=== PATIENT | male | born 1955 | race Caucasian/White ===

== ENCOUNTER 2017-10-14 11:32 | Outpatient (CLI) | payer OTHER | END 2017-10-14 11:33 | disposition home or self-care (01) | LOC: BICRAD 11:32 | PROVIDERS: ATTEND Family Medicine | DX: M25.512 Pain in left shoulder (principal); M21.922 Unspecified acquired deformity of left upper arm; S22.42XA Multiple fractures of ribs, left side, initial encounter for closed fracture; Z87.81 Personal history of (healed) traumatic fracture ==

== ENCOUNTER 2018-09-02 09:14 | Outpatient (CLI) | payer OTHER ==
--- NOTE | 2018-09-02 11:21 | ULT ---
ABDOMINAL AORTIC ULTRASOUND: HISTORY: Screening for abdominal aortic aneurysm. FINDINGS: No evidence for abdominal aortic aneurysm. The bifurcation region is unremarkable. The right and le ft iliac arteries show no evidence of an aneurysm. There are some atherosclerotic changes of the aor ta. IMPRESSION: Atherosclerotic changes of the aorta. No evidence for focal aneurysm. POS: [facility]
== END 2018-09-02 09:15 | disposition home or self-care (01) ==
LOC: ULT 09:14
PROVIDERS: ATTEND Family Medicine
DX: Z13.6 Encounter for screening for cardiovascular disorders (principal); I70.0 Atherosclerosis of aorta
CPT/HCPCS: 76706

== ENCOUNTER 2020-02-11 12:14 | Inpatient (IN) | payer OTHER ==
[2020-02-11] MEDS ORDERED: EPINEPHrine 1 MG/10 ML Abboject SYRINGE ONE (12:29)
[2020-02-11] MEDS ORDERED: Norepinephrine 8 MG/0.9% NS 250 ML ONE (12:32)
[2020-02-11 12:59] LABS: INR-International Normal Ratio 1.3; Prothrombin Time 16.2 sec (12.0-14.7)
[2020-02-11 13:00] LABS: PTT 32.7 sec (22.9-36.1)
[2020-02-11 13:14] LABS: ALT (SGPT) 17 U/L (8-55); AST (SGOT) 32 U/L (5-34); Albumin 2.6 g/dL (3.4-4.8); Alkaline Phosphatase 107 U/L (40-110); Anion Gap 23 mmol/L (10-20); BUN (Urea Nitrogen) 55 mg/dL (8.4-25.7); Bilirubin, Total 0.8 mg/dL (0.2-1.2); Calc. Creatinine Clearance 0 mL/min (70-130); Calcium 7.2 mg/dL (7.8-10.44); Carbon Dioxide 12 mmol/L (23-31); Chloride 96 mmol/L (98-107); Estimated GFR-MDRD 11; Globulin 2.8 g/dL (2.4-3.5); Glucose 104 mg/dL (80-115); Potassium 3.4 mmol/L (3.5-5.1); Protein, Total 5.4 g/dL (5.8-8.1); Sodium 128 mmol/L (136-145)
[2020-02-11 13:16] LABS: Band 50 % (5-11); Hemoglobin 12.7 g/dL (14.0-18.0); Large Platelets MODERATE; Lymphocytes 6 % (21-51); MDiff Complete? YES; Mean Corpuscular HGB CONC 35.6 g/dL (32.0-36.0); Mean Corpuscular Hemoglobin 31.9 pg (27.0-31.0); Mean Corpuscular Volume 89.6 fL (78.0-98.0); Mean Platelet Volume 12.6 fL (7.4-10.4); Monocytes 4 % (0-10); Neutrophil 39 % (42-75); Platelet Count 95 thou/uL (130-400); Platelet Morphology Comment Appears Decreased; Reactive Lymphocytes 1 % (0-10); Red Blood Cell (RBC) Count 3.97 mill/uL (4.70-6.10); Reflex for Review?? YES; White Blood Cell (WBC) Count 9.3 thou/uL (4.8-10.8)
[2020-02-11 13:39] LABS: CKMB 7.5 ng/mL (0-6.6)
[2020-02-11] MEDS ORDERED: Cefepime 2 GM VIAL ONE (13:44)
--- NOTE | 2020-02-11 14:02 | CT ---
CTA AORTOGRAM AND CT ANGIOGRAM OF CHEST, ABDOMEN AND PELVIS AND LOWER EXTREMITIES FOLLOWING CTA RUNOF F: 05/13/19 INDICATIONS: Chest pain. Lower extremity pain. Thoracic aorta shows atherosclerotic change. No evidence of dissection. No evidence of aneurysm in th e thoracic aorta. The abdominal aorta shows atherosclerotic change. No evidence of aneurysm or dissec tion. No significant stenosis at the origin of the celiac artery or superior mesenteric artery. No ev idence of significant right renal artery stenosis. There is atherosclerotic change at the origin of t he left renal artery and I cannot exclude significant stenosis at the origin of the left renal artery . Exam is overall limited due to poor contrast opacification of the aorta and peripheral arteries. Dens e calcification at the aortic bifurcation extending into both iliac arteries. There is occlusion of the right common iliac at the bifurcation. The left common iliac appears patent with evidence of significant stenosis. RIGHT LOWER EXTREMITY: There is occlusion of the right internal and external iliacs. There is a bifem graft in place with re constitution of the right femoral artery via this patent bifem graft. The right superficial femoral artery is patent with diffuse atherosclerotic change. There is signific ant stenosis in the distal thigh Ze's canal. The popliteal appears patent. Popliteal trifurcates below the knee. Diffuse calcifications seen in all three arteries below the kne e and lumen cannot be adequately assessed on these small arteries due to the dense calcification. The catheter angiogram will be necessary to assess the lumen in these peripheral arteries. LEFT LOWER EXTREMITY: Diffuse atherosclerotic change in the left internal and external iliacs. There is significant stenosi s at the left common femoral. There is occlusion of the left superficial femoral artery at its origin. Profunda appears patent with dense atherosclerotic calcification. The left popliteal reconstitutes at the joint space. Diffuse atherosclerotic calcification produces s ignificant stenosis in the left popliteal at the joint space. Popliteal trifurcates below the knee. Atherosclerotic calcification in all three vessels below the kn ee inhibit adequate assessment of luminal stenosis in these vessels. SOFT TISSUES: The lungs show no evidence of infiltrate or effusion. There are multiple rib deformities on the left with some old trauma. Liver, spleen and pancreas unremarkable. At least one calcified gallstone is identified. Kidneys unremarkable. Bowel loops unremarkable. Osseous structures show numerous compression deformit ies involving thoracic and lumbar vertebrae. Degenerative disc changes at multiple levels of the thor acic and lumbar spine with vacuum phenomenon at multiple levels. Bridging osteophytes at multiple lev els. IMPRESSION: 1. Atherosclerotic changes involving the thoracic and abdominal aorta as described above. 2. Evidence of significant stenosis at the origin of the left renal artery. 3. Occlusion of the right common iliac at the bifurcation with occlusion of the right common yury ac, internal iliac and external iliac. 4. Significant stenosis in the left common iliac artery. 5. Reconstitution of the right common femoral and superficial femoral via patent fem-fem graft. 6. Significant stenosis in the distal right superficial femoral artery and popliteal artery. Sig nificant stenosis in the distal right superficial femoral artery and popliteal artery. Lumen of vesse ls below the knee cannot be adequately assessed due to diffuse calcified plaque. 7. Occlusion of the left superficial femoral artery at its origin. 8. Reconstitution of left popliteal with significant stenosis at the joint space. Diffuse calcif ication in the vessels below the knee inhibit adequate luminal assessment. 9. Cholelithiasis incidentally noted. 10. Recommend cardiovascular consultation and consider catheter angiogram to more accurately ass ess luminal stenosis. POS: [facility]
--- NOTE | 2020-02-11 14:17 | RAD ---
EXAM: CHEST ONE VIEW HISTORY: Right leg pain. History of DVT. Weakness. Decreased blood pressure. COMPARISON: 02/02/2013 FINDINGS: A right internal jugular vein central venous catheter is noted in place with the tip overlying the ex pected location of the SVC. Cardiac silhouette is magnified by projection. The lungs are clear. Again noted are multiple left-sided rib deformities with what appear to be posttraumatic changes left proximal humerus and humeral head with left glenohumeral osteoarthropathy. These findings were seen on prior study in 2012. No other interval change. IMPRESSION: 1. No acute cardiopulmonary process. 2. Right-sided vascular catheter in place without pneumothorax or pleural effusion. Tip of the cathet er overlies expected location of the most proximal SVC. 3. Stable post traumatic changes left chest wall and left proximal humerus.
[2020-02-11 14:42] LABS: Bacteria/HPF 2+ HPF (None Seen); Bilirubin Negative (Negative); Blood, Urine 2+ (Negative); Clarity Extra Turbid (Clear); Glucose, Urine (Dipstick) 50 mg/dL (Negative); Ketone, Urine Negative (Negative); Leukocyte 25 Leu/uL (Negative); Nitrite Negative (Negative); Protein, Urine (Dipstick) 100 mg/dL (Neg-Trace); RBC/HPF 0-3 HPF (0-3); Squamous Epithelial 0-3 HPF (0-3); Transitional Epithelial 0-3 HPF (None Seen); Urobilinogen Normal mg/dL (Less than 2); WBC/HPF 21-50 HPF (0-3); pH, Urine 5.5 (5.0-9.0)
[2020-02-11] MEDS ORDERED: Vancomycin 1.5 GRAM/300 ML BAG 1.5 GM in Premix Bag 1 BAG IVPB SCH (15:00)
[2020-02-11] MEDS ORDERED: Iopamidol 370 76% 100 ML VIAL ONE (15:06)
[2020-02-11] MEDS ORDERED: Sodium Chloride 0.9% 500 ML IV SCH ×2 (15:15→21:15)
[2020-02-11] MEDS ORDERED: Potassium Chloride 20 MEQ in Premix Bag 1 BAG IVPB SCH (15:15)
[2020-02-11] MEDS ORDERED: Sodium Bicarbonate 150 MEQ in Dextrose 5% in Water 1,000 ML IV SCH (15:15)
[2020-02-11] MEDS ORDERED: Zolpidem Tartrate 5 MG TAB PO PRN (15:59)
[2020-02-11] MEDS ORDERED: Senokot S 8.6-50 MG TAB PO PRN (15:59)
[2020-02-11] MEDS ORDERED: Cepastat Lozenges 1 LOZ PO PRN (15:59)
[2020-02-11] MEDS ORDERED: Loperamide HCl 2 MG CAP PO PRN (15:59)
[2020-02-11] MEDS ORDERED: Acetaminophen 325 MG TAB PO PRN (15:59)
[2020-02-11] MEDS ORDERED: Bisacodyl 10 MG SUPP PR PRN (15:59)
[2020-02-11] MEDS ORDERED: Calcium Carbonate 500 MG ChewTAB PO PRN (15:59)
[2020-02-11] MEDS ORDERED: Ondansetron ODT 4 MG TAB PO PRN (15:59)
[2020-02-11] MEDS ORDERED: Loratadine 10 MG TAB PO PRN (15:59)
[2020-02-11] MEDS ORDERED: Sodium Chloride 0.65% Nasal 44 ML BOT EA NARE PRN (15:59)
[2020-02-11] MEDS ORDERED: Ondansetron PF 4 MG/2 ML Vial IVP PRN (15:59)
--- NOTE | 2020-02-11 16:41 | ULT ---
Venous duplex sonogram right lower extremity HISTORY: Right leg pain and edema. FINDINGS: The right common femoral vein and greater saphenous junction were evaluated along with the femoral, deep femoral, popliteal, and posterior tibial veins. There is good color and spectral Doppler flow, compression, and augmentation. IMPRESSION : Normal exam
--- NOTE | 2020-02-11 17:07 | HP ---
PRIMARY CARE PHYSICIAN: [facility]. REASON FOR ADMISSION: Acute kidney failure. HISTORY OF PRESENT ILLNESS: A 64-year-old male who has a history of atherosclerosis as well as peripheral vascular disease, hypertension, seizure disorder, history of prostate cancer, who came to emergency room with complaint of right lower extremity pain and weakness. At this point, the patient is uncomfortable from his right lower extremity leg pain. He is not able to provide focused history. The patient was brought to ER by paramedics. The patient's blood pressure was 72/46. The patient was given 2 L IV fluid and after that, the blood pressure improved to 110 range. The patient also had central line placed. The patient was also having difficulty urination and he was not able to void and he was complaining of groin pain. His urine was dark brown and turbid. In the emergency room, the patient had Castaneda catheter done, which drained cloudy urine. His urinalysis consistent with turbid urine with 2+ blood and rbc's only 0 to 3 with bacteria 2+. The patient already had blood culture and urine culture done and the patient received empiric antibiotic therapy. The patient was experiencing weakness in his right lower extremity for last few days and he was also having pain in his lower extremity. He does not have any loss of consciousness or chest pain. He does not have any cough or any other respiratory symptoms. In the emergency room, routine laboratory parameters showed thrombocytopenia and bandemia. Biochemistry showed hyponatremia, hypokalemia, metabolic acidosis, acute kidney failure, and lactic acidosis. Initially emergency room dissection was suspected and that is why aorta CT angiography was done, which showed atherosclerosis of the thoracic and abdominal aorta and significant stenosis of the left renal artery and occlusion of the right common iliac at the bifurcation with occlusion of right common iliac, internal iliac, and external iliac. Notably, this patient has previous history of right common femoral and superficial femoral femoral graft. The patient also has a history of left carotid endarterectomy. The patient also has stenosis of the superficial femoral artery and popliteal artery. In the emergency room on examination, dorsalis pedis pulse was not palpable and there was also occlusion of left superficial femoral artery at its origin. PAST MEDICAL HISTORY: Seizure disorder, hypertension, prostate cancer treated with surgery and radiation, history of alcoholism, history of tobacco abuse, peripheral vascular disease, carotid stenosis, and carotid endarterectomy. PAST SURGICAL HISTORY: Radical prostatectomy, lymph node dissection, incisional hernia repair with mesh, ORIF for left hip fracture, bilateral femoral endarterectomy with right femoral profundoplasty, bilateral vein angioplasty, femoral-femoral bypass with extensive debridement of necrotic wound in his right leg. PAST PSYCHIATRIC HISTORY: Reviewed and negative. MEDICATIONS: The patient did not bring any medication with him at this point, so unable to review his home medications. ALLERGIES: NO KNOWN DRUG ALLERGIES. FAMILY HISTORY: Nothing significant. REVIEW OF SYSTEMS: All review of systems reviewed with him and negative except as mentioned in HPI. EMERGENCY ROOM COURSE: The patient has received 2 L of IV fluid. A central line placed. The patient was given epinephrinex 3, cefepime 2 g, and vancomycin 1.5 g. PHYSICAL EXAMINATION: VITAL SIGNS: Blood pressure lowest 63/33, improved to 110/73; pulse 85; respiratory rate 23; saturation 99% on room air. Weight 90.2 kg. GENERAL: The patient is currently alert, awake, sick. No obvious acute distress. HEENT: Head; normocephalic, atraumatic. NECK: Supple. No JVD. No meningeal signs of irritation. LUNGS: Grossly clear to auscultation without any rhonchi or rales. CARDIAC: S1 and S2. Regular. No murmur. No gallop. No rub. ABDOMEN: Soft, bowel sounds present, nontender, nondistended. No organomegaly. No mass. SKIN: The patient has maculopapular rash on his right lower extremity. HEMATOLOGICAL SYSTEM: No lymphadenopathy. NEUROLOGIC: The patient is alert and awake. Cranial nerve intact. Motor, the patient does have weakness on right lower extremity, left lower extremity within normal limit. Both upper extremity within normal limits. Sensation normal. PSYCHIATRIC: Normal affect. MUSCULOSKELETAL: The patient has right lower extremity pain and weakness. Pulse sensation feeble and absent on the right side. SIGNIFICANT LABORATORY DATA: CT angiography showing atherosclerosis of thoracic and abdominal aorta. Significant stenosis of left renal artery. Occlusion of right common iliac artery at the bifurcation with occlusion of right common iliac, internal iliac and external iliac. Stenosis in left common iliac artery. Patent femoral-femoral graft. Stenosis in distal right superficial femoral artery and popliteal artery. Occlusion of left superficial femoral artery, cholelithiasis. Chest x-ray showing no acute cardiopulmonary process. No pneumothorax. LABORATORY STUDIES: CBC: WBC 9.3, hemoglobin 12.7, platelet 95, bandemia 50%. INR 1.3. BMP: Sodium 128, potassium 3.4, chloride 96, carbon dioxide 12, BUN 55, creatinine 5.19, glucose 104, calcium 7.2. Lactic acid 2.3. LFT: AST 32, ALT is 17, alkaline phosphatase 107, albumin 2.6. CK-MB 7.5, troponin 0.044. Urinalysis turbid; blood 2+, rbc's 0 to 3. EKG consistent with sinus tachycardia. ASSESSMENT AND PLAN: 1. Acute hypotension, suspecting from sepsis, recovered after IV fluids. The patient has bandemia and thrombocytopenia and this could be a part of sepsis. He has lactic acidosis and associated acute kidney failure. I am not certain whether this could be related with spinal shock from poor circulation on the spinal cord, but less likely. At this point, the patient blood pressure improved and he does not need any vasopressors, so we will admit him in IMCU and closely monitor his hemodynamics. The patient will continue to get IV fluid. 2. Sepsis with acute organ dysfunction, suspecting sepsis from UTI, the patient has bacteria in his urine. His chest x-ray is normal. He has bandemia and lactic acidosis and thrombocytopenia and hypotension, all can explain sepsis with acute organ dysfunction. It can be considered just septic shock but recovered with IV fluids. We will closely monitor in IMCU. The patient has been started on a broad-spectrum antibiotic coverage with cefepime and vancomycin. Pharmacy adjusted dose and renally adjusted dose. We will follow up on culture results. We will repeat labs tomorrow and close monitoring. If blood pressure drops, then we will consider vasopressor support and we will upgrade to ICU. 3. Acute kidney failure, most likely prerenal and sepsis related, hypotension-induced acute kidney failure is also possible. The patient also has vascular stenosis on the left side that may explain kidney failure but vascular etiology less likely contributing to this acute kidney failure. Nephrology has been consulted. I spoke with them. We will check urinalysis, urine sodium, urine creatinine, urine protein, and total CK to rule out rhabdomyolysis. The patient has associated abnormal electrolytes and metabolic acidosis that will be addressed with IV fluid. We will replace potassium and start bicarbonate drip. We will monitor renal function. We are expecting his renal function may get worse because of contrast given with CT angiography. We will closely monitor renal function. 4. Abnormal electrolytes, hyponatremia, hypokalemia, and hypochloremia, probably related with prerenal etiology. The patient has received 2 L of IV fluid and I will give him another 500 mL bolus and will start potassium supplementation. We will repeat labs. 5. Metabolic acidosis. The patient has lactic acidosis. Metabolic acidosis most likely from renal failure. Bicarbonate drip has been started. 6. Elevated troponin. We will check total CK to rule out rhabdomyolysis, but this could be from demand ischemia but rhabdomyolysis is also possible. We will do serial cardiac enzymes x3. 7. Hypoalbuminemia, likely related with acute illness. We will repeat CMP tomorrow. 8. Urinary tract infection. The patient's urinalysis may be supportive of rhabdomyolysis given blood 2+, rbc's only 0 to 3, the patient also has elevated WBC count and bacteria 2+. We will send urine culture and continue with empiric antibiotic therapy. 9. Thrombocytopenia. This is likely related with sepsis versus acute process. It could be related with his previous alcoholism, but this can be monitored and we will avoid heparin products for now. 10. Peripheral vascular disease. The patient has required carotid endarterectomy and femoral bypass grafting, which appears to be patent. We will consult Vascular Surgery for evaluation. We will continue the aspirin 81 mg p.o. daily. 11. Seizure disorder. We will continue Dilantin. 12. History of deep venous thrombosis on the lower extremity. We will also obtain ultrasound of right lower extremity to rule out deep venous thrombosis. 13. Deep venous thrombosis prophylaxis with SCD. 14. Gastrointestinal prophylaxis with Protonix 40 mg IV daily. 15. Code status: The patient is full code. DISPOSITION PLAN: Based on clinical course. PROGNOSIS: Guarded. Job ID: [id number] [facility]
[2020-02-11 17:35] LABS: Lactic Acid 2.8 mmol/L (0.5-2.2)
[2020-02-11] MEDS ORDERED: Norepinephrine 8 MG/0.9% NS 250 ML IVPB SCH (19:00)
--- NOTE | 2020-02-11 21:06 | PDOC.EVN ---
Event Note - Event Note Event Note: Nurse called, BP 60s/40s, stable HR, RR, sp02. No hx CHF. Will give 500ml bolus, check response to IVF. Will start levophed if patient unresponsive to IVfs. Discussed with Dr. Eli Aviles.
[2020-02-11] MEDS ORDERED: Sodium Chloride 0.9% 500 ML IV PRN (21:45)
[2020-02-11 23:06] VITALS: BMI 29.2
--- NOTE | 2020-02-11 23:43 | CON ---
DATE OF CONSULTATION: HISTORY OF PRESENT ILLNESS: This is a 64-year-old gentleman who presented to the emergency room. It is not clear to me why he actually came in except that his family thought he was progressing in the wrong direction and unable to get up and move around. The patient states about 2 days ago, he began having some discomfort in his left groin and suprapubic area, but once again, nothing very specific. When asked how long his right leg had been weak, he was unsure. He presented to the emergency room, was hypotensive with a white count of 9300, which in and of itself is not that impressive, although his normal white count is closer to 4000 to 5000. He also had 50 bands. His creatinine, which had previously been normal, was 5 and that was prior to obtaining a CT angiogram. PAST MEDICAL HISTORY: Significant that in the past he was an alcoholic and in 2012, when drunk, fell and broke his right hip. He underwent hip surgery and subsequent to that developed rather significant sores on his thigh and lower extremity. At that time, he was noted to have a right common iliac artery stenosis. Due to his poor condition at that time, it was not felt that an aortobifemoral was appropriate, although would have been a best option given better circumstances. He underwent a femoral-femoral bypass at that time with bilateral femoral endarterectomies. His wounds surprisingly healed up, he stopped drinking and smoking and did well for several years. In 2014, he underwent a left carotid endarterectomy for critical carotid disease. He has been followed since that time, although has not been seen in about 2 years, having not shown up for his previous appointment 1 year ago. He has known peripheral vascular disease subsequently with no palpable pulses in his feet, although he did have Doppler signals in his peroneal arteries. He had superficial femoral artery and tibial disease bilaterally and this was known. PAST MEDICAL HISTORY: Includes hypertension, recurrent hyponatremia, and ventricular ectopy, followed by Dr. Pena intermittently. PAST SURGICAL HISTORY: Includes radical prostatectomy with bilateral pelvic lymph node dissections and then subsequent incisional hernia repair with mesh. He had the hip fracture, bilateral femoral endarterectomy, and fem-fem bypass in 2013 and left CEA in 2014. SOCIAL HISTORY: He continues to vape at this time. MEDICATIONS: When last seen included; 1. Lisinopril. 2. Metoprolol. 3. VESIcare. 4. Simvastatin. 5. Aspirin. I am uncertain as to his medications at this time. PHYSICAL EXAMINATION: GENERAL: On examination, he is alert, cooperative gentleman, overweight, no distress and can answer questions appropriately, although he is uncertain as to his home medications. NECK EXAMINATION: Healed scar and no carotid bruits. CARDIAC: Regular rate and rhythm with no murmurs. LUNGS: Clear to auscultation. ABDOMEN: Obese, nontender. EXTREMITIES: He has palpable femoral pulses bilaterally with a left bruit. He has a reasonably good Doppler signal in his right peroneal artery and is monophasic at best in his left peroneal with no DP or PT signals. His right foot is warmer than his left and his left foot is paler as well. He is unable to lift his right leg up off the bed, but is able to lift his left leg without difficulty. Additional past medical history of seizure disorder since childhood and neuropathy in his feet, for which he has been on Lyrica in the past. ASSESSMENT AND PLAN: At this time, the patient obviously appears to have had an episode of sepsis with acute renal failure. He does have baseline peripheral vascular disease, but I do not think it has progressed significantly and seems to be worse on the left leg than the right leg. Depending on his recovery process, he probably will need some sort of intervention and possibly a profunda endarterectomy on the left and possibly stenting of his left iliac intraoperatively, but these are issues that would be addressed later. Based on his CT scan, I do not think his femoral-femoral graft is infected and certainly would be unusual to develop sepsis at this stage and more likely an infection of his fem-fem graft at this late stage would be a more indolent process. We will follow along with you. Job ID: [id number]
[2020-02-12 01:43] LABS: Bacteria/HPF None Seen HPF (None Seen); Bilirubin Negative (Negative); Blood, Urine 3+ (Negative); Clarity Clear (Clear); Glucose, Urine (Dipstick) Normal (Negative); Ketone, Urine Negative (Negative); Leukocyte Negative Leu/uL (Negative); Nitrite Negative (Negative); Protein, Urine (Dipstick) 50 mg/dL (Neg-Trace); Specific Gravity, Urine 1.022 (1.002-1.036); Squamous Epithelial 0-3 HPF (0-3); Urobilinogen Normal mg/dL (Less than 2); WBC/HPF 21-50 HPF (0-3); pH, Urine 5.5 (5.0-9.0)
[2020-02-12 01:57] LABS: Creatinine, Urine 66.59 mg/dL (63-166)
[2020-02-12] MEDS ORDERED: Norepinephrine 8 MG/0.9% NS 250 ML ONE (01:57)
[2020-02-12] MEDS ORDERED: Norepinephrine 8 MG/0.9% NS 250 ML IVPB SCH (03:15)
[2020-02-12 04:51] LABS: Albumin 2.3 g/dL (3.4-4.8); Anion Gap 20 mmol/L (10-20); BUN (Urea Nitrogen) 56 mg/dL (8.4-25.7); BUN/Creatinine Ratio 13.05; Calc. Creatinine Clearance 22 mL/min (70-130); Calcium 6.3 mg/dL (7.8-10.44); Carbon Dioxide 12 mmol/L (23-31); Chloride 102 mmol/L (98-107); Cholesterol 86 mg/dl (< 200 Desired); Estimated GFR-MDRD 14; Glucose 89 mg/dL (80-115); HDL Cholesterol Less than 8 mg/dL (>60 Neg Risk); Phosphorus 3.3 mg/dL (2.3-4.7); Sodium 131 mmol/L (136-145); Triglycerides 212 mg/dL (Less than 150)
[2020-02-12 05:14] LABS: Band 35 % (5-11); Hemoglobin 11.5 g/dL (14.0-18.0); Lymphocytes 11 % (21-51); MDiff Complete? YES; Mean Corpuscular HGB CONC 34.3 g/dL (32.0-36.0); Mean Corpuscular Hemoglobin 31.2 pg (27.0-31.0); Mean Platelet Volume 11.4 fL (7.4-10.4); Metamyelocyte 3 % (0-0); Monocytes 10 % (0-10); Myelocyte 2 % (0-0); Neutrophil 39 % (42-75); Platelet Count 110 thou/uL (130-400); Platelet Morphology Comment Appears Decreased; RBC Distribution Width 13.4 % (11.5-14.5); Red Blood Cell (RBC) Count 3.69 mill/uL (4.70-6.10); White Blood Cell (WBC) Count 7.3 thou/uL (4.8-10.8)
--- NOTE | 2020-02-12 08:15 | ULT ---
CLINICAL HISTORY: Acute kidney injury and left renal artery stenosis. STUDY: Renal ultrasound and renal artery ultrasound COMPARISON: CTA abdomen 02/11/2020 TECHNIQUE: Multiplanar grayscale and color Doppler images were obtained in a renal ultrasound. Spectr al analysis of the Doppler waveforms of the aorta and renal arteries were performed. FINDINGS: Right kidney: Echogenicity: Normal. Masses/cysts: None. Hydronephrosis: None. Calcifications: None. Length: 9.7 cm Left kidney: Echogenicity: Normal. Masses/cysts: None. Hydronephrosis: None. Calcifications: None. Length: 11.1 cm Limited visualization of the urinary bladder is unremarkable. Peak systolic velocity in the aorta: 113 cm/s Peak systolic velocity in the right renal artery: 95 cm/s. Right renal artery to aortic ratio: 0.9 Peak systolic velocity in the left renal artery: 140 cm/s. Left renal artery to aortic ratio: 1.2 IMPRESSION: 1. Unremarkable renal ultrasound 2. No evidence of clinically significant renal artery stenosis
--- NOTE | 2020-02-12 08:30 | CON ---
DATE OF CONSULTATION: CONSULTING PHYSICIAN: Aydee Bob MD REQUESTING PHYSICIAN: Dr. Leo. REASON FOR CONSULTATION: Acute on chronic kidney disease. IMPRESSION: 1. Acute on chronic kidney disease. This is likely hemodynamically mediated in the context of hypotension as well as cytokine mediated in the context of infection. 2. Metabolic acidosis. 3. Hypokalemia with hyponatremia. PLAN: 1. We will start this patient on bicarb based infusion. However, we will replete the potassium, as correction of the metabolic acidosis of this patient will exacerbate the hypokalemic state of this patient due to cellular shift of potassium. 2. We will evaluate the hyponatremia to rule out potential SIADH. 3. Renally dose all medications. 4. Check the other electrolytes including the phosphorus with renal function panel. 5. Parathyroid hormone evaluation. 6. If no significant improvement in the renal function, we will secure renal ultrasound to look at echogenicity and general condition of the kidney. 7. Further management to be dependent on the clinical course. At this point, no emergent indication for renal replacement therapy. HISTORY OF PRESENT ILLNESS: History is that of 64-year-old gentleman with significant peripheral vascular disease, seizure disorder, was brought into the hospital hypotensive with systolic blood pressure in the 70s, responded well to IV fluid bolus. The patient at this time of dictation has a systolic blood pressure in the 80s. The patient claimed not to be making much of any urine and catheterization revealed a turbid urine with evidence of bacterial load and white blood cells. The patient on clinical evaluation was noted with a creatinine above 5, metabolically acidotic with a bicarb of 12. As a result of these findings, decision has been taken to involve Renal in the management of this case. The patient denies any new medications. PAST MEDICAL HISTORY: Significant for seizure disorder, hypertension, prostate cancer, status post surgery and radiation, alcoholism, tobacco abuse in the past, peripheral vascular disease, aortic stenosis, and status post carotid endarterectomy. MEDICATIONS: Reviewed as documented on [employer]. ALLERGIES: NO KNOWN DRUG ALLERGIES. FAMILY HISTORY: No family history of kidney disease. SOCIAL HISTORY: Significant for patient using vapor at this point. REVIEW OF SYSTEMS: As documented in the body of the history. All other systems were reviewed and found not to be significantly related to the present illness. PHYSICAL EXAMINATION: On examination, the patient noted to be ill-looking with systolic blood pressure in the 80s. HEENT EXAMINATION: Unremarkable. CARDIOVASCULAR SYSTEM: First and second heart sounds were heard. RESPIRATORY SYSTEM: Clear to auscultation. DIGESTIVE SYSTEM: Revealed a benign abdomen with positive bowel sounds. EXTREMITIES: Showed a suspicious area in the right lower extremity of cellulitis. LYMPHATICS: No peripheral lymphadenopathy. LABORATORY INVESTIGATION: Showed a sodium of 128, potassium 3.8, bicarb of 12, creatinine 5.19, anion gap of 23, BUN of 55. CBC is pretty much unremarkable. Urine significant for 2+ bacteria, presence of blood, protein. In summary, a 64-year-old gentleman who presented here hypotensive, somewhat septic with elevated creatinine above 5, as well as severely metabolically acidotic. Thank you for this consultation. We will follow with you. Job ID: [id number]
[2020-02-12] MEDS ORDERED: Potassium Chloride 40 MEQ in Premix Bag 1 BAG IVPB SCH (08:45)
[2020-02-12] MEDS: Famotidine 20 MG TAB PO SCH (08:53)
[2020-02-12] MEDS: Heparin 5,000 UNITS/ML VIAL SC SCH ×2 (08:53→20:11)
[2020-02-12] MEDS ORDERED: FLU VACC QS2020-21(6MOS UP)/PF 60 MCG/0.5 ML SYRINGE IM ONE (09:00)
[2020-02-12] MEDS ORDERED: Cefepime 1 GM in Sodium Chloride 0.9% 100 ML IVPB SCH (09:00)
--- NOTE | 2020-02-12 09:39 | PRG ---
DATE OF SERVICE: 02/12/2020 The patient has remained afebrile. He is still requiring pressor support in the form of norepinephrine, although it has decreased to about 5 mcg compared to higher doses in the emergency room yesterday. Urine output has improved significantly from yesterday and his creatinine has trended in the right direction down to 4.29. His only complaint is a dry mouth today. On examination of his legs, he continues to have femoral pulses bilaterally and both feet have good capillary refill. Initial microbiology report is negative at 24 hours; however, his urinalysis was abnormal on admission and he appears to have a picture of sepsis with no other obvious source at this time. In regard to his vascular status, he probably does need surgical intervention at some point in the future to ensure maintenance of blood flow down his left common iliac artery and probably needs left profunda endarterectomies at least to complement his previous common femoral endarterectomy to maintain perfusion to the left leg, which appears to have decreased perfusion compared to when examined 2 years ago. Job ID: [id number]
[2020-02-12 11:01] LABS: SARS-CoV-2 MS2 Positive; SARS-CoV-2 N Gene Negative; SARS-CoV-2 S Gene Negative; SARS-CoV-2 by NAA Not Detected (NotDetected); SARS-CoV-2 orf1ab Negative
[2020-02-12] MEDS ORDERED: VANCOMYCIN IVPB PRN (11:11)
[2020-02-12] MEDS: HYDROcodone/Acetaminophen 5/325 mg Tablet PO PRN (11:40)
[2020-02-12] MEDS ORDERED: Albumin 25% 25 GM/100 ML BOT IVPB SCH (12:12)
[2020-02-12] MEDS ORDERED: Lactated Ringer's 1,000 ML IV SCH (12:15)
--- NOTE | 2020-02-12 12:15 | PDOC.NEPPN ---
- Subjective Encounter Date: 02/12/20 Encounter Time: 12:13 Subjective: seen in follow up for ARSALAN associated with acidosis in the context of bladder outlet obstruction, UTI and sepstic shock. Still having right leg pain. No nausea or vomiting. making great urine. - Objective Vital Signs & Weight: Vital Signs (12 hours) Temp Pulse Ox 02/12/20 11:00 98.7 F 02/12/20 07:25 98 02/12/20 07:00 98.8 F 02/12/20 04:00 98.9 F 02/12/20 02:00 98 Weight Weight 198 lb 4.8 oz Most Recent Monitor Data Heart Rate from ECG 98 NIBP 88/57 NIBP BP-Mean 67 Respiration from ECG 21 SpO2 99 I&O: 02/11/20 02/12/20 02/13/20 06:59 06:59 06:59 Intake Total 2392.4 650 Output Total 965 785 Balance 1427.4 -135 Result Diagrams: 02/12/20 03:41 02/12/20 03:41 Nephrology ROS - Medication Medications: Active Medications Generic Name Dose Route Start Last Admin Trade Name Freq PRN Reason Stop Dose Admin Hydrocodone Bitart/Acetaminophen 1 tab 02/11/20 15:59 02/12/20 11:40 Hydrocodone/Acetaminophen 5/325 Mg Tablet PO 1 tab Q4H PRN Administration Moderate Pain (4-6) Famotidine 20 mg 02/12/20 09:00 02/12/20 08:53 Famotidine 20 Mg Tab PO 20 mg DAILY NANCY Administration Heparin Sodium (Porcine) 5,000 units 02/12/20 09:00 02/12/20 08:53 Heparin 5,000 Units/Ml Vial SC 5,000 units BID NANCY Administration Cefepime HCl 1 gm/ Sodium 100 mls @ 200 mls/hr 02/12/20 09:00 02/12/20 08:53 Chloride IVPB 100 mls DAILY NANCY Administration Potassium Chloride 40 meq/ 1,170 mls @ 125 mls/hr 02/11/20 21:45 02/12/20 08:01 Sodium Bicarbonate 150 meq/ IV 1,170 mls Dextrose/Water .Q9H22M NANCY Administration Sodium Chloride 500 mls @ 999 mls/hr 02/11/20 21:45 02/11/20 22:36 Normal Saline 0.9% IV 500 mls .Q31M PRN Administration DIRECTED Potassium Chloride 40 meq/ 100 mls @ 25 mls/hr 02/12/20 08:45 02/12/20 08:54 Device IVPB 02/12/20 14:00 100 mls NOW NANCY Administration Sodium Chloride 10 ml 02/12/20 09:00 02/12/20 09:20 Flush - Normal Saline 10 Ml Syringe IVF 10 ml Q12HR NANCY Administration - Exam General Appearance: awake alert Eye: anicteric sclera ENT: normocephalic atraumatic, moist mucosa Neck: supple, symmetric, no JVD Respiratory: no wheezes, no rales, no ronchi Respiratory - other findings: fair air entry bilaterally with no distress. Cardiovascular: RRR Gastrointestinal: soft, non-tender, non-distended, normal bowel sounds Gastrointestinal - other findings: Castaneda catheter in place and draining urine Extremities - other findings: fullness of right leg noted Neurological: CN's grossly intact Nephrology Results - Labs Result Diagrams: 02/12/20 03:41 02/12/20 03:41 Lab results: WBC 7.3 thou/uL (4.8-10.8) 02/12/20 03:41 Hgb 11.5 g/dL (14.0-18.0) L 02/12/20 03:41 Hct 33.6 % (42.0-52.0) L 02/12/20 03:41 MCV 91.0 fL (78.0-98.0) 02/12/20 03:41 Plt Count 110 thou/uL (130-400) L 02/12/20 03:41 Band Neuts % (Manual) 35 % (5-11) H 02/12/20 03:41 Sodium 131 mmol/L (136-145) L 02/12/20 03:41 Potassium 3.0 mmol/L (3.5-5.1) L 02/12/20 03:41 Chloride 102 mmol/L (98-107) 02/12/20 03:41 Carbon Dioxide 12 mmol/L (23-31) L 02/12/20 03:41 BUN 56 mg/dL (8.4-25.7) H 02/12/20 03:41 Creatinine 4.29 mg/dL (0.7-1.3) H 02/12/20 03:41 Glucose 89 mg/dL (80-115) 02/12/20 03:41 Lactic Acid 2.8 mmol/L (0.5-2.2) H 02/11/20 16:57 Calcium 6.3 mg/dL (7.8-10.44) L 02/12/20 03:41 Total Bilirubin 0.8 mg/dL (0.2-1.2) 02/11/20 12:40 AST 32 U/L (5-34) 02/11/20 12:40 ALT 17 U/L (8-55) 02/11/20 12:40 Alkaline Phosphatase 107 U/L (40-110) 02/11/20 12:40 Creatine Kinase 320 U/L (30-200) H 02/11/20 12:40 CK-MB (CK-2) 7.5 ng/mL (0-6.6) H* 02/11/20 12:40 Troponin I 0.044 ng/mL (< 0.028) H 02/11/20 12:40 Serum Total Protein 5.4 g/dL (5.8-8.1) L 02/11/20 12:40 Albumin 2.3 g/dL (3.4-4.8) L 02/12/20 03:41 Urine Ketones Negative mg/dL (Negative) 02/12/20 01:14 Urine Blood 3+ (Negative) A 02/12/20 01:14 Urine Nitrite Negative (Negative) 02/12/20 01:14 Ur Leukocyte Esterase Negative Ubaldo/uL (Negative) 02/12/20 01:14 Urine RBC 4-6 HPF (0-3) A 02/12/20 01:14 Urine WBC 21-50 HPF (0-3) A 02/12/20 01:14 Ur Squamous Epith Cells 0-3 HPF (0-3) 02/12/20 01:14 Urine Bacteria None Seen HPF (None Seen) 02/12/20 01:14 Sodium 131 mmol/L (136-145) L 02/12/20 03:41 Potassium 3.0 mmol/L (3.5-5.1) L 02/12/20 03:41 Chloride 102 mmol/L (98-107) 02/12/20 03:41 Carbon Dioxide 12 mmol/L (23-31) L 02/12/20 03:41 Anion Gap 20 mmol/L (10-20) 02/12/20 03:41 BUN 56 mg/dL (8.4-25.7) H 02/12/20 03:41 Creatinine 4.29 mg/dL (0.7-1.3) H 02/12/20 03:41 Glucose 89 mg/dL (80-115) 02/12/20 03:41 Calcium 6.3 mg/dL (7.8-10.44) L 02/12/20 03:41 Phosphorus 3.3 mg/dL (2.3-4.7) 02/12/20 03:41 Albumin 2.3 g/dL (3.4-4.8) L 02/12/20 03:41 Nephrology AP PN - Plan ARSALAN: Due hemodynamic factors related septic shock/voume depletion with possible contribution from obstructive uropathy. Metabolic acidosis: persistent Hypokalemia Obstructive uropathy with possible post obstructive diuresis Sespstic shock. BP still low despite Pressors. Complicated UTI on treatment Plan Give LR bolus 1 liter as well 50 grams of albumin Continue sodium bicarbonate infusion. Replete serum potassium Get magnesium level with repeat BMP. Continue other treatments. Monitor I/O
--- NOTE | 2020-02-12 13:31 | PDOC.HOSPP ---
- Subjective Encounter Date: 02/12/20 Encounter Time: 09:45 Subjective: Patient seen and examined. No new complaints. No overnight events - Objective Vital Signs & Weight: Vital Signs (12 hours) Temp Pulse Ox 02/12/20 11:00 98.7 F 02/12/20 07:25 98 02/12/20 07:00 98.8 F 02/12/20 04:00 98.9 F 02/12/20 02:00 98 Weight Weight 198 lb 4.8 oz Most Recent Monitor Data Heart Rate from ECG 103 NIBP 90/55 NIBP BP-Mean 66 Respiration from ECG 16 SpO2 99 I&O: 02/11/20 02/12/20 02/13/20 06:59 06:59 06:59 Intake Total 2392.4 1950 Output Total 965 1015 Balance 1427.4 935 Result Diagrams: 02/12/20 03:41 02/12/20 03:41 Hospitalist ROS - Review of Systems Constitutional: reports: weakness, malaise. denies: fever, chills, sweats, other Respiratory: denies: cough, dry, shortness of breath, hemoptysis, SOB with excertion, pleuritic pain, sputum, wheezing, other Cardiovascular: denies: chest pain, palpitations, orthopnea, paroxysmal noc. dyspnea, edema, light headedness, other Gastrointestinal: denies: nausea, vomiting, abdominal pain, diarrhea, constipation, melena, hematochezia, other Genitourinary: denies: dysuria, frequency, incontinence, hematuria, retention, other Musculoskeletal: denies: neck pain, shoulder pain, arm pain, back pain, hand pain, leg pain, foot pain, other Neurological: reports: weakness - Medication Medications: Active Medications Generic Name Dose Route Start Last Admin Trade Name Freq PRN Reason Stop Dose Admin Hydrocodone Bitart/Acetaminophen 1 tab 02/11/20 15:59 02/12/20 11:40 Hydrocodone/Acetaminophen 5/325 Mg Tablet PO 1 tab Q4H PRN Administration Moderate Pain (4-6) Albumin Human 50 gm 02/12/20 12:12 02/12/20 12:53 Albumin 25% 25 Gm/100 Ml Bot IVPB 02/12/20 14:15 50 gm NOW NANCY Administration Famotidine 20 mg 02/12/20 09:00 02/12/20 08:53 Famotidine 20 Mg Tab PO 20 mg DAILY NANCY Administration Heparin Sodium (Porcine) 5,000 units 02/12/20 09:00 02/12/20 08:53 Heparin 5,000 Units/Ml Vial SC 5,000 units BID NANCY Administration Cefepime HCl 1 gm/ Sodium 100 mls @ 200 mls/hr 02/12/20 09:00 02/12/20 08:53 Chloride IVPB 100 mls DAILY NANCY Administration Potassium Chloride 40 meq/ 1,170 mls @ 125 mls/hr 02/11/20 21:45 02/12/20 08:01 Sodium Bicarbonate 150 meq/ IV 1,170 mls Dextrose/Water .Q9H22M NANCY Administration Sodium Chloride 500 mls @ 999 mls/hr 02/11/20 21:45 02/11/20 22:36 Normal Saline 0.9% IV 500 mls .Q31M PRN Administration DIRECTED Potassium Chloride 40 meq/ 100 mls @ 25 mls/hr 02/12/20 08:45 02/12/20 08:54 Device IVPB 02/12/20 14:00 100 mls NOW NANCY Administration Sodium Chloride 10 ml 02/12/20 09:00 02/12/20 09:20 Flush - Normal Saline 10 Ml Syringe IVF 10 ml Q12HR NANCY Administration - Exam General Appearance: NAD, awake alert Eye: PERRL, anicteric sclera ENT: normocephalic atraumatic, no oropharyngeal lesions Neck: supple, symmetric, no JVD Heart: RRR, no murmur, no gallops, no rubs Respiratory: no wheezes, no rales, no ronchi Gastrointestinal: soft, non-tender, non-distended, normal bowel sounds Extremities: no cyanosis, no clubbing Skin: normal turgor, no lesions Musculoskeletal: normal tone, normal strength Psychiatric: normal affect, normal behavior Hosp A/P (1) Septic shock due to Staphylococcus aureus Code(s): A41.01 - SEPSIS DUE TO METHICILLIN SUSCEPTIBLE STAPHYLOCOCCUS AUREUS; R65.21 - SEVERE SEPSIS WITH SEPTIC SHOCK Status: Acute (2) Acute kidney failure Status: Acute (3) Metabolic acidosis Code(s): E87.2 - ACIDOSIS Status: Acute (4) Abnormal blood electrolyte level Code(s): E87.8 - OTH DISORDERS OF ELECTROLYTE AND FLUID BALANCE, NEC Status: Acute (5) Thrombocytopenia Code(s): D69.6 - THROMBOCYTOPENIA, UNSPECIFIED Status: Acute (6) Type 2 myocardial infarction Code(s): I21.A1 - MYOCARDIAL INFARCTION TYPE 2 Status: Acute (7) Weakness of right lower extremity Code(s): R29.898 - [facility] SYMPTOMS AND SIGNS INVOLVING THE MUSCULOSKELETAL SYSTEM Status: Acute (8) PVD (peripheral vascular disease) Code(s): I73.9 - PERIPHERAL VASCULAR DISEASE, UNSPECIFIED Status: Chronic - Plan old records reviewed/req, gastelum catheter, continue antibiotics continue levophed continue iv cefepime and vanco consult ID weakness in his right leg still not explained?? will get MRI lumbar spine when hemodynamically stable
[2020-02-12 16:30] LABS: Anion Gap 17 mmol/L (10-20); BUN (Urea Nitrogen) 48 mg/dL (8.4-25.7); Calc. Creatinine Clearance 32 mL/min (70-130); Calcium 6.2 mg/dL (7.8-10.44); Carbon Dioxide 19 mmol/L (23-31); Chloride 102 mmol/L (98-107); Estimated GFR-MDRD 21; Glucose 104 mg/dL (80-115); Magnesium 1.3 mg/dL (1.6-2.6); Potassium 3.5 mmol/L (3.5-5.1); Sodium 134 mmol/L (136-145)
[2020-02-12] MEDS: Oxacillin 2 GM in Sodium Chloride 0.9% 50 ML IVPB SCH ×2 (16:40→22:32)
--- NOTE | 2020-02-12 21:59 | CON ---
DATE OF CONSULTATION: 02/12/2020 REASON FOR CONSULTATION: Bacteremia. HISTORY OF PRESENT ILLNESS: A 64-year-old who has a history of seizure disorder; prostate cancer, in remission after prostatectomy; peripheral vascular disease with prior fem-fem bypass by Dr. Hardy with a Cocolalla-Kvng graft, who developed progressively worsening pain, initially describes in the suprapubic area, right and left side and then it migrated to the right leg, also somewhat in the left side, but mostly in the right leg. He has a hard time in specifying the right leg site with the most pain. In the physical exam, it appears that the right knee seems to be the epicenter of the symptom. Eventually, it became so intense and he has felt so poorly that he decided to come to the hospital through the emergency room. On arrival, his pulse was 93 and blood pressure 89/51, O2 saturations were 94% on room air and temperature 98.4. Exam showed no evidence of pulses in the right lower extremity and faint pulses on the left side. Initial findings included white cell count 9.3, hemoglobin 12.7 with 50% bands, and INR 1.3. Sodium 128, creatinine 5.19, which is markedly higher than his baseline of 1.07. His liver profile was normal, albumin 2.6 and lactic acid was 2.3. Urinalysis had 21 to 50 wbc's. SARS-CoV PCR was not detected. The patient had an aorta with runoff CTA and it showed stenosis at the origin of the left renal artery with occlusion of the right common iliac, internal and external iliac, and stenosis of the left common iliac as well. There was evidence of reconstitution of the right common femoral via patent fem-fem graft. There was a significant stenosis of the distal SFA and popliteal artery. On the left side, there was occlusion of the left SFA. Profunda appeared patent. There was reconstitution at the left popliteal. There is not adequate assessment below the trifurcation on the left side. A chest x-ray on admission showed no infiltrates. There is a right-sided central line and the patient had a duplex ultrasound which did not demonstrate any evidence of DVT. Currently, Mr. Humphrey is in the unit receiving norepinephrine infusion to keep his blood pressure. He is awake, does not appear in distress. His is in the room with him. No headaches. No visual symptoms, sore throat, odynophagia, dysphagia. Dry oral cavity. No dyspnea or chest pain. No cough. He has quite intense low back pain which seems to be getting worse lately. No abdominal pain. The pain in the suprapubic area has resolved. He has marked tenderness and limitation with range of motion of the right lower extremity, which appears to be due to an inflammatory process centered around the right knee area. He is able to lift the left lower extremity with ease without any issues, but the right side has severe functional mobility impairment with marked tenderness on range of motion of the right knee. The right ankle seems to be okay. PAST MEDICAL HISTORY: Includes peripheral vascular disease with interventions noted above; prostate cancer, in remission after prostatectomy; seizure activity; has a history of a fall with chest tube placement in the past; hypertension. PAST SURGICAL HISTORY: Includes left hip ORIF after fracture, prostatectomy, and fem-fem bypass with a Cocolalla-Kvng graft by Dr. Hardy. SOCIAL HISTORY: Former smoker, although he states here that he is still smoking, so it is not clear. I think he has quit before he admitted this time. He used to drink, but quit as well. ALLERGIES: NEGATIVE. FAMILY HISTORY: Coronary artery disease, hypertension. CURRENT MEDICATIONS: He had been on; 1. Cefepime. 2. Vancomycin. 3. Norepinephrine. 4. Pain medication. 5. Electrolyte solution. PHYSICAL EXAMINATION: VITAL SIGNS: T-max 98.9, blood pressure 108/72, heart rate 104, respiratory rate 19, O2 saturation 100%. SKIN: Shows the right-sided neck central line. He has a Castaneda catheter in place. His output is at 1200. HEENT: Ocular movements conjugate. Constricted pupils. Oral cavity dry. Numerous teeth in place with marked decay and gum disease. NECK: There is no lymphadenopathy noted. Neck is supple. No jugular vein distention. LUNGS: Symmetric, clear breath sounds. HEART: S1 and S2. Regular rate. No S3 or S4. ABDOMEN: Soft, moderately distended, question of ascites. No bladder distention. No organomegaly. EXTREMITIES: He has marked limitation with range of motion of the right knee. There is possible right knee effusion. There is some tenderness on palpation of the thigh and calf muscles, but not much. The incision for the fem-fem bypass is not inflamed. His pulses are faintly palpable in dorsalis pedis, both sides. Cap refill is somewhat delayed. He is able to wiggle his toes and he moves his upper extremity without limitation. PSYCHIATRIC: He is awake, alert, and oriented. Speech appears to be normal. LABORATORY DATA: White cell count now is 7.3, hemoglobin 11.5, platelets 110 with 35% bands. INR 1.3. Creatinine is 4.29. Calcium 6.3. CK is 320, albumin 2.3. SARS-CoV PCR negative. Blood culture 2/2 with methicillin-sensitive Staph aureus. ASSESSMENT: Seizure activity history, chronic low back pain with worsening in the past few weeks, severe pain in the right knee, Staphylococcus aureus bacteremia with sepsis and septic shock requiring norepinephrine, acute renal failure associated with sepsis. DISCUSSION: Differential diagnosis includes lumbosacral spine infection, right knee septic arthritis, quite likely, endocarditis is not ruled out. Other sites of involvement are not apparent at this time. It is less likely that the urinary tract is the primary culprit here. He needs an echocardiogram, may need a [place] down the road and eventually will need an imaging study of the lumbosacral spine, preferably an MRI. In the right knee, he will need arthrocentesis. We will switch him to oxacillin with limitation of the infusion volume by pharmacy. Discontinue remainder antimicrobials and will need a protracted treatment. May need a washout of the right knee and consultation with Orthopedic Surgery. It less likely that the graft is infected, but not completely ruled out. Job ID: [id number]
[2020-02-12] MEDS ORDERED: Magnesium Sulfate 4 GM in Sodium Chloride 0.9% 250 ML 250 ML IVPB SCH (22:00)
[2020-02-13] MEDS: Oxacillin 2 GM in Sodium Chloride 0.9% 50 ML IVPB SCH ×6 (01:01→19:55)
[2020-02-13 03:46] LABS: Band 23 % (5-11); Dohle Bodies SLIGHT; Hemoglobin 10.7 g/dL (14.0-18.0); Lymphocytes 12 % (21-51); MDiff Complete? YES; Mean Corpuscular Hemoglobin 31.3 pg (27.0-31.0); Mean Corpuscular Volume 89.4 fL (78.0-98.0); Mean Platelet Volume 10.3 fL (7.4-10.4); Monocytes 6 % (0-10); Neutrophil 59 % (42-75); Platelet Count 111 thou/uL (130-400); Platelet Morphology Comment Appears Decreased; RBC Distribution Width 13.4 % (11.5-14.5); Red Blood Cell (RBC) Count 3.43 mill/uL (4.70-6.10); Toxic Granulation SLIGHT; White Blood Cell (WBC) Count 8.1 thou/uL (4.8-10.8)
[2020-02-13 03:58] LABS: Albumin 2.6 g/dL (3.4-4.8); Anion Gap 16 mmol/L (10-20); BUN (Urea Nitrogen) 43 mg/dL (8.4-25.7); BUN/Creatinine Ratio 19.63; Calc. Creatinine Clearance 43 mL/min (70-130); Calcium 6.5 mg/dL (7.8-10.44); Carbon Dioxide 20 mmol/L (23-31); Chloride 100 mmol/L (98-107); Estimated GFR-MDRD 30; Glucose 130 mg/dL (80-115); Phosphorus 1.8 mg/dL (2.3-4.7); Potassium 3.3 mmol/L (3.5-5.1); Sodium 133 mmol/L (136-145)
[2020-02-13] MEDS ORDERED: Potassium Phosphate 30 MMOL in Sodium Chloride 0.9% 500 ML IVPB SCH (08:00)
[2020-02-13] MEDS ORDERED: Lidocaine 1% (PF) 30 ML VIAL NERVE BLCK SCH (09:15)
[2020-02-13] MEDS: Calcium Carbonate 500 MG ChewTAB PO SCH ×2 (09:21→19:56)
[2020-02-13] MEDS: Heparin 5,000 UNITS/ML VIAL SC SCH ×2 (09:21→19:55)
[2020-02-13] MEDS: Famotidine 20 MG TAB PO SCH (09:25)
[2020-02-13] MEDS: HYDROcodone/Acetaminophen 5/325 mg Tablet PO PRN ×2 (10:54→17:00)
--- NOTE | 2020-02-13 11:00 | PDOC.HOSPP ---
- Subjective Encounter Date: 02/13/20 Encounter Time: 09:40 Subjective: Patient is alert awake, he is still requiring Levophed, his renal function is improving, - Objective Vital Signs & Weight: Vital Signs (12 hours) Pulse Ox 02/13/20 07:49 100 Weight Admit Weight 198 lb Weight 198 lb 4.8 oz Most Recent Monitor Data Heart Rate from ECG 96 NIBP 98/58 NIBP BP-Mean 71 Respiration from ECG 18 SpO2 91 I&O: 02/12/20 02/13/20 02/14/20 06:59 06:59 06:59 Intake Total 2392.4 5859 Output Total 965 2935 60 Balance 1427.4 2924 -60 Result Diagrams: 02/13/20 03:00 02/13/20 03:00 Radiology Reviewed by me: Yes (Echo showed normal EF) EKG Reviewed by me: Yes Hospitalist ROS - Review of Systems Constitutional: reports: weakness. denies: fever, chills, sweats, malaise, other Eyes: denies: pain, vision change, conjunctivae inflammation, eyelid inflammation, redness, other ENT: denies: ear pain, ear discharge, nose pain, nose discharge, nose congestion, mouth pain, mouth swelling, throat pain, throat swelling, other Respiratory: denies: cough, dry, shortness of breath, hemoptysis, SOB with excertion, pleuritic pain, sputum, wheezing, other Cardiovascular: denies: chest pain, palpitations, orthopnea, paroxysmal noc. dyspnea, edema, light headedness, other Gastrointestinal: denies: nausea, vomiting, abdominal pain, diarrhea, const ipation, melena, hematochezia, other Genitourinary: denies: dysuria, frequency, incontinence, hematuria, retention, other Musculoskeletal: denies: neck pain, shoulder pain, arm pain, back pain, hand pain, leg pain, foot pain, other Skin: denies: rash, lesions, brian, bruising, other Neurological: reports: weakness - Medication Medications: Active Medications Generic Name Dose Route Start Last Admin Trade Name Freq PRN Reason Stop Dose Admin Hydrocodone Bitart/Acetaminophen 1 tab 02/11/20 15:59 02/13/20 10:54 Hydrocodone/Acetaminophen 5/325 Mg Tablet PO 1 tab Q4H PRN Administration Moderate Pain (4-6) Calcium Carbonate 1,000 mg 10/24/20 09:00 02/13/20 09:21 Calcium Carbonate 500 Mg Chewtab PO 1,000 mg BID NANCY Administration Famotidine 20 mg 02/12/20 09:00 02/13/20 09:25 Famotidine 20 Mg Tab PO 20 mg DAILY NANCY Administration Heparin Sodium (Porcine) 5,000 units 02/12/20 09:00 02/13/20 09:21 Heparin 5,000 Units/Ml Vial SC 5,000 units BID NANCY Administration Potassium Chloride 40 meq/ 1,170 mls @ 125 mls/hr 02/11/20 21:45 02/13/20 02:07 Sodium Bicarbonate 150 meq/ IV 1,170 mls Dextrose/Water .Q9H22M NANCY Administration Sodium Chloride 500 mls @ 999 mls/hr 02/11/20 21:45 02/11/20 22:36 Normal Saline 0.9% IV 500 mls .Q31M PRN Administration DIRECTED Norepinephrine Bitartrate 250 mls @ 0 mls/hr 02/12/20 03:15 02/13/20 04:25 Levophed IVPB 250 mls INF NANCY Administration Protocol Titrate Oxacillin Sodium 2 gm/ Sodium 50 mls @ 100 mls/hr 02/12/20 17:00 02/13/20 09:29 Chloride IVPB 50 mls Q4HR NANCY Administration Potassium Phosphate 30 mmol/ 510 mls @ 83.3 mls/hr 02/13/20 08:00 02/13/20 09 :21 Sodium Chloride IVPB 02/13/20 15:00 510 mls NOW NANCY Administration Sodium Chloride 10 ml 02/12/20 09:00 02/13/20 09:24 Flush - Normal Saline 10 Ml Syringe IVF 10 ml Q12HR NANCY Administration - Exam General Appearance: NAD, awake alert Eye: PERRL, anicteric sclera ENT: normocephalic atraumatic, no oropharyngeal lesions Neck: symmetric, no JVD, no thyromegaly Heart: RRR, no murmur, no gallops, no rubs Respiratory: no wheezes, no rales, no ronchi Gastrointestinal: soft, non-tender, non-distended, normal bowel sounds Extremities: no cyanosis, no clubbing Skin: normal turgor, no lesions Neurological - other findings: Right lower extremity weakness noted Psychiatric: normal affect, normal behavior, A&O x 3 Hosp A/P (1) Septic shock due to Staphylococcus aureus Code(s): A41.01 - SEPSIS DUE TO METHICILLIN SUSCEPTIBLE STAPHYLOCOCCUS AUREUS; R65.21 - SEVERE SEPSIS WITH SEPTIC SHOCK Status: Acute (2) Acute kidney failure Status: Acute (3) Metabolic acidosis Code(s): E87.2 - ACIDOSIS Status: Acute (4) Abnormal blood electrolyte level Code(s): E87.8 - OTH DISORDERS OF ELECTROLYTE AND FLUID BALANCE, NEC Status: Acute (5) Thrombocytopenia Code(s): D69.6 - THROMBOCYTOPENIA, UNSPECIFIED Status: Acute (6) Type 2 myocardial infarction Code(s): I21.A1 - MYOCARDIAL INFARCTION TYPE 2 Status: Acute (7) Weakness of right lower extremity Code(s): R29.898 - OT SYMPTOMS AND SIGNS INVOLVING THE MUSCULOSKELETAL SYSTEM Status: Acute (8) PVD (peripheral vascular disease) Code(s): I73.9 - PERIPHERAL VASCULAR DISEASE, UNSPECIFIED Status: Chronic - Plan old records reviewed/req, gastelum catheter, continue antibiotics, DVT proph w/heparin Continue Levophed and wean off as tolerated Continue antibiotic as per ID recommendation Orthopedic will be consulted for suspected septic arthritis on right knee Once he is off Levophed then will consider doing MRI lumbar spine Patient has clinical improvement since he is admitted
--- NOTE | 2020-02-13 11:49 | PRG ---
DATE OF SERVICE: 02/13/2020 SUBJECTIVE: He feels a little better today. He had a right knee aspirate obtained today by Orthopedics. OBJECTIVE: VITAL SIGNS: His temperature is 99.0, pulse 96, blood pressure 98/58, and O2 saturation 91%. He is on Levophed at 3 mcg/minute. His total intake has been 5859 mL, output 2935. HEENT: Unremarkable. NECK: No adenopathy or JVD. CHEST: Clear anteriorly. CARDIAC: S1 and S2, regular. ABDOMEN: Soft. EXTREMITIES: He has right knee swelling. LABORATORY DATA: White blood cell count 8.1, hematocrit 30.7, and platelet count 111. Sodium 133, potassium 3.3, chloride 100, CO2 of 20, BUN 43, creatinine 2.1, and glucose 130. ASSESSMENT: 1. Methicillin-susceptible Staphylococcus aureus sepsis. 2. Metabolic acidosis. 3. Acute renal failure. 4. Peripheral vascular disease. PLAN: The patient will continue on oxacillin per Dr. Kramer. He will remain in the ICU until he is weaned off the Levophed drip. Appreciate the input of the multiple specialists involved in the case. Job ID: [id number]
--- NOTE | 2020-02-13 12:29 | OP ---
DATE OF PROCEDURE: 02/13/2020 TITLE OF PROCEDURE: Arthrocentesis, right knee. BRIEF DESCRIPTION: After obtained consent, the patient underwent chlorhexidine prep to the right knee. Local anesthesia was performed with 1% lidocaine in the amount of 10 mL to the right knee. Once anesthesia was achieved, an 18-gauge needle with a 60 mL syringe was used to withdraw joint aspirate fluid. This appeared cloudy in nature, amount of 45 cc. 4x4s and Morgan applied as a pressure dressing following the procedure. The patient tolerated the procedure well. No complications were incurred. Specimen has been sent for cell count, Gram stain, culture and crystal analysis. Job ID: [id number] MTDD
--- NOTE | 2020-02-13 12:44 | CON ---
DATE OF CONSULTATION: 02/13/2020 REQUESTING PHYSICIAN: Dr. Rick Kramer. CONSULTING PHYSICIAN: Dr. Ernesto Sanabria. REASON FOR CONSULTATION: Evaluate for right septic knee. HISTORY OF PRESENT ILLNESS: This is a 64-year-old male, who was seen this morning in morning rounds. We have been asked to see the patient for evaluation of right septic knee and arthrocentesis of the right knee. The patient has been admitted for MSSA bacteremia. He has past medical history significant for peripheral vascular disease, prostate cancer, and seizure disorder. Currently at bedside, the patient reports knee pain worsening over the last several days. He is currently being seen in the ICU. He reports knee pain is worse with any sort of movement. It is not completely relieved with rest. He denies any other extremity pain at this time. PAST MEDICAL HISTORY: Peripheral vascular disease, prostate cancer, seizure activity, and hypertension. PAST SURGICAL HISTORY: Left hip ORIF for fracture, prostatectomy, femoral-femoral bypass. SOCIAL HISTORY: Smoker, history unclear. Also some remote history of drinking. ALLERGIES: NO KNOWN DRUG ALLERGIES. PHYSICAL EXAMINATION: VITAL SIGNS: Current vital signs including blood pressure 98/58, pulse of 96, respiratory rate of 18, temperature 99.0. GENERAL: The patient is awake and alert. He is pleasant and cooperative with exam at this time. His mother is present in the exam room with him today. HEENT: Head is normocephalic and atraumatic. NECK: Supple. Trachea is midline. Breathing is nonlabored. EXTREMITIES: Evaluation of the right lower extremity shows swelling of the knee. There is swelling of the calf and ankle and foot as well. The patient is able to move his toes and his ankle. Movement of the knee causes extreme pain. He is unable to do this actively. Evaluation of the left lower extremity shows active range of motion in the knee, ankle, foot. LABORATORY DATA: Reviewed today, include a CBC, which shows a white blood cell count of 8.1, hemoglobin of 10.7, hematocrit 30.7, and platelet count of 111. He is COVID negative. ASSESSMENT: Concern for right knee septic arthritis in a patient with MSSA bacteremia. PLAN: At this time, we will go ahead and perform a bedside arthrocentesis. Risks, benefits, and alternatives discussed with the patient. He verbalized understanding and is amenable to this. We will get consent obtained and go forward with this procedure. Please see separate procedure note for arthrocentesis. Job ID: [id number]
--- NOTE | 2020-02-13 13:41 | CON ---
DATE OF CONSULTATION: 02/12/2020 REASON FOR CONSULTATION: Sepsis. HISTORY OF PRESENT ILLNESS: The patient is a 64-year-old who presented to the emergency room complaining of right leg pain and weakness. He tells me his right leg has been hurting for 10 years and the pain has been present for about that long. He was seen by Dr. Hardy and his leg was not felt to be a problem. The patient has a significantly dirty urinalysis. He had bandemia. He also had hypotension which necessitated starting Levophed. PAST MEDICAL HISTORY: 1. Seizure disorder. 2. Hypertension. 3. Prostate cancer. 4. Alcoholism. 5. Tobacco abuse. 6. Peripheral vascular disease. 7. Carotid artery stenosis. PAST SURGICAL HISTORY: 1. Carotid endarterectomy. 2. Right fem pop. 3. Radical prostatectomy. 4. Left node dissection. 5. ORIF, left hip. 6. Carotid endarterectomy. PAST PSYCHIATRIC HISTORY: Negative. ALLERGIES: NONE. FAMILY MEDICAL HISTORY: Unremarkable. REVIEW OF SYSTEMS: Twelve-point review of systems is otherwise negative. MEDICATIONS: Prior to admission; 1. Aspirin. 2. Tylenol No. 3. 3. VESIcare. 4. Zocor. 5. Lisinopril. 6. Metoprolol. 7. Meloxicam. 8. Pregabalin. 9. Amlodipine. 10. Phenytoin. 11. Gabapentin. PHYSICAL EXAMINATION: VITAL SIGNS: Temperature 98.8, pulse 97, blood pressure 94/64. He is currently on norepinephrine drip at 5 mcg/minute. GENERAL: He is awake, alert, in no profound distress. HEENT: Pupils reactive. Sclerae anicteric. Oropharynx, poor dentition. NECK: No adenopathy or JVD. LUNGS: Clear to auscultation without wheezing or rhonchi. CARDIOVASCULAR: S1 and S2, regular without audible murmur. ABDOMEN: Soft and nontender to palpation. EXTREMITIES: No clubbing or cyanosis. He has palpable peripheral pulses on both left and right leg. He has warm skin in both legs. He has contracture in the right popliteal area. IMAGING: His chest x-ray shows a right IJ central line. Otherwise, the x-ray is clear. LABORATORY DATA: White blood cell count 7.3, hematocrit 33.6, and platelet count 110. INR 1.3. Sodium 131, potassium 3, chloride 102, CO2 is 12, BUN 56, creatinine 4.5, glucose 89, PTH 381. In looking back at previous labs, it looks like his baseline creatinine is about 1.0. ASSESSMENT: 1. Urosepsis. 2. Acute renal failure - the patient is likely on the dry side. 3. Hypokalemia. PLAN: 1. Nephrology started him on a bicarbonate drip for his metabolic acidosis. 2. Continue cefepime. 3. Wean off Levophed as tolerated. 4. Replace potassium. Job ID: [id number]
[2020-02-13 14:06] LABS: Synovial Fluid, Glucose Less than 7 mg/dL (Not Available); Synovial Fluid, Protein 1.9 g/dL (Not Available); Synovial Fluid, Uric Acid 5.3 mg/dL (Not Available)
[2020-02-13 14:30] LABS: RBC Count-Automated (BF) 35366 /cu.mm
[2020-02-13 14:38] LABS: BF Color Pink; Body Fluid Source Synovial Fluid; Clarity Cloudy/Turbid (Clear); Tube # EDTA; WBC/Nucleated-Auto (BF) Greater than 51000 uL
[2020-02-13 14:40] LABS: BF Segmented Neutrophils 71 %; Cell Count Non Hematic 24 %; Lymphocytes 5 %
--- NOTE | 2020-02-13 19:40 | PRG ---
DATE OF SERVICE: 02/13/2020 SUBJECTIVE: The patient was seen and examined today, seems to be feeling much better today. Still with labile hemodynamics and dependant on pressors, noted with the following vital signs. OBJECTIVE: VITAL SIGNS: Blood pressure , heart rate of 101, respiratory rate of 21, and O2 sat 97% with a blood pressure of . HEENT: Unremarkable. CARDIOVASCULAR SYSTEM: First and second heard sounds were heard. RESPIRATORY SYSTEM: Clear to auscultation. DIGESTIVE SYSTEM: Revealed a benign abdomen. Positive bowel sounds. EXTREMITIES: No peripheral edema. SKIN: No new gross rash. LYMPHATICS: No peripheral lymphadenopathy. LABORATORY INVESTIGATION: Showed hemoglobin of 10.7. Chemistry showed a creatinine of 2.1, BUN of 43, potassium of 3.3 with a bicarb of 20. Sodium of 133, calcium of 6.5 and phosphorus of 1.8. IMPRESSION: 1. Acute on chronic kidney disease, which seems to be improving with creatinine down from 4.29 to 2.19. 2. Mild hypokalemia. 3. Mild metabolic acidosis. 4. Hypomagnesemia and hypophosphatemia. PLAN: 1. Continue renal supportive measures. 2. We will continue with IV fluid, bicarb base with potassium supplementation. 3. Replete magnesium and phosphorus. 4. Further management to be dependent on the clinical course. Job ID: [id number]
[2020-02-14] MEDS: Oxacillin 2 GM in Sodium Chloride 0.9% 50 ML IVPB SCH ×6 (01:33→21:33)
[2020-02-14 03:51] LABS: Albumin 2.2 g/dL (3.4-4.8); Anion Gap 13 mmol/L (10-20); BUN (Urea Nitrogen) 29 mg/dL (8.4-25.7); BUN/Creatinine Ratio 23.39; Calc. Creatinine Clearance 77 mL/min (70-130); Calcium 6.4 mg/dL (7.8-10.44); Carbon Dioxide 29 mmol/L (23-31); Chloride 97 mmol/L (98-107); Estimated GFR-MDRD 59; Glucose 125 mg/dL (80-115); Phosphorus 2.1 mg/dL (2.3-4.7); Potassium 3.3 mmol/L (3.5-5.1); Sodium 136 mmol/L (136-145)
[2020-02-14 05:05] LABS: Band 13 % (5-11); Crenated RBC SLIGHT = 1-5 cells (100X) (None Seen); Eosinophils 1 % (0-10); Hemoglobin 10.9 g/dL (14.0-18.0); Large Platelets SLIGHT; Lymphocytes 8 % (21-51); MDiff Complete? YES; Macrocytosis SLIGHT = 6-15 cells (100X) (0-5/hpf); Mean Corpuscular HGB CONC 34.6 g/dL (32.0-36.0); Mean Corpuscular Hemoglobin 31.3 pg (27.0-31.0); Mean Corpuscular Volume 90.3 fL (78.0-98.0); Mean Platelet Volume 10.7 fL (7.4-10.4); Monocytes 5 % (0-10); Neutrophil 71 % (42-75); Platelet Count 121 thou/uL (130-400); Platelet Morphology Comment Appears Decreased; RBC Distribution Width 13.5 % (11.5-14.5); Reactive Lymphocytes 2 % (0-10); Red Blood Cell (RBC) Count 3.48 mill/uL (4.70-6.10); Target Cells SLIGHT = 2-5 cells (100X) (0-1/hpf); White Blood Cell (WBC) Count 8.5 thou/uL (4.8-10.8)
[2020-02-14] MEDS ORDERED: Potassium Chloride 20 MEQ TAB PO SCH (06:30)
[2020-02-14] MEDS: Sodium Chloride 0.9% 1,000 ML IV SCH ×2 (06:41→21:31)
[2020-02-14] MEDS ORDERED: PROPOFOL 20 ML ONE (07:49)
[2020-02-14] MEDS ORDERED: Midazolam HCl 2 mg/2 ml Vial ONE (07:49)
[2020-02-14] MEDS ORDERED: Rocuronium Bromide 50 MG/5 ML VIAL ONE (07:50)
[2020-02-14] MEDS ORDERED: Potassium Phosphate 15 MMOL in Sodium Chloride 0.9% 250 ML 250 ML IVPB SCH (08:00)
[2020-02-14] MEDS ORDERED: Fentanyl 100 MCG/2 ML VIAL ONE ×2 (08:41→09:34)
[2020-02-14] MEDS ORDERED: Ondansetron HCl/PF 4 MG/2 ML Vial IVP PRN (09:02)
[2020-02-14] MEDS ORDERED: Promethazine HCl 25 MG/ML VIAL SLOW IVP PRN (09:02)
[2020-02-14] MEDS ORDERED: Promethazine HCl 25 MG/ML VIAL IM PRN (09:02)
[2020-02-14] MEDS ORDERED: HYDROmorphone 2 MG/ML VIAL SLOW IVP PRN (09:02)
[2020-02-14] MEDS ORDERED: Dexamethasone 20 MG/5 ML VIAL ONE (09:10)
[2020-02-14] MEDS ORDERED: PROPOFOL 200 MG/20 ML VIAL ONE (09:10)
[2020-02-14] MEDS ORDERED: PHENYLEPHRINE-NS 100 MCG/ML 10 ML SYRINGE ONE (09:10)
[2020-02-14] MEDS ORDERED: Ondansetron PF 4 MG/2 ML Vial ONE (09:10)
[2020-02-14] MEDS ORDERED: Succinylcholine Chloride 20 MG/ML 10 ml SYRINGE FS ONE (09:10)
[2020-02-14] MEDS ORDERED: Lidocaine 1% PF 5 ML VIAL ONE (09:10)
[2020-02-14] MEDS ORDERED: Glycopyrrolate 0.2 MG/ML 5 ML SYRINGE ONE (09:10)
--- NOTE | 2020-02-14 09:49 | OP ---
DATE OF PROCEDURE: 02/14/2020 OPERATION PERFORMED: Right knee open irrigation and debridement. PREOPERATIVE DIAGNOSIS: Right septic knee. POSTOPERATIVE DIAGNOSIS: Right septic knee. COMPLICATIONS: None. ESTIMATED BLOOD LOSS: Minimal. SALVAGE LABORER: None. IMPLANTS: None. INDICATIONS: Mr. Humphrey is a 64-year-old male who has an infected right knee. He has had Staph aureus growing on blood cultures and gram-positive cocci on his Gram stain. He has been indicated for irrigation and debridement of the knee to eradicate infection and improve his condition. Risks have been reviewed. DESCRIPTION OF PROCEDURE: Mr. Humphrey was identified in the preoperative holding area. His correct extremity was marked. He was carried to the operating room. He was positioned supine. General anesthesia was induced. A multidisciplinary time-out was performed. The right lower extremity was prepped and draped in sterile fashion. We began the procedure with an anteromedial incision over the knee. We dissected down through the subcutaneous tissues to the parapatellar tissues. We performed an arthrotomy sharply. We entered the knee joint. We encountered purulent material. This was cultured. We then proceeded to thoroughly irrigate the knee with 5 L of lavage. We used a pulse lavage. We used a rongeur and curette as well. We took care to protect the cartilage. At this point, we placed a deep Hemovac drain. We then closed with a #1 Vicryl suture followed by 2-0 Vicryl suture and nylon for the skin. A sterile dressing was applied. The patient was taken to the recovery room in good condition. Job ID: [id number]
--- NOTE | 2020-02-14 10:30 | PDOC.HOSPP ---
- Subjective Encounter Date: 02/14/20 Encounter Time: 09:45 Subjective: Patient seen and examined bedside today, patient is plan for surgical intervention on his right knee - Objective Vital Signs & Weight: Vital Signs (12 hours) Temp 02/14/20 04:00 98.6 F Weight Admit Weight 198 lb Weight 198 lb 4.8 oz Most Recent Monitor Data Heart Rate from ECG 96 NIBP 98/50 NIBP BP-Mean 66 Respiration from ECG 15 SpO2 96 I&O: 02/13/20 02/14/20 02/15/20 06:59 06:59 06:59 Intake Total 5859 4511.5 109 Output Total 2935 2615 200 Balance 2924 1896.5 -91 Result Diagrams: 02/14/20 03:15 02/14/20 03:15 Hospitalist ROS - Review of Systems ENT: denies: ear pain, ear discharge, nose pain, nose discharge, nose congestion, mouth pain, mouth swelling, throat pain, throat swelling, other Respiratory: denies: cough, dry, shortness of breath, hemoptysis, SOB with excertion, pleuritic pain, sputum, wheezing, other Cardiovascular: denies: chest pain, palpitations, orthopnea, paroxysmal noc. dyspnea, edema, light headedness, other Gastrointestinal: denies: nausea, vomiting, abdominal pain, diarrhea, constipation, melena, hematochezia, other Genitourinary: denies: dysuria, frequency, incontinence, hematuria, retention, o ther Musculoskeletal: reports: leg pain. denies: neck pain, shoulder pain, arm pain, back pain, hand pain, foot pain, other Neurological: reports: weakness. denies: numbness, incoordination, change in speech, confusion, seizures, other - Medication Medications: Active Medications Generic Name Dose Route Start Last Admin Trade Name Freq PRN Reason Stop Dose Admin Hydrocodone Bitart/Acetaminophen 1 tab 02/11/20 15:59 02/13/20 17:00 Hydrocodone/Acetaminophen 5/325 Mg Tablet PO 1 tab Q4H PRN Administration Moderate Pain (4-6) Calcium Carbonate 1,000 mg 02/13/20 09:00 02/13/20 19:56 Calcium Carbonate 500 Mg Chewtab PO 1,000 mg BID NANCY Administration Famotidine 20 mg 02/12/20 09:00 02/13/20 09:25 Famotidine 20 Mg Tab PO 20 mg DAILY NANCY Administration Heparin Sodium (Porcine) 5,000 units 02/12/20 09:00 02/13/20 19:55 Heparin 5,000 Units/Ml Vial SC 5,000 units BID NANCY Administration Sodium Chloride 500 mls @ 999 mls/hr 02/11/20 21:45 02/11/20 22:36 Normal Saline 0.9% IV 500 mls .Q31M PRN Administration DIRECTED Oxacillin Sodium 2 gm/ Sodium 50 mls @ 100 mls/hr 02/12/20 17:00 02/14/20 06:38 Chloride IVPB 50 mls Q4HR NANCY Administration Sodium Chloride 1,000 mls @ 75 mls/hr 02/14/20 06:30 02/14/20 06:41 Normal Saline 0.9% IV 1,000 mls .[id number] NANCY Administration Sodium Chloride 10 ml 02/12/20 09:00 02/13/20 20:05 Flush - Normal Saline 10 Ml Syringe IVF 10 ml Q12HR NANCY Administration - Exam General Appearance: NAD, awake alert Eye: PERRL, anicteric sclera ENT: normocephalic atraumatic, no oropharyngeal lesions Neck: supple, symmetric, no JVD Heart: RRR, no murmur, no gallops, no rubs Respiratory: no wheezes, no rales, no ronchi Gastrointestinal: soft, non-tender, non-distended, normal bowel sounds Extremities: no cyanosis, no clubbing Extremities - other findings: Right knee swelling noted Neurological - other findings: Weakness of the right lower extremity Musculoskeletal: normal tone, normal strength Psychiatric: normal affect, normal behavior Hosp A/P (1) Septic shock due to Staphylococcus aureus Code(s): A41.01 - SEPSIS DUE TO METHICILLIN SUSCEPTIBLE STAPHYLOCOCCUS AUREUS; R65.21 - SEVERE SEPSIS WITH SEPTIC SHOCK Status: Acute (2) Septic arthritis of knee, right Code(s): M00.9 - PYOGENIC ARTHRITIS, UNSPECIFIED Status: Acute Qualifiers: Septic arthritis organism: staphylococcal Qualified Code(s): M00.061 - Staphylococcal arthritis, right knee (3) Acute kidney failure Status: Resolved (4) Metabolic acidosis Code(s): E87.2 - ACIDOSIS Status: Resolved (5) Abnormal blood electrolyte level Code(s): E87.8 - OTH DISORDERS OF ELECTROLYTE AND FLUID BALANCE, NEC Status: Resolved (6) Thrombocytopenia Code(s): D69.6 - THROMBOCYTOPENIA, UNSPECIFIED Status: Acute (7) Type 2 myocardial infarction Code(s): I21.A1 - MYOCARDIAL INFARCTION TYPE 2 Status: Acute (8) Weakness of right lower extremity Code(s): R29.898 - OTH SYMPTOMS AND SIGNS INVOLVING THE MUSCULOSKELETAL SYSTEM Status: Acute (9) PVD (peripheral vascular disease) Code(s): I73.9 - PERIPHERAL VASCULAR DISEASE, UNSPECIFIED Status: Chronic (10) Hypokalemia Code(s): E87.6 - HYPOKALEMIA Status: Acute (11) Hypophosphatemia Code(s): E83.39 - OTHER DISORDERS OF PHOSPHORUS METABOLISM Status: Acute (12) Hypocalcemia Code(s): E83.51 - HYPOCALCEMIA Status: Acute - Plan old records reviewed/req, continue antibiotics, PT/OT, DVT proph w/heparin Transfer to surgical floor Continue IV antibiotic therapy as per Dr. Kramer, currently on oxacillin Replace potassium phosphate and potassium chloride We will repeat labs tomorrow We will obtain MRI lumbar spine
[2020-02-14] MEDS ORDERED: Diabetic Tussin 200 MG/10 ML UDCUP PO PRN (10:31)
[2020-02-14] MEDS: Calcium Carbonate 500 MG ChewTAB PO SCH ×2 (12:18→21:32)
[2020-02-14] MEDS: Heparin 5,000 UNITS/ML VIAL SC SCH ×2 (12:40→21:34)
[2020-02-14] MEDS: Famotidine 20 MG TAB PO SCH (12:44)
[2020-02-14] MEDS: HYDROcodone/Acetaminophen 5/325 mg Tablet PO PRN ×2 (12:44→21:32)
--- NOTE | 2020-02-14 15:45 | PRG ---
DATE OF SERVICE: 02/14/2020 SUBJECTIVE: Better, transferred from the ICU. He had a washout of his right knee and septic arthritis identified. He is breathing well. Castaneda catheter is in place. Central line is in the same place as before. OBJECTIVE: LUNGS: With faint basilar crackles. HEART: S1 and S2, regular rate. ABDOMEN: Moderately distended, but no ascites. EXTREMITIES: Right knee dressed. Right upper extremity is edematous. VITAL SIGNS: Afebrile, BP 98/50, O2 saturation 98% on room air. LABORATORY DATA: White cell count 8.5, hemoglobin 10.9, platelets 121, and 13% bands, which is a marked reduction. Creatinine is markedly improved to 1.24. Staphylococcus aureus methicillin-sensitive identified. There is bacteria growing from the synovial fluid. ASSESSMENT AND DISCUSSION: Seizure activity history, chronic low back pain with worsening pain in right knee, Staphylococcus aureus bacteremia, sepsis, septic arthritis of right knee. Endocarditis is less likely, but not ruled out. Lumbar spine infection needs to be evaluated with MRI. Continue oxacillin. Will need long-term treatment, probably 6 weeks, mostly with IV cefazolin or Rocephin depending on disposition. Job ID: [id number]
--- NOTE | 2020-02-14 20:16 | PRG ---
DATE OF SERVICE: 02/14/2020 SUBJECTIVE: The patient is seen and examined, feeling better, noted with the following vital signs. OBJECTIVE: VITAL SIGNS: Blood pressure 98/50, pulse of 66, respiratory rate of 15, O2 saturations are 96%. HEENT: Unremarkable. CARDIOVASCULAR SYSTEM: First and second heart sounds were heard. RESPIRATORY SYSTEM: Clear to auscultation. DIGESTIVE SYSTEM: Revealed a benign abdomen with positive bowel sounds. IMPRESSION: 1. [id number] kidney disease. 2. Metabolic acidosis, which has resolved. PLAN: 1. We will continue current renal supportive measures. 2. We will use normal saline as opposed to bicarb. Job ID: [id number]
[2020-02-15] MEDS: HYDROcodone/Acetaminophen 5/325 mg Tablet PO PRN ×2 (00:38→22:04)
[2020-02-15] MEDS: Zolpidem Tartrate 5 MG TAB PO PRN (00:40)
[2020-02-15] MEDS: Oxacillin 2 GM in Sodium Chloride 0.9% 50 ML IVPB SCH ×5 (00:41→17:54)
[2020-02-15] MEDS: Sodium Chloride 0.9% 1,000 ML IV SCH (00:41)
[2020-02-15] MEDS ORDERED: Lorazepam 2 MG/ML VIAL SLOW IVP SCH (03:30)
[2020-02-15 05:00] LABS: #Basophils 0.1 thou/uL (0.0-0.2); #Lymphocytes 0.5 thou/uL (1.20-3.40); #Monocytes 0.4 thou/uL (0.11-0.59); #Neutrophils 7.9 thou/uL (1.40-6.50); %Basophils 0.9 % (0.0-1.0); %Eosinophils 0.1 % (0.0-10.0); %Lymphocytes 5.3 % (21.0-51.0); %Monocytes 4.8 % (0.0-10.0); %Neutrophils 88.9 % (42.0-75.0); Mean Corpuscular HGB CONC 34.5 g/dL (32.0-36.0); Mean Corpuscular Hemoglobin 31.5 pg (27.0-31.0); Mean Corpuscular Volume 91.4 fL (78.0-98.0); Mean Platelet Volume 10.8 fL (7.4-10.4); Platelet Count 106 thou/uL (130-400); RBC Distribution Width 13.5 % (11.5-14.5); Red Blood Cell (RBC) Count 3.16 mill/uL (4.70-6.10); White Blood Cell (WBC) Count 8.9 thou/uL (4.8-10.8)
[2020-02-15 06:38] LABS: Anion Gap 12 mmol/L (10-20); BUN (Urea Nitrogen) 27 mg/dL (8.4-25.7); CRP (Inflammatory) 24.21 mg/dL (= or < 0.5); Calc. Creatinine Clearance 90 mL/min (70-130); Carbon Dioxide 27 mmol/L (23-31); Chloride 97 mmol/L (98-107); Phosphorus 3.6 mg/dL (2.3-4.7); Potassium 3.7 mmol/L (3.5-5.1); Sodium 132 mmol/L (136-145)
[2020-02-15 06:39] LABS: ALT (SGPT) 19 U/L (8-55); AST (SGOT) 51 U/L (5-34); Albumin 2.1 g/dL (3.4-4.8); Alkaline Phosphatase 82 U/L (40-110); BUN/Creatinine Ratio 25.47; Bilirubin, Total 1.3 mg/dL (0.2-1.2); Calcium 6.7 mg/dL (7.8-10.44); Estimated GFR-MDRD 70; Globulin 2.4 g/dL (2.4-3.5); Glucose 111 mg/dL (80-115); Magnesium 1.8 mg/dL (1.6-2.6); Phosphorus 3.7 mg/dL (2.3-4.7); Protein, Total 4.5 g/dL (5.8-8.1)
[2020-02-15] MEDS ORDERED: hydrALAZINE 20 MG/ML VIAL SLOW IVP PRN (07:36)
[2020-02-15] MEDS: Aspirin 81 mg Enteric Coated Tablet PO SCH (08:44)
[2020-02-15] MEDS: Metoprolol Tartrate 25 MG TAB PO SCH ×2 (08:44→21:03)
[2020-02-15] MEDS: Famotidine 20 MG TAB PO SCH (08:45)
[2020-02-15] MEDS: Saccharomyces boulardii 250 MG CAP PO SCH (08:45)
[2020-02-15] MEDS: Amlodipine 5 MG TAB PO SCH (08:45)
[2020-02-15] MEDS: Polyethylene Glycol 3350 17 GM Packet PO SCH (08:45)
[2020-02-15] MEDS: Heparin 5,000 UNITS/ML VIAL SC SCH ×2 (08:45→21:03)
[2020-02-15] MEDS: Calcium Carbonate 500 MG ChewTAB PO SCH ×2 (08:45→21:02)
[2020-02-15] MEDS ORDERED: Magnevist 469MG/ML 20 ML VIAL ONE (09:57)
--- NOTE | 2020-02-15 11:24 | PDOC.HOSPP ---
- Subjective Encounter Date: 02/15/20 Encounter Time: 07:10 Subjective: Patient seen and examined. No new complaints. No overnight events - Objective Vital Signs & Weight: Vital Signs (12 hours) Temp Pulse Resp BP Pulse Ox 02/15/20 10:40 95 02/15/20 08:45 98 02/15/20 07:55 97.9 F 109 H 18 148/77 H 91 L 02/15/20 00:45 131/65 02/14/20 23:56 98 F 98 14 168/78 H 96 Weight Admit Weight 198 lb Weight 198 lb 4.8 oz Most Recent Monitor Data Heart Rate from ECG 96 NIBP 98/50 NIBP BP-Mean 66 Respiration from ECG 15 SpO2 96 I&O: 02/14/20 02/15/20 02/16/20 06:59 06:59 06:59 Intake Total 4511.5 1918.5 Output Total 2615 1380 Balance 1896.5 538.5 Result Diagrams: 02/15/20 04:35 02/15/20 04:35 Hospitalist ROS - Review of Systems Constitutional: reports: weakness, malaise. denies: fever, chills, sweats, other Respiratory: denies: cough, dry, shortness of breath, hemoptysis, SOB with excertion, pleuritic pain, sputum, wheezing, other Cardiovascular: denies: chest pain, palpitations, orthopnea, paroxysmal noc. dyspnea, edema, light headedness, other Gastrointestinal: denies: nausea, vomiting, abdominal pain, diarrhea, constipation, melena, hematochezia, other Genitourinary: denies: dysuria, frequency, incontinence, hematuria, retention, other Musculoskeletal: denies: neck pain, shoulder pain, arm pain, back pain, hand pain, leg pain, foot pain, other - Medication Medications: Active Medications Generic Name Dose Route Start Last Admin Trade Name Freq PRN Reason Stop Dose Admin Hydrocodone Bitart/Acetaminophen 1 tab 02/11/20 15:59 02/15/20 00:38 Hydrocodone/Acetaminophen 5/325 Mg Tablet PO 1 tab Q4H PRN Administration Moderate Pain (4-6) Amlodipine Besylate 5 mg 02/15/20 09:00 02/15/20 08:45 Amlodipine 5 Mg Tab PO 5 mg DAILY NANCY Administration Aspirin 81 mg 02/15/20 09:00 02/15/20 08:44 Aspirin 81 Mg Enteric Coated Tablet PO 81 mg DAILY NANCY Administration Calcium Carbonate 1,000 mg 02/13/20 09:00 02/15/20 08:45 Calcium Carbonate 500 Mg Chewtab PO 1,000 mg BID NANCY Administration Famotidine 20 mg 02/12/20 09:00 02/15/20 08:45 Famotidine 20 Mg Tab PO 20 mg DAILY NANCY Administration Heparin Sodium (Porcine) 5,000 units 02/12/20 09:00 02/15/20 08:45 Heparin 5,000 Units/Ml Vial SC 5,000 units BID NANCY Administration Oxacillin Sodium 2 gm/ Sodium 50 mls @ 100 mls/hr 02/12/20 17:00 02/15/20 08:45 Chloride IVPB 50 mls Q4HR NANCY Administration Metoprolol Tartrate 25 mg 02/15/20 09:00 02/15/20 08:44 Metoprolol Tartrate 25 Mg Tab PO 25 mg Q12HR NANCY Administration Polyethylene Glycol 17 gm 02/15/20 09:00 02/15/20 08:45 Polyethylene Glycol 3350 17 Gm Packet PO 17 gm DAILY NANCY Administration Saccharomyces Boulardii 250 mg 02/15/20 09:00 02/15/20 08:45 Saccharomyces Boulardii 250 Mg Cap PO 250 mg DAILY NANCY Administration Sodium Chloride 10 ml 02/12/20 09:00 02/15/20 08:45 Flush - Normal Saline 10 Ml Syringe IVF 10 ml Q12HR NANCY Administration Zolpidem Tartrate 5 mg 02/14/20 10:31 02/15/20 00:40 Zolpidem Tartrate 5 Mg Tab PO 5 mg HSPRN PRN Administration Insomnia - Exam General Appearance: NAD, awake alert Eye: PERRL, anicteric sclera ENT: normocephalic atraumatic, no oropharyngeal lesions Neck: supple, symmetric, no JVD, no thyromegaly Heart: RRR, no murmur, no gallops, no rubs Respiratory: no wheezes, no rales, no ronchi Gastrointestinal: soft, non-tender, non-distended, normal bowel sounds Extremities: no clubbing, no edema Skin: normal turgor, no lesions Neurological - other findings: Weakness of the right leg, drain in place in knee Musculoskeletal: normal tone, normal strength Psychiatric: normal affect, normal behavior Hosp A/P (1) Septic shock due to Staphylococcus aureus Code(s): A41.01 - SEPSIS DUE TO METHICILLIN SUSCEPTIBLE STAPHYLOCOCCUS AUREUS; R65.21 - SEVERE SEPSIS WITH SEPTIC SHOCK Status: Acute (2) Septic arthritis of knee, right Code(s): M00.9 - PYOGENIC ARTHRITIS, UNSPECIFIED Status: Acute Qualifiers: Septic arthritis organism: staphylococcal Qualified Code(s): M00.061 - Staphylococcal arthritis, right knee (3) Acute kidney failure Status: Resolved (4) Metabolic acidosis Code(s): E87.2 - ACIDOSIS Status: Resolved (5) Abnormal blood electrolyte level Code(s): E87.8 - OTH DISORDERS OF ELECTROLYTE AND FLUID BALANCE, NEC Status: Resolved (6) Thrombocytopenia Code(s): D69.6 - THROMBOCYTOPENIA, UNSPECIFIED Status: Acute (7) Type 2 myocardial infarction Code(s): I21.A1 - MYOCARDIAL INFARCTION TYPE 2 Status: Acute (8) Weakness of right lower extremity Code(s): R29.898 - OT SYMPTOMS AND SIGNS INVOLVING THE MUSCULOSKELETAL SYSTEM Status: Acute (9) PVD (peripheral vascular disease) Code(s): I73.9 - PERIPHERAL VASCULAR DISEASE, UNSPECIFIED Status: Chronic (10) Hypokalemia Code(s): E87.6 - HYPOKALEMIA Status: Resolved (11) Hypophosphatemia Code(s): E83.39 - OTHER DISORDERS OF PHOSPHORUS METABOLISM Status: Resolved (12) Hypocalcemia Code(s): E83.51 - HYPOCALCEMIA Status: Acute - Plan old records reviewed/req, continue antibiotics, PT/OT, 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
--- NOTE | 2020-02-15 11:26 | MRI ---
Exam: Lumbar spine MRI with and without contrast HISTORY: Back pain. Septic arthritis. COMPARISON: 02/16/2016. TECHNIQUE: Lumbar spine MRI is performed with and without intravenous gadolinium administration. Mult isequential, multiplanar imaging is performed. FINDINGS: There is heterogeneous T1 marrow signal intensity throughout the distal thoracic spine, lumbar spine and sacrum. STIR sequence does not demonstrate any significant edema. Postcontrast images do not demonstrate any abnormal enhancement with regards to the vertebral bodies. There is appropriate signal intensity of the visualized paraspinal muscles and solid organs. Conus medullaris terminates at the inferior aspect of T12. There is stable moderate to severe loss of vertebral body height at T12. There is stable severe loss of vertebral body height at L1 and L3. Stable moderate loss of vertebral body height at L4. Vertebral body height at L2 and L5 are maintained. There is significant retropulsion at L3. Postcontrast images are suboptimal due to motion degradation. Grossly no pathologic enhancement of th e vertebral bodies or within the central spinal canal, as per the sagittal postcontrast images. Axial postcontrast images are markedly degraded due to motion. T11-T12 and T12-L1: Adequate disc hydration. No significant central canal stenosis. Moderate bilatera l neural foraminal narrowing. L1-L2: Adequate disc hydration. Broad-based disc bulge abuts the thecal sac. There is mild ligamentum flavum thickening and mild to moderate facet hypertrophy. No significant central canal stenosis. Mild bilateral neural foraminal narrowing. L2-L3: Adequate disc hydration. Broad-based disc bulge, ligamentum flavum thickening and facet hypert rophy result in moderate central canal stenosis. Moderate right and mild left neural foraminal narrowing. L3 vertebral body: Moderate to severe central canal stenosis secondary to retropulsion. L3-L4: Adequate disc hydration. No significant posterior disc abnormality. No significant central can al stenosis. Moderate to severe bilateral neural foraminal narrowing. L4-L5: Adequate disc hydration. No significant loss of disc space height. Broad-based disc bulge and epidural lipomatosis results in moderate to severe central canal stenosis. There is bilateral ligamentum flavum thickening and facet hypertrophy. Moderate to severe bilateral neural foraminal carson rowing. L5-S1: Broad-based disc bulge abuts the thecal sac. There is ligamentum flavum thickening and facet h ypertrophy. There is severe central canal stenosis due to epidural lipomatosis. Degree of stenosis is similar to the previous examination. IMPRESSION: 1. Limited evaluation of the postcontrast images due to motion degradation. 2. Redemonstration of multifocal compression fractures. There is retropulsion at L3 with associated s ignificant central canal stenosis as described above. 3. Multilevel central canal stenosis and neural foraminal narrowing as detailed above. Transcribed Date/Time: 02/15/2020 11:49 AM
--- NOTE | 2020-02-15 18:56 | PRG ---
DATE OF SERVICE: 02/15/2020 OBJECTIVE: VITAL SIGNS: The patient is noted with the following vital signs; afebrile, temperature 98.3, pulse 93, respiratory rate of 20, O2 saturations of 99%, blood pressure 142/76 to 180/97. HEENT: Unremarkable. CARDIOVASCULAR SYSTEM: First and second heart sounds were heard. RESPIRATORY SYSTEM: Clear to auscultation. DIGESTIVE SYSTEM: Revealed a benign abdomen. EXTREMITIES: No peripheral edema. SKIN: No new gross rash. LYMPHATICS: No peripheral lymphadenopathy. LABORATORY INVESTIGATION: Significant for creatinine of 1.06, BUN of 27. IMPRESSION: 1. Acute kidney injury, seems to have grossly recovered. 2. Mild hyponatremia. PLAN: Continue current renal supportive measures. Job ID: [id number]
[2020-02-15] MEDS: Atorvastatin Calcium 10 MG TAB PO SCH (21:02)
[2020-02-15] MEDS: CEFAZOLIN 2 GM in Premix Bag 1 BAG IVPB SCH (21:07)
[2020-02-16] MEDS: CEFAZOLIN 2 GM in Premix Bag 1 BAG IVPB SCH ×3 (05:06→21:01)
[2020-02-16 05:21] LABS: #Lymphocytes 0.7 thou/uL (1.20-3.40); #Monocytes 0.5 thou/uL (0.11-0.59); #Neutrophils 9.6 thou/uL (1.40-6.50); %Basophils 0.1 % (0.0-1.0); %Eosinophils 0.3 % (0.0-10.0); %Lymphocytes 6.1 % (21.0-51.0); %Monocytes 4.8 % (0.0-10.0); %Neutrophils 88.6 % (42.0-75.0); Hemoglobin 11.3 g/dL (14.0-18.0); Mean Corpuscular HGB CONC 32.9 g/dL (32.0-36.0); Mean Corpuscular Hemoglobin 30.1 pg (27.0-31.0); Mean Corpuscular Volume 91.5 fL (78.0-98.0); Mean Platelet Volume 10.3 fL (7.4-10.4); Platelet Count 145 thou/uL (130-400); RBC Distribution Width 13.6 % (11.5-14.5); Red Blood Cell (RBC) Count 3.76 mill/uL (4.70-6.10); White Blood Cell (WBC) Count 10.8 thou/uL (4.8-10.8)
[2020-02-16 05:51] LABS: Anion Gap 16 mmol/L (10-20); BUN (Urea Nitrogen) 25 mg/dL (8.4-25.7); Calc. Creatinine Clearance 91 mL/min (70-130); Calcium 7.3 mg/dL (7.8-10.44); Carbon Dioxide 23 mmol/L (23-31); Chloride 97 mmol/L (98-107); Estimated GFR-MDRD 72; Glucose 72 mg/dL (80-115); Potassium 4.3 mmol/L (3.5-5.1); Sodium 132 mmol/L (136-145)
[2020-02-16] MEDS: Calcium Carbonate 500 MG ChewTAB PO SCH ×2 (09:37→20:47)
[2020-02-16] MEDS: Saccharomyces boulardii 250 MG CAP PO SCH (09:38)
[2020-02-16] MEDS: Polyethylene Glycol 3350 17 GM Packet PO SCH (09:38)
[2020-02-16] MEDS: Aspirin 81 mg Enteric Coated Tablet PO SCH (09:38)
[2020-02-16] MEDS: Famotidine 20 MG TAB PO SCH (09:38)
[2020-02-16] MEDS: Metoprolol Tartrate 25 MG TAB PO SCH ×2 (09:38→20:47)
[2020-02-16] MEDS: Amlodipine 5 MG TAB PO SCH (09:38)
[2020-02-16] MEDS: Heparin 5,000 UNITS/ML VIAL SC SCH ×2 (09:38→20:47)
--- NOTE | 2020-02-16 10:24 | PDOC.HOSPP ---
- Subjective Encounter Date: 02/16/20 Encounter Time: 07:30 Subjective: Patient has swelling over both upper extremity, he is physically weak, no fever, renal function has been improved - Objective Vital Signs & Weight: Vital Signs (12 hours) Temp Pulse Resp BP Pulse Ox 02/16/20 09:38 99 02/16/20 04:11 98.3 F 99 18 156/80 H 95 02/15/20 23:38 98.2 F 78 18 152/73 H 94 L Weight Admit Weight 198 lb Weight 198 lb 4.8 oz Most Recent Monitor Data Heart Rate from ECG 96 NIBP 98/50 NIBP BP-Mean 66 Respiration from ECG 15 SpO2 96 I&O: 02/15/20 02/16/20 02/17/20 06:59 06:59 06:59 Intake Total 1918.5 2771 Output Total 1380 1950 Balance 538.5 821 Result Diagrams: 02/16/20 05:07 02/16/20 05:07 Radiology Reviewed by me: Yes (MRI lumbar spine reviewed) Hospitalist ROS - Review of Systems Constitutional: reports: weakness, malaise. denies: fever, chills, sweats, other ENT: denies: ear pain, ear discharge, nose pain, nose discharge, nose congestion, mouth pain, mouth swelling, throat pain, throat swelling, other Respiratory: denies: cough, dry, shortness of breath, hemoptysis, SOB with excertion, pleuritic pain, sputum, wheezing, other Cardiovascular: reports: edema. denies: chest pain, palpitations, orthopnea, paroxysmal noc. dyspnea, light headedness, other Gastrointestinal: denies: nausea, vomiting, abdominal pain, diarrhea, constipation, melena, hematochezia, other Genitourinary: denies: dysuria, frequency, incontinence, hematuria, retention, other Musculoskeletal: denies: neck pain, shoulder pain, arm pain, back pain, hand pain, leg pain, foot pain, other - Medication Medications: Active Medications Generic Name Dose Route Start Last Admin Trade Name Freq PRN Reason Stop Dose Admin Hydrocodone Bitart/Acetaminophen 1 tab 02/11/20 15:59 02/15/20 22:04 Hydrocodone/Acetaminophen 5/325 Mg Tablet PO 1 tab Q4H PRN Administration Moderate Pain (4-6) Amlodipine Besylate 5 mg 02/15/20 09:00 02/16/20 09:38 Amlodipine 5 Mg Tab PO 5 mg DAILY NANCY Administration Aspirin 81 mg 02/15/20 09:00 02/16/20 09:38 Aspirin 81 Mg Enteric Coated Tablet PO 81 mg DAILY NANCY Administration Atorvastatin Calcium 10 mg 02/15/20 21:00 02/15/20 21:02 Atorvastatin Calcium 10 Mg Tab PO 10 mg HS NANCY Administration Calcium Carbonate 1,000 mg 02/13/20 09:00 02/16/20 09:37 Calcium Carbonate 500 Mg Chewtab PO 1,000 mg BID NANCY Administration Famotidine 20 mg 02/12/20 09:00 02/16/20 09:38 Famotidine 20 Mg Tab PO 20 mg DAILY NANCY Administration Heparin Sodium (Porcine) 5,000 units 02/12/20 09:00 02/16/20 09:38 Heparin 5,000 Units/Ml Vial SC 5,000 units BID NANCY Administration Cefazolin Sodium/Dextrose 2 gm 50 mls @ 100 mls/hr 02/15/20 22:00 02/16/20 05:06 / Device IVPB 50 mls Q8HR NANCY Administration Metoprolol Tartrate 25 mg 02/15/20 09:00 02/16/20 09:38 Metoprolol Tartrate 25 Mg Tab PO 25 mg Q12HR NANCY Administration Polyethylene Glycol 17 gm 02/15/20 09:00 02/16/20 09:38 Polyethylene Glycol 3350 17 Gm Packet PO 17 gm DAILY NANCY Administration Saccharomyces Boulardii 250 mg 02/15/20 09:00 02/16/20 09:38 Saccharomyces Boulardii 250 Mg Cap PO 250 mg DAILY NANCY Administration Sodium Chloride 10 ml 02/12/20 09:00 02/16/20 09:39 Flush - Normal Saline 10 Ml Syringe IVF 10 ml Q12HR NANCY Administration Zolpidem Tartrate 5 mg 02/14/20 10:31 02/15/20 00:40 Zolpidem Tartrate 5 Mg Tab PO 5 mg HSPRN PRN Administration Insomnia - Exam General Appearance: NAD, ill appearing Eye: PERRL, anicteric sclera ENT: normocephalic atraumatic, no oropharyngeal lesions Neck: supple, symmetric, no JVD, no thyromegaly Heart: RRR, no murmur, no gallops, no rubs Respiratory: no wheezes, no rales, no ronchi Gastrointestinal: soft, non-tender, non-distended, normal bowel sounds Extremities - other findings: Bilateral upper extremity edema noted, or ex tremity edema +1 Skin: normal turgor, no lesions Neurological - other findings: weakness on the right lower extremity Musculoskeletal: normal tone, normal strength Psychiatric: normal affect, normal behavior Hosp A/P (1) Septic shock due to Staphylococcus aureus Code(s): A41.01 - SEPSIS DUE TO METHICILLIN SUSCEPTIBLE STAPHYLOCOCCUS AUREUS; R65.21 - SEVERE SEPSIS WITH SEPTIC SHOCK Status: Acute (2) Septic arthritis of knee, right Code(s): M00.9 - PYOGENIC ARTHRITIS, UNSPECIFIED Status: Acute Qualifiers: Septic arthritis organism: staphylococcal Qualified Code(s): M00.061 - Staphylococcal arthritis, right knee (3) Acute kidney failure Status: Resolved (4) Metabolic acidosis Code(s): E87.2 - ACIDOSIS Status: Resolved (5) Abnormal blood electrolyte level Code(s): E87.8 - OTH DISORDERS OF ELECTROLYTE AND FLUID BALANCE, NEC Status: Resolved (6) Thrombocytopenia Code(s): D69.6 - THROMBOCYTOPENIA, UNSPECIFIED Status: Acute (7) Type 2 myocardial infarction Code(s): I21.A1 - MYOCARDIAL INFARCTION TYPE 2 Status: Acute (8) Weakness of right lower extremity Code(s): R29.898 - OT SYMPTOMS AND SIGNS INVOLVING THE MUSCULOSKELETAL SYSTEM Status: Acute (9) PVD (peripheral vascular disease) Code(s): I73.9 - PERIPHERAL VASCULAR DISEASE, UNSPECIFIED Status: Chronic (10) Hypokalemia Code(s): E87.6 - HYPOKALEMIA Status: Resolved (11) Hypophosphatemia Code(s): E83.39 - OTHER DISORDERS OF PHOSPHORUS METABOLISM Status: Resolved (12) Hypocalcemia Code(s): E83.51 - HYPOCALCEMIA Status: Acute (13) Lumbar stenosis Code(s): M48.061 - SPINAL STENOSIS, LUMBAR REGION WITHOUT NEUROGENIC OMID Status: Chronic - Plan old records reviewed/req, continue antibiotics, PT/OT, 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
--- NOTE | 2020-02-16 16:08 | PRG ---
DATE OF SERVICE: 02/16/2020 SUBJECTIVE: The patient has pain in the right knee, moderate pain in the lower back. No dyspnea. No abdominal pain. He has an indwelling Castaneda catheter. His balance has been positive for the past many days, that probably explains all the edema. OBJECTIVE: VITAL SIGNS: Temperature has been normal throughout, blood pressure 160/94, heart rate 108, respirations 18, and O2 saturation GENERAL: Does not appear in distress. LUNGS: Symmetric air entry. HEART: S1 and S2, regular rate. ABDOMEN: Soft, not distended. EXTREMITIES: Edema in upper and lower extremities. LABORATORY DATA: White cell count is at 10.8; hemoglobin 11; platelets 145, which is an improvement. Creatinine 1.04, which is a marked improvement. The cultures from the knee with Staphylococcus aureus. The patient is currently on cefazolin q.8. ASSESSMENT AND DISCUSSION: History of seizure activity, chronic low back pain, right knee septic arthritis due to Staphylococcus aureus bacteremia. Endocarditis is not ruled out. Lumbar spine infection is not present. Continue cefazolin. The total duration of therapy will be 6 weeks. The disposition probably will require transfer to rehab or skilled unit for the first few days and then home. Job ID: [id number] [facility]
--- NOTE | 2020-02-16 16:17 | SPC ---
Right upper extremity PICC sonographic guided HISTORY: Osteomyelitis. FINDINGS: After explaining the procedure and answering all questions, the right upper extremity was p repped and draped in usual sterile fashion. Sterile technique, buffered local anesthesia, sonographic guidance, and a 22-gauge needle were used t o carefully access the right basilic vein. Standard technique was used to place the tip of a 5 Pashto dual lumen PICC so that its tip lies at th e level of the superior vena cava. Catheter was flushed and secured externally. Patient tolerated the procedure well and was returned in unchanged condition. Fluoroscopy time 0.1 minute. IMPRESSION : Right upper extremity PICC is ready for use.
[2020-02-16] MEDS: HYDROcodone/Acetaminophen 5/325 mg Tablet PO PRN ×2 (17:30→21:01)
[2020-02-16] MEDS: Atorvastatin Calcium 10 MG TAB PO SCH (20:47)
[2020-02-17] MEDS: HYDROcodone/Acetaminophen 5/325 mg Tablet PO PRN ×2 (05:07→15:27)
[2020-02-17] MEDS: CEFAZOLIN 2 GM in Premix Bag 1 BAG IVPB SCH ×3 (05:07→20:53)
[2020-02-17 05:52] LABS: ALT (SGPT) 13 U/L (8-55); AST (SGOT) 48 U/L (5-34); Albumin 2.1 g/dL (3.4-4.8); Alkaline Phosphatase 99 U/L (40-110); Anion Gap 14 mmol/L (10-20); BUN (Urea Nitrogen) 20 mg/dL (8.4-25.7); Bilirubin, Total 1.2 mg/dL (0.2-1.2); Calc. Creatinine Clearance 122 mL/min (70-130); Calcium 7.2 mg/dL (7.8-10.44); Carbon Dioxide 23 mmol/L (23-31); Chloride 97 mmol/L (98-107); Estimated GFR-MDRD Greater than 90; Globulin 2.4 g/dL (2.4-3.5); Glucose 75 mg/dL (80-115); Potassium 3.4 mmol/L (3.5-5.1); Protein, Total 4.5 g/dL (5.8-8.1); Sodium 131 mmol/L (136-145)
[2020-02-17 05:57] LABS: Hemoglobin 10.2 g/dL (14.0-18.0); Mean Corpuscular HGB CONC 34.2 g/dL (32.0-36.0); Mean Corpuscular Hemoglobin 31.4 pg (27.0-31.0); Mean Corpuscular Volume 91.8 fL (78.0-98.0); RBC Distribution Width 13.4 % (11.5-14.5); Red Blood Cell (RBC) Count 3.25 mill/uL (4.70-6.10); White Blood Cell (WBC) Count 11.4 thou/uL (4.8-10.8)
[2020-02-17 06:23] LABS: #Basophils 0.3 thou/uL (0.0-0.2); #Lymphocytes 0.6 thou/uL (1.20-3.40); #Monocytes 0.4 thou/uL (0.11-0.59); #Neutrophils 10.1 thou/uL (1.40-6.50); %Basophils 2.4 % (0.0-1.0); %Eosinophils 0.4 % (0.0-10.0); %Lymphocytes 5.3 % (21.0-51.0); %Monocytes 3.3 % (0.0-10.0); %Neutrophils 88.6 % (42.0-75.0); Mean Platelet Volume 10.9 fL (7.4-10.4); Platelet Count 113 thou/uL (130-400); Platelet Morphology Comment Appears Decreased
[2020-02-17] MEDS: Heparin 5,000 UNITS/ML VIAL SC SCH ×2 (09:21→20:51)
[2020-02-17] MEDS: Aspirin 81 mg Enteric Coated Tablet PO SCH (09:21)
[2020-02-17] MEDS: Amlodipine 5 MG TAB PO SCH (09:22)
[2020-02-17] MEDS: Calcium Carbonate 500 MG ChewTAB PO SCH ×2 (09:22→20:51)
[2020-02-17] MEDS: Polyethylene Glycol 3350 17 GM Packet PO SCH (09:22)
[2020-02-17] MEDS: Metoprolol Tartrate 25 MG TAB PO SCH ×2 (09:22→20:52)
[2020-02-17] MEDS: Famotidine 20 MG TAB PO SCH (09:22)
[2020-02-17] MEDS: Saccharomyces boulardii 250 MG CAP PO SCH (09:23)
--- NOTE | 2020-02-17 09:30 | ULT ---
EXAM: Bilateral lower extremity venous ultrasound HISTORY: Worsening lower extremity swelling. COMPARISON: None TECHNIQUE: Multiplanar grayscale and color Doppler images were obtained in a bilateral lower extremit y venous ultrasound. Spectral analysis of the Doppler waveforms were performed. FINDINGS: Limited evaluation due to patient's inability to cooperate. There are bilateral prominent inguinal ly mph nodes. Augmentation cannot be performed due to limited evaluation of the vessels as well as soft tissue saul a. Ill-defined, complex fluid collection left groin measures 2.8 x 2.3 x 1.7 cm. There is flow in the right greater saphenous vein, common femoral vein, profunda femoral vein, visual ized femoral vein, popliteal vein and posterior tibial vein. There is flow in the left greater saphenous vein, common femoral vein, profunda femoral vein, visuali zed femoral vein, popliteal vein and posterior tibial vein. IMPRESSION: 1. Limited evaluation due to patient's inability to cooperate. No definite deep vein thrombus. 2. Complex irregular fluid collection in the left groin is noted. Transcribed Date/Time: 02/17/2020 9:49 AM
[2020-02-17 10:15] LABS: Fungus Stain Final report (.)
--- NOTE | 2020-02-17 13:39 | PRG ---
DATE OF SERVICE: 02/16/2020 SUBJECTIVE: The patient is noted with the following vital signs. OBJECTIVE: VITAL SIGNS: Afebrile with temperature 98.1, pulse 99 to 108, blood pressure HEENT: Unremarkable. CARDIOVASCULAR: First and second heart sounds were heard. RESPIRATORY: Clear to auscultation. DIGESTIVE: Benign abdomen. EXTREMITIES: No peripheral edema. SKIN: No new gross rash. LYMPHATICS: No peripheral lymphadenopathy. IMPRESSION: 1. . 2. , suboptimally controlled. PLAN: 1. Adjust antihypertensive to optimize the hemodynamics of this patient. 2. Renal supportive measures. 3. Further management to be dependent on the clinical course. Job ID: [id number]
--- NOTE | 2020-02-17 14:23 | PDOC.HOSPP ---
- Subjective Encounter Date: 02/17/20 Subjective: Feels better. He is tolerating his diet. - Objective Vital Signs & Weight: Vital Signs (12 hours) Temp Pulse Resp BP Pulse Ox 02/17/20 11:20 98.5 F 94 18 163/84 H 96 02/17/20 09:22 96 02/17/20 07:39 97.9 F 96 18 139/79 94 L 02/17/20 04:42 98.3 F 95 16 158/77 H 93 L Weight Admit Weight 198 lb Weight 198 lb 4.8 oz Most Recent Monitor Data Heart Rate from ECG 96 NIBP 98/50 NIBP BP-Mean 66 Respiration from ECG 15 SpO2 96 I&O: 02/16/20 02/17/20 02/18/20 06:59 06:59 06:59 Intake Total 2771 2140 Output Total 1950 1950 Balance 821 190 Result Diagrams: 02/17/20 05:15 02/17/20 05:15 Hospitalist ROS - Medication Medications: Active Medications Generic Name Dose Route Start Last Admin Trade Name Freq PRN Reason Stop Dose Admin Hydrocodone Bitart/Acetaminophen 1 tab 02/11/20 15:59 02/17/20 05:07 Hydrocodone/Acetaminophen 5/325 Mg Tablet PO 1 tab Q4H PRN Administration Moderate Pain (4-6) Amlodipine Besylate 5 mg 02/15/20 09:00 02/17/20 09:22 Amlodipine 5 Mg Tab PO 5 mg DAILY NANCY Administration Aspirin 81 mg 02/15/20 09:00 02/17/20 09:21 Aspirin 81 Mg Enteric Coated Tablet PO 81 mg DAILY NANCY Administration Atorvastatin Calcium 10 mg 02/15/20 21:00 02/16/20 20:47 Atorvastatin Calcium 10 Mg Tab PO 10 mg HS NANCY Administration Calcium Carbonate 1,000 mg 02/13/20 09:00 02/17/20 09:22 Calcium Carbonate 500 Mg Chewtab PO 1,000 mg BID NANCY Administration Famotidine 20 mg 02/12/20 09:00 02/17/20 09:22 Famotidine 20 Mg Tab PO 20 mg DAILY NANCY Administration Heparin Sodium (Porcine) 5,000 units 02/12/20 09:00 02/17/20 09:21 Heparin 5,000 Units/Ml Vial SC 5,000 units BID NANCY Administration Cefazolin Sodium/Dextrose 2 gm 50 mls @ 100 mls/hr 02/15/20 22:00 02/17/20 05:07 / Device IVPB 50 mls Q8HR NANCY Administration Metoprolol Tartrate 25 mg 02/15/20 09:00 02/17/20 09:22 Metoprolol Tartrate 25 Mg Tab PO 25 mg Q12HR NANCY Administration Polyethylene Glycol 17 gm 02/15/20 09:00 02/17/20 09:22 Polyethylene Glycol 3350 17 Gm Packet PO 17 gm DAILY NANCY Administration Saccharomyces Boulardii 250 mg 02/15/20 09:00 02/17/20 09:23 Saccharomyces Boulardii 250 Mg Cap PO 250 mg DAILY NANCY Administration Sodium Chloride 10 ml 02/12/20 09:00 02/17/20 09:25 Flush - Normal Saline 10 Ml Syringe IVF 10 ml Q12HR NANCY Administration Zolpidem Tartrate 5 mg 02/14/20 10:31 02/15/20 00:40 Zolpidem Tartrate 5 Mg Tab PO 5 mg HSPRN PRN Administration Insomnia - Exam General Appearance: awake alert ENT: normocephalic atraumatic Neck: supple, no JVD Heart: RRR Respiratory: normal chest expansion, no tachypnea Neurological: cranial nerve grossly intact, no weakness Hosp A/P - Plan Hosp A/P (1) Septic shock due to Staphylococcus aureus Code(s): A41.01 - SEPSIS DUE TO METHICILLIN SUSCEPTIBLE STAPHYLOCOCCUS AUREUS; R65.21 - SEVERE SEPSIS WITH SEPTIC SHOCK Status: Acute (2) Septic arthritis of knee, right Code(s): M00.9 - PYOGENIC ARTHRITIS, UNSPECIFIED Status: Acute Qualifiers: Septic arthritis organism: staphylococcal Qualified Code(s): M00.061 - Staphylococcal arthritis, right knee (3) Acute kidney failure Status: Resolved (4) Metabolic acidosis Code(s): E87.2 - ACIDOSIS Status: Resolved (5) Abnormal blood electrolyte level Code(s): E87.8 - OTH DISORDERS OF ELECTROLYTE AND FLUID BALANCE, NEC Status: Resolved (6) Thrombocytopenia Code(s): D69.6 - THROMBOCYTOPENIA, UNSPECIFIED Status: Acute (7) Type 2 myocardial infarction Code(s): I21.A1 - MYOCARDIAL INFARCTION TYPE 2 Status: Acute (8) Weakness of right lower extremity Code(s): R29.898 - OTH SYMPTOMS AND SIGNS INVOLVING THE MUSCULOSKELETAL SYSTEM Status: Acute (9) PVD (peripheral vascular disease) Code(s): I73.9 - PERIPHERAL VASCULAR DISEASE, UNSPECIFIED Status: Chronic (10) Hypokalemia Code(s): E87.6 - HYPOKALEMIA Status: Resolved (11) Hypophosphatemia Code(s): E83.39 - OTHER DISORDERS OF PHOSPHORUS METABOLISM Status: Resolved (12) Hypocalcemia Code(s): E83.51 - HYPOCALCEMIA Status: Acute (13) Lumbar stenosis Code(s): M48.061 - SPINAL STENOSIS, LUMBAR REGION WITHOUT NEUROGENIC OMID Status: Chronic - Plan PICC line has been placed. Continue oxacillin per ID Renal failure resolved. Vital signs stable. Pending placement. Continue PT and OT.
--- NOTE | 2020-02-17 15:49 | PRG ---
DATE OF SERVICE: 02/17/2020 SUBJECTIVE: No headaches. No abdominal pain. No respiratory symptoms. OBJECTIVE: VITAL SIGNS: Temperature has been normal, O2 saturation 93% to 96% on room air. GENERAL: Awake, alert, oriented. LUNGS: Symmetric air entry. HEART: S1 and S2, regular rate. ABDOMEN: Soft, not distended. Indwelling Castaneda catheter. LABORATORY DATA: White cell count 11.4, hemoglobin 10.2, platelets 113. Creatinine 0.78, albumin 2.1. He needs a repeat blood cultures to verify resolution of bacteremia. ASSESSMENT AND DISCUSSION: Seizure activity, history of chronic low back pain, right knee septic arthritis with bacteremia. Endocarditis is not ruled out. Lumbar spine infection ruled out. Cefazolin for a total of 6 weeks and date of therapy will be March 26, 2020. He will need weekly labs. Job ID: [id number]
--- NOTE | 2020-02-17 19:07 | PRG ---
DATE OF SERVICE: 02/17/2020 SUBJECTIVE: The patient is noted with the following vital signs. OBJECTIVE: VITAL SIGNS: Afebrile, temperature 98.6, pulse 88, respiratory rate of 18, O2 saturation of 93% with blood pressure HEENT: Unremarkable. CARDIOVASCULAR: Positive heart sounds were heard. RESPIRATORY: Clear to auscultation. DIGESTIVE: Benign abdomen. EXTREMITIES: No peripheral edema. SKIN: LYMPHATICS: No peripheral lymphadenopathy. IMPRESSION: Acute kidney injury, which has since resolved. PLAN: 1. Renal supportive measures. 2. Discontinue Castaneda catheter. 3. Dispo planning per the primary team. Job ID: [id number]
[2020-02-17] MEDS: Atorvastatin Calcium 10 MG TAB PO SCH (20:52)
[2020-02-17] MEDS: Zolpidem Tartrate 5 MG TAB PO PRN (20:52)
[2020-02-18] MEDS: CEFAZOLIN 2 GM in Premix Bag 1 BAG IVPB SCH ×3 (05:59→21:10)
[2020-02-18] MEDS: Polyethylene Glycol 3350 17 GM Packet PO SCH (08:54)
[2020-02-18] MEDS: Calcium Carbonate 500 MG ChewTAB PO SCH ×2 (08:54→21:08)
[2020-02-18] MEDS: Heparin 5,000 UNITS/ML VIAL SC SCH ×2 (08:54→21:06)
[2020-02-18] MEDS: Famotidine 20 MG TAB PO SCH (08:54)
[2020-02-18] MEDS: Saccharomyces boulardii 250 MG CAP PO SCH (08:54)
[2020-02-18] MEDS: Metoprolol Tartrate 25 MG TAB PO SCH ×2 (08:54→21:08)
[2020-02-18] MEDS: Amlodipine 5 MG TAB PO SCH (08:54)
[2020-02-18] MEDS: Aspirin 81 mg Enteric Coated Tablet PO SCH (08:54)
[2020-02-18] MEDS ORDERED: Hydrocortisone 1% Cream 30 GM TUBE TOP PRN (09:59)
--- NOTE | 2020-02-18 12:06 | PDOC.HOSPP ---
- Subjective Encounter Date: 02/18/20 Subjective: No new events overnight. - Objective Vital Signs & Weight: Vital Signs (12 hours) Temp Pulse Resp BP BP Pulse Ox 02/18/20 08:55 94 L 02/18/20 08:54 102 H 152/76 H 02/18/20 07:47 98.5 F 102 H 16 152/76 H 94 L 02/18/20 04:38 98.8 F 99 16 133/78 92 L 02/18/20 00:09 98.3 F 91 16 123/69 96 Weight Admit Weight 198 lb Weight 198 lb 4.8 oz Most Recent Monitor Data Heart Rate from ECG 96 NIBP 98/50 NIBP BP-Mean 66 Respiration from ECG 15 SpO2 96 I&O: 02/17/20 02/18/20 02/19/20 06:59 06:59 06:59 Intake Total 2140 1800 Output Total 1950 1000 Balance 190 800 Result Diagrams: 02/17/20 05:15 02/17/20 05:15 Hospitalist ROS - Medication Medications: Active Medications Generic Name Dose Route Start Last Admin Trade Name Freq PRN Reason Stop Dose Admin Hydrocodone Bitart/Acetaminophen 1 tab 02/11/20 15:59 02/17/20 15:27 Hydrocodone/Acetaminophen 5/325 Mg Tablet PO 1 tab Q4H PRN Administration Moderate Pain (4-6) Amlodipine Besylate 5 mg 02/15/20 09:00 02/18/20 08:54 Amlodipine 5 Mg Tab PO 5 mg DAILY NANCY Administration Aspirin 81 mg 02/15/20 09:00 02/18/20 08:54 Aspirin 81 Mg Enteric Coated Tablet PO 81 mg DAILY NANCY Administration Atorvastatin Calcium 10 mg 02/15/20 21:00 02/17/20 20:52 Atorvastatin Calcium 10 Mg Tab PO 10 mg HS NANCY Administration Calcium Carbonate 1,000 mg 02/13/20 09:00 02/18/20 08:54 Calcium Carbonate 500 Mg Chewtab PO 1,000 mg BID NANCY Administration Famotidine 20 mg 02/12/20 09:00 02/18/20 08:54 Famotidine 20 Mg Tab PO 20 mg DAILY NANCY Administration Heparin Sodium (Porcine) 5,000 units 02/12/20 09:00 02/18/20 08:54 Heparin 5,000 Units/Ml Vial SC 5,000 units BID NANCY Administration Cefazolin Sodium/Dextrose 2 gm 50 mls @ 100 mls/hr 02/15/20 22:00 02/18/20 05:59 / Device IVPB 50 mls Q8HR NANCY Administration Metoprolol Tartrate 25 mg 02/15/20 09:00 02/18/20 08:54 Metoprolol Tartrate 25 Mg Tab PO 25 mg Q12HR NANCY Administration Polyethylene Glycol 17 gm 02/15/20 09:00 02/18/20 08:54 Polyethylene Glycol 3350 17 Gm Packet PO 17 gm DAILY NANCY Administration Saccharomyces Boulardii 250 mg 02/15/20 09:00 02/18/20 08:54 Saccharomyces Boulardii 250 Mg Cap PO 250 mg DAILY NANCY Administration Senna/Docusate Sodium 2 tab 02/11/20 15:59 02/18/20 08:54 Senokot S 8.6-50 Mg Tab PO 2 tab BID PRN Administration Constipation Sodium Chloride 10 ml 02/12/20 09:00 02/18/20 08:55 Flush - Normal Saline 10 Ml Syringe IVF 10 ml Q12HR NANCY Administration Zolpidem Tartrate 5 mg 02/14/20 10:31 02/17/20 20:52 Zolpidem Tartrate 5 Mg Tab PO 5 mg HSPRN PRN Administration Insomnia - Exam General Appearance: awake alert ENT: normocephalic atraumatic Neck: supple, no JVD Respiratory: normal chest expansion, no tachypnea Gastrointestinal: soft Neurological: cranial nerve grossly intact, no focal deficits Hosp A/P - Plan Hosp A/P (1) Septic shock due to Staphylococcus aureus Code(s): A41.01 - SEPSIS DUE TO METHICILLIN SUSCEPTIBLE STAPHYLOCOCCUS AUREUS; R65.21 - SEVERE SEPSIS WITH SEPTIC SHOCK Status: Acute (2) Septic arthritis of knee, right Code(s): M00.9 - PYOGENIC ARTHRITIS, UNSPECIFIED Status: Acute Qualifiers: Septic arthritis organism: staphylococcal Qualified Code(s): M00.061 - Staphylococcal arthritis, right knee (3) Acute kidney failure Status: Resolved (4) Metabolic acidosis Code(s): E87.2 - ACIDOSIS Status: Resolved (5) Abnormal blood electrolyte level Code(s): E87.8 - OTH DISORDERS OF ELECTROLYTE AND FLUID BALANCE, NEC Status: Resolved (6) Thrombocytopenia Code(s): D69.6 - THROMBOCYTOPENIA, UNSPECIFIED Status: Acute (7) Type 2 myocardial infarction Code(s): I21.A1 - MYOCARDIAL INFARCTION TYPE 2 Status: Acute (8) Weakness of right lower extremity Code(s): R29.898 - OT SYMPTOMS AND SIGNS INVOLVING THE MUSCULOSKELETAL SYSTEM Status: Acute (9) PVD (peripheral vascular disease) Code(s): I73.9 - PERIPHERAL VASCULAR DISEASE, UNSPECIFIED Status: Chronic (10) Hypokalemia Code(s): E87.6 - HYPOKALEMIA Status: Resolved (11) Hypophosphatemia Code(s): E83.39 - OTHER DISORDERS OF PHOSPHORUS METABOLISM Status: Resolved (12) Hypocalcemia Code(s): E83.51 - HYPOCALCEMIA Status: Acute (13) Lumbar stenosis Code(s): M48.061 - SPINAL STENOSIS, LUMBAR REGION WITHOUT NEUROGENIC OMID Status: Chronic - Plan PICC line has been placed. ID recommended treatment with IV cefazolin until March 26. Renal failure resolved. Vital signs stable. Pending placement. Continue PT and OT.
[2020-02-18] MEDS: HYDROcodone/Acetaminophen 5/325 mg Tablet PO PRN ×2 (13:27→21:08)
--- NOTE | 2020-02-18 19:26 | PRG ---
DATE OF SERVICE: 02/18/2020 OBJECTIVE: VITAL SIGNS: The patient noted with the following vital signs; afebrile, temperature 98.3, pulse 92, respiratory rate of 18, O2 saturation of 93%, blood pressure of 114/70. HEENT: Unremarkable. CARDIOVASCULAR SYSTEM: First and second heart sounds were heard. RESPIRATORY: Clear to auscultation. DIGESTIVE SYSTEM: Revealed a benign abdomen. EXTREMITIES: No peripheral edema. SKIN: No new gross rash. LYMPHATICS: No peripheral lymphadenopathy. IMPRESSION: Acute kidney injury, seems to have greatly resolved. PLAN: Continue current renal supportive measures. Job ID: [id number]
[2020-02-18] MEDS: Atorvastatin Calcium 10 MG TAB PO SCH (21:07)
[2020-02-19] MEDS: HYDROcodone/Acetaminophen 5/325 mg Tablet PO PRN ×2 (05:32→20:16)
[2020-02-19] MEDS: CEFAZOLIN 2 GM in Premix Bag 1 BAG IVPB SCH ×2 (05:33→16:13)
[2020-02-19] MEDS: Heparin 5,000 UNITS/ML VIAL SC SCH ×2 (09:27→20:17)
[2020-02-19] MEDS: Metoprolol Tartrate 25 MG TAB PO SCH ×2 (09:28→20:16)
[2020-02-19] MEDS: Saccharomyces boulardii 250 MG CAP PO SCH (09:28)
[2020-02-19] MEDS: Calcium Carbonate 500 MG ChewTAB PO SCH ×2 (09:29→20:17)
[2020-02-19] MEDS: Famotidine 20 MG TAB PO SCH (09:29)
[2020-02-19] MEDS: Aspirin 81 mg Enteric Coated Tablet PO SCH (09:29)
[2020-02-19] MEDS: Polyethylene Glycol 3350 17 GM Packet PO SCH (09:29)
[2020-02-19] MEDS: Amlodipine 5 MG TAB PO SCH (09:29)
--- NOTE | 2020-02-19 12:59 | PDOC.HOSPP ---
- Subjective Encounter Date: 02/19/20 Encounter Time: 09:30 Subjective: Patient is doing well he has no new complaints. He is sats are little down and the room air around 92%. His white count is slightly elevated. But he is afebrile. Odium still remains the same around 131. - Objective Vital Signs & Weight: Vital Signs (12 hours) Temp Pulse Resp BP BP Pulse Ox 02/19/20 09:29 96 123/72 02/19/20 08:03 98.5 F 96 16 123/72 92 L 02/19/20 03:17 98.1 F 97 18 144/71 H 93 L Weight Admit Weight 198 lb Weight 198 lb 4.8 oz Most Recent Monitor Data Heart Rate from ECG 96 NIBP 98/50 NIBP BP-Mean 66 Respiration from ECG 15 SpO2 96 I&O: 02/18/20 02/19/20 02/20/20 06:59 06:59 06:59 Intake Total 1800 1350 Output Total 1000 1500 Balance 800 -150 Result Diagrams: 02/17/20 05:15 02/17/20 05:15 Hospitalist ROS - Medication Medications: Active Medications Generic Name Dose Route Start Last Admin Trade Name Freq PRN Reason Stop Dose Admin Hydrocodone Bitart/Acetaminophen 1 tab 02/11/20 15:59 02/19/20 05:32 Hydrocodone/Acetaminophen 5/325 Mg Tablet PO 1 tab Q4H PRN Administration Moderate Pain (4-6) Amlodipine Besylate 5 mg 02/15/20 09:00 02/19/20 09:29 Amlodipine 5 Mg Tab PO 5 mg DAILY NANCY Administration Aspirin 81 mg 02/15/20 09:00 02/19/20 09:29 Aspirin 81 Mg Enteric Coated Tablet PO 81 mg DAILY NANCY Administration Atorvastatin Calcium 10 mg 02/15/20 21:00 02/18/20 21:07 Atorvastatin Calcium 10 Mg Tab PO 10 mg HS NANCY Administration Calcium Carbonate 1,000 mg 02/13/20 09:00 02/19/20 09:29 Calcium Carbonate 500 Mg Chewtab PO Not Given BID NANCY Famotidine 20 mg 02/12/20 09:00 02/19/20 09:29 Famotidine 20 Mg Tab PO 20 mg DAILY NANCY Administration Heparin Sodium (Porcine) 5,000 units 02/12/20 09:00 02/19/20 09:27 Heparin 5,000 Units/Ml Vial SC 5,000 units BID NANCY Administration Cefazolin Sodium/Dextrose 2 gm 50 mls @ 100 mls/hr 02/15/20 22:00 02/19/20 05:33 / Device IVPB 50 mls Q8HR NANCY Administration Metoprolol Tartrate 25 mg 02/15/20 09:00 02/19/20 09:28 Metoprolol Tartrate 25 Mg Tab PO 25 mg Q12HR NANCY Administration Polyethylene Glycol 17 gm 02/15/20 09:00 02/19/20 09:29 Polyethylene Glycol 3350 17 Gm Packet PO Not Given DAILY NANCY Saccharomyces Boulardii 250 mg 02/15/20 09:00 02/19/20 09:28 Saccharomyces Boulardii 250 Mg Cap PO 250 mg DAILY NANCY Administration Senna/Docusate Sodium 2 tab 02/11/20 15:59 02/18/20 08:54 Senokot S 8.6-50 Mg Tab PO 2 tab BID PRN Administration Constipation Sodium Chloride 10 ml 02/12/20 09:00 02/18/20 21:10 Flush - Normal Saline 10 Ml Syringe IVF 10 ml Q12HR NANCY Administration Zolpidem Tartrate 5 mg 02/14/20 10:31 02/17/20 20:52 Zolpidem Tartrate 5 Mg Tab PO 5 mg HSPRN PRN Administration Insomnia - Exam General Appearance: awake alert Eye: PERRL ENT: normocephalic atraumatic Neck: supple Heart: RRR Respiratory: CTAB, normal chest expansion Gastrointestinal: soft, normal bowel sounds Hosp A/P - Plan (1) Septic shock due to Staphylococcus aureus Code(s): A41.01 - SEPSIS DUE TO METHICILLIN SUSCEPTIBLE STAPHYLOCOCCUS AUREUS; R65.21 - SEVERE SEPSIS WITH SEPTIC SHOCK Status: Acute (2) Septic arthritis of knee, right Code(s): M00.9 - PYOGENIC ARTHRITIS, UNSPECIFIED Status: Acute Qualifiers: Septic arthritis organism: staphylococcal Qualified Code(s): M00.061 - Staphylococcal arthritis, right knee (3) Acute kidney failure Status: Resolved (4) Metabolic acidosis Code(s): E87.2 - ACIDOSIS Status: Resolved (5) Abnormal blood electrolyte level Code(s): E87.8 - OTH DISORDERS OF ELECTROLYTE AND FLUID BALANCE, NEC Status: Resolved (6) Thrombocytopenia Code(s): D69.6 - THROMBOCYTOPENIA, UNSPECIFIED Status: Acute (7) Type 2 myocardial infarction Code(s): I21.A1 - MYOCARDIAL INFARCTION TYPE 2 Status: Acute (8) Weakness of right lower extremity Code(s): R29.898 - OTH SYMPTOMS AND SIGNS INVOLVING THE MUSCULOSKELETAL SYSTEM Status: Acute (9) PVD (peripheral vascular disease) Code(s): I73.9 - PERIPHERAL VASCULAR DISEASE, UNSPECIFIED Status: Chronic (10) Hypokalemia Code(s): E87.6 - HYPOKALEMIA Status: Resolved (11) Hypophosphatemia Code(s): E83.39 - OTHER DISORDERS OF PHOSPHORUS METABOLISM Status: Resolved (12) Hypocalcemia Code(s): E83.51 - HYPOCALCEMIA Status: Acute (13) Lumbar stenosis Code(s): M48.061 - SPINAL STENOSIS, LUMBAR REGION WITHOUT NEUROGENIC OMID Status: Chronic - Plan PICC line has been placed. Acute kidney injury seems to be improved but still sodium remains around 131. Not on any diuretics. He is not on any IV fluid currently. We will follow closely. He is on cefazolin 2 g every 8 hours need to continue until March 26. Pending rehab placement.
--- NOTE | 2020-02-19 17:54 | PRG ---
DATE OF SERVICE: 02/19/2020 SUBJECTIVE: The patient was noted with the following vital signs with no new complaint. OBJECTIVE: VITAL SIGNS: Temperature 98.1, pulse 97, respiratory rate of 16, O2 saturation of 93%, blood pressure 159/81. HEENT: Unremarkable. CARDIOVASCULAR SYSTEM: First and second heart sounds were heard. RESPIRATORY SYSTEM: Clear to auscultation. DIGESTIVE SYSTEM: Revealed a benign abdomen. EXTREMITIES: No peripheral edema. SKIN: No new gross rash. LYMPHATICS: No peripheral lymphadenopathy. IMPRESSION: Acute kidney injury, which has resolved. PLAN: Continue current renal supportive measures. Job ID: [id number]
[2020-02-19] MEDS: Atorvastatin Calcium 10 MG TAB PO SCH (20:16)
[2020-02-19 20:35] VITALS: BP 167/76; TEMP 98.7
--- NOTE | 2020-02-20 10:51 | PDOC.DS.DS ---
Provider - Provider Date of Admission: 02/11/20 14:55 Admitting Provider: Osei Leo MD Consultations: Infectious Disease Primary Care Physician: Selam Ballard Course - Hospital Course Hospital Course: 64-year-old male with multiple medical problems presented with a septic shock due to septic arthritis on the right knee. He also had acute kidney failure that resolved with supportive measures. He had thrombocytopenia. And his platelet counts remained stable at 113,000. His blood cultures grew staph already is on drop February 10. Repeat blood cultures negative for 48 hours on . He had a staph already is in his bacterial culture with the knee synovial fluid aspiration. He will be completing his cefazolin antibiotic course on March 26. He is discharged to the rehab. Resuscitation Status: 02/11/20 15:08 Resuscitation Status Routine Resuscitation Status: FULL: Full Resuscitation - Labs Lab Results: 02/17/20 05:15 02/17/20 05:15 Abnormal Lab Results - Last 48 hrs 02/12/20 03:41: 25-OH Vitamin D Total 13 L Microbiology - Entire Visit 02/17/20 09:42 Central Line - Right Brachiocephalic vein Blood Culture - Preliminary NO GROWTH AT 48 HOURS 02/17/20 08:37 Central Line - Right Brachiocephalic vein Blood Culture - Pr eliminary NO GROWTH AT 48 HOURS 02/13/20 10:41 Synovial fluid Body Fluid Culture - Final Staphylococcus aureus 02/14/20 09:00 Knee - Swab Bacterial Culture - Final Staphylococcus aureus 02/14/20 09:00 Knee - Swab Anaerobic Culture - Final 02/11/20 13:59 Central Line - Right external jugular vein Blood Culture - Final Staphylococcus aureus 02/11/20 13:59 Central Line - Right external jugular vein Blood Culture - Final Staphylococcus aureus 02/11/20 14:13 Urine gastelum catheter Urine Culture - Final NO GROWTH AT 48 HOURS - Physical Exam Vitals: Weight Admit Weight 198 lb Weight 198 lb 4.8 oz Most Recent Monitor Data Heart Rate from ECG 96 NIBP 98/50 NIBP BP-Mean 66 Respiration from ECG 15 SpO2 96 Physical Exam: The patient was seen and examined on the day of discharge. Plan - Discharge Medications Home Medications: Medication Instructions Recorded Confirmed Type Solifenacin Succinate [VESIcare] 5 mg PO DAILY 02/02/13 02/12/20 History Simvastatin [Zocor] 20 mg PO HS #0 tab 06/22/13 02/12/20 Rx Aspirin [Aspirin EC] 81 mg PO DAILY 11/02/14 02/12/20 History Lisinopril 30 mg PO DAILY 11/02/14 02/12/20 History Metoprolol Tartrate 25 mg PO DAILY 11/02/14 02/12/20 History Acetaminophen With Codeine 1 tablet PO Q4HR PRN #0 tablet 11/05/14 02/12/20 Rx [Tylenol with Codeine #3] Amlodipine [Norvasc] 5 mg PO DAILY 02/12/20 02/12/20 History Meloxicam 15 mg PO DAILY 02/12/20 02/12/20 History Pregabalin 150 mg PO BID 02/12/20 02/12/20 History Heparin 5,000 units SC BID 10 Days vial 02/19/20 Rx Allergies: No Known Drug Allergies Allergy (Verified 02/15/20 06:30) ALLERGY PER HIPFXPREOP ORDER ambien Adverse Reaction (Intermediate, Uncoded 02/15/20 06:30) confusion agitated, confused, restless - Discharge Instructions Discharge Instructions:: Ancef for 6 weeks. End date March 26, 2020. Activity:: Activity as Tolerated Nourishment:: No Restrictions Therapies:: Occupational Therapy, Physical Therapy Equipment/Supplies:: Walker - Follow up Plan Referrals: Aydee Bob MD [Active] - (Contact office to schedule follow up appointment.) Ortiz Sanabria MD [Active] - 14 Days (call for appt for suture removal and wound check) Clifford Ballard-Caprice Sherman MD [Primary Care Provider] - Rick Kramer MD [Active] - Disposition: REHAB FACILITY Quality - Care Measures CORE MEASURES:: N/A
== END 2020-02-19 20:15 | DRG 853 ==
LOC: ERS 12:14 → ERHOLD 14:55 → IMCU/EMU 19:21 → CCU 02-12 02:20 → SURG B 02-14 08:23 → SURG A 02-14 10:13
PROVIDERS: ADMIT Internal Medicine; ATTEND Internal Medicine
PROC: 3E033XZ Introduction of Vasopressor into Peripheral Vein, Percutaneous Approach (ICD-10-PCS; 2020-02-11)
PROC: 0S9C3ZZ Drainage of Right Knee Joint, Percutaneous Approach (ICD-10-PCS; 2020-02-13)
PROC: 0SBC0ZZ Excision of Right Knee Joint, Open Approach (ICD-10-PCS; principal; 2020-02-14)
PROC: 02HV33Z Insertion of Infusion Device into Superior Vena Cava, Percutaneous Approach (ICD-10-PCS; 2020-02-16)
PROC: B518YZA Fluoroscopy of Superior Vena Cava using Other Contrast, Guidance (ICD-10-PCS; 2020-02-16)
PROC: B548ZZA Ultrasonography of Superior Vena Cava, Guidance (ICD-10-PCS; 2020-02-16)
DX: A41.01 Sepsis due to Methicillin susceptible Staphylococcus aureus (principal); R65.21 Severe sepsis with septic shock; I21.A1 Myocardial infarction type 2; N39.0 Urinary tract infection, site not specified; E87.1 Hypo-osmolality and hyponatremia; E87.2 Acidosis; M00.061 Staphylococcal arthritis, right knee; Z20.828 Contact with and (suspected) exposure to other viral communicable diseases; E87.6 Hypokalemia; E88.09 Other disorders of plasma-protein metabolism, not elsewhere classified; N13.9 Obstructive and reflux uropathy, unspecified; I73.9 Peripheral vascular disease, unspecified; D69.59 Other secondary thrombocytopenia; G89.29 Other chronic pain; M54.5 Low back pain; E87.8 Other disorders of electrolyte and fluid balance, not elsewhere classified; I10 Essential (primary) hypertension; M48.061 Spinal stenosis, lumbar region without neurogenic claudication; G40.909 Epilepsy, unspecified, not intractable, without status epilepticus; E83.51 Hypocalcemia; R29.898 Other symptoms and signs involving the musculoskeletal system; E83.42 Hypomagnesemia; E83.39 Other disorders of phosphorus metabolism; Z85.46 Personal history of malignant neoplasm of prostate; Z92.3 Personal history of irradiation
CPT/HCPCS: 36415; 36556; 36569; 51702; 71045; 72158; 75635; 76770; 80048; 80053; 80061; 80069; 81003; 81015; 82306; 82550; 82553; 82570; 82945; 83605; 83735; 83970; 84100; 84156; 84157; 84300; 84484; 84560; 85025; 85060; 85610; 85730; 86140; 86850; 86900; 86901; 87040; 87070; 87077; 87086; 87102; 87149; 87186; 87205; 87206; 87635; 89051; 89060; 93005; 93306; 93970; 93976; 96365; 96366; 96367; 96375; 96376; A9579; C1751; J0171; J0690; J0692; J1100; J1644; J2060; J2250; J2405; J2700; J2704; J3010; J3370; J3475; J3480; J3490; J7030; J7050; J7070; P9047; Q9967; U0003

== ENCOUNTER 2020-02-29 11:55 | Inpatient (IN) | payer OTHER ==
[~2020-02-29 11:55] MED LIST: Calcium Chloride 1 GM/10 ML Abboject SYRINGE ONE; EPHEDRINE 25 MG/5 ML SYRINGE ONE; Iopamidol-370 76% 500 ML 1 ML ONE; Lidocaine 1% PF 5 ML VIAL ONE; Ondansetron PF 4 MG/2 ML Vial ONE; PHENYLEPHRINE-NS 100 MCG/ML 10 ML SYRINGE ONE; PROPOFOL 200 MG/20 ML VIAL ONE; Rocuronium Bromide 10 MG/ML (10ML VIAL) ONE; diphenhydrAMINE 50 MG/ML VIAL ONE
[2020-02-29 12:44] LABS: #Eosinphils 0.2 thou/uL (0.0-0.7); #Lymphocytes 1.6 thou/uL (1.20-3.40); #Monocytes 0.8 thou/uL (0.11-0.59); #Neutrophils 9.7 thou/uL (1.40-6.50); %Basophils 0.1 % (0.0-1.0); %Eosinophils 1.5 % (0.0-10.0); %Lymphocytes 13.4 % (21.0-51.0); %Monocytes 6.6 % (0.0-10.0); %Neutrophils 78.4 % (42.0-75.0); Hemoglobin 8.1 g/dL (14.0-18.0); Mean Corpuscular HGB CONC 33.1 g/dL (32.0-36.0); Mean Corpuscular Hemoglobin 30.9 pg (27.0-31.0); Mean Corpuscular Volume 93.4 fL (78.0-98.0); Mean Platelet Volume 8.7 fL (7.4-10.4); Platelet Count 389 thou/uL (130-400); RBC Distribution Width 13.2 % (11.5-14.5); Red Blood Cell (RBC) Count 2.61 mill/uL (4.70-6.10); White Blood Cell (WBC) Count 12.3 thou/uL (4.8-10.8)
[2020-02-29 13:06] LABS: ALT (SGPT) Less than 7 U/L (8-55); AST (SGOT) 30 U/L (5-34); Albumin 1.9 g/dL (3.4-4.8); Alkaline Phosphatase 123 U/L (40-110); Anion Gap 13 mmol/L (10-20); BUN (Urea Nitrogen) 13 mg/dL (8.4-25.7); Bilirubin, Total 0.5 mg/dL (0.2-1.2); CK (CPK) 40 U/L (30-200); Calc. Creatinine Clearance 0 mL/min (70-130); Calcium 7.3 mg/dL (7.8-10.44); Carbon Dioxide 27 mmol/L (23-31); Chloride 98 mmol/L (98-107); Glucose 106 mg/dL (80-115); Lipase 52 U/L (8-78); Potassium 3.9 mmol/L (3.5-5.1); Protein, Total 4.9 g/dL (5.8-8.1); Sodium 134 mmol/L (136-145)
--- NOTE | 2020-02-29 13:32 | CT ---
CT PULMONARY ANGIOGRAM WITH IV CONTRAST AND 3-D POSTPROCESSING: HISTORY:Hypoxia FINDINGS: There is good contrast opacification of the pulmonary arterial vasculature without filling defects to suggest pulmonary embolism. No aneurysmal dilatation of the thoracic aorta is noted.. Vascular calcifications including those of coronary arteries are seen. No pericardial effusion is seen. Tiny bilateral pleural effusions are present, left larger than right. Chronic parenchymal changes are present. No pneumothoraces, focal areas of consolidation or lung nodules are noted. There are degenerative changes in the spine.There are old left-sided rib fractures. There are multipl e compressed vertebral bodies in the thoracic spine. Upper abdominal tomograms demonstrate cirrhosis of the liver and cholelithiasis.. IMPRESSION: No CT evidence of pulmonary embolism.
[2020-02-29] MEDS ORDERED: Cefepime 2 GM VIAL ONE (14:39)
[2020-02-29] MEDS ORDERED: Sodium Chloride 0.9% 100 ML ONE (14:39)
[2020-02-29] MEDS ORDERED: Vancomycin 1 GM/200 ML BAG ONE (15:27)
[2020-02-29] MEDS ORDERED: Guaifenesin DM 100-10/5 ML UDCUP PO PRN (15:30)
[2020-02-29 15:57] LABS: Bilirubin Negative (Negative); Blood, Urine 1+ (Negative); Clarity Clear (Clear); Glucose, Urine (Dipstick) Normal (Negative); Ketone, Urine Negative (Negative); Leukocyte 250 Leu/uL (Negative); Nitrite Negative (Negative); Protein, Urine (Dipstick) 10 mg/dL (Neg-Trace); RBC/HPF 0-3 HPF (0-3); Specific Gravity, Urine 1.014 (1.002-1.036); Squamous Epithelial None Seen HPF (0-3); Urobilinogen Normal mg/dL (Less than 2); pH, Urine 6.5 (5.0-9.0)
[2020-02-29 15:58] LABS: Bacteria/HPF Rare-Few HPF (None Seen)
--- NOTE | 2020-02-29 17:09 | CON ---
DATE OF CONSULTATION: This is Armando Verde PA-C dictating a report for Derek Orozco MD. HISTORY OF PRESENT ILLNESS: We were asked by ER to see the patient. The patient went to rehab on the of this month. He initially came in on the with multiple health issues for orthopedics perspective. He had a septic knee that was drained on 02/14/[address] Sanabria and we followed him through his hospital stay as did Dr. Kramer, [facility]. The patient presents back today with a complaint of bilateral forearm swelling and redness. His white blood cell count is at 12.3. He just does not feel well. His significant other is at the bedside. He also has some deformity in the right lower extremity with some redness to the calf that appears to be nontender, has no drainage, but he does have significant pitting edema to both lower extremities. As for the upper extremities, he can move both hands fairly well. The areas of redness to the aspect of bilateral forearms, they are definitely fluctuant with palpation and little bit tender. His left hand, he has problems moving his third digit and extending it out, but his pin pusher strengths are equal. I asked the patient if you remember getting IVs in those areas and he does not know. He did not eat anything since yesterday. PAST MEDICAL HISTORY: Seizures, hypertension, prostate CA, alcoholism, tobacco, peripheral vascular disease, carotid artery stenosis. SURGERIES: Endarterectomy of carotid, right femoral-popliteal, radical prostatectomy, left node dissection, ORIF left hip. PSYCHIATRIC HISTORY: Negative. ALLERGIES: NONE. HOME MEDICATIONS: 1. Aspirin. 2. Tylenol No. 3. 3. VESIcare. 4. Zocor. 5. Lisinopril. 6. Metoprolol. 7. Meloxicam. 8. Lyrica. 9. Amlodipine. 10. Phenytoin. 11. Gabapentin. He has a PICC line in and Dr. Kramer had him on cefazolin. REVIEW OF SYSTEMS: Bilateral forearm edema, swelling, redness, unable to extend his left 3rd digit. Otherwise, denies any chest pain, shortness of breath. PHYSICAL EXAMINATION: GENERAL: Well-nourished, well-developed male, alert, resting on a gurney in room 1 in the ER, in no acute distress. Family is at bedside. HEENT: Scalp, atraumatic. Face symmetric. NECK: Supple. EXTREMITIES: Upper extremities, equal size, shape, symmetry. Normal bulk and tone with exception to the bilateral forearms. In the volar aspect, there is a large reddened areas that have some fluctuance. As for patient services coordinator are equal, he cannot extend his left third digit fully, but if I bend this out, it causes him no pain. Sensations are good. Respirations 16. Lower extremities, obvious gross pitting edema to both lower extremities. He has some increased redness to the right calf, but I could not appreciate any fluctuance with palpation. No drainage. The patient really did not complain of any pain with his activity. He has a lot of scarring on that right lower extremity from vascular surgeries. He can move both lower extremities flexion and extension of the foot. Unable to appreciate DP and PT pulses due to the swelling. LABORATORY DATA: White blood cell count is 12.3, hemoglobin 8.1, hematocrit 24.4, platelets 389. The patient did receive an ultrasound of bilateral upper extremities. Per report, it is read as seroma versus abscesses. ASSESSMENT: Bilateral upper extremity volar aspect of the forearm, reddened, edematous area that are mildly tender to palpation and positive for palpation to fluctuance. PLAN: I spoke with Dr. Orozco and he would like him added onto the surgical schedule. We will get that going. I spoke with the patient and significant other at the bedside about the I and D, washout of both forearms, I let Dr. Orozco know he has a PICC line. We have gone over the risks and benefits of surgery, their concerns and questions have been addressed and they are amenable to go forth with surgery. The patient will be admitted by Medicine to manage their medical issues. Dr. Orozco will take care of the forearms. Job ID: [id number]
--- NOTE | 2020-02-29 17:15 | PDOC.HHP ---
Hospitalist HPI - History of Present Illness Bilateral arm swelling History of Present Illness: This is a 64-year-old male patient with a history of Atherosclerosis, peripheral vascular disease, hypertension, seizure disorder, prostate cancer, who presents today sent here from [facility] on account of bilateral arm swelling. Of note he was discharged 9 days ago after he was managed for septic shock secondary to septic arthritis of his right knee and acute kidney failure. He had right knee open irrigation and debridement on 02/14/2020 and he was discharged to [facility] where he had continued antibiotic treatmentcefazolin for MSSA. During his time at rehab it was noted that he developed bilateral arm swellings of unclear etiology. He was sent here today for further evaluation. The swellings were generally nontender and not ulcerated. He also denied any itching. He however had some intermittent nonproductive cough which appears to be getting worse. He denies any fever, night sweats weight loss shortness of breath. His lower extremities have been grossly edematous with no significant worsening since discharge. At presentation he was afebrile, vitals within normal limits. His labs showed Leukocytosis of 12.3, anemia of 8.1, mild hyponatremia of 134, urine leukocytes to 57-10 WBCs. Lactic acidosis 1.6, troponin 0 0.02, BNP 211.5. He had a CT scan which revealed no pulmonary embolism. Bilateral ultrasound of his upper limbs a day ago on the forearms showed large abscesses or hematomas transitioning into seromatous, likely abscess. He was started on vancomycin and cefepime received 500 mils normal saline. Orthopedic surgery was consulted Hospitalist team consulted for admission. Hospitalist ROS - Review of Systems Constitutional: denies: fever, chills, sweats Respiratory: reports: cough. denies: shortness of breath, hemoptysis Cardiovascular: denies: chest pain, palpitations, orthopnea, paroxysmal noc. dyspnea Gastrointestinal: denies: nausea, vomiting, abdominal pain Genitourinary: denies: dysuria, frequency, incontinence Musculoskeletal: reports: leg pain Neurological: denies: weakness, numbness Hospitalist History - Past Medical History Other Medical History: Seizure disorder, hypertension, prostate cancer, tobacco abuse, carotid stenosis - Past Surgical History Other Surgical History: Carotid endarterectomy, knee irrigation, radical prostatectomy, Hernia repair, open reduction and internal fixation of right hip. - Family History Family History: reports: no pertinent history - Social History Smoking Status: Former smoker (Currently vapes) Alcohol: reports: Occassional Drugs: reports: none Living Situation: With Family - Exam General Appearance: awake alert Eye: PERRL, anicteric sclera Heart: RRR, no murmur, no gallops, no rubs Respiratory: no wheezes, no rales, no ronchi, no tachypnea Gastrointestinal: soft, non-tender, non-distended, normal bowel sounds Extremities - other findings: Grossly edematous tender bilaterally. Right knee dressed Musculoskeletal - other findings: Bilateral gross forearm swellings Psychiatric: normal affect, normal behavior, A&O x 3 Hospitalist Results - Labs Result Diagrams: 02/29/20 12:27 02/29/20 12:27 Lab results: WBC 12.3 thou/uL (4.8-10.8) H 02/29/20 12:27 Hgb 8.1 g/dL (14.0-18.0) L 02/29/20 12:27 Hct 24.4 % (42.0-52.0) L 02/29/20 12:27 MCV 93.4 fL (78.0-98.0) 02/29/20 12:27 Plt Count 389 thou/uL (130-400) 02/29/20 12:27 Neutrophils % 78.4 % (42.0-75.0) H 02/29/20 12:27 Sodium 134 mmol/L (136-145) L 02/29/20 12:27 Potassium 3.9 mmol/L (3.5-5.1) 02/29/20 12:27 Chloride 98 mmol/L (98-107) 02/29/20 12:27 Carbon Dioxide 27 mmol/L (23-31) 02/29/20 12:27 BUN 13 mg/dL (8.4-25.7) 02/29/20 12:27 Creatinine 0.78 mg/dL (0.7-1.3) 02/29/20 12:27 Glucose 106 mg/dL (80-115) 02/29/20 12:27 Lactic Acid 1.6 mmol/L (0.5-2.2) 02/29/20 14:36 Calcium 7.3 mg/dL (7.8-10.44) L 02/29/20 12:27 Total Bilirubin 0.5 mg/dL (0.2-1.2) 02/29/20 12: AST 30 U/L (5-34) 02/29/20 12:27 ALT Less than 7 U/L (8-55) L 02/29/20 12:27 Alkaline Phosphatase 123 U/L (40-110) H 02/29/20 12:27 Creatine Kinase 40 U/L (30-200) 02/29/20 12:27 Troponin I 0.020 ng/mL (< 0.028) 02/29/20 12: B-Natriuretic Peptide 211.5 pg/mL (0-100) H 02/29/20 12:27 Serum Total Protein 4.9 g/dL (5.8-8.1) L 02/29/20 12: Albumin 1.9 g/dL (3.4-4.8) L 02/29/20 12: Lipase 52 U/L (8-78) 02/29/20 12: Urine Ketones Negative mg/dL (Negative) 02/29/20 15:35 Urine Blood 1+ (Negative) A 02/29/20 15:35 Urine Nitrite Negative (Negative) 02/29/20 15:35 Ur Leukocyte Esterase 250 Ubaldo/uL (Negative) A 02/29/20 15:35 Urine RBC 0-3 HPF (0-3) 02/29/20 15:35 Urine WBC 7-10 HPF (0-3) A 02/29/20 15:35 Ur Squamous Epith Cells None Seen HPF (0-3) 02/29/20 15:35 Urine Bacteria Rare-Few HPF (None Seen) 02/29/20 15:35 Hospitalist H&P A/P - Plan Plan: This is a 64-year-old male patient with a complicated past medical history recently discharged with I&D of his right knee for septic arthritis sepsis and ARSALAN. He was in [facility] and was noted to have bilateral swellings of his forearm concerning for abscess. He was brought in back this morning for evaluation Bilateral upper limb abscesses Etiology unclear Started on Vanco and cefepime We will continue Vanco and Zosyn for now Hand surgery will take him for I&D Follow-up on blood and wound cultures. Recent right knee abscess status post irrigation. Orthopedics consulted will follow Wound dressed currently looks clean. Lower limb cellulitis Right lower limb swelling and edematous We will continue antibiotics Hypertension Start blood pressure medications once verified. Next DVT prophylaxisLovenox CODE STATUSpartial code
[2020-02-29] MEDS ORDERED: Bupivacaine PF 0.5% 30 ML VIAL ONE (17:38)
[2020-02-29] MEDS ORDERED: Thrombin 5000 UNITS/5 ML VIAL ONE ×3 (17:39→18:48)
[2020-02-29] MEDS ORDERED: Bacitracin Zinc Ointment 30 gm TUBE ONE (17:39)
[2020-02-29] MEDS ORDERED: Neomycin-Polymyxin 1 ML AMP ONE (17:39)
[2020-02-29] MEDS ORDERED: Fentanyl 100 MCG/2 ML VIAL ONE ×3 (17:47→22:09)
[2020-02-29] MEDS ORDERED: PHENYLEPHRINE-NS 100 MCG/ML 10 ML SYRINGE ONE ×4 (19:44→21:26)
[2020-02-29] MEDS ORDERED: Propofol 1,000 MG/100 ML VIAL IV ONE (20:36)
[2020-02-29] MEDS ORDERED: Vancomycin 1 GM in Premix Bag 1 BAG IVPB SCH (21:00)
[2020-02-29] MEDS ORDERED: Phenylephrine 10 MG/ML VIAL ONE ×3 (21:26→22:04)
[2020-02-29] MEDS ORDERED: ePHEDrine 50 MG/ML VIAL ONE (21:26)
[2020-02-29] MEDS ORDERED: DISCONTINUE PREVIOUS NARCOTIC PAIN MEDICATIONS AND BENZODIAZEPINES FS SCH (23:00)
[2020-02-29] MEDS ORDERED: Fentanyl BOLUS 250 ML IVPB PRN (23:00)
[2020-02-29] MEDS ORDERED: Propofol BOLUS 1,000 MG/100 ML VIAL IV PRN (23:00)
[2020-02-29 23:03] LABS: Actual Bicarbonate (HCO3a) 22.8 mEq/L (22-28); Base Excess (BEa) 0.1 mEq/L (-2.0 to +3.0); Carboxyhemoglobin (COHb) 0.3 gm% (0.0-3.0); Hemoglobin (Hb) 8.7 g/dL (14.0-18.0); O2 Tension (PaO2), arterial 91.9 mmHg (> 80.0)
[2020-02-29 23:04] LABS: Calcium, Ionized (arterial) 1.14 mmol/L (1.12-1.30); Puncture Site LFA
[2020-02-29] MEDS: fentaNYL Citrate/PF 2,000 MCG in Sodium Chloride 0.9% 60 ML IV SCH (23:11)
[2020-02-29] MEDS ORDERED: Norepinephrine 8 MG/0.9% NS 250 ML ONE (23:32)
[2020-02-29] MEDS: Piperacillin/Tazobactam 4.5 GM in Sodium Chloride 0.9% 100 ML IVPB SCH (23:38)
[2020-02-29] MEDS ORDERED: Vancomycin HCl 1.75 GM in Sodium Chloride 0.9% 500 ML IVPB SCH (23:45)
[2020-03-01] MEDS: Sodium Chloride 0.9% 1,000 ML IV SCH ×3 (00:19→11:54)
[2020-03-01] MEDS: Gentamicin Sulfate 80 MG in Premix Bag 1 BAG IVPB SCH ×4 (00:21→23:42)
[2020-03-01] MEDS: Pen G 2.5 MILL.UNITS/50 ML BAG IVPB SCH ×6 (00:21→20:05)
[2020-03-01] MEDS: Propofol 1,000 MG/100 ML VIAL IV PRN ×5 (01:18→20:11)
[2020-03-01 04:03] LABS: #Eosinphils 0.2 thou/uL (0.0-0.7); #Monocytes 0.8 thou/uL (0.11-0.59); #Neutrophils 11.9 thou/uL (1.40-6.50); %Eosinophils 1.5 % (0.0-10.0); %Lymphocytes 13.3 % (21.0-51.0); %Monocytes 5.6 % (0.0-10.0); %Neutrophils 79.6 % (42.0-75.0); Hemoglobin 8.6 g/dL (14.0-18.0); Mean Corpuscular HGB CONC 34.5 g/dL (32.0-36.0); Mean Corpuscular Hemoglobin 31.9 pg (27.0-31.0); Mean Corpuscular Volume 92.5 fL (78.0-98.0); Mean Platelet Volume 8.5 fL (7.4-10.4); Platelet Count 350 thou/uL (130-400); Red Blood Cell (RBC) Count 2.69 mill/uL (4.70-6.10)
[2020-03-01 04:21] LABS: Anion Gap 13 mmol/L (10-20); BUN (Urea Nitrogen) 13 mg/dL (8.4-25.7); Calc. Creatinine Clearance 148 mL/min (70-130); Calcium 7.4 mg/dL (7.8-10.44); Carbon Dioxide 25 mmol/L (23-31); Chloride 102 mmol/L (98-107); Glucose 113 mg/dL (80-115); Potassium 3.8 mmol/L (3.5-5.1); Sodium 136 mmol/L (136-145)
[2020-03-01] MEDS: Piperacillin/Tazobactam 4.5 GM in Sodium Chloride 0.9% 100 ML IVPB SCH ×3 (05:18→22:05)
[2020-03-01] MEDS ORDERED: Gentamicin 80 MG/2 ML VIAL IM SCH (06:00)
[2020-03-01 07:22] LABS: Base Excess (BEa) -1.1 mEq/L (-2.0 to +3.0); CO2 Tension 30.7 mmHg (35.0-45.0); Calcium, Ionized (arterial) 1.07 mmol/L (1.12-1.30); Carboxyhemoglobin (COHb) 0.7 gm% (0.0-3.0); Potassium - ABG Lab 3.86 mmol/L (3.70-5.30); pH, Arterial 7.47 (7.35-7.45)
[2020-03-01 07:23] LABS: Puncture Site LFA
[2020-03-01 07:24] LABS: ALV-art Gradient 137.825 mmHg (0-20)
[2020-03-01] MEDS ORDERED: Senokot S 8.6-50 MG TAB PO PRN (07:54)
[2020-03-01] MEDS ORDERED: Loratadine 10 MG TAB PO PRN (07:54)
[2020-03-01] MEDS ORDERED: Calcium Carbonate 500 MG ChewTAB PO PRN (07:54)
[2020-03-01] MEDS ORDERED: Sodium Chloride 0.65% Nasal 44 ML BOT EA NARE PRN (07:54)
[2020-03-01] MEDS ORDERED: Bisacodyl 5 MG TAB PO PRN (07:54)
[2020-03-01] MEDS ORDERED: Diabetic Tussin 200 MG/10 ML UDCUP PO PRN (07:54)
[2020-03-01] MEDS ORDERED: Ondansetron ODT 4 MG TAB SL PRN (07:54)
[2020-03-01] MEDS ORDERED: Ondansetron PF 4 MG/2 ML Vial IVP PRN (07:54)
[2020-03-01] MEDS ORDERED: Vancomycin 1 GM in Premix Bag 1 BAG IVPB SCH (09:00)
[2020-03-01] MEDS: Enoxaparin Sodium 40 MG/0.4 ML SYRINGE SC SCH (09:49)
--- NOTE | 2020-03-01 10:18 | PDOC.HOSPP ---
- Subjective Encounter Date: 03/01/20 Encounter Time: 07:40 Subjective: Patient seen and examined bedside today, patient is intubated, on ventilator - Objective Vital Signs & Weight: Vital Signs (12 hours) Temp Pulse Resp BP Pulse Ox 03/01/20 08:00 17 100 03/01/20 07:11 67 03/01/20 07:00 97.6 F 03/01/20 05:57 12 03/01/20 04:00 12 03/01/20 03:04 71 91/55 L 03/01/20 03:00 97.4 F L 03/01/20 02:00 12 02/29/20 23:00 97.3 F L 02/29/20 22:39 99 153/81 H Weight Weight 222 lb 10.67 oz Most Recent Monitor Data Heart Rate from ECG 66 NIBP 101/53 NIBP BP-Mean 69 Respiration from ECG 12 SpO2 100 I&O: 02/29/20 03/01/20 03/02/20 06:59 06:59 06:59 Intake Total 1788 150 Output Total 400 265 Balance 1388 -115 Result Diagrams: 03/01/20 03:30 03/01/20 03:30 Radiology Reviewed by me: Yes EKG Reviewed by me: Yes Hospitalist ROS - Review of Systems ROS unobtainable: due to endotracheal tube - Medication Medications: Active Medications Generic Name Dose Route Start Last Admin Trade Name Freq PRN Reason Stop Dose Admin Enoxaparin Sodium 40 mg 03/01/20 09:00 03/01/20 09:49 Enoxaparin Sodium 40 Mg/0.4 Ml Syringe SC 40 mg 0900 NANCY Administration Piperacillin Sod/Tazobactam 100 mls @ 200 mls/hr 02/29/20 22:00 03/01/20 05:18 Sod 4.5 gm/ Sodium Chloride IVPB 100 mls Q8HR NANCY Administration Sodium Chloride 1,000 mls @ 100 mls/hr 02/29/20 15:45 03/01/20 01:24 Normal Saline 0.9% IV Not Given .Q10H NANCY Gentamicin Sulfate 80 mg/ 100 mls @ 200 mls/hr 02/29/20 23:59 03/01/20 09:13 Device IVPB 03/03/20 23:59 100 mls 0800,1600,2359 NANCY Administration Fentanyl Citrate 2,000 mcg/ 100 mls @ 0 mls/hr 02/29/20 23:00 02/29/20 23:11 Sodium Chloride IV 03/30/20 23:00 100 mls INF NANCY Administration Protocol Per Protocol Penicillin G Potassium 2.5 mill.units 03/01/20 01:00 03/01/20 09:14 Pen G 2.5 Mill.Units/50 Ml Bag IVPB 03/04/20 23:59 2.5 mill.units Q4HR NANCY Administration Propofol 1,000 mg 02/29/20 23:00 03/01/20 04:54 Propofol 1,000 Mg/100 Ml Vial IV 03/30/20 23:00 1,000 mg INF PRN Administration TO ACHIEVE GOAL RASS Protocol - Exam General Appearance: NAD, ill appearing Eye: PERRL, anicteric sclera ENT: normocephalic atraumatic Neck: supple, symmetric, no JVD Heart: RRR, no murmur, no gallops, no rubs Respiratory: no wheezes, no rales, no ronchi Gastrointestinal: soft, non-distended, normal bowel sounds Extremities: 2+ LE edema Extremities - other findings: Bilateral upper extremity with a dressing, right knee dressing Hosp A/P (1) Sepsis with acute organ dysfunction Code(s): A41.9 - SEPSIS, UNSPECIFIED ORGANISM; R65.20 - SEVERE SEPSIS WITHOUT SEPTIC SHOCK Status: Acute Qualifiers: Sepsis type: methicillin resistant Staphylococcus aureus Severe sepsis acute organ dysfunction type: acute respiratory failure Acute respiratory failure type: with hypoxia Severe sepsis shock status: with septic shock Qualified Code(s): A41.02 - Sepsis due to Methicillin resistant Staphylococcus aureus; R65.21 - Severe sepsis with septic shock; J96.01 - Acute respiratory failure with hypoxia (2) Cellulitis of upper extremity Code(s): L03.119 - CELLULITIS OF UNSPECIFIED PART OF LIMB Status: Acute Qualifiers: Laterality: unspecified laterality Qualified Code(s): L03.119 - Cellulitis of unspecified part of limb (3) Acute respiratory failure with hypoxia Code(s): J96.01 - ACUTE RESPIRATORY FAILURE WITH HYPOXIA Status: Acute (4) Septic arthritis of knee, right Code(s): M00.9 - PYOGENIC ARTHRITIS, UNSPECIFIED Status: Acute Qualifiers: Septic arthritis organism: staphylococcal Qualified Code(s): M00.061 - Staphylococcal arthritis, right knee (5) Lumbar stenosis Code(s): M48.061 - SPINAL STENOSIS, LUMBAR REGION WITHOUT NEUROGENIC OMID Status: Chronic Qualifiers: Neurogenic claudication status: unspecified Qualified Code(s): M48.061 - Spinal stenosis, lumbar region without neurogenic claudication (6) PVD (peripheral vascular disease) Code(s): I73.9 - PERIPHERAL VASCULAR DISEASE, UNSPECIFIED Status: Chronic (7) Hypertension Code(s): I10 - ESSENTIAL (PRIMARY) HYPERTENSION Status: Acute Qualifiers: Hypertension type: essential hypertension Qualified Code(s): I10 - Essential (primary) hypertension (8) Dyslipidemia Code(s): E78.5 - HYPERLIPIDEMIA, UNSPECIFIED Status: Acute (9) Obesity (BMI 30-39.9) Code(s): E66.9 - OBESITY, UNSPECIFIED Status: Chronic - Plan old records reviewed/req, continue antibiotics Plan Continue postoperative wound care as per orthopedic recommendation Continue ventilatory management as per pulmonology We will consult infectious disease for evaluation Continue vancomycin and Zosyn Follow-up on culture result Vasopressor as needed Medication reviewed and continue provide symptomatic and supportive care Monitor labs Prognosis guarded
[2020-03-01] MEDS: Vancomycin 1.5 GRAM/300 ML BAG 1.5 GM in Premix Bag 1 BAG IVPB SCH ×2 (11:55→23:43)
[2020-03-01] MEDS ORDERED: Vancomycin HCl 1.5 GM in Sodium Chloride 0.9% 250 ML 300 ML IVPB SCH (12:00)
[2020-03-01] MEDS: fentaNYL Citrate/PF 2,000 MCG in Sodium Chloride 0.9% 60 ML IV SCH (12:32)
[2020-03-01 15:40] LABS: SARS-CoV-2 MS2 Positive; SARS-CoV-2 N Gene Negative; SARS-CoV-2 S Gene Negative; SARS-CoV-2 by NAA Not Detected (NotDetected); SARS-CoV-2 orf1ab Negative
[2020-03-01] MEDS: Norepinephrine 8 MG/0.9% NS 250 ML IVPB SCH (16:18)
[2020-03-01] MEDS: Famotidine/PF 20 mg/2ml Vial SLOW IVP SCH (20:05)
--- NOTE | 2020-03-01 20:16 | CON ---
DATE OF CONSULTATION: 03/01/2020 HISTORY OF PRESENT ILLNESS: Mr. Humphrey is a 64-year-old male. He underwent debridement of both forearms last night for what I am told was necrotizing fasciitis. Apparently, the patient presented around lunchtime yesterday to the emergency department. He has a history of orthopedic issues. In January, he had a septic knee. He presented this admission with forearm swelling and redness. Apparently, his arms were fluctuant according to the PA admitting him. PAST MEDICAL HISTORY: Remarkable for; 1. Seizures. 2. History of hypertension. 3. History of prostate cancer. 4. History of heavy alcohol use. 5. History of tobacco use. 6. Peripheral vascular disease. 7. History of carotid disease. 8. History of carotid endarterectomy. 9. History of femoral-popliteal bypass. 10. History of prostatectomy. 11. History of lymph node dissection. 12. History of surgical repair of a hip fracture. FAMILY HISTORY: According to old notes, negative for lung disease in early age. MEDICATIONS: Have been reviewed. PHYSICAL EXAMINATION: GENERAL: He is intubated, sedated from mechanical ventilation. VITAL SIGNS: He is afebrile. Heart rate is 86, respiratory rates in the teens. He is on pressors. HEENT: Pupils are reactive. Sclerae are anicteric. LUNGS: Clear. HEART: Regular rhythm. ABDOMEN: Soft. EXTREMITIES: His forearms are bandaged bilaterally. LABORATORY DATA: White count 15, hemoglobin 8.6, platelets 350. Electrolytes are unremarkable. Surprisingly pH today 7.47, CO2 of 30, PO2 of 109. Blood cultures are negative so far. He had the multiple operating room cultures that are pending. He is on vancomycin, Zosyn, and gentamicin. I suggested meropenem last night when I was contacted by the nurse coke loader. Looking back through the medication administration record, he is on cefepime. We will refer to Infectious Disease for antimicrobial therapy. He will be reassessed in the morning. He is at high risk for developing ARDS. If his radiograph and gas exchange are adequate in the morning, we will consider a spontaneous breathing trial. Critical care time, 30 minutes. Job ID: [id number] [facility]
[2020-03-02] MEDS: Pen G 2.5 MILL.UNITS/50 ML BAG IVPB SCH ×7 (01:12→20:53)
[2020-03-02] MEDS: Propofol 1,000 MG/100 ML VIAL IV PRN ×4 (01:47→12:55)
[2020-03-02] MEDS: fentaNYL Citrate/PF 2,000 MCG in Sodium Chloride 0.9% 60 ML IV SCH ×2 (01:59→17:36)
[2020-03-02 04:53] LABS: ALT (SGPT) Less than 7 U/L (8-55); AST (SGOT) 27 U/L (5-34); Albumin 1.7 g/dL (3.4-4.8); Alkaline Phosphatase 98 U/L (40-110); Anion Gap 13 mmol/L (10-20); BUN (Urea Nitrogen) 9 mg/dL (8.4-25.7); Bilirubin, Total 0.7 mg/dL (0.2-1.2); Calc. Creatinine Clearance 140 mL/min (70-130); Calcium 7.1 mg/dL (7.8-10.44); Carbon Dioxide 23 mmol/L (23-31); Chloride 105 mmol/L (98-107); Globulin 2.7 g/dL (2.4-3.5); Glucose 101 mg/dL (80-115); Potassium 4.2 mmol/L (3.5-5.1); Protein, Total 4.4 g/dL (5.8-8.1); Sodium 137 mmol/L (136-145)
[2020-03-02] MEDS: Norepinephrine 8 MG/0.9% NS 250 ML IVPB SCH (05:02)
[2020-03-02 05:19] LABS: Band 21 % (5-11); Eosinophils 4 % (0-10); Hemoglobin 8.2 g/dL (14.0-18.0); Lymphocytes 9 % (21-51); MDiff Complete? YES; Mean Corpuscular HGB CONC 33.6 g/dL (32.0-36.0); Mean Corpuscular Hemoglobin 31.7 pg (27.0-31.0); Mean Corpuscular Volume 94.4 fL (78.0-98.0); Mean Platelet Volume 8.8 fL (7.4-10.4); Monocytes 12 % (0-10); Myelocyte 1 % (0-0); Neutrophil 53 % (42-75); Platelet Count 359 thou/uL (130-400); RBC Distribution Width 14.2 % (11.5-14.5); Red Blood Cell (RBC) Count 2.57 mill/uL (4.70-6.10); White Blood Cell (WBC) Count 13.4 thou/uL (4.8-10.8)
[2020-03-02] MEDS: Piperacillin/Tazobactam 4.5 GM in Sodium Chloride 0.9% 100 ML IVPB SCH ×3 (05:43→22:58)
--- NOTE | 2020-03-02 08:12 | RAD ---
EXAM: CHEST ONE VIEW HISTORY: On ventilator. Follow-up evaluation. COMPARISON: 02/25/2020 FINDINGS: Endotracheal tube is now noted in place with the tip overlying the T4 level and above the level of th e [place]. Nasogastric tube is noted in place which courses into the upper abdomen, the tip is not imaged. Right-sided PICC line is noted in place with the tip overlying the region of the right subcla vian vessels. Cardiac silhouette and bronchovascular markings are accentuated by shallow depth inspiration portable technique. There is increased density seen at the left lung base which could be related to small left pleural effusion and atelectasis. Superimposed pneumonitis left lung base cannot be excluded. Minimal patchy density is seen at the medial right lung base which could be relat ed to shallow depth inspiration. Right hemidiaphragm is mildly elevated Multiple remote left-sided rib fractures and deformities are again seen with prominent left glenohumeral osteoarthropathy and de formity of the left humeral head. No other interval change. IMPRESSION: 1. Pleural and parenchymal changes left lung base which could be related to small left pleural effusi on and atelectasis. Developing pneumonitis left lung base cannot be entirely excluded. 2. Minimal patchy density medial right lung base. This could be secondary to shallow depth inspiratio n as there is elevation the right hemidiaphragm. However, developing pneumonitis cannot be entirely excluded. Follow-up chest x-ray suggested. 3. Lines and tubes in place as described above.
[2020-03-02] MEDS: Sodium Chloride 0.9% 1,000 ML IV SCH ×3 (08:26→23:02)
[2020-03-02] MEDS: Albumin 25% 25 GM/100 ML BOT IVPB SCH ×3 (08:28→20:26)
[2020-03-02] MEDS: Gentamicin Sulfate 80 MG in Premix Bag 1 BAG IVPB SCH ×4 (08:29→23:44)
[2020-03-02] MEDS: Famotidine/PF 20 mg/2ml Vial SLOW IVP SCH ×2 (08:29→20:30)
[2020-03-02] MEDS: Enoxaparin Sodium 40 MG/0.4 ML SYRINGE SC SCH ×2 (08:29→08:32)
[2020-03-02] MEDS: Lorazepam 2 MG/ML VIAL SLOW IVP PRN ×3 (09:29→14:02)
[2020-03-02] MEDS: Vancomycin 1.5 GRAM/300 ML BAG 1.5 GM in Premix Bag 1 BAG IVPB SCH (10:46)
[2020-03-02 12:14] LABS: Vancomycin, Trough 24.8 ug/mL
[2020-03-02] MEDS ORDERED: Neomycin-Polymyxin 1 ML AMP ONE (14:31)
[2020-03-02] MEDS ORDERED: Thrombin 5000 UNITS/5 ML VIAL ONE ×2 (14:41→16:01)
[2020-03-02] MEDS ORDERED: Rocuronium Bromide 50 MG/5 ML VIAL ONE (14:50)
[2020-03-02] MEDS ORDERED: Midazolam HCl 5 mg/5 ml Vial ONE (14:50)
--- NOTE | 2020-03-02 15:24 | OP ---
DATE OF PROCEDURE: 02/29/2020 PREOPERATIVE DIAGNOSIS: Right and left forearm abscesses. POSTOPERATIVE DIAGNOSES: 1. Abscess, forearm, bilateral. 2. Abscess, wrist, bilateral. 3. Necrotizing fasciitis, bilateral. 4. Extensor tenosynovitis, bilateral. PROCEDURES PERFORMED: At the right upper extremity: 1. Drainage of deep abscess. 2. Debridement of necrotizing fasciitis with fasciectomy, extensor compartment. 3. Application of VAC dressing 100 sq cm. 4. Extensor tendon tenosynovectomy of 1st, 2nd, 3rd, and 4th dorsal compartments. Specimen sent bilaterally, 1. Abscess fluid. 2. Abscess tissue. 3. Necrotizing fascia. 4. At the left side only, tenosynovium. TOURNIQUET TIME: Right, zero; left, 34 minutes. BLOOD LOSS: On the right, 350 cc. On the left, 150 cc. INDICATION: The patient came with his and they both report approximately 10 days of swelling in both forearms with increased pain and then, one day ago, he noticed that he could not extend his middle finger and then brought into the hospital. Operation undertaken because on exam, he had fluctuance, erythema, absent right middle finger extension at the MP joint and there was clinical evidence of abscess plus amount of hematoma. For this reason, we did not delay intervention any further and proceeded with urgent surgery on the same date of presentation. DESCRIPTION OF PROCEDURE: The patient had successful general endotracheal anesthesia. Initially, I had to prep and drape and there was no tourniquet, but we did use a tourniquet on the patient's left side. We approached the right side first, where his abscess was longer, but not quite as wide and there was fluctuance from the Saturnino tubercle to the level of the mobile wad. We carried the incision through skin and subcutaneous tissue. Immediately, brown hdez mucopurulent material escaped and there was evacuation of the underlying deep abscess via drainage and debridement. Debridement techniques utilized [place] blade, 11 blade knife, tenotomy scissors, Adson's, curette, and Pulsavac with a total of approximately 9 L used between the 2 incisions. Once we had done a complete debridement, it was clear that he has some necrotizing fascia, so it was removed using the same techniques. This was done over an extensive period of time and distance. Once we had performed this on the right side, we then extended the wound, tried to obtain hemostasis using combination of [place], Bovie, clip appliers, and compression. We then were able to finish the debridement where we saw marked fascia in the center portion of the abscess cavity, already necrotic and degraded and not maintaining any profile in possible blood supply. The patient then had the remnants of the right side where the necrotizing fascia went back to just proximal to the mobile wad and we finished debridement using techniques listed above, which were excisional, and then the patient had the right side completely done. On visualizing the right side, we also noticed that the patient had extensive 1st, 2nd, 3rd, and 4th dorsal compartment extensor tendon tenosynovitis or tenosynovectomy performed formally. With this complete, the patient had a 5 L normal saline irrigation. Wound was dressed and covered with sterile normal saline and attention was turned to the patient's left side. Here, mirror image incisions were made and we drained abscess, debridement of necrotic fascia, application of VAC less than or equal to 100 sq cm. We also had to perform a radical extensor tenosynovectomy of the 1st, 2nd, 3rd, and 4th dorsal compartments to ensure there was no abnormality. We then placed slightly less than 100 sq cm of VAC plus white sponge in the wound and visualized the experience. The patient had the VAC under excellent suction, attached into the cast with excellent suction, and the patient then had a 4 x 4 placed over any potential high points, Kerlix with a web space weave, and there was no evidence of abnormality other than described above and corrected with this procedure. Job ID: [id number]
--- NOTE | 2020-03-02 18:03 | PRG ---
DATE OF SERVICE: 03/02/2020 SUBJECTIVE: Mr. Humphrey was tentatively scheduled to go back to to have his arms evaluated and debrided more if needed. OBJECTIVE: VITAL SIGNS: Blood pressure is 110/57, heart rate is in 80s, respiratory rate is in the teens, oximetry is 100%. LUNGS: Clear. HEART: Regular rhythm. ABDOMEN: Soft. EXTREMITIES: Without asymmetry. Edema involving his lower extremities. Upper extremities are wrapped. LABORATORY DATA: White count 13.4, hemoglobin 8.2, platelets 359. He has 21% bands on his peripheral smear. Electrolytes are unremarkable. IMPRESSION: ? necrotizing fasciitis of both arms. He remains critically ill. I suspect he has atelectasis of his left lung base on his radiograph. I doubt this is pneumonia. We will continue with mechanical ventilation for now until we are sure that his arms are stable. Critical care time 30 min. Job ID: [id number] [facility]
--- NOTE | 2020-03-02 18:31 | PDOC.HOSPP ---
- Subjective Encounter Date: 03/02/20 Encounter Time: 14:00 Subjective: pt intubated going to surgery - Objective Vital Signs & Weight: Vital Signs (12 hours) Temp Pulse Resp BP Pulse Ox 03/02/20 17:30 97.8 F 03/02/20 17:00 118 H 91/49 L 03/02/20 14:31 83 03/02/20 10:42 72 03/02/20 07:48 18 100 03/02/20 07:00 99 F 03/02/20 06:57 79 Weight Admit Weight 222 lb Weight 222 lb 10.67 oz Most Recent Monitor Data Heart Rate from ECG 103 NIBP 122/66 NIBP BP-Mean 84 Respiration from ECG 0 SpO2 99 I&O: 03/01/20 03/02/20 03/03/20 06:59 06:59 06:59 Intake Total 1788 2466 1740 Output Total 400 1590 1140 Balance 1388 876 600 Result Diagrams: 03/03/20 08:11 03/03/20 08:11 Hospitalist ROS - Review of Systems Cardiovascular: denies: chest pain, palpitations, orthopnea, paroxysmal noc. dyspnea, edema, light headedness, other Gastrointestinal: denies: nausea, vomiting, abdominal pain, diarrhea, constipation, melena, hematochezia, other Genitourinary: denies: dysuria, frequency, incontinence, hematuria, retention, other - Medication Medications: Active Medications Generic Name Dose Route Start Last Admin Trade Name Freq PRN Reason Stop Dose Admin Albumin Human 25 gm 03/02/20 08:00 03/02/20 13:17 Albumin 25% 25 Gm/100 Ml Bot IVPB 03/03/20 08:01 25 gm Q6H NANCY Administration Enoxaparin Sodium 40 mg 03/01/20 09:00 03/02/20 08:32 Enoxaparin Sodium 40 Mg/0.4 Ml Syringe SC Not Given 0900 NANCY Famotidine 20 mg 03/01/20 21:00 03/02/20 08:29 Famotidine/Pf 20 Mg/2ml Vial SLOW IVP 20 mg BID NANCY Administration Piperacillin Sod/Tazobactam 100 mls @ 200 mls/hr 02/29/20 22:00 03/02/20 13:17 Sod 4.5 gm/ Sodium Chloride IVPB 100 mls Q8HR NANCY Administration Sodium Chloride 1,000 mls @ 100 mls/hr 02/29/20 15:45 03/02/20 15:45 Normal Saline 0.9% IV 1,000 mls .Q10H NANCY Administration Gentamicin Sulfate 80 mg/ 100 mls @ 200 mls/hr 02/29/20 23:59 03/02/20 17:35 Device IVPB 03/03/20 23:59 100 mls 0800,1600,2359 NANCY Administration Fentanyl Citrate 2,000 mcg/ 100 mls @ 0 mls/hr 02/29/20 23:00 03/02/20 17:36 Sodium Chloride IV 03/30/20 23:00 100 mls INF NANCY Administration Protocol Per Protocol Norepinephrine Bitartrate 250 mls @ 0 mls/hr 02/29/20 23:45 03/02/20 05:02 Levophed IVPB 250 mls INF NANCY Administration Protocol Titrate Vancomycin HCl 1.5 gm/ Device 300 mls @ 200 mls/hr 03/01/20 12:00 03/02/20 10:46 IVPB 300 mls 1200,2359 NANCY Administration Lorazepam 2 mg 02/29/20 23:00 03/02/20 14:02 Lorazepam 2 Mg/Ml Vial SLOW IVP 03/30/20 23:00 2 mg Q1H PRN Administration Breakthrough agitation Penicillin G Potassium 2.5 mill.units 03/01/20 01:00 03/02/20 17:35 Pen G 2.5 Mill.Units/50 Ml Bag IVPB 03/04/20 23:59 2.5 mill.units Q4HR NANCY Administration Propofol 1,000 mg 02/29/20 23:00 03/02/20 12:55 Propofol 1,000 Mg/100 Ml Vial IV 03/30/20 23:00 1,000 mg INF PRN Administration TO ACHIEVE GOAL RASS Protocol - Exam Heart: negative: RRR, no murmur, no gallops, no rubs, normal peripheral pulses, irregular, diminshed peripheral pulses, murmur present, II/IV, III/IV Respiratory: negative: CTAB, no wheezes, no rales, no ronchi, normal chest expansion, no tachypnea, normal percussion, rales, rhonchi, tachypneic, wheezes Gastrointestinal: negative: soft, non-tender, non-distended, normal bowel sounds, no palpable masses, no hepatomegaly, no splenomegaly, no bruit, no guarding, no rigidity, tender to palpation, distended, diminished bowl sounds, voluntary guarding Extremities: 1+ LE edema Extremities - other findings: right leg swelling >left Hosp A/P (1) Acute respiratory failure with hypoxia Code(s): J96.01 - ACUTE RESPIRATORY FAILURE WITH HYPOXIA Status: Acute (2) Cellulitis of upper extremity Code(s): L03.119 - CELLULITIS OF UNSPECIFIED PART OF LIMB Status: Acute Qualifiers: Laterality: unspecified laterality Qualified Code(s): L03.119 - Cellulitis of unspecified part of limb (3) Hypertension Code(s): I10 - ESSENTIAL (PRIMARY) HYPERTENSION Status: Acute Qualifiers: Hypertension type: essential hypertension Qualified Code(s): I10 - Essential (primary) hypertension (4) Sepsis with acute organ dysfunction Code(s): A41.9 - SEPSIS, UNSPECIFIED ORGANISM; R65.20 - SEVERE SEPSIS WITHOUT SEPTIC SHOCK Status: Acute Qualifiers: Sepsis type: methicillin resistant Staphylococcus aureus Severe sepsis acute organ dysfunction type: acute respiratory failure Acute respiratory failure type: with hypoxia Severe sepsis shock status: with septic shock Qualified Code(s): A41.02 - Sepsis due to Methicillin resistant Staphylococcus aureus; R65.21 - Severe sepsis with septic shock; J96.01 - Acute respiratory failure with hypoxia (5) Obesity (BMI 30-39.9) Code(s): E66.9 - OBESITY, UNSPECIFIED Status: Chronic (6) PVD (peripheral vascular disease) Code(s): I73.9 - PERIPHERAL VASCULAR DISEASE, UNSPECIFIED Status: Chronic (7) Dyslipidemia Code(s): E78.5 - HYPERLIPIDEMIA, UNSPECIFIED Status: Acute - Plan pt going for surgery today. will continue abx for now. pt's right lower leg has significant swelling.
--- NOTE | 2020-03-02 18:31 | CON ---
DATE OF CONSULTATION: 03/02/2020 HISTORY OF PRESENT ILLNESS: Mr. Humphrey, I last saw him recently when he was admitted with a history of seizure disorder, prostate cancer in remission, PVD with fem-fem bypass by Dr. Hardy with a [place]-Kvng graft, with a progressively worsening pain in the suprapubic area, right and left side, then migrated to the right leg and he had positive MSSA bacteremia or methicillin-susceptible Staph aureus bacteremia with sepsis and septic shock requiring norepinephrine and acute renal failure secondary to sepsis. The previous echocardiogram showed EF 60% to 65% with mild mitral regurgitation, mild tricuspid regurgitation. He did have a BOZENA at that time, though the right knee was infected with Staphylococcus aureus. The same organism from the blood cultures as expected. The patient had a washout by Dr. Sanabria and the plan was to discharge him on IV cefazolin and discharge occurred on February 19 and he had repeat negative blood cultures and the plan was to continue cefazolin until March 26. The patient presents back in the hospital on February 28 and this is nine days after discharge. He was brought from rehab with bilateral arm swellings of unclear etiology. They are felt to be nontender, not ulcerated. He had some coughing spells. On arrival, he was afebrile. He has a little bit of elevation in white cell count and initial evaluation with pulse 75, respirations 22, and O2 saturation 100. Labs with a white cell count 12.3, hemoglobin 8.1, and platelets 389 with 78% neutrophils. A pH of 7.5, pCO2 of 29, and pO2 of 91. Sodium 134, creatinine 0.78, ALT less than 7, AST 30, CK 40 with albumin 1.9, and globulin 3.0. SARS-CoV-2 was not detected. So, the patient underwent debridement by Dr. Derek Orozco, on March 02. Operative note reviewed and first the right side of was approached. There was an abscess with fluctuance, brown hdez mucopurulent material escaped and was evacuation of the underlying deep abscess. So, there was evidence of some necrotizing fascias, which was removed using the same techniques. Although on the right side, there was evidence of extensive tenosynovitis, tenosynovectomy was performed. The patient had also the left side done, but the report is not ready yet. The patient is intubated on ventilator. PAST MEDICAL HISTORY: Seizure disorder, prostate cancer, peripheral vascular disease, fall, chest tube placement, hypertension, and recently identified med methicillin sensitive Staph aureus bacteremia with septic arthritis right knee, possible endocarditis. PAST SURGICAL HISTORY: Includes hip ORIF, prostatectomy, and fem-fem bypass. SOCIAL HISTORY: Former smoker, although he stated to me that he was still smoking the last time around. ALLERGIES: NONE. FAMILY HISTORY: Coronary artery disease and hypertension. CURRENT MEDICATIONS: 1. Dulcolax. 2. Tums. 3. Lovenox. 4. Pepcid. 5. Fentanyl. 6. Gentamicin. 7. Zosyn. 8. Vancomycin. PHYSICAL EXAMINATION: VITAL SIGNS: Temperature has been normal, blood pressure 110/57, heart rate 83, respiratory rate 17, and O2 saturation 100 on FiO2 of 40. SKIN: Both upper and lower extremities are dressed. PICC line in place. HEENT: Could not test ocular movements, constrictive pupils. LUNGS: Symmetric air entry. HEART: S1 and S2. Regular rate. ABDOMEN: Soft, not distended or tender. No ascites. No bladder distention. Indwelling Castaneda catheter. EXTREMITIES: Right knee without inflammatory changes. Could not test motion. LABORATORY DATA: Latest white cell count 13.4, hemoglobin 8.2, platelets 359, and 21% bands. Creatinine 0.76, alkaline phosphatase 123, and albumin 1.9 and 1.7. Urinalysis with 7 to 10 wbc's. We have Enterococcus species from one of the arm samples from February 27. This looks like it was ordered by Dr. Skelton at the rehab. All the other samples are still pending. Gram stain did not show any organisms. Two sets of blood culture, no growth 48 hours. Chest x-ray with pleural parenchymal changes, left lung base. Minimal patchy density in medial right lung base. ASSESSMENT: 1. Seizure history, chronic low back pain with recent worsening septic arthritis right knee secondary to Staphylococcus aureus methicillin-susceptible with bacteremia recently discharged on oral IV cefazolin. 2. Recrudescence of inflammatory process. At this time, in the upper extremities in the forearm, right and left side with evidence of necrotizing fasciitis and tenosynovitis. DISCUSSION: Quite unusual case in view of the different nature of the organisms retrieved from this current inflammatory process in the upper extremities. The sample obtained at rehab yielded E. faecalis and it is not clear what kind of sample it was, so it is conceivable that could represent contamination of the sample rather than the true pathogen. A more cogent hypothesis would be that the patient has just the aftermath of the same Staphylococcal infection that he was treated for during the admission and this is just the inflammatory process and necrotizing features associated with the Staphylococcal infection. This would be the more simple explanation for the development. A second primary infection certainly is not impossible, but a much less likely event, particularly occurring in both upper extremities. So, we have to continue monitoring the cultures and see if the original Staphylococcus aureus pops up in any of them. He had already received a quite extensive course of antimicrobials and I am afraid that the cultures will remain negative. Cefazolin is not effective against Enterococcus faecalis, so the absence of growth in the surgical specimens would be a stronge argument against Enterococcus faecalis being the culprit here. I still believe that the methicillin-sensitive Staphylococcus aureus is the primary cause of the inflammatory process leading to necrotizing fasciitis. Job ID: [id number] [email or web address]
[2020-03-02 23:58] LABS: Vancomycin, Trough 22.4 ug/mL
[2020-03-03] MEDS: Vancomycin HCl 1.25 GM in Sodium Chloride 0.9% 250 ML 250 ML IVPB SCH ×2 (00:50→11:20)
[2020-03-03] MEDS: Propofol 1,000 MG/100 ML VIAL IV PRN ×2 (01:27→14:20)
[2020-03-03] MEDS: Pen G 2.5 MILL.UNITS/50 ML BAG IVPB SCH ×4 (01:47→13:34)
[2020-03-03] MEDS: Albumin 25% 25 GM/100 ML BOT IVPB SCH ×4 (02:55→20:14)
[2020-03-03] MEDS: Sodium Chloride 0.9% 1,000 ML IV SCH ×2 (04:42→20:00)
[2020-03-03] MEDS: Piperacillin/Tazobactam 4.5 GM in Sodium Chloride 0.9% 100 ML IVPB SCH ×3 (05:47→21:08)
--- NOTE | 2020-03-03 07:55 | RAD ---
Exam: Chest one view HISTORY:Respiratory distress. Ventilated patient. Comparison: 03/02/2020 FINDINGS: Lines and tubes: Stable endotracheal tube and nasogastric tube. Right-sided PICC line appears to term inate in the right base of brachiocephalic vein. Cardiac silhouette:Cardiomegaly Aorta: Unremarkable Pulmonary vessels: Normal Costophrenic angles: Clear LUNGS: Persistent diminished lung volumes with chronic lung parenchymal changes. The degree of opacif ication is stable. Pneumothorax: None Osseous abnormalities: Multiple old left rib fractures. IMPRESSION: No significant interval change
[2020-03-03] MEDS: Gentamicin Sulfate 80 MG in Premix Bag 1 BAG IVPB SCH (08:07)
[2020-03-03] MEDS: Famotidine/PF 20 mg/2ml Vial SLOW IVP SCH ×2 (08:08→20:15)
[2020-03-03] MEDS: Enoxaparin Sodium 40 MG/0.4 ML SYRINGE SC SCH (08:08)
[2020-03-03 08:34] LABS: Hemoglobin 6.3 g/dL (14.0-18.0); Mean Corpuscular HGB CONC 32.9 g/dL (32.0-36.0); Mean Corpuscular Hemoglobin 30.8 pg (27.0-31.0); Mean Corpuscular Volume 93.4 fL (78.0-98.0); Mean Platelet Volume 8.5 fL (7.4-10.4); Platelet Count 287 thou/uL (130-400); RBC Distribution Width 14.1 % (11.5-14.5); Red Blood Cell (RBC) Count 2.05 mill/uL (4.70-6.10); White Blood Cell (WBC) Count 13.8 thou/uL (4.8-10.8)
[2020-03-03 09:11] LABS: Anion Gap 16 mmol/L (10-20); BUN (Urea Nitrogen) 8 mg/dL (8.4-25.7); Calc. Creatinine Clearance 130 mL/min (70-130); Calcium 6.9 mg/dL (7.8-10.44); Carbon Dioxide 18 mmol/L (23-31); Chloride 111 mmol/L (98-107); Glucose 88 mg/dL (80-115); Potassium 5.5 mmol/L (3.5-5.1); Sodium 139 mmol/L (136-145)
[2020-03-03 09:13] LABS: Band 1 % (5-11); Eosinophils 1 % (0-10); Lymphocytes 14 % (21-51); MDiff Complete? YES; Monocytes 12 % (0-10); Neutrophil 72 % (42-75); Platelet Morphology Comment Appears Adequate; Polychromasia SLIGHT = 2-3 cells (100X) (0-2/hpf)
--- NOTE | 2020-03-03 15:25 | PDOC.HOSPP ---
- Subjective Encounter Date: 03/03/20 Encounter Time: 15:24 Subjective: pt intubated but opens his eyes on verbal command. - Objective Vital Signs & Weight: Vital Signs (12 hours) Temp Pulse Resp BP Pulse Ox 03/03/20 14:49 83 124/60 03/03/20 12:00 99.2 F 17 03/03/20 10:21 84 112/87 03/03/20 10:00 14 03/03/20 09:00 99.5 F 03/03/20 08:00 15 100 03/03/20 06:51 90 110/53 L 03/03/20 06:00 16 03/03/20 04:00 99.6 F 19 Weight Admit Weight 222 lb Weight 222 lb 10.67 oz Most Recent Monitor Data Heart Rate from ECG 79 NIBP 116/57 NIBP BP-Mean 76 Respiration from ECG 13 SpO2 100 I&O: 03/02/20 03/03/20 03/04/20 06:59 06:59 06:59 Intake Total 2466 3605 900 Output Total 1590 2165 570 Balance 876 1440 330 Result Diagrams: 03/03/20 08:11 03/03/20 08:11 Hospitalist ROS - Review of Systems Other: pt intubated - Medication Medications: Active Medications Generic Name Dose Route Start Last Admin Trade Name Laronq PRN Reason Stop Dose Admin Enoxaparin Sodium 40 mg 03/01/20 09:00 03/03/20 08:08 Enoxaparin Sodium 40 Mg/0.4 Ml Syringe SC 40 mg 0900 NANCY Administration Famotidine 20 mg 03/01/20 21:00 03/03/20 08:08 Famotidine/Pf 20 Mg/2ml Vial SLOW IVP 20 mg BID NANCY Administration Piperacillin Sod/Tazobactam 100 mls @ 200 mls/hr 02/29/20 22:00 03/03/20 14:20 Sod 4.5 gm/ Sodium Chloride IVPB 100 mls Q8HR NANCY Administration Sodium Chloride 1,000 mls @ 100 mls/hr 02/29/20 15:45 03/03/20 04:42 Normal Saline 0.9% IV 1,000 mls .Q10H NANCY Administration Fentanyl Citrate 2,000 mcg/ 100 mls @ 0 mls/hr 02/29/20 23:00 03/02/20 17:36 Sodium Chloride IV 03/30/20 23:00 100 mls INF NANCY Administration Protocol Per Protocol Norepinephrine Bitartrate 250 mls @ 0 mls/hr 02/29/20 23:45 03/02/20 05:02 Levophed IVPB 250 mls INF NANCY Administration Protocol Titrate Vancomycin HCl 1.25 gm/ Sodium 250 mls @ 166.667 mls/hr 03/02/20 23:59 03/03/20 11:20 Chloride IVPB 250 mls 1200,2359 NANCY Administration Lorazepam 2 mg 02/29/20 23:00 03/02/20 14:02 Lorazepam 2 Mg/Ml Vial SLOW IVP 03/30/20 23:00 2 mg Q1H PRN Administration Breakthrough agitation Propofol 1,000 mg 02/29/20 23:00 03/03/20 14:20 Propofol 1,000 Mg/100 Ml Vial IV 03/30/20 23:00 1,000 mg INF PRN Administration TO ACHIEVE GOAL RASS Protocol - Exam Heart: negative: RRR, no murmur, no gallops, no rubs, normal peripheral pulses, irregular, diminshed peripheral pulses, murmur present, II/IV, III/IV Respiratory: negative: CTAB, no wheezes, no rales, no ronchi, normal chest expansion, no tachypnea, normal percussion, rales, rhonchi, tachypneic, wheezes Gastrointestinal: negative: soft, non-tender, non-distended, normal bowel sounds, no palpable masses, no hepatomegaly, no splenomegaly, no bruit, no guarding, no rigidity, tender to palpation, distended, diminished bowl sounds, voluntary guarding Extremities: 2+ LE edema Extremities - other findings: right leg> L, bilateral upper ext wrapped Hosp A/P (1) Acute respiratory failure with hypoxia Code(s): J96.01 - ACUTE RESPIRATORY FAILURE WITH HYPOXIA Status: Acute (2) Cellulitis of upper extremity Code(s): L03.119 - CELLULITIS OF UNSPECIFIED PART OF LIMB Status: Acute Qualifiers: Laterality: unspecified laterality Qualified Code(s): L03.119 - Cellulitis of unspecified part of limb (3) Dyslipidemia Code(s): E78.5 - HYPERLIPIDEMIA, UNSPECIFIED Status: Acute (4) Hypertension Code(s): I10 - ESSENTIAL (PRIMARY) HYPERTENSION Status: Acute Qualifiers: Hypertension type: essential hypertension Qualified Code(s): I10 - Essential (primary) hypertension (5) Sepsis with acute organ dysfunction Code(s): A41.9 - SEPSIS, UNSPECIFIED ORGANISM; R65.20 - SEVERE SEPSIS WITHOUT SEPTIC SHOCK Status: Acute Qualifiers: Sepsis type: methicillin resistant Staphylococcus aureus Severe sepsis acute organ dysfunction type: acute respiratory failure Acute respiratory failure type: with hypoxia Severe sepsis shock status: with septic shock Qualified Code(s): A41.02 - Sepsis due to Methicillin resistant Staphylococcus aureus; R65.21 - Severe sepsis with septic shock; J96.01 - Acute respiratory failure with hypoxia (6) Obesity (BMI 30-39.9) Code(s): E66.9 - OBESITY, UNSPECIFIED Status: Chronic - Plan pt going for surgery today. will continue abx for now. pt's right lower leg has significant swelling. 03/03 will transfuse 2units of blood. ID consulted. Abx per ID and surgery. unable to do dvt ppx since pt's hh is low if improves will put him on heparin. Also has significant swelling to right leg.
[2020-03-03] MEDS: fentaNYL Citrate/PF 2,000 MCG in Sodium Chloride 0.9% 60 ML IV SCH (16:50)
[2020-03-03] MEDS: Vancomycin 1.5 GRAM/300 ML BAG 1.5 GM in Premix Bag 1 BAG IVPB SCH (19:22)
--- NOTE | 2020-03-03 20:02 | PRG ---
DATE OF SERVICE: 03/03/2020 SUBJECTIVE: Mr. Humphrey remains mechanically ventilated, sedated for ventilation. OBJECTIVE: Respiratory rate is 18, FiO2 is 40%, blood pressure 99/51, heart rates in the 60s to 80s. He is in sinus rhythm. LUNGS: Clear. HEART: Regular rhythm. ABDOMEN: Soft and without guarding. EXTREMITIES: Without any change. His arms are bandaged. Apparently, he is going back to the OR again tomorrow. LABORATORY DATA: White count 13.8, hemoglobin 6.3. He was transfused today. Sodium 139, potassium 5.5, chloride 111, bicarb 18, BUN 8, and creatinine 0.82. IMPRESSION: 1. Status post debridement of both arms, down to the bone in his left arm. 2. Polymicrobial infection, most likely in both arms. Antibiotics were adjusted by Dr. Kramer. His input is appreciated. 3. Hyperchloremic acidosis. 4. His IV fluids need to be switched to half-normal saline. We will check a blood gas in the morning since he is going back to the OR. There is a lot of soft tissue exposed in both arms, so his fluid requirements may be greater than typical patient just in the supine position on a ventilator. This may explain his lowish blood pressure in addition to the sepsis. By lab work, he is not prerenal, but I would suspect that we are still a little behind on fluids. Today, he was positive 1440. I bumped up his fluids a little bit. We will have a blood gas done in the morning with chest x-ray done in the morning. He is at high risk for developing ARDS with his multiple trips to the OR, low oncotic pressure and critical illness. We will continue to follow. Critical care time [address] Kramer assistance with antibiotics is appreciated. Critical care time 30 min. Job ID: [id number] [facility]
[2020-03-03] MEDS: Sodium Chloride 0.45% 1,000 ML IV SCH (20:12)
[2020-03-03] MEDS: Pregabalin 75 MG CAP PO SCH (20:15)
[2020-03-03] MEDS: Atorvastatin Calcium 10 MG TAB PO SCH (20:15)
[2020-03-04] MEDS: Vancomycin HCl 1.25 GM in Sodium Chloride 0.9% 250 ML 250 ML IVPB SCH ×2 (01:29→12:15)
[2020-03-04] MEDS: Albumin 25% 25 GM/100 ML BOT IVPB SCH (01:33)
[2020-03-04] MEDS: Propofol 1,000 MG/100 ML VIAL IV PRN ×3 (02:03→19:15)
[2020-03-04] MEDS: Sodium Chloride 0.45% 1,000 ML IV SCH ×3 (03:45→17:44)
[2020-03-04 05:03] LABS: Anion Gap 15 mmol/L (10-20); BUN (Urea Nitrogen) 6 mg/dL (8.4-25.7); Calc. Creatinine Clearance 137 mL/min (70-130); Calcium 7.1 mg/dL (7.8-10.44); Carbon Dioxide 20 mmol/L (23-31); Chloride 111 mmol/L (98-107); Glucose 70 mg/dL (80-115); Potassium 4.1 mmol/L (3.5-5.1); Sodium 142 mmol/L (136-145)
[2020-03-04 05:08] LABS: Band 4 % (5-11); Eosinophils 2 % (0-10); Hemoglobin 6.8 g/dL (14.0-18.0); Lymphocytes 12 % (21-51); MDiff Complete? YES; Mean Corpuscular HGB CONC 33.1 g/dL (32.0-36.0); Mean Corpuscular Hemoglobin 30.9 pg (27.0-31.0); Mean Corpuscular Volume 93.3 fL (78.0-98.0); Mean Platelet Volume 8.7 fL (7.4-10.4); Monocytes 8 % (0-10); Neutrophil 74 % (42-75); Platelet Count 257 thou/uL (130-400); Platelet Morphology Comment Appears Adequate; RBC Distribution Width 14.3 % (11.5-14.5); Red Blood Cell (RBC) Count 2.19 mill/uL (4.70-6.10); White Blood Cell (WBC) Count 9.1 thou/uL (4.8-10.8)
[2020-03-04] MEDS: Piperacillin/Tazobactam 4.5 GM in Sodium Chloride 0.9% 100 ML IVPB SCH ×2 (05:41→14:12)
[2020-03-04 08:12] LABS: Actual Bicarbonate (HCO3a) 18.3 mEq/L (22-28); Base Excess (BEa) -6.3 mEq/L (-2.0 to +3.0); CO2 Tension 32.2 mmHg (35.0-45.0); O2 Tension (PaO2), arterial 129.5 mmHg (> 80.0); pH, Arterial 7.37 (7.35-7.45)
[2020-03-04 08:13] LABS: Calcium, Ionized (arterial) 0.99 mmol/L (1.12-1.30); Carboxyhemoglobin (COHb) 1.5 gm% (0.0-3.0); Potassium - ABG Lab 3.99 mmol/L (3.70-5.30)
[2020-03-04 08:14] LABS: Analyzer IN Cardio OR; Puncture Site LRA
--- NOTE | 2020-03-04 08:18 | RAD ---
XR Chest 1 View Portable History: Ventilated patient Comparison: Radiograph prior day Findings: Endotracheal tube tip at the clavicular level. Enteric tube tip below diaphragm although ou t of field of view. Heart size is enlarged. Small effusions. Atelectasis scattered throughout the lungs. No pneumothorax. Old left-sided rib fractures. Impression: No significant interval change.
[2020-03-04] MEDS: Famotidine/PF 20 mg/2ml Vial SLOW IVP SCH ×2 (08:36→20:01)
[2020-03-04] MEDS ORDERED: VANCOMYCIN IVPB PRN (08:40)
--- NOTE | 2020-03-04 10:32 | OP ---
DATE OF PROCEDURE: 02/29/2020 PREOPERATIVE DIAGNOSIS: Right 20 x 8 cm and left 24 x 8 cm open wound with VAC dressing applied. FINDINGS: No gross infection, some necrotic skin over area about 3 cm long and 2 cm wide at the distal third of forearm dorsally to the left side and small areas of muscle necrosis, hematoma submuscular with only minimal evidence of fascial decay in the central distal dorsal 3rd of the left side wound. PROCEDURES PERFORMED: 1. On the left side;. a. Forearm wound debridement, intermediate depth, [id number]. b. Application of VAC dressing, 24 x 8 cm. 2. Right forearm wound debridement, intermediate depth, [id number]. a. VAC dressing change. COMPLICATIONS: None. ESTIMATED BLOOD LOSS: Totals at 100 mL on both sides. TOURNIQUET TIME: 0. DESCRIPTION OF PROCEDURE: After successful general endotracheal anesthesia, both limbs were prepped simultaneously and draped. Time-out was done appropriately and then we began with the right side wound. Here, we lifted up all the edges, found a small amount of fascial necrosis and tenosynovial necrosis in the distal 1/3 of the wound along with the extensor tendon remnant. Also on the right side, there was continuous spontaneous rupture of the small and ring finger extensor digitorum communis. Debridement was accomplished using a combination of [place] blade, tenotomy scissors, Adson's and rongeurs. This includes some fascia though not grossly necrotic, appeared to be nonviable. We then irrigated this area with 2.5 L of normal saline and Pulsavac pressure with antibiotics inside. We placed thrombin-soaked Gelfoam in areas where we could not obtain hemostasis readily with Bovie, placed a moist lap sponge, and then turned our attention to the contralateral left wound. On the left side, which was 24 x 8 cm, we saw area of necrotic skin as well, which was approximately 3 cm long x 1.5 cm wide and it was excised using a combination of . The right side then underwent after this debridement, the same technique as in the contralateral left side including deep, some fascia and early flexor tendon synovium were excised and we irrigated with 2.5 L of normal saline and Pulsavac pressure. The VAC dressing team/Wound Care came to the room, placed appropriate white sponge over the tendons that still might be reattached as well as appropriate care. Job ID: [id number]
[2020-03-04] MEDS ORDERED: ePHEDrine 50 MG/ML VIAL ONE (10:47)
[2020-03-04] MEDS ORDERED: Rocuronium Bromide 10 MG/ML (10ML VIAL) ONE (10:47)
[2020-03-04] MEDS: Pregabalin 75 MG CAP PO SCH ×2 (11:14→20:00)
[2020-03-04] MEDS: Enoxaparin Sodium 40 MG/0.4 ML SYRINGE SC SCH (11:14)
[2020-03-04] MEDS: Aspirin 81 mg Enteric Coated Tablet PO SCH (11:14)
[2020-03-04 12:41] LABS: Vancomycin, Trough 24.3 ug/mL
[2020-03-04] MEDS: Morphine 2 MG/ML VIAL SLOW IVP PRN ×2 (12:49→15:07)
[2020-03-04] MEDS ORDERED: Fentanyl 100 MCG/2 ML VIAL ONE ×2 (13:29→20:46)
[2020-03-04] MEDS ORDERED: Famotidine/PF 20 mg/2ml Vial ONE (13:29)
[2020-03-04] MEDS ORDERED: Midazolam HCl 2 mg/2 ml Vial ONE (13:29)
[2020-03-04] MEDS: Trospium 20 MG TAB PO SCH (14:01)
--- NOTE | 2020-03-04 14:23 | PRG ---
DATE OF SERVICE: 03/04/2020 SUBJECTIVE: Mr. Humphrey remains mechanically ventilated. He is tentatively going to the OR for trial of closure. OBJECTIVE: VITAL SIGNS: Heart rates in the 70s, blood pressure 120/64, respiratory rates in the teens, oximetry is 100%. LUNGS: Clear. HEART: Regular rhythm. ABDOMEN: Soft. LABORATORY DATA: White count 9.1, hemoglobin 6.8. He was receiving 2 units of packed cells this morning for going to the OR. Sodium 142, potassium 4.1, chloride 111, bicarb 20, BUN 6, creatinine 0.78. PH 7.37, CO2 of 32, and pO2 of 129. IMPRESSION: Necrotizing fasciitis of both upper extremities, going back to the OR today. We will continue mechanical ventilation support, antimicrobial care. CRITICAL CARE TIME: 30 minutes. Job ID: [id number]
--- NOTE | 2020-03-04 15:24 | PDOC.HOSPP ---
- Subjective Encounter Date: 03/04/20 Encounter Time: 10:30 Subjective: pt intubated - Objective Vital Signs & Weight: Vital Signs (12 hours) Temp Pulse Resp BP Pulse Ox 03/04/20 14:17 102 H 122/67 03/04/20 12:00 98.6 F 19 03/04/20 10:54 80 108/60 03/04/20 10:00 13 03/04/20 08:00 98.7 F 14 100 03/04/20 06:40 87 103/56 L 03/04/20 06:00 14 03/04/20 04:00 99.3 F 13 Weight Admit Weight 222 lb Weight 222 lb 10.67 oz Most Recent Monitor Data Heart Rate from ECG 101 NIBP 136/77 NIBP BP-Mean 96 Respiration from ECG 34 SpO2 96 I&O: 03/03/20 03/04/20 03/05/20 06:59 06:59 06:59 Intake Total 3605 4201.4 940 Output Total 2165 2135 420 Balance 1440 2066.4 520 Result Diagrams: 03/04/20 04:10 03/04/20 04:10 Hospitalist ROS - Review of Systems Other: pt is intubated - Medication Medications: Active Medications Generic Name Dose Route Start Last Admin Trade Name Freq PRN Reason Stop Dose Admin Aspirin 81 mg 03/04/20 09:00 03/04/20 11:14 Aspirin 81 Mg Enteric Coated Tablet PO Not Given DAILY NANCY Atorvastatin Calcium 10 mg 03/03/20 21:00 03/03/20 20:15 Atorvastatin Calcium 10 Mg Tab PO 10 mg HS NANCY Administration Enoxaparin Sodium 40 mg 03/01/20 09:00 03/04/20 11:14 Enoxaparin Sodium 40 Mg/0.4 Ml Syringe SC Not Given 0900 NANCY Famotidine 20 mg 03/01/20 21:00 03/04/20 08:36 Famotidine/Pf 20 Mg/2ml Vial SLOW IVP 20 mg BID NANCY Administration Piperacillin Sod/Tazobactam 100 mls @ 200 mls/hr 02/29/20 22:00 03/04/20 14:12 Sod 4.5 gm/ Sodium Chloride IVPB 100 mls Q8HR NANCY Administration Fentanyl Citrate 2,000 mcg/ 100 mls @ 0 mls/hr 02/29/20 23:00 03/03/20 16:50 Sodium Chloride IV 03/30/20 23:00 100 mls INF NANCY Administration Protocol Per Protocol Norepinephrine Bitartrate 250 mls @ 0 mls/hr 02/29/20 23:45 03/02/20 05:02 Levophed IVPB 250 mls INF NANCY Administration Protocol Titrate Sodium Chloride 1,000 mls @ 150 mls/hr 03/03/20 19:30 03/04/20 13:19 1/2 Normal Saline IV Not Given .[id number] NANCY Lorazepam 2 mg 02/29/20 23:00 03/02/20 14:02 Lorazepam 2 Mg/Ml Vial SLOW IVP 03/30/20 23:00 2 mg Q1H PRN Administration Breakthrough agitation Morphine Sulfate 2 mg 02/29/20 23:00 03/04/20 15:07 Morphine 2 Mg/Ml Vial SLOW IVP 03/30/20 23:00 2 mg Q1H PRN Administration Breakthrough Pain/Agitation Pregabalin 150 mg 03/03/20 21:00 03/04/20 11:14 Pregabalin 75 Mg Cap PO Not Given BID NANCY Propofol 1,000 mg 02/29/20 23:00 03/04/20 12:49 Propofol 1,000 Mg/100 Ml Vial IV 03/30/20 23:00 1,000 mg INF PRN Administration TO ACHIEVE GOAL RASS Protocol Trospium 20 mg 03/04/20 09:00 03/04/20 14:01 Trospium 20 Mg Tab PO Not Given DAILY NANCY - Exam Heart: negative: RRR, no murmur, no gallops, no rubs, normal peripheral pulses, irregular, diminshed peripheral pulses, murmur present, II/IV, III/IV Respiratory: negative: CTAB, no wheezes, no rales, no ronchi, normal chest expansion, no tachypnea, normal percussion, rales, rhonchi, tachypneic, wheezes Gastrointestinal: negative: soft, non-tender, non-distended, normal bowel sounds, no palpable masses, no hepatomegaly, no splenomegaly, no bruit, no guarding, no rigidity, tender to palpation, distended, diminished bowl sounds, voluntary guarding Extremities: 2+ LE edema Extremities - other findings: right greater than left Hosp A/P (1) Acute respiratory failure with hypoxia Code(s): J96.01 - ACUTE RESPIRATORY FAILURE WITH HYPOXIA Status: Acute (2) Cellulitis of upper extremity Code(s): L03.119 - CELLULITIS OF UNSPECIFIED PART OF LIMB Status: Acute Qualifiers: Laterality: unspecified laterality Qualified Code(s): L03.119 - Cellulitis of unspecified part of limb (3) Dyslipidemia Code(s): E78.5 - HYPERLIPIDEMIA, UNSPECIFIED Status: Acute (4) Hypertension Code(s): I10 - ESSENTIAL (PRIMARY) HYPERTENSION Status: Acute Qualifiers: Hypertension type: essential hypertension Qualified Code(s): I10 - Essential (primary) hypertension (5) Sepsis with acute organ dysfunction Code(s): A41.9 - SEPSIS, UNSPECIFIED ORGANISM; R65.20 - SEVERE SEPSIS WITHOUT SEPTIC SHOCK Status: Acute Qualifiers: Sepsis type: methicillin resistant Staphylococcus aureus Severe sepsis acute organ dysfunction type: acute respiratory failure Acute respiratory failure type: with hypoxia Severe sepsis shock status: with septic shock Qualified Code(s): A41.02 - Sepsis due to Methicillin resistant Staphylococcus aureus; R65.21 - Severe sepsis with septic shock; J96.01 - Acute respiratory failure with hypoxia (6) Obesity (BMI 30-39.9) Code(s): E66.9 - OBESITY, UNSPECIFIED Status: Chronic (7) Necrotizing fasciitis Code(s): M72.6 - NECROTIZING FASCIITIS Status: Acute - Plan pt going for surgery today. will continue abx for now. pt's right lower leg has significant swelling. 03/03 will transfuse 2units of blood. ID consulted. Abx per ID and surgery. unable to do dvt ppx since pt's hh is low if improves will put him on heparin. Also has significant swelling to right leg. 03/04 pt getting blood today. pt is going to be taken back to OR. will continue abx. pt unable to be on dvt ppx due to his low hh. His lower ext especially the right is more swollen then left.
[2020-03-04] MEDS: Atorvastatin Calcium 10 MG TAB PO SCH (20:01)
[2020-03-04] MEDS ORDERED: Mineral Oil Sterile 10ML 10 ML UDCUP ONE (20:52)
[2020-03-04] MEDS ORDERED: Sodium Chloride 0.9% 50 ML ONE (20:56)
[2020-03-04] MEDS ORDERED: Bacitracin Zinc Ointment 30 gm TUBE ONE ×2 (20:56→22:27)
[2020-03-04] MEDS ORDERED: Thrombin 5000 UNITS/5 ML VIAL ONE (20:56)
[2020-03-05] MEDS: Piperacillin/Tazobactam 4.5 GM in Sodium Chloride 0.9% 100 ML IVPB SCH ×4 (00:38→20:52)
[2020-03-05] MEDS: fentaNYL Citrate/PF 2,000 MCG in Sodium Chloride 0.9% 60 ML IV SCH ×2 (01:21→20:45)
--- NOTE | 2020-03-05 02:02 | OP ---
DATE OF PROCEDURE: 03/04/2020 PREOPERATIVE DIAGNOSES: 1. Right forearm, 20 cm x 3 cm wound. 2. Left forearm, 25 cm x 3.5 cm wound. POSTOPERATIVE DIAGNOSIS: Size of the wound length was on the right, 25 cm and the left, 30 cm. No gross infection. No necrotizing fasciitis seen. ESTIMATED BLOOD LOSS: 100 mL. PROCEDURES PERFORMED: 1. On the right;. a. Wound debridement. b. Approximately 20 cm wound closure with 2 x 2 inches Integra graft applied to area of exposed tendon and muscle. 2. On the left side;. a. Wound debridement. b. 25 cm wound closure. c. 2 x 2 inch Integra graft mid third junction wound; extensor digitorum ring finger [id number] to small finger EDC repair; and extensor digitorum comatose middle finger [id number] index finger EDC repair. d. Application of short-arm splint. INDICATIONS FOR PROCEDURE: Patient returns for staged wound management with a history of clinical deep abscess and feared to have necrotizing fasciitis, which required previous 2 debridements in 4 days. He is now post-presentation day #4 and returned for staged wound management. His white blood cell count has gone from a high of 15,000 to 9,000 a day. He remained somewhat anemic, but received a transfusion. He had no fevers. Thus, the wound was clean, felt that closure to the best of available skin could be accomplished. We already debrided enough skin that we knew. We would not be able to completely close without grafting of some type. DESCRIPTION OF PROCEDURE: Patient had both limbs prepped and draped simultaneously. We approached the right side, which was a short of the 2 wounds first. We elevated all the wound edges, look for bleeding, did not find. There was no hematoma seen. There was small amount of residual thrombin with Gelfoam and this was removed. We debrided the wound using combination of curette, tenotomy scissors, [place] blade, Adson, and rongeur. 2.5 L of Pulsavac was then used, we had all bleeding surfaces. We then had maintained hemostasis. We closed the wound using a combination of 3-0 and 2-0 nylon in alternating interrupted simple and interrupted mattress pattern. Once this was done, there was a 2 inch x 1.5 inch area with some exposed tendon that we could not close and this was then covered with Integra graft, appropriate side down. This graft from the right side was then bolstered with bacitracin, Adaptic, ABD with mineral oil and joya and the graft was also stapled down. We then covered the rest of the wound with Adaptic, bacitracin, 4 x 4, Kerlix to include bulky hand dressing in the web spaces and then Morgan wrap. We covered this with a sterile plastic bag. We then turned attention to the left side. Here, the wound was longer, slightly wider, and had more exposed tendons. We had seen spontaneous tendon rupture because of the abscess and gross purulence of the middle finger EDC and the ring finger EDC tendon. After doing a formal debridement using the same techniques and instrumentations that used in the contralateral side, we then irrigated the same way. Before we could close the wound completely; however, we performed a [id number] tendon graft both the ring finger to the small finger EDC and the middle finger to the index finger EDC. This was done on appropriate hyperextension and had excellent tension afterwards. We then finished closing the wound as much as we could, but only 20 of the 25 cm could be closed, so the distal third junction where we had multiple tendons was covered with an Integra graft, also 2 inch x 2 inch. It was stapled to the skin, bolstered appropriately with bacitracin, Adaptic. Then, mineral oil soaked ABD that was also stapled. We placed him bulky dressing with web space bulky hand technique, placed a splint under the junction of the midportion of the middle phalanx of all the digits, all way to the proximal third forearm and then covered with loosely with Morgan wrap. He left the operating room with a pink digit on both sides; dry, clean wounds; and no evidence of anesthetic or operative complication. Job ID: [id number]
[2020-03-05] MEDS: Propofol 1,000 MG/100 ML VIAL IV PRN ×2 (03:05→14:51)
[2020-03-05] MEDS: Sodium Chloride 0.45% 1,000 ML IV SCH ×3 (03:21→15:21)
[2020-03-05 04:34] LABS: ALT (SGPT) Less than 7 U/L (8-55); AST (SGOT) 41 U/L (5-34); Albumin 2.6 g/dL (3.4-4.8); Alkaline Phosphatase 72 U/L (40-110); Anion Gap 18 mmol/L (10-20); BUN (Urea Nitrogen) 7 mg/dL (8.4-25.7); Bilirubin, Total 1.1 mg/dL (0.2-1.2); Calc. Creatinine Clearance 124 mL/min (70-130); Carbon Dioxide 16 mmol/L (23-31); Chloride 110 mmol/L (98-107); Globulin 2.2 g/dL (2.4-3.5); Glucose 76 mg/dL (80-115); Protein, Total 4.8 g/dL (5.8-8.1); Sodium 140 mmol/L (136-145)
[2020-03-05 07:11] LABS: Actual Bicarbonate (HCO3a) 14.4 mEq/L (22-28); CO2 Tension 31.6 mmHg (35.0-45.0); Calcium, Ionized (arterial) 1.06 mmol/L (1.12-1.30); O2 Tension (PaO2), arterial 99.1 mmHg (> 80.0); Potassium - ABG Lab 4.08 mmol/L (3.70-5.30); pH, Arterial 7.28 (7.35-7.45)
[2020-03-05 07:21] LABS: Puncture Site RFA
[2020-03-05 08:35] LABS: Hemoglobin 10.2 g/dL (14.0-18.0); Hypersemented Neutrophil SLIGHT; Lymphocytes 5 % (21-51); MDiff Complete? YES; Mean Corpuscular HGB CONC 32.7 g/dL (32.0-36.0); Mean Corpuscular Volume 94.6 fL (78.0-98.0); Mean Platelet Volume 9.3 fL (7.4-10.4); Monocytes 9 % (0-10); Neutrophil 86 % (42-75); Platelet Count 215 thou/uL (130-400); Platelet Morphology Comment Appears Adequate; RBC Distribution Width 14.5 % (11.5-14.5); White Blood Cell (WBC) Count 12.8 thou/uL (4.8-10.8)
--- NOTE | 2020-03-05 08:40 | RAD ---
CHEST 1 VIEW: Date: 03/05/2020 INDICATION: History of intubation. COMPARISON: Prior exam dated 03/04/2020. FINDINGS: The patient is intubated with gastric catheter placement. Mild cardiomegaly with pulmonary vascular c ongestion persists. Small bilateral pleural effusions are slightly more prominent. No pneumothorax is evident. Healed rib deformities of the left chest wall are stable. IMPRESSION: Worsening bilateral pleural effusions. Persistent cardiomegaly with pulmonary vascular congestion. POS: BH
[2020-03-05] MEDS: Aspirin 81 mg Enteric Coated Tablet PO SCH (11:12)
[2020-03-05] MEDS: Pregabalin 75 MG CAP PO SCH ×2 (11:12→20:51)
[2020-03-05] MEDS: Enoxaparin Sodium 40 MG/0.4 ML SYRINGE SC SCH (11:12)
[2020-03-05] MEDS: Vancomycin 1 GM in Premix Bag 1 BAG IVPB SCH (11:35)
[2020-03-05] MEDS: Trospium 20 MG TAB PO SCH (11:41)
[2020-03-05] MEDS: Famotidine/PF 20 mg/2ml Vial SLOW IVP SCH ×2 (11:41→20:52)
--- NOTE | 2020-03-05 14:26 | PRG ---
DATE OF SERVICE: 03/05/2020 SUBJECTIVE: There has been no dramatic change, although the patient was taken to the operating room last evening for debridement of the wounds and necrotizing fasciitis involving both the right and left upper extremities. These are bandaged. He is not requiring pressors, but does remain on ventilatory support with rate of 12, FiO2 of 40%, tidal volume 500, PEEP of 5. OBJECTIVE: GENERAL: He is intubated, sedated, appears much older than his stated age. He has bandages to both upper extremities. LUNGS: Show coarse rhonchi. HEART: Regular rate and rhythm. ABDOMEN: Obese. EXTREMITIES: He has previous surgery of the right lower leg. He has mild erythema, but no active cellulitis. He has significant fluid overload with anasarca again worse on the right than on the left. : He has significant scrotal edema. LABORATORY DATA: White count 12,800, hemoglobin is 10.2 with hematocrit of 31.2, platelet count 215,000. He has 85 neutrophils and no bands noted today, down from 21 on admission. Blood gas includes pH 7.28, pCO2 of 32, pO2 of 99, bicarbonate of 14. Chemistry panel includes sodium 140, potassium 4.0, chloride 110, CO2 of 16, BUN 7, and creatinine 0.86. IMPRESSION: 1. Recurrent septicemia with cellulitis and abscess requiring surgical debridement. Cultures on this admission are negative, although on prior admission were remarkable for Staphylococcus aureus from his knee and Enterococcus faecalis from his arm. 2. History of hypertension. 3. History of severe vascular disease including previous carotid endarterectomy, femoral-popliteal bypass, and hypertension. 4. History of alcohol abuse. PLAN: We will continue with current ventilator settings. At this time, we do not have much room to wean. I am concerned that he may well have endocarditis since this is second infection at remote site and consideration of transthoracic versus transesophageal echocardiogram is deferred. He is on broad-spectrum antibiotics at the direction of Infectious Disease. He has had some ectopy today and we will check a magnesium level. He has been transfused today and posttransfusion hemoglobin 10.2. Condition remains guarded at best. Critical care, 37 minutes. Job ID: [id number]
--- NOTE | 2020-03-05 14:36 | RAD ---
Exam:Left tibia fibula 2 views HISTORY: Soft tissue ulcer. COMPARISON: None FINDINGS: There is atherosclerosis. There is diffuse bone demineralization. No erosive or destructive changes in the osseous structures. No radiographic evidence of obvious subcutaneous emphysema or soft tissue ulceration. IMPRESSION: No radiographic evidence of osteomyelitis.
[2020-03-05] MEDS ORDERED: Norepinephrine 8 MG/0.9% NS 250 ML IVPB SCH (15:15)
--- NOTE | 2020-03-05 15:31 | PDOC.HOSPP ---
- Subjective Encounter Date: 03/05/20 Encounter Time: 11:15 Subjective: pt intubated - Objective Vital Signs & Weight: Vital Signs (12 hours) Temp Pulse Resp BP 03/05/20 15:26 87 03/05/20 13:17 89 97/54 L 03/05/20 12:00 15 03/05/20 10:36 109 H 03/05/20 08:00 13 03/05/20 07:38 99 03/05/20 07:00 97.7 F 03/05/20 06:00 15 03/05/20 04:00 97.6 F 15 Weight Admit Weight 222 lb Weight 222 lb 10.67 oz Most Recent Monitor Data Heart Rate from ECG 93 NIBP 82/51 NIBP BP-Mean 61 Respiration from ECG 14 SpO2 98 I&O: 03/04/20 03/05/20 03/06/20 06:59 06:59 06:59 Intake Total 4201.4 4905 1808 Output Total 2135 1365 365 Balance 2066.4 3540 1443 Result Diagrams: 03/05/20 06:54 03/05/20 03:30 Hospitalist ROS - Review of Systems Other: pt intubated - Medication Medications: Active Medications Generic Name Dose Route Start Last Admin Trade Name Freq PRN Reason Stop Dose Admin Aspirin 81 mg 03/04/20 09:00 03/05/20 11:12 Aspirin 81 Mg Enteric Coated Tablet PO 81 mg DAILY NANCY Administration Atorvastatin Calcium 10 mg 03/03/20 21:00 03/04/20 20:01 Atorvastatin Calcium 10 Mg Tab PO 10 mg HS NANCY Administration Enoxaparin Sodium 40 mg 03/01/20 09:00 03/05/20 11:12 Enoxaparin Sodium 40 Mg/0.4 Ml Syringe SC 40 mg 0900 NANCY Administration Famotidine 20 mg 03/01/20 21:00 03/05/20 11:41 Famotidine/Pf 20 Mg/2ml Vial SLOW IVP 20 mg BID NANCY Administration Piperacillin Sod/Tazobactam 100 mls @ 200 mls/hr 02/29/20 22:00 03/05/20 14:51 Sod 4.5 gm/ Sodium Chloride IVPB 100 mls Q8HR NANCY Administration Fentanyl Citrate 2,000 mcg/ 100 mls @ 0 mls/hr 02/29/20 23:00 03/05/20 01:21 Sodium Chloride IV 03/30/20 23:00 100 mls INF NANCY Administration Protocol Per Protocol Vancomycin HCl 1 gm/ Device 200 mls @ 200 mls/hr 03/05/20 12:00 03/05/20 11:35 IVPB 200 mls 1200,2359 NANCY Administration Sodium Chloride 1,000 mls @ 50 mls/hr 03/05/20 15:09 03/05/20 15:21 1/2 Normal Saline IV Not Given .Q20H NANCY Lorazepam 2 mg 02/29/20 23:00 03/02/20 14:02 Lorazepam 2 Mg/Ml Vial SLOW IVP 03/30/20 23:00 2 mg Q1H PRN Administration Breakthrough agitation Morphine Sulfate 2 mg 02/29/20 23:00 03/04/20 15:07 Morphine 2 Mg/Ml Vial SLOW IVP 03/30/20 23:00 2 mg Q1H PRN Administration Breakthrough Pain/Agitation Pregabalin 150 mg 03/03/20 21:00 03/05/20 11:12 Pregabalin 75 Mg Cap PO 150 mg BID NANCY Administration Propofol 1,000 mg 02/29/20 23:00 03/05/20 14:51 Propofol 1,000 Mg/100 Ml Vial IV 03/30/20 23:00 1,000 mg INF PRN Administration TO ACHIEVE GOAL RASS Protocol Trospium 20 mg 03/04/20 09:00 03/05/20 11:41 Trospium 20 Mg Tab PO 20 mg DAILY NANCY Administration - Exam Heart: negative: RRR, no murmur, no gallops, no rubs, normal peripheral pulses, irregular, diminshed peripheral pulses, murmur present, II/IV, III/IV Respiratory: negative: CTAB, no wheezes, no rales, no ronchi, normal chest expansion, no tachypnea, normal percussion, rales, rhonchi, tachypneic, wheezes Gastrointestinal: negative: soft, non-tender, non-distended, normal bowel sounds, no palpable masses, no hepatomegaly, no splenomegaly, no bruit, no guarding, no rigidity, tender to palpation, distended, diminished bowl sounds, voluntary guarding Extremities: 2+ LE edema Hosp A/P (1) Acute respiratory failure with hypoxia Code(s): J96.01 - ACUTE RESPIRATORY FAILURE WITH HYPOXIA Status: Acute (2) Cellulitis of upper extremity Code(s): L03.119 - CELLULITIS OF UNSPECIFIED PART OF LIMB Status: Acute Qualifiers: Laterality: unspecified laterality Qualified Code(s): L03.119 - Cellulitis of unspecified part of limb (3) Dyslipidemia Code(s): E78.5 - HYPERLIPIDEMIA, UNSPECIFIED Status: Acute (4) Hypertension Code(s): I10 - ESSENTIAL (PRIMARY) HYPERTENSION Status: Acute Qualifiers: Hypertension type: essential hypertension Qualified Code(s): I10 - Essential (primary) hypertension (5) Sepsis with acute organ dysfunction Code(s): A41.9 - SEPSIS, UNSPECIFIED ORGANISM; R65.20 - SEVERE SEPSIS WITHOUT SEPTIC SHOCK Status: Acute Qualifiers: Sepsis type: methicillin resistant Staphylococcus aureus Severe sepsis acute organ dysfunction type: acute respiratory failure Acute respiratory failure type: with hypoxia Severe sepsis shock status: with septic shock Qualified Code(s): A41.02 - Sepsis due to Methicillin resistant Staphylococcus aureus; R65.21 - Severe sepsis with septic shock; J96.01 - Acute respiratory failure with hypoxia (6) Obesity (BMI 30-39.9) Code(s): E66.9 - OBESITY, UNSPECIFIED Status: Chronic (7) Necrotizing fasciitis Code(s): M72.6 - NECROTIZING FASCIITIS Status: Acute - Plan pt going for surgery today. will continue abx for now. pt's right lower leg has significant swelling. 03/03 will transfuse 2units of blood. ID consulted. Abx per ID and surgery. unable to do dvt ppx since pt's hh is low if improves will put him on heparin. Also has significant swelling to right leg. 03/04 pt getting blood today. pt is going to be taken back to OR. will continue abx. pt unable to be on dvt ppx due to his low hh. His lower ext especially the right is more swollen then left. 03/05 will add albumin, his bp is still low. will continue abx for now. pt will be receiving one unit of blood. will decrease fluids to 50ml/hr. will check labs again. pt tolerating tube feeds.
[2020-03-05] MEDS: Albumin 25% 25 GM/100 ML BOT IVPB SCH ×2 (15:32→20:55)
[2020-03-05 17:24] LABS: Anion Gap 13 mmol/L (10-20); BUN (Urea Nitrogen) 7 mg/dL (8.4-25.7); Calc. Creatinine Clearance 120 mL/min (70-130); Calcium 6.9 mg/dL (7.8-10.44); Carbon Dioxide 19 mmol/L (23-31); Chloride 108 mmol/L (98-107); Glucose 106 mg/dL (80-115); Sodium 136 mmol/L (136-145)
[2020-03-05] MEDS: Atorvastatin Calcium 10 MG TAB PO SCH (20:51)
[2020-03-05] MEDS: Silver Sulfadiazine 50 GM JAR TP SCH (20:56)
[2020-03-06] MEDS: Vancomycin 1 GM in Premix Bag 1 BAG IVPB SCH ×2 (00:17→13:59)
[2020-03-06] MEDS: Propofol 1,000 MG/100 ML VIAL IV PRN ×3 (00:18→17:43)
[2020-03-06 04:00] LABS: Band 10 % (5-11); Eosinophils 4 % (0-10); Hemoglobin 9.7 g/dL (14.0-18.0); Lymphocytes 14 % (21-51); MDiff Complete? YES; Mean Corpuscular HGB CONC 32.8 g/dL (32.0-36.0); Mean Corpuscular Hemoglobin 29.6 pg (27.0-31.0); Mean Corpuscular Volume 90.1 fL (78.0-98.0); Mean Platelet Volume 9.2 fL (7.4-10.4); Metamyelocyte 1 % (0-0); Monocytes 11 % (0-10); Neutrophil 60 % (42-75); Platelet Count 215 thou/uL (130-400); Platelet Morphology Comment Appears Adequate; RBC Distribution Width 15.6 % (11.5-14.5); Red Blood Cell (RBC) Count 3.28 mill/uL (4.70-6.10); White Blood Cell (WBC) Count 9.5 thou/uL (4.8-10.8)
[2020-03-06 04:07] LABS: Anion Gap 14 mmol/L (10-20); BUN (Urea Nitrogen) 7 mg/dL (8.4-25.7); Calc. Creatinine Clearance 116 mL/min (70-130); Carbon Dioxide 18 mmol/L (23-31); Chloride 108 mmol/L (98-107); Glucose 103 mg/dL (80-115); Sodium 136 mmol/L (136-145)
[2020-03-06] MEDS: Piperacillin/Tazobactam 4.5 GM in Sodium Chloride 0.9% 100 ML IVPB SCH ×3 (05:50→20:41)
[2020-03-06 07:20] LABS: Actual Bicarbonate (HCO3a) 19.5 mEq/L (22-28); Base Excess (BEa) -6.5 mEq/L (-2.0 to +3.0); CO2 Tension 40.6 mmHg (35.0-45.0); Calcium, Ionized (arterial) 1.02 mmol/L (1.12-1.30); O2 Tension (PaO2), arterial 100.8 mmHg (> 80.0); Potassium - ABG Lab 3.81 mmol/L (3.70-5.30)
[2020-03-06 07:49] LABS: Puncture Site LBA
--- NOTE | 2020-03-06 09:18 | RAD ---
CHEST ONE VIEW: INDICATIONS: History of intubation. COMPARISON: 03/05/2020 FINDINGS: The patient has stable gastric catheter and ET tube placement. Mild cardiomegaly and pulmonary vascul ar congestion persist. Small bilateral pleural effusions appear slightly less prominent. No pneumotho rax is evident. Remote healed deformities involving the left chest wall are stable appearing. IMPRESSION: 1. Improving bilateral pleural effusions. 2. Persistent cardiomegaly and pulmonary vascular congestion. POS: BH
[2020-03-06] MEDS: Famotidine/PF 20 mg/2ml Vial SLOW IVP SCH ×2 (09:52→20:42)
[2020-03-06] MEDS: Pregabalin 75 MG CAP PO SCH ×2 (09:52→20:42)
[2020-03-06] MEDS: Aspirin 81 mg Enteric Coated Tablet PO SCH (09:52)
[2020-03-06] MEDS: Enoxaparin Sodium 40 MG/0.4 ML SYRINGE SC SCH (09:52)
[2020-03-06] MEDS: Albumin 25% 25 GM/100 ML BOT IVPB SCH ×3 (09:52→13:59)
[2020-03-06] MEDS: Trospium 20 MG TAB PO SCH (09:53)
[2020-03-06] MEDS: Silver Sulfadiazine 50 GM JAR TP SCH ×2 (09:57→20:44)
[2020-03-06] MEDS ORDERED: Furosemide 40 MG/4 ML VIAL ONE (11:18)
[2020-03-06] MEDS ORDERED: Furosemide 20 MG/2 ML VIAL SLOW IVP SCH (11:30)
[2020-03-06] MEDS: Sodium Chloride 0.45% 1,000 ML IV SCH (11:48)
[2020-03-06] MEDS ORDERED: Magnesium Sulfate 4 GM in Sodium Chloride 0.9% 250 ML 250 ML IVPB SCH (13:00)
[2020-03-06] MEDS ORDERED: Electrolyte Replacement Protocol FS PRN (13:00)
--- NOTE | 2020-03-06 14:32 | PRG ---
DATE OF SERVICE: 03/06/2020 SUBJECTIVE: There has not been any significant change control specialist the night. He remains on the ventilator with rate of 12, tidal volume 550, PEEP of 5, and FiO2 of 40%. PHYSICAL EXAMINATION: VITAL SIGNS: Blood pressure 118/58, heart rate is 91, saturation 98% on ventilator settings as above. GENERAL: He is intubated, not responding to verbal stimuli. HEENT: Shows no icterus. He has no JVD. LUNGS: Show bilateral rhonchi. HEART: Regular rate and rhythm. ABDOMEN: Distended. EXTREMITIES: He has bandaged upper extremities from incision and drainage/fasciotomies. His legs look a little bit better with less erythema on the right, although he still has significant 3+ anasarca. LABORATORY DATA: Chest x-ray today shows slight improvement in his effusions and parenchymal infiltrates. White count 9500, hemoglobin is 9.7 with hematocrit 29.5, and platelet count of 215,000. He has 60 segs and 10 bands. His blood gas includes pH 7.30, CO2 of 41, pO2 of 101, and bicarbonate of 19. This is improved from bicarbonate of 14 yesterday suggesting an improvement in his underlying metabolic acidosis. Electrolytes include sodium 136, potassium 4, chloride 108, CO2 of 18, BUN 7, and creatinine 0.9. IMPRESSION: 1. Bilateral arm abscesses and necrotizing fasciitis, status post debridement. All of his cultures here are negative, although cultures from his previous hospitalization earlier this month had grown enterococcus from his arm and staph from his knee. 2. Respiratory failure secondary to above. PLAN: We will continue ventilatory support and empiric antibiotic therapy. I have reduced his rate to 8, and we will continue trying to wean him. It does not appear as though he is going to need further surgical intervention in the short term. Critical care 30 minutes. Job ID: [id number]
--- NOTE | 2020-03-06 18:00 | PDOC.HOSPP ---
- Subjective Encounter Date: 03/06/20 Encounter Time: 11:45 Subjective: pt intubated - Objective Vital Signs & Weight: Vital Signs (12 hours) Temp Pulse Resp Pulse Ox 03/06/20 16:00 22 H 03/06/20 14:09 106 H 03/06/20 14:00 24 H 03/06/20 12:00 15 03/06/20 10:50 91 03/06/20 10:00 15 03/06/20 09:00 99.2 F 03/06/20 08:00 22 H 98 03/06/20 07:50 84 03/06/20 06:00 16 Weight Admit Weight 222 lb Weight 219 lb 12.814 oz Most Recent Monitor Data Heart Rate from ECG 91 NIBP 108/51 NIBP BP-Mean 70 Respiration from ECG 0 SpO2 99 I&O: 03/05/20 03/06/20 03/07/20 06:59 06:59 06:59 Intake Total 4905 5397 2489 Output Total 1365 1435 2325 Balance 3540 3944 164 Result Diagrams: 03/06/20 03:14 03/06/20 03:14 Hospitalist ROS - Review of Systems Other: pt intubated - Medication Medications: Active Medications Generic Name Dose Route Start Last Admin Trade Name Freq PRN Reason Stop Dose Admin Aspirin 81 mg 03/04/20 09:00 03/06/20 09:52 Aspirin 81 Mg Enteric Coated Tablet PO 81 mg DAILY NANCY Administration Atorvastatin Calcium 10 mg 03/03/20 21:00 03/05/20 20:51 Atorvastatin Calcium 10 Mg Tab PO 10 mg HS NANCY Administration Enoxaparin Sodium 40 mg 03/01/20 09:00 03/06/20 09:52 Enoxaparin Sodium 40 Mg/0.4 Ml Syringe SC 40 mg 0900 NANCY Administration Famotidine 20 mg 03/01/20 21:00 03/06/20 09:52 Famotidine/Pf 20 Mg/2ml Vial SLOW IVP 20 mg BID NANCY Administration Piperacillin Sod/Tazobactam 100 mls @ 200 mls/hr 02/29/20 22:00 03/06/20 13:59 Sod 4.5 gm/ Sodium Chloride IVPB 100 mls Q8HR NANCY Administration Fentanyl Citrate 2,000 mcg/ 100 mls @ 0 mls/hr 02/29/20 23:00 03/05/20 20:45 Sodium Chloride IV 03/30/20 23:00 100 mls INF NANCY Administration Protocol Per Protocol Vancomycin HCl 1 gm/ Device 200 mls @ 200 mls/hr 03/05/20 12:00 03/06/20 13:59 IVPB 200 mls 1200,2359 NANCY Administration Sodium Chloride 1,000 mls @ 50 mls/hr 03/05/20 15:09 03/06/20 11:48 1/2 Normal Saline IV Not Given .Q20H NANCY Lorazepam 2 mg 02/29/20 23:00 03/02/20 14:02 Lorazepam 2 Mg/Ml Vial SLOW IVP 03/30/20 23:00 2 mg Q1H PRN Administration Breakthrough agitation Morphine Sulfate 2 mg 02/29/20 23:00 03/04/20 15:07 Morphine 2 Mg/Ml Vial SLOW IVP 03/30/20 23:00 2 mg Q1H PRN Administration Breakthrough Pain/Agitation Pregabalin 150 mg 03/03/20 21:00 03/06/20 09:52 Pregabalin 75 Mg Cap PO 150 mg BID NANCY Administration Propofol 1,000 mg 02/29/20 23:00 03/06/20 17:43 Propofol 1,000 Mg/100 Ml Vial IV 03/30/20 23:00 1,000 mg INF PRN Administration TO ACHIEVE GOAL RASS Protocol Silver Sulfadiazine 0 gm 03/05/20 21:00 03/06/20 09:57 Silver Sulfadiazine 50 Gm Jar TP 1 applic BID NANCY Administration Trospium 20 mg 03/04/20 09:00 03/06/20 09:53 Trospium 20 Mg Tab PO 20 mg DAILY NANCY Administration - Exam Heart: negative: RRR, no murmur, no gallops, no rubs, normal peripheral pulses, irregular, diminshed peripheral pulses, murmur present, II/IV, III/IV Respiratory: negative: CTAB, no wheezes, no rales, no ronchi, normal chest expansion, no tachypnea, normal percussion, rales, rhonchi, tachypneic, wheezes Gastrointestinal: negative: soft, non-tender, non-distended, normal bowel sounds, no palpable masses, no hepatomegaly, no splenomegaly, no bruit, no guarding, no rigidity, tender to palpation, distended, diminished bowl sounds, voluntary guarding Extremities: 2+ LE edema Hosp A/P (1) Acute respiratory failure with hypoxia Code(s): J96.01 - ACUTE RESPIRATORY FAILURE WITH HYPOXIA Status: Acute (2) Cellulitis of upper extremity Code(s): L03.119 - CELLULITIS OF UNSPECIFIED PART OF LIMB Status: Acute Qualifiers: Laterality: unspecified laterality Qualified Code(s): L03.119 - Cellulitis of unspecified part of limb (3) Dyslipidemia Code(s): E78.5 - HYPERLIPIDEMIA, UNSPECIFIED Status: Acute (4) Hypertension Code(s): I10 - ESSENTIAL (PRIMARY) HYPERTENSION Status: Acute Qualifiers: Hypertension type: essential hypertension Qualified Code(s): I10 - Essential (primary) hypertension (5) Sepsis with acute organ dysfunction Code(s): A41.9 - SEPSIS, UNSPECIFIED ORGANISM; R65.20 - SEVERE SEPSIS WITHOUT SEPTIC SHOCK Status: Acute Qualifiers: Sepsis type: methicillin resistant Staphylococcus aureus Severe sepsis acute organ dysfunction type: acute respiratory failure Acute respiratory failure type: with hypoxia Severe sepsis shock status: with septic shock Qualified Code(s): A41.02 - Sepsis due to Methicillin resistant Staphylococcus aureus; R65.21 - Severe sepsis with septic shock; J96.01 - Acute respiratory failure with hypoxia (6) Obesity (BMI 30-39.9) Code(s): E66.9 - OBESITY, UNSPECIFIED Status: Chronic (7) Necrotizing fasciitis Code(s): M72.6 - NECROTIZING FASCIITIS Status: Acute - Plan pt going for surgery today. will continue abx for now. pt's right lower leg has significant swelling. 03/03 will transfuse 2units of blood. ID consulted. Abx per ID and surgery. unable to do dvt ppx since pt's hh is low if improves will put him on heparin. Also has significant swelling to right leg. 03/04 pt getting blood today. pt is going to be taken back to OR. will continue abx. pt unable to be on dvt ppx due to his low hh. His lower ext especially the right is more swollen then left. 03/05 will add albumin, his bp is still low. will continue abx for now. pt will be receiving one unit of blood. will decrease fluids to 50ml/hr. will check labs again. pt tolerating tube feeds. 03/06 pt given one dose of lasix with albumin. will continue abx. pt tolerating tube feeds.
[2020-03-06] MEDS: Atorvastatin Calcium 10 MG TAB PO SCH (20:44)
[2020-03-06 23:20] LABS: Vancomycin, Trough 30.5 ug/mL
[2020-03-07 04:18] LABS: Band 6 % (5-11); Eosinophils 1 % (0-10); Hemoglobin 9.4 g/dL (14.0-18.0); Hypochromia SLIGHT = 6-15 cells (100X) (0-5/hpf); Lymphocytes 11 % (21-51); MDiff Complete? YES; Mean Corpuscular HGB CONC 32.8 g/dL (32.0-36.0); Mean Corpuscular Hemoglobin 29.4 pg (27.0-31.0); Mean Corpuscular Volume 89.7 fL (78.0-98.0); Mean Platelet Volume 9.4 fL (7.4-10.4); Monocytes 10 % (0-10); Neutrophil 72 % (42-75); Platelet Count 176 thou/uL (130-400); Platelet Morphology Comment Appears Adequate; RBC Distribution Width 15.3 % (11.5-14.5); Red Blood Cell (RBC) Count 3.19 mill/uL (4.70-6.10); White Blood Cell (WBC) Count 9.4 thou/uL (4.8-10.8)
[2020-03-07 04:19] LABS: Anion Gap 11 mmol/L (10-20); BUN (Urea Nitrogen) 9 mg/dL (8.4-25.7); Calc. Creatinine Clearance 99 mL/min (70-130); Calcium 7.4 mg/dL (7.8-10.44); Carbon Dioxide 23 mmol/L (23-31); Chloride 107 mmol/L (98-107); Glucose 116 mg/dL (80-115); Potassium 3.4 mmol/L (3.5-5.1); Sodium 138 mmol/L (136-145)
[2020-03-07] MEDS: fentaNYL Citrate/PF 2,000 MCG in Sodium Chloride 0.9% 60 ML IV SCH (05:31)
[2020-03-07] MEDS: Piperacillin/Tazobactam 4.5 GM in Sodium Chloride 0.9% 100 ML IVPB SCH ×2 (05:37→14:48)
[2020-03-07] MEDS: Sodium Chloride 0.45% 1,000 ML IV SCH (05:44)
[2020-03-07] MEDS: Propofol 1,000 MG/100 ML VIAL IV PRN (05:44)
[2020-03-07] MEDS ORDERED: Potassium Chloride 20 MEQ TAB PO SCH (06:30)
[2020-03-07 07:19] LABS: Actual Bicarbonate (HCO3a) 21.7 mEq/L (22-28); Analyzer IN Cardio OR; Base Excess (BEa) -2.3 mEq/L (-2.0 to +3.0); CO2 Tension 33.8 mmHg (35.0-45.0); Calcium, Ionized (arterial) 1.07 mmol/L (1.12-1.30); Carboxyhemoglobin (COHb) 1.7 gm% (0.0-3.0); Hemoglobin (Hb) 8.7 g/dL (14.0-18.0); O2 Tension (PaO2), arterial 74.1 mmHg (> 80.0); pH, Arterial 7.43 (7.35-7.45)
[2020-03-07 07:28] LABS: Puncture Site LBA
--- NOTE | 2020-03-07 07:50 | RAD ---
Portable frontal chest radiograph: 03/07/2020 COMPARISON: 03/06/2020 HISTORY: Ventilated patient FINDINGS: Stable heart and mediastinal contours. Stable endotracheal tube and nasogastric tube. Nonsp ecific increased linear density in the perihilar regions and both lung bases medially, left greater than right. Stable left rib fractures. Pulmonary vascular congestion again noted. IMPRESSION: No significant interval change.
[2020-03-07] MEDS ORDERED: Potassium Chloride 40 MEQ in Premix Bag 1 BAG IVPB SCH (09:15)
--- NOTE | 2020-03-07 09:21 | PRG ---
DATE OF SERVICE: 03/07/2020 Thirty five minutes of critical care time. SUBJECTIVE: The patient remains intubated on mechanical ventilation. He seems to be doing well. He wakes up, follows commands. PHYSICAL EXAMINATION: VITAL SIGNS: His temperature is 99.0, pulse 86, blood pressure 127/61, and O2 saturation 100%. HEENT: Unremarkable. NECK: No JVD. LUNGS: Fairly clear anteriorly. CARDIAC: S1 and S2, regular. ABDOMEN: Soft. EXTREMITIES: He has occlusive dressings on both arms. LABORATORY DATA: White blood cell count 9.4, hematocrit 28.6, and platelet count 176. PH of 7.43, pCO2 of 33, pO2 of 74, on SIMV rate of 8, tidal volume 550, PEEP 5, pressure support 10, and FiO2 of 30%. Sodium 138, potassium 3.4, chloride 107, CO2 of 23, BUN 9, creatinine 1.1, glucose 116. His chest x-ray demonstrates an intubated patient without any acute infiltrates. ASSESSMENT: 1. Acute respiratory failure, requiring mechanical ventilation. 2. Bilateral arm abscess and necrotizing fasciitis, now status post debridement. PLAN: Work toward extubation today. It looks like he is tolerating spontaneous breathing trial well. Continue antibiotic therapy. Job ID: [id number]
[2020-03-07] MEDS: Pregabalin 75 MG CAP PO SCH ×2 (09:53→19:59)
[2020-03-07] MEDS: Aspirin 81 mg Enteric Coated Tablet PO SCH (09:53)
[2020-03-07] MEDS: Trospium 20 MG TAB PO SCH (09:54)
[2020-03-07] MEDS: Enoxaparin Sodium 40 MG/0.4 ML SYRINGE SC SCH (09:54)
[2020-03-07] MEDS: Famotidine/PF 20 mg/2ml Vial SLOW IVP SCH ×2 (09:54→20:01)
[2020-03-07 10:23] LABS: Magnesium 1.7 mg/dL (1.6-2.6); Phosphorus 2.6 mg/dL (2.3-4.7)
[2020-03-07] MEDS: Silver Sulfadiazine 50 GM JAR TP SCH ×2 (11:14→20:02)
[2020-03-07] MEDS ORDERED: Magnesium 2 GM/50 ML 2 GM in Premix Bag 1 BAG IVPB SCH (12:45)
--- NOTE | 2020-03-07 14:46 | PRG ---
DATE OF SERVICE: 03/07/2020 SUBJECTIVE: The patient has been extubated. OBJECTIVE: VITAL SIGNS: He is on nasal cannula O2 satting 99%, BP 150/82, heart rate 106. LUNGS: With symmetric air entry. No crackles or wheezing. HEART: S1, S2, regular rate. ABDOMEN: Soft, not distended. EXTREMITIES: The patient has a necrotic kind of purpuric lesion in the left calf area. His legs are swollen with edema. Dressings in the upper extremities. Negative pressure device. LABORATORY DATA: White cell count is 9.4, hemoglobin 9.4, platelets 176, normal differential. Creatinine 1.06. Microbiology: All the cultures are negative obtained during surgery. The patient had a chest x-ray this morning and it showed ET tube. This is before extubation. No infiltrates. ASSESSMENT AND DISCUSSION: Seizure history, chronic low back pain, septic arthritis, right knee secondary to methicillin-susceptible Staph aureus with bacteremia recently transferred to rehab on IV cefazolin. Recrudescence of inflammatory process in the upper extremities with evidence of necrotizing features, status post extensive debridement, so it looks like this was just the aftermath of the original infection and I believe the same organism that was associated with bacteremia and the right knee infection caused this upper extremity inflammatory process with necrotizing features, so the bottom line is he will need to continue on IV cefazolin for a protracted period of time. We will discontinue the current antimicrobials, just leave him on cefazolin. The original duration of therapy will be extended for another 2 weeks. Job ID: [id number]
[2020-03-07] MEDS: CEFAZOLIN 2 GM in Premix Bag 1 BAG IVPB SCH ×2 (14:50→22:35)
[2020-03-07] MEDS ORDERED: Fentanyl 100 MCG/2 ML VIAL SLOW IVP PRN (16:23)
[2020-03-07] MEDS ORDERED: Acetaminophen/Codeine 30-300mg Tablet PO PRN (16:24)
[2020-03-07 16:54] LABS: Potassium 3.5 mmol/L (3.5-5.1)
[2020-03-07] MEDS: Atorvastatin Calcium 10 MG TAB PO SCH (19:58)
[2020-03-07] MEDS ORDERED: Vancomycin 1.5 GRAM/300 ML BAG 1.5 GM in Premix Bag 1 BAG IVPB SCH (22:00)
[2020-03-07] MEDS ORDERED: Morphine 2 MG/ML VIAL SLOW IVP SCH (23:15)
[2020-03-08] MEDS ORDERED: Metoprolol Tartrate 5 MG/5 ML VIAL IVP SCH (01:45)
[2020-03-08 04:13] LABS: Actual Bicarbonate (HCO3a) 18.7 mEq/L (22-28); Base Excess (BEa) -3.9 mEq/L (-2.0 to +3.0); CO2 Tension 28.4 mmHg (35.0-45.0); Calcium, Ionized (arterial) 1.13 mmol/L (1.12-1.30); O2 Tension (PaO2), arterial 45.1 mmHg (> 80.0); Potassium - ABG Lab 3.16 mmol/L (3.70-5.30); pH, Arterial 7.44 (7.35-7.45)
[2020-03-08 04:25] LABS: Hemoglobin 10.2 g/dL (14.0-18.0); Mean Corpuscular HGB CONC 32.3 g/dL (32.0-36.0); Mean Corpuscular Hemoglobin 29.2 pg (27.0-31.0); Mean Corpuscular Volume 90.4 fL (78.0-98.0); Mean Platelet Volume 9.5 fL (7.4-10.4); Platelet Count 267 thou/uL (130-400); RBC Distribution Width 15.2 % (11.5-14.5); Red Blood Cell (RBC) Count 3.51 mill/uL (4.70-6.10); White Blood Cell (WBC) Count 17.1 thou/uL (4.8-10.8)
[2020-03-08 04:26] LABS: Band 8 % (5-11); Lymphocytes 4 % (21-51); MDiff Complete? YES; Monocytes 5 % (0-10); Neutrophil 83 % (42-75); Platelet Morphology Comment Appears Adequate
[2020-03-08] MEDS: Acetaminophen 650 MG Suppository PR PRN (04:34)
[2020-03-08 04:40] LABS: Anion Gap 17 mmol/L (10-20); BUN (Urea Nitrogen) 12 mg/dL (8.4-25.7); Calc. Creatinine Clearance 101 mL/min (70-130); Calcium 8.4 mg/dL (7.8-10.44); Carbon Dioxide 20 mmol/L (23-31); Chloride 107 mmol/L (98-107); Glucose 113 mg/dL (80-115); Potassium 3.1 mmol/L (3.5-5.1); Sodium 141 mmol/L (136-145)
[2020-03-08] MEDS ORDERED: Sterile Water 10 ML VIAL IVP SCH (05:15)
[2020-03-08] MEDS ORDERED: Activase 2 MG VIAL CATH SCH (05:15)
[2020-03-08 05:32] LABS: Actual Bicarbonate (HCO3a) 18.5 mEq/L (22-28); Analyzer IN Cardio OR; Base Excess (BEa) -6.3 mEq/L (-2.0 to +3.0); CO2 Tension 34.2 mmHg (35.0-45.0); Calcium, Ionized (arterial) 1.13 mmol/L (1.12-1.30); Carboxyhemoglobin (COHb) 0.6 gm% (0.0-3.0); O2 Tension (PaO2), arterial 110.2 mmHg (> 80.0); Potassium - ABG Lab 3.22 mmol/L (3.70-5.30); pH, Arterial 7.35 (7.35-7.45)
[2020-03-08] MEDS ORDERED: Morphine 4 MG/ML VIAL SLOW IVP SCH (06:00)
[2020-03-08] MEDS: CEFAZOLIN 2 GM in Premix Bag 1 BAG IVPB SCH ×3 (06:02→20:40)
[2020-03-08] MEDS ORDERED: Potassium Chloride 20 MEQ TAB PO SCH (06:30)
[2020-03-08] MEDS ORDERED: Potassium Chloride 40 MEQ in Premix Bag 1 BAG IVPB SCH ×2 (07:30→09:45)
[2020-03-08] MEDS ORDERED: Morphine 2 MG/ML VIAL SLOW IVP PRN (07:30)
[2020-03-08] MEDS ORDERED: Lorazepam 2 MG/ML VIAL SLOW IVP PRN (07:30)
[2020-03-08] MEDS ORDERED: Rocuronium Bromide 50 MG/5 ML VIAL IVP SCH (07:30)
[2020-03-08] MEDS ORDERED: Succinylcholine Chloride 200 MG/10 ML VIAL IV SCH (07:30)
[2020-03-08] MEDS ORDERED: Succinylcholine 200 MG/10 ml SYRINGE FS SCH (07:30)
[2020-03-08] MEDS ORDERED: DISCONTINUE PREVIOUS NARCOTIC PAIN MEDICATIONS AND BENZODIAZEPINES FS SCH (07:30)
[2020-03-08] MEDS ORDERED: Propofol BOLUS 1,000 MG/100 ML VIAL IV PRN (07:30)
[2020-03-08] MEDS ORDERED: Fentanyl BOLUS 250 ML IVPB PRN (07:30)
--- NOTE | 2020-03-08 07:42 | RAD ---
Chest one view HISTORY: Intubated. Respiratory failure. COMPARISON: 03/08/2020. Earlier exam on the same date. FINDINGS: Cardiac silhouette is magnified by projection. Pulmonary vasculature remains engorged. Tip of an endotracheal catheter projects over the thoracic inlet. Tip of a new right internal jugular central venous catheter overlies the superior vena cava. No evidence of pneumothorax. Widespread infiltrates and other findings are stable. IMPRESSION : Endotracheal catheter and right internal jugular central venous catheter are in good radiographic pos ition.
[2020-03-08] MEDS: Norepinephrine 8 MG in Dextrose 5% in Water 242 ML IVPB SCH ×2 (07:45→18:48)
--- NOTE | 2020-03-08 07:58 | RAD ---
XR Chest 1 View Portable History: Ventilated patient Comparison: Radiograph prior day Findings: Patient has been extubated. Enteric tube is been removed. The transverse aorta is tortuous. Multiple left rib fractures with increased extrapleural density. Impression: Interval extubation and removal of the enteric tube. High-grade pulmonary edema.
[2020-03-08] MEDS: Sodium Chloride 0.45% 1,000 ML IV SCH ×2 (08:05→22:27)
[2020-03-08] MEDS: fentaNYL Citrate/PF 2,000 MCG in Sodium Chloride 0.9% 60 ML IV SCH (08:18)
[2020-03-08 08:50] LABS: Vancomycin, Random 11.7 ug/mL (See Comment)
[2020-03-08 09:17] LABS: Actual Bicarbonate (HCO3a) 18.5 mEq/L (22-28); Analyzer IN Cardio ER; Base Excess (BEa) -7.3 mEq/L (-2.0 to +3.0); CO2 Tension 38.4 mmHg (35.0-45.0); Calcium, Ionized (arterial) 1.15 mmol/L (1.12-1.30); Carboxyhemoglobin (COHb) 0.3 gm% (0.0-3.0); Hemoglobin (Hb) 10.5 g/dL (14.0-18.0); O2 Tension (PaO2), arterial 68.5 mmHg (> 80.0); Potassium - ABG Lab 3.34 mmol/L (3.70-5.30)
[2020-03-08] MEDS: Famotidine/PF 20 mg/2ml Vial SLOW IVP SCH ×2 (09:19→20:01)
[2020-03-08] MEDS: Trospium 20 MG TAB PO SCH (09:19)
[2020-03-08] MEDS: Aspirin 81 mg Enteric Coated Tablet PO SCH (09:19)
[2020-03-08] MEDS: Enoxaparin Sodium 40 MG/0.4 ML SYRINGE SC SCH (09:19)
[2020-03-08] MEDS: Silver Sulfadiazine 50 GM JAR TP SCH ×2 (09:20→20:18)
[2020-03-08] MEDS: Pregabalin 75 MG CAP PO SCH ×2 (09:20→20:01)
[2020-03-08 09:24] LABS: Puncture Site LBA
[2020-03-08 09:25] LABS: Peep/CPAP 7.5 cmH2O
[2020-03-08] MEDS: methylPREDNISolone Sod Succ 40 MG VIAL IVP SCH ×2 (10:01→20:18)
[2020-03-08] MEDS: Albumin 25% 25 GM/100 ML BOT IVPB SCH ×2 (14:43→20:00)
[2020-03-08] MEDS ORDERED: Succinylcholine 200 MG/10 ml SYRINGE FS ONE (14:44)
[2020-03-08] MEDS ORDERED: Rocuronium Bromide 10 MG/ML (10ML VIAL) ONE (14:44)
[2020-03-08] MEDS: Clindamycin/D5W 600 MG in Premix Bag 1 BAG IVPB SCH ×2 (14:59→20:42)
--- NOTE | 2020-03-08 16:58 | PDOC.HOSPP ---
- Subjective Encounter Date: 03/07/20 Encounter Time: 11:45 Subjective: Patient extubated this morning. Doing well. - Objective Vital Signs & Weight: Vital Signs (12 hours) Temp Pulse Resp Pulse Ox 03/08/20 13:57 106 H 03/08/20 12:00 98.1 F 23 H 03/08/20 10:53 80 03/08/20 10:00 22 H 03/08/20 08:53 100 03/08/20 08:00 98.6 F 14 98 03/08/20 05:10 129 H 03/08/20 05:04 99.8 F H Weight Admit Weight 222 lb Weight 219 lb 12.814 oz Most Recent Monitor Data Heart Rate from ECG 92 NIBP 102/71 NIBP BP-Mean 81 Respiration from ECG 25 SpO2 99 I&O: 03/07/20 03/08/20 03/09/20 06:59 06:59 06:59 Intake Total 4292 1761.5 410 Output Total 4330 4295 225 Balance -38 -2533.5 185 Result Diagrams: 03/08/20 04:10 03/08/20 04:10 Hospitalist ROS - Review of Systems Other: Patient appears a little somnolent. - Medication Medications: Active Medications Generic Name Dose Route Start Last Admin Trade Name Freq PRN Reason Stop Dose Admin Acetaminophen 650 mg 03/08/20 04:17 03/08/20 04:34 Acetaminophen 650 Mg Suppository IA 650 mg Q4H PRN Administration Headache/Fever/MILD Pain 1-3 Albumin Human 25 gm 03/08/20 15:00 03/08/20 14:43 Albumin 25% 25 Gm/100 Ml Bot IVPB 03/09/20 15:01 25 gm TID NANCY Administration Albuterol/Ipratropium 3 ml 03/08/20 13:00 03/08/20 13:57 Ipratropium/Albuterol Sulfate 3 Ml Neb NEB 3 ml [id number] NANCY Administration Aspirin 81 mg 03/04/20 09:00 03/08/20 09:19 Aspirin 81 Mg Enteric Coated Tablet PO 81 mg DAILY NANCY Administration Atorvastatin Calcium 10 mg 03/03/20 21:00 03/07/20 19:58 Atorvastatin Calcium 10 Mg Tab PO Not Given HS NANCY Enoxaparin Sodium 40 mg 03/01/20 09:00 03/08/20 09:19 Enoxaparin Sodium 40 Mg/0.4 Ml Syringe SC 40 mg 0900 NANCY Administration Famotidine 20 mg 03/01/20 21:00 03/08/20 09:19 Famotidine/Pf 20 Mg/2ml Vial SLOW IVP 20 mg BID NANCY Administration Sodium Chloride 1,000 mls @ 50 mls/hr 03/05/20 15:09 03/08/20 08:05 1/2 Normal Saline IV 1,000 mls .Q20H NANCY Administration Norepinephrine Bitartrate 8 mg 250 mls @ 0 mls/hr 03/05/20 15:30 03/08/20 07:45 / Dextrose/Water IVPB 250 mls INF NANCY Administration Protocol As Directed Cefazolin Sodium/Dextrose 2 gm 50 mls @ 100 mls/hr 03/07/20 14:00 03/08/20 14:49 / Device IVPB 50 mls Q8HR NANCY Administration Fentanyl Citrate 2,000 mcg/ 100 mls @ 0 mls/hr 03/08/20 07:30 03/08/20 08:18 Sodium Chloride IV 04/07/20 07:30 100 mls INF NANCY Administration Protocol Per Protocol Clindamycin Phosphate/Dextrose 50 mls @ 100 mls/hr 03/08/20 14:00 03/08/20 14:59 600 mg/ Device IVPB 50 mls Q8HR NANCY Administration Methylprednisolone Sodium Succinate 40 mg 03/08/20 09:00 03/08/20 10:01 Methylprednisolone Sod Succ 40 Mg Vial IVP 40 mg BID NANCY Administration Pregabalin 150 mg 03/03/20 21:00 03/08/20 09:20 Pregabalin 75 Mg Cap PO Not Given BID NANCY Silver Sulfadiazine 0 gm 03/05/20 21:00 03/08/20 09:20 Silver Sulfadiazine 50 Gm Jar TP 1 applic BID NANCY Administration Sodium Chloride 10 ml 03/07/20 21:00 03/08/20 10:02 Flush - Normal Saline 10 Ml Syringe IVF 10 ml Q12HR NANCY Administration Trospium 20 mg 03/04/20 09:00 03/08/20 09:19 Trospium 20 Mg Tab PO 20 mg DAILY NANCY Administration - Exam Neck: negative: supple, symmetric, no JVD, no thyromegaly, no lymphadenopathy, no carotid bruit, JVD Heart: negative: RRR, no murmur, no gallops, no rubs, normal peripheral pulses, irregular, diminshed peripheral pulses, murmur present, II/IV, III/IV Respiratory: rhonchi Gastrointestinal: soft, normal bowel sounds Extremities: 2+ LE edema Extremities - other findings: Right lower extremity significant swelling, bilateral upper extremity edema Hosp A/P (1) Acute respiratory failure with hypoxia Code(s): J96.01 - ACUTE RESPIRATORY FAILURE WITH HYPOXIA Status: Acute (2) Cellulitis of upper extremity Code(s): L03.119 - CELLULITIS OF UNSPECIFIED PART OF LIMB Status: Acute Qualifiers: Laterality: unspecified laterality Qualified Code(s): L03.119 - Cellulitis of unspecified part of limb (3) Dyslipidemia Code(s): E78.5 - HYPERLIPIDEMIA, UNSPECIFIED Status: Acute (4) Hypertension Code(s): I10 - ESSENTIAL (PRIMARY) HYPERTENSION Status: Acute Qualifiers: Hypertension type: essential hypertension Qualified Code(s): I10 - Essential (primary) hypertension (5) Sepsis with acute organ dysfunction Code(s): A41.9 - SEPSIS, UNSPECIFIED ORGANISM; R65.20 - SEVERE SEPSIS WITHOUT SEPTIC SHOCK Status: Acute Qualifiers: Sepsis type: methicillin resistant Staphylococcus aureus Severe sepsis acute organ dysfunction type: acute respiratory failure Acute respiratory failure type: with hypoxia Severe sepsis shock status: with septic shock Qualified Code(s): A41.02 - Sepsis due to Methicillin resistant Staphylococcus aureus; R65.21 - Severe sepsis with septic shock; J96.01 - Acute respiratory failure with hypoxia (6) Obesity (BMI 30-39.9) Code(s): E66.9 - OBESITY, UNSPECIFIED Status: Chronic (7) Necrotizing fasciitis Code(s): M72.6 - NECROTIZING FASCIITIS Status: Acute - Plan pt going for surgery today. will continue abx for now. pt's right lower leg has significant swelling. 03/03 will transfuse 2units of blood. ID consulted. Abx per ID and surgery. unable to do dvt ppx since pt's hh is low if improves will put him on heparin. Also has significant swelling to right leg. 03/04 pt getting blood today. pt is going to be taken back to OR. will continue abx. pt unable to be on dvt ppx due to his low hh. His lower ext especially the right is more swollen then left. 03/05 will add albumin, his bp is still low. will continue abx for now. pt will be receiving one unit of blood. will decrease fluids to 50ml/hr. will check labs again. pt tolerating tube feeds. 03/06 pt given one dose of lasix with albumin. will continue abx. pt tolerating tube feeds. 03/07 we will continue antibiotics. Patient's output is good. He was extubated today. So far doing well. Will restart DVT prophylaxis.
--- NOTE | 2020-03-08 17:00 | PDOC.HOSPP ---
- Subjective Encounter Date: 03/08/20 Encounter Time: 11:30 Subjective: Patient was intubated this morning. - Objective Vital Signs & Weight: Vital Signs (12 hours) Temp Pulse Resp Pulse Ox 03/08/20 13:57 106 H 03/08/20 12:00 98.1 F 23 H 03/08/20 10:53 80 03/08/20 10:00 22 H 03/08/20 08:53 100 03/08/20 08:00 98.6 F 14 98 03/08/20 05:10 129 H 03/08/20 05:04 99.8 F H Weight Admit Weight 222 lb Weight 219 lb 12.814 oz Most Recent Monitor Data Heart Rate from ECG 92 NIBP 102/71 NIBP BP-Mean 81 Respiration from ECG 25 SpO2 99 I&O: 03/07/20 03/08/20 03/09/20 06:59 06:59 06:59 Intake Total 4292 1761.5 410 Output Total 4330 4295 225 Balance -38 -2533.5 185 Result Diagrams: 03/08/20 04:10 03/08/20 04:10 Hospitalist ROS - Review of Systems Other: Patient intubated - Medication Medications: Active Medications Generic Name Dose Route Start Last Admin Trade Name Freq PRN Reason Stop Dose Admin Acetaminophen 650 mg 03/08/20 04:17 03/08/20 04:34 Acetaminophen 650 Mg Suppository [place] 650 mg Q4H PRN Administration Headache/Fever/MILD Pain 1-3 Albumin Human 25 gm 03/08/20 15:00 03/08/20 14:43 Albumin 25% 25 Gm/100 Ml Bot IVPB 03/09/20 15:01 25 gm TID NANCY Administration Albuterol/Ipratropium 3 ml 03/08/20 13:00 03/08/20 13:57 Ipratropium/Albuterol Sulfate 3 Ml Neb NEB 3 ml [id number] NANCY Administration Aspirin 81 mg 03/04/20 09:00 03/08/20 09:19 Aspirin 81 Mg Enteric Coated Tablet PO 81 mg DAILY NANCY Administration Atorvastatin Calcium 10 mg 03/03/20 21:00 03/07/20 19:58 Atorvastatin Calcium 10 Mg Tab PO Not Given HS NANCY Enoxaparin Sodium 40 mg 03/01/20 09:00 03/08/20 09:19 Enoxaparin Sodium 40 Mg/0.4 Ml Syringe SC 40 mg 0900 NANCY Administration Famotidine 20 mg 03/01/20 21:00 03/08/20 09:19 Famotidine/Pf 20 Mg/2ml Vial SLOW IVP 20 mg BID NANCY Administration Sodium Chloride 1,000 mls @ 50 mls/hr 03/05/20 15:09 03/08/20 08:05 1/2 Normal Saline IV 1,000 mls .Q20H NANCY Administration Norepinephrine Bitartrate 8 mg 250 mls @ 0 mls/hr 03/05/20 15:30 03/08/20 07:45 / Dextrose/Water IVPB 250 mls INF NANCY Administration Protocol As Directed Cefazolin Sodium/Dextrose 2 gm 50 mls @ 100 mls/hr 03/07/20 14:00 03/08/20 14:49 / Device IVPB 50 mls Q8HR NANCY Administration Fentanyl Citrate 2,000 mcg/ 100 mls @ 0 mls/hr 03/08/20 07:30 03/08/20 08:18 Sodium Chloride IV 04/07/20 07:30 100 mls INF NANCY Administration Protocol Per Protocol Clindamycin Phosphate/Dextrose 50 mls @ 100 mls/hr 03/08/20 14:00 03/08/20 14:59 600 mg/ Device IVPB 50 mls Q8HR NANCY Administration Methylprednisolone Sodium Succinate 40 mg 03/08/20 09:00 03/08/20 10:01 Methylprednisolone Sod Succ 40 Mg Vial IVP 40 mg BID NANCY Administration Pregabalin 150 mg 03/03/20 21:00 03/08/20 09:20 Pregabalin 75 Mg Cap PO Not Given BID NANCY Silver Sulfadiazine 0 gm 03/05/20 21:00 03/08/20 09:20 Silver Sulfadiazine 50 Gm Jar TP 1 applic BID NANCY Administration Sodium Chloride 10 ml 03/07/20 21:00 03/08/20 10:02 Flush - Normal Saline 10 Ml Syringe IVF 10 ml Q12HR NANCY Administration Trospium 20 mg 03/04/20 09:00 03/08/20 09:19 Trospium 20 Mg Tab PO 20 mg DAILY NANCY Administration - Exam Neck: negative: supple, symmetric, no JVD, no thyromegaly, no lymphadenopathy, no carotid bruit, JVD Heart: negative: RRR, no murmur, no gallops, no rubs, normal peripheral pulses, irregular, diminshed peripheral pulses, murmur present, II/IV, III/IV Respiratory: rhonchi Gastrointestinal: soft, normal bowel sounds Extremities: 2+ LE edema Extremities - other findings: Right lower extremity, bilateral upper extremity Hosp A/P (1) Acute respiratory failure with hypoxia Code(s): J96.01 - ACUTE RESPIRATORY FAILURE WITH HYPOXIA Status: Acute (2) Cellulitis of upper extremity Code(s): L03.119 - CELLULITIS OF UNSPECIFIED PART OF LIMB Status: Acute Qualifiers: Laterality: unspecified laterality Qualified Code(s): L03.119 - Cellulitis of unspecified part of limb (3) Dyslipidemia Code(s): E78.5 - HYPERLIPIDEMIA, UNSPECIFIED Status: Acute (4) Hypertension Code(s): I10 - ESSENTIAL (PRIMARY) HYPERTENSION Status: Acute Qualifiers: Hypertension type: essential hypertension Qualified Code(s): I10 - Essential (primary) hypertension (5) Sepsis with acute organ dysfunction Code(s): A41.9 - SEPSIS, UNSPECIFIED ORGANISM; R65.20 - SEVERE SEPSIS WITHOUT S EPTIC SHOCK Status: Acute Qualifiers: Sepsis type: methicillin resistant Staphylococcus aureus Severe sepsis acute organ dysfunction type: acute respiratory failure Acute respiratory failure type: with hypoxia Severe sepsis shock status: with septic shock Qualified Code(s): A41.02 - Sepsis due to Methicillin resistant Staphylococcus aureus; R65.21 - Severe sepsis with septic shock; J96.01 - Acute respiratory failure with hypoxia (6) Obesity (BMI 30-39.9) Code(s): E66.9 - OBESITY, UNSPECIFIED Status: Chronic (7) Necrotizing fasciitis Code(s): M72.6 - NECROTIZING FASCIITIS Status: Acute - Plan pt going for surgery today. will continue abx for now. pt's right lower leg has significant swelling. 03/03 will transfuse 2units of blood. ID consulted. Abx per ID and surgery. unable to do dvt ppx since pt's hh is low if improves will put him on heparin. Also has significant swelling to right leg. 03/04 pt getting blood today. pt is going to be taken back to OR. will continue abx. pt unable to be on dvt ppx due to his low hh. His lower ext especially the right is more swollen then left. 03/05 will add albumin, his bp is still low. will continue abx for now. pt will be receiving one unit of blood. will decrease fluids to 50ml/hr. will check labs again. pt tolerating tube feeds. 03/06 pt given one dose of lasix with albumin. will continue abx. pt tolerating tube feeds. 03/07 we will continue antibiotics. Patient's output is good. He was extubated today. So far doing well. Will restart DVT prophylaxis. 03/08 patient was reintubated this morning. I did speak with the patient's sister and discussed his medical prognosis. She is his POA. We will start patient on albumin. He is currently on a Levophed drip. Concerns for possible aspiration pneumonia. Patient is started on clindamycin by pulmonary. We will continue Lovenox for DVT prophylaxis. Will replace electrolytes.
[2020-03-08] MEDS ORDERED: Sodium Chloride 0.9% 500 ML IV SCH (17:15)
[2020-03-08] MEDS: Propofol 1,000 MG/100 ML VIAL IV PRN ×2 (17:49→20:40)
--- NOTE | 2020-03-08 18:31 | PRG ---
DATE OF SERVICE: 03/08/2020 SUBJECTIVE: Mr. Humphrey developed respiratory insufficiency, had to be reintubated today and he is in C3 now. OBJECTIVE: VITAL SIGNS: Temperature went up to 101.2, is now down to 98.1. BP 102/71, heart rate 92. His FiO2 of 50. LUNGS: With coarse breath sounds. HEART: S1 and S2, regular rate. ABDOMEN: Soft. EXTREMITIES: Upper extremities dressed. LABORATORY DATA: His white cell count is 9.4, went up to 17.1; hemoglobin 10.2; platelets 267. Creatinine 1.04. Chest x-ray with extubation he was reintubated. ASSESSMENT AND DISCUSSION: Seizure history, chronic low back pain, septic arthritis of right knee secondary to methicillin-susceptible Staphylococcus aureus with bacteremia, treated with IV cefazolin. Has recrudescence of inflammatory process of the upper extremity with necrotizing features, but negative cultures, probably aftermath of the MSSA infection which was overlooked in the first admission. Now, he has developed respiratory insufficiency and looks like he is reintubated now. As he was reintubated and looks like he may have developed acute respiratory distress syndrome, we will continue on IV cefazolin and supportive measures. Job ID: [id number] [facility]
[2020-03-08] MEDS: Atorvastatin Calcium 10 MG TAB PO SCH (20:02)
[2020-03-09 04:31] LABS: Band 1 % (5-11); Hypochromia SLIGHT = 6-15 cells (100X) (0-5/hpf); Lymphocytes 6 % (21-51); MDiff Complete? YES; Mean Corpuscular HGB CONC 32.6 g/dL (32.0-36.0); Mean Corpuscular Hemoglobin 29.4 pg (27.0-31.0); Mean Corpuscular Volume 90.2 fL (78.0-98.0); Mean Platelet Volume 10.3 fL (7.4-10.4); Monocytes 2 % (0-10); Neutrophil 91 % (42-75); Platelet Count 289 thou/uL (130-400); Platelet Morphology Comment Appears Adequate; RBC Distribution Width 15.2 % (11.5-14.5); Red Blood Cell (RBC) Count 3.39 mill/uL (4.70-6.10); White Blood Cell (WBC) Count 13.5 thou/uL (4.8-10.8)
[2020-03-09 04:46] LABS: Anion Gap 18 mmol/L (10-20); BUN (Urea Nitrogen) 22 mg/dL (8.4-25.7); Calc. Creatinine Clearance 87 mL/min (70-130); Carbon Dioxide 20 mmol/L (23-31); Chloride 106 mmol/L (98-107); Sodium 140 mmol/L (136-145)
[2020-03-09 04:47] LABS: Calcium 8.5 mg/dL (7.8-10.44); Glucose 157 mg/dL (80-115)
[2020-03-09] MEDS: Clindamycin/D5W 600 MG in Premix Bag 1 BAG IVPB SCH ×3 (05:09→21:00)
[2020-03-09] MEDS: CEFAZOLIN 2 GM in Premix Bag 1 BAG IVPB SCH ×3 (05:09→20:59)
[2020-03-09] MEDS: Propofol 1,000 MG/100 ML VIAL IV PRN ×4 (05:09→21:00)
--- NOTE | 2020-03-09 05:50 | PRG ---
DATE OF SERVICE: 03/08/2020 SUBJECTIVE: This morning, he is back on the vent because of progressive respiratory failure, metabolic encephalopathy. OBJECTIVE: VITAL SIGNS: Pulse 99, blood pressure 90/60, saturations 96% on present vent settings CHEST: Bilateral rhonchi, crackles. CARDIAC: Sinus tach. ABDOMEN: Soft. DIAGNOSTIC DATA: X-ray shows a new left-sided infiltrate. LABORATORY DATA: White count 17,000, H and H of 10 and 31, his platelet count is 267. PO2 is 110, pCO2 is 34, pH 7.35, that was ventilation before he was intubated. His lytes are normal. IMPRESSION AND PLAN: 1. Respiratory failure. 2. Pneumonia, aspiration. 3. Necrotizing fasciitis. 4. Thrombocytopenia. 5. Renal failure, resolved. He has been seen by Infectious Disease. Apparently, he is on Ancef. I am probably going to add empirically Zosyn to his present regime, steroids, neb treatment. We will follow. One-half hour of critical care time. Job ID: [id number]
--- NOTE | 2020-03-09 06:58 | EKG ---
Test Reason : Blood Pressure : / mmHG Vent. Rate : 093 BPM Atrial Rate : 093 BPM P-R Int : 164 ms QRS Dur : 084 ms QT Int : 378 ms P-R-T Axes : 022 005 -15 degrees QTc Int : 469 ms Sinus rhythm with Premature atrial complexes Low voltage QRS Nonspecific T wave abnormality Prolonged QT Abnormal ECG Confirmed by HELEN GAVIN MD ([id number]) on 03/09/2020 6:57:54 AM Referred By: AFFRAM Confirmed By:HELEN GAVIN MD
--- NOTE | 2020-03-09 07:53 | RAD ---
EXAM: Single view of the chest HISTORY: Respiratory failure status post intubation COMPARISON: 03/08/2020 FINDINGS: Single view of the chest shows an enlarged but stable cardiomediastinal silhouette. There is been interval placement of an NG tube which courses off the inferior aspect of the film. The endotracheal tube and central venous catheter are unchanged in position. There is diffuse multifocal infiltrates in the lungs, unchanged. There also appear to be bilateral pleural effusions. Multiple remote left rib fractures are seen. There is also abnormal appearance of the left proximal humerus wh ich may represent posttraumatic change. IMPRESSION: Stable multifocal infiltrates and bilateral pleural effusions
[2020-03-09] MEDS ORDERED: Furosemide 40 MG/4 ML VIAL SLOW IVP SCH (08:00)
--- NOTE | 2020-03-09 08:08 | PRG ---
DATE OF SERVICE: 03/09/2020 35 minutes of critical care time. SUBJECTIVE: This patient remains intubated on mechanical ventilation for respiratory failure related to failed extubation. He is sedated. He is also requiring Levophed. OBJECTIVE: VITAL SIGNS: His temperature is 98.3, pulse 80, blood pressure 110/76, O2 saturation 100%. 24-hour intake 3021, output 620. HEENT: Unremarkable. NECK: No adenopathy or JVD. LUNGS: With crackles bilaterally. CARDIAC: S1 and S2, regular. ABDOMEN: Soft. EXTREMITIES: He has occlusive dressings over both arms. LABORATORY DATA: ABG is pending. White blood cell count 13.5, hematocrit 38.6, and platelet count 289. Sodium 140, potassium 4.0, chloride 106, CO2 of 20, BUN 22, creatinine 1.2, and glucose 157. X-ray shows diffuse bilateral infiltrates. ASSESSMENT: 1. Acute respiratory failure, requiring mechanical ventilation. 2. Aspiration pneumonia. 3. Acute respiratory distress syndrome versus cardiogenic pulmonary edema. 4. Necrotizing fasciitis. 5. Thrombocytopenia. 6. Renal insufficiency. PLAN: 1. I am going to attempt to diurese the patient some as he was extremely fluid overloaded yesterday, and over the course of his hospitalization, has been extremely fluid overloaded, other than 03/08. 2. I have turned down his FiO2. 3. Await ABG result. 4. Continue antibiotics. Job ID: [id number]
[2020-03-09] MEDS: methylPREDNISolone Sod Succ 40 MG VIAL IVP SCH ×2 (08:12→21:00)
[2020-03-09] MEDS: Famotidine/PF 20 mg/2ml Vial SLOW IVP SCH ×2 (08:12→21:00)
[2020-03-09] MEDS: Enoxaparin Sodium 40 MG/0.4 ML SYRINGE SC SCH (08:12)
[2020-03-09] MEDS: Albumin 25% 25 GM/100 ML BOT IVPB SCH ×3 (08:12→21:16)
[2020-03-09] MEDS: Aspirin 81 mg Enteric Coated Tablet PO SCH (08:13)
[2020-03-09] MEDS: Trospium 20 MG TAB PO SCH (08:13)
[2020-03-09] MEDS: Pregabalin 75 MG CAP PO SCH ×2 (08:13→20:58)
[2020-03-09] MEDS: Silver Sulfadiazine 50 GM JAR TP SCH ×2 (08:14→20:59)
[2020-03-09 08:45] LABS: Actual Bicarbonate (HCO3a) 18.2 mEq/L (22-28); Base Excess (BEa) -4.6 mEq/L (-2.0 to +3.0); CO2 Tension 27.1 mmHg (35.0-45.0); Calcium, Ionized (arterial) 1.12 mmol/L (1.12-1.30); Carboxyhemoglobin (COHb) 0.3 gm% (0.0-3.0); Potassium - ABG Lab 3.82 mmol/L (3.70-5.30); pH, Arterial 7.45 (7.35-7.45)
[2020-03-09 08:46] LABS: O2 Tension (PaO2), arterial 50.6 mmHg (> 80.0); Puncture Site LRA
[2020-03-09 08:47] LABS: ALV-art Gradient 200.725 mmHg (0-20)
[2020-03-09] MEDS: Norepinephrine 8 MG in Dextrose 5% in Water 242 ML IVPB SCH (10:14)
[2020-03-09] MEDS: Metoclopramide HCl 10 MG/2 ML VIAL IVP SCH ×3 (12:22→23:37)
[2020-03-09] MEDS: Heparin 5,000 UNITS/ML VIAL SC SCH ×2 (15:19→21:00)
[2020-03-09] MEDS: fentaNYL Citrate/PF 2,000 MCG in Sodium Chloride 0.9% 60 ML IV SCH (16:00)
--- NOTE | 2020-03-09 16:54 | PDOC.HOSPP ---
- Subjective Encounter Date: 03/09/20 Encounter Time: 12:30 Subjective: Patient continues to be intubated. - Objective Vital Signs & Weight: Vital Signs (12 hours) Temp Pulse Resp BP Pulse Ox 03/09/20 14:41 81 90/62 03/09/20 14:00 20 03/09/20 12:00 98 F 20 03/09/20 10:42 92 114/72 03/09/20 10:00 23 H 03/09/20 08:30 102 H 122/83 03/09/20 08:29 104 H 27 H 95 03/09/20 08:00 20 03/09/20 07:36 100 03/09/20 07:00 98.1 F 03/09/20 06:00 20 Weight Admit Weight 222 lb Weight 219 lb 12.814 oz Most Recent Monitor Data Heart Rate from ECG 92 NIBP 97/63 NIBP BP-Mean 74 Respiration from ECG 20 SpO2 100 I&O: 03/08/20 03/09/20 03/10/20 06:59 06:59 06:59 Intake Total 1761.5 3021 290 Output Total 4295 620 1145 Balance -2533.5 2341 -492 Result Diagrams: 03/09/20 03:30 03/09/20 03:30 Hospitalist ROS - Review of Systems Other: Patient intubated - Medication Medications: Active Medications Generic Name Dose Route Start Last Admin Trade Name Freq PRN Reason Stop Dose Admin Acetaminophen 650 mg 03/08/20 04:17 03/08/20 04:34 Acetaminophen 650 Mg Suppository [place] 650 mg Q4H PRN Administration Headache/Fever/MILD Pain 1-3 Albumin Human 25 gm 03/09/20 15:00 03/09/20 15:19 Albumin 25% 25 Gm/100 Ml Bot IVPB 03/10/20 15:01 25 gm TID NANCY Administration Albuterol/Ipratropium 3 ml 03/08/20 13:00 03/09/20 14:44 Ipratropium/Albuterol Sulfate 3 Ml Neb NEB 3 ml [id number] NANCY Administration Aspirin 81 mg 03/04/20 09:00 03/09/20 08:13 Aspirin 81 Mg Enteric Coated Tablet PO 81 mg DAILY NANCY Administration Atorvastatin Calcium 10 mg 03/03/20 21:00 03/08/20 20:02 Atorvastatin Calcium 10 Mg Tab PO 10 mg HS NANCY Administration Famotidine 20 mg 03/01/20 21:00 03/09/20 08:12 Famotidine/Pf 20 Mg/2ml Vial SLOW IVP 20 mg BID NANCY Administration Heparin Sodium (Porcine) 5,000 units 03/09/20 15:00 03/09/20 15:19 Heparin 5,000 Units/Ml Vial SC 5,000 units TID NANCY Administration Sodium Chloride 1,000 mls @ 50 mls/hr 03/05/20 15:09 03/08/20 22:27 1/2 Normal Saline IV Not Given .Q20H NANCY Norepinephrine Bitartrate 8 mg 250 mls @ 0 mls/hr 03/05/20 15:30 03/09/20 10 :14 / Dextrose/Water IVPB 250 mls INF NANCY Administration Protocol As Directed Cefazolin Sodium/Dextrose 2 gm 50 mls @ 100 mls/hr 03/07/20 14:00 03/09/20 13:44 / Device IVPB 50 mls Q8HR NANCY Administration Fentanyl Citrate 2,000 mcg/ 100 mls @ 0 mls/hr 03/08/20 07:30 03/09/20 16:00 Sodium Chloride IV 04/07/20 07:30 100 mls INF NANCY Administration Protocol Per Protocol Clindamycin Phosphate/Dextrose 50 mls @ 100 mls/hr 03/08/20 14:00 03/09/20 14:22 600 mg/ Device IVPB 50 mls Q8HR NANCY Administration Methylprednisolone Sodium Succinate 40 mg 03/08/20 09:00 03/09/20 08:12 Methylprednisolone Sod Succ 40 Mg Vial IVP 40 mg BID NANCY Administration Metoclopramide HCl 10 mg 03/09/20 12:00 03/09/20 12:22 Metoclopramide Hcl 10 Mg/2 Ml Vial IVP 10 mg Q6HR NANCY Administration Pregabalin 150 mg 03/03/20 21:00 03/09/20 08:13 Pregabalin 75 Mg Cap PO 150 mg BID NANCY Administration Propofol 1,000 mg 03/08/20 07:30 03/09/20 15:19 Propofol 1,000 Mg/100 Ml Vial IV 04/07/20 07:30 1,000 mg INF PRN Administration TO ACHIEVE GOAL RASS Protocol Silver Sulfadiazine 0 gm 03/05/20 21:00 03/09/20 08:14 Silver Sulfadiazine 50 Gm Jar TP 1 applic BID NANCY Administration Sodium Chloride 10 ml 03/07/20 21:00 03/09/20 08:14 Flush - Normal Saline 10 Ml Syringe IVF 10 ml Q12HR NANCY Administration Trospium 20 mg 03/04/20 09:00 03/09/20 08:13 Trospium 20 Mg Tab PO 20 mg DAILY NANCY Administration - Exam ENT: negative: normocephalic atraumatic, no oropharyngeal lesions, moist mucosa, dry oral mucosa Neck: negative: supple, symmetric, no JVD, no thyromegaly, no lymphadenopathy, no carotid bruit, JVD Respiratory: rhonchi Gastrointestinal: negative: soft, non-tender, non-distended, normal bowel sounds, no palpable masses, no hepatomegaly, no splenomegaly, no bruit, no guarding, no rigidity, tender to palpation, distended, diminished bowl sounds, voluntary guarding Extremities: 2+ LE edema Extremities - other findings: Right lower extremity more swollen than left Skin - other findings: Patient also has a pressure tear on the left posterior fletcher Hosp A/P (1) Acute respiratory failure with hypoxia Code(s): J96.01 - ACUTE RESPIRATORY FAILURE WITH HYPOXIA Status: Acute (2) Cellulitis of upper extremity Code(s): L03.119 - CELLULITIS OF UNSPECIFIED PART OF LIMB Status: Acute Qualifiers: Laterality: unspecified laterality Qualified Code(s): L03.119 - Cellulitis of unspecified part of limb (3) Dyslipidemia Code(s): E78.5 - HYPERLIPIDEMIA, UNSPECIFIED Status: Acute (4) Hypertension Code(s): I10 - ESSENTIAL (PRIMARY) HYPERTENSION Status: Acute Qualifiers: Hypertension type: essential hypertension Qualified Code(s): I10 - Essential (primary) hypertension (5) Sepsis with acute organ dysfunction Code(s): A41.9 - SEPSIS, UNSPECIFIED ORGANISM; R65.20 - SEVERE SEPSIS WITHOUT SEPTIC SHOCK Status: Acute Qualifiers: Sepsis type: methicillin resistant Staphylococcus aureus Severe sepsis acute organ dysfunction type: acute respiratory failure Acute respiratory failure type: with hypoxia Severe sepsis shock status: with septic shock Qualified Code(s): A41.02 - Sepsis due to Methicillin resistant Staphylococcus aureus; R65.21 - Severe sepsis with septic shock; J96.01 - Acute respiratory failure with hypoxia (6) Obesity (BMI 30-39.9) Code(s): E66.9 - OBESITY, UNSPECIFIED Status: Chronic (7) Necrotizing fasciitis Code(s): M72.6 - NECROTIZING FASCIITIS Status: Acute - Plan pt going for surgery today. will continue abx for now. pt's right lower leg has significant swelling. 03/03 will transfuse 2units of blood. ID consulted. Abx per ID and surgery. unable to do dvt ppx since pt's hh is low if improves will put him on heparin. Also has significant swelling to right leg. 03/04 pt getting blood today. pt is going to be taken back to OR. will continue abx. pt unable to be on dvt ppx due to his low hh. His lower ext especially the right is more swollen then left. 03/05 will add albumin, his bp is still low. will continue abx for now. pt will be receiving one unit of blood. will decrease fluids to 50ml/hr. will check labs again. pt tolerating tube feeds. 03/06 pt given one dose of lasix with albumin. will continue abx. pt tolerating tube feeds. 03/07 we will continue antibiotics. Patient's output is good. He was extubated today. So far doing well. Will restart DVT prophylaxis. 03/08 patient was reintubated this morning. I did speak with the patient's sister and discussed his medical prognosis. She is his POA. We will start patient on albumin. He is currently on a Levophed drip. Concerns for possible aspiration pneumonia. Patient is started on clindamycin by pulmonary. We will continue Lovenox for DVT prophylaxis. Will replace electrolytes. 03/09 patient continues to be on Levophed drip. Patient is on clindamycin and Ancef. We will continue to monitor creatinine. Patient diuresed well with Lasix. We will continue albumin for another day. Patient recently diagnosed with septic arthritis of the right knee secondary to MSSA. His cultures continue to remain negative. He presented back to the hospital with necrotizing features in the upper extremities. Concerns for possible ARDS versus volume overload. Patient did receive diuretics we will continue to monitor. We will check a BNP. Patient had high residuals his feeds have been on hold we will start Reglan.
[2020-03-09] MEDS: Sodium Chloride 0.45% 1,000 ML IV SCH ×2 (20:57→23:37)
[2020-03-09] MEDS: Atorvastatin Calcium 10 MG TAB PO SCH (20:58)
[2020-03-10] MEDS: Propofol 1,000 MG/100 ML VIAL IV PRN ×4 (03:35→19:31)
[2020-03-10 04:05] LABS: Band 7 % (5-11); Hemoglobin 9.1 g/dL (14.0-18.0); Lymphocytes 6 % (21-51); MDiff Complete? YES; Mean Corpuscular HGB CONC 33.1 g/dL (32.0-36.0); Mean Corpuscular Hemoglobin 29.7 pg (27.0-31.0); Mean Corpuscular Volume 89.6 fL (78.0-98.0); Mean Platelet Volume 10.5 fL (7.4-10.4); Monocytes 7 % (0-10); Neutrophil 80 % (42-75); Platelet Count 256 thou/uL (130-400); Platelet Morphology Comment Appears Adequate; RBC Distribution Width 14.9 % (11.5-14.5); Red Blood Cell (RBC) Count 3.07 mill/uL (4.70-6.10); White Blood Cell (WBC) Count 9.9 thou/uL (4.8-10.8)
[2020-03-10 04:10] LABS: Anion Gap 17 mmol/L (10-20); BUN (Urea Nitrogen) 36 mg/dL (8.4-25.7); Calc. Creatinine Clearance 76 mL/min (70-130); Calcium 8.3 mg/dL (7.8-10.44); Carbon Dioxide 22 mmol/L (23-31); Chloride 103 mmol/L (98-107); Glucose 136 mg/dL (80-115); Potassium 3.6 mmol/L (3.5-5.1); Sodium 138 mmol/L (136-145)
[2020-03-10] MEDS: CEFAZOLIN 2 GM in Premix Bag 1 BAG IVPB SCH ×3 (05:23→21:18)
[2020-03-10] MEDS: Metoclopramide HCl 10 MG/2 ML VIAL IVP SCH ×3 (05:24→18:26)
[2020-03-10] MEDS: Clindamycin/D5W 600 MG in Premix Bag 1 BAG IVPB SCH (05:26)
--- NOTE | 2020-03-10 08:05 | PRG ---
DATE OF SERVICE: 03/10/2020 35 minutes of critical care time. SUBJECTIVE: The patient remains intubated on mechanical ventilation. He will wake up. He is sedated on propofol and fentanyl. He has been weaned off the norepinephrine as of 6 a.m. this morning. OBJECTIVE: HEENT: Unremarkable. NECK: No JVD. LUNGS: Coarse rhonchi. CARDIOVASCULAR: S1 and S2, slightly tachycardic. ABDOMEN: Obese, soft, and nontender. EXTREMITIES: He has wraps over both arms. LABORATORY DATA: Sodium 138, potassium 3.6, chloride 103, CO2 of 22, BUN 36, creatinine 1.3, glucose 136. White blood cell count 9.9, hematocrit 27.5, and platelet count 256. ABG pending. Chest x-ray shows bilateral infiltrates, right greater than left. Of note, he has very purulent sputum. ASSESSMENT: 1. Acute respiratory failure, requiring mechanical ventilation. 2. Suspected hospital-acquired pneumonia. 3. Acute respiratory distress syndrome. 4. Necrotizing fasciitis. 5. Thrombocytopenia, which is resolved. 6. Renal insufficiency. PLAN: 1. I am going to increase his antibiotic coverage for gram negatives given the appearance of the sputum. 2. Culture blood. 3. Low threshold for starting vancomycin if Staph comes from his blood cultures. 4. Await ABG results. Job ID: [id number]
--- NOTE | 2020-03-10 08:25 | RAD ---
EXAM: Portable chest PROVIDED CLINICAL HISTORY: Respiratory insufficiency COMPARISON: 03/09/2020 FINDINGS: Significant interval change with respect to the prior examination is not apparent. IMPRESSION: As above.
[2020-03-10] MEDS: Albumin 25% 25 GM/100 ML BOT IVPB SCH ×2 (08:44→14:30)
[2020-03-10] MEDS: Famotidine/PF 20 mg/2ml Vial SLOW IVP SCH ×2 (08:44→21:14)
[2020-03-10] MEDS: Heparin 5,000 UNITS/ML VIAL SC SCH ×3 (08:45→21:14)
[2020-03-10] MEDS: Pregabalin 75 MG CAP PO SCH ×2 (08:45→21:15)
[2020-03-10] MEDS: Aspirin 81 mg Enteric Coated Tablet PO SCH (08:45)
[2020-03-10] MEDS: Saccharomyces boulardii 250 MG CAP PO SCH (08:45)
[2020-03-10] MEDS: methylPREDNISolone Sod Succ 40 MG VIAL IVP SCH ×2 (08:46→21:14)
[2020-03-10] MEDS: Silver Sulfadiazine 50 GM JAR TP SCH ×2 (08:47→21:17)
[2020-03-10] MEDS: Trospium 20 MG TAB PO SCH (08:48)
[2020-03-10 09:05] LABS: Actual Bicarbonate (HCO3v) 20 mEq/L (22-28); Base Excess -3.5 mEq/L (-2.0 to +3.0); Calcium, Ionized (venous) 1.09 mmol/L (1.16-1.32); Chloride (VBG) 103 mmol/L (98-106); Hemoglobin (Hb) 10.2 g/dL (13.1-17.2); Sodium 136.1 mmol/L (133-146); pH (venous) 7.42 (7.32-7.43)
--- NOTE | 2020-03-10 16:19 | PDOC.HOSPP ---
- Subjective Encounter Date: 03/10/20 Encounter Time: 11:20 Subjective: Patient intubated - Objective Vital Signs & Weight: Vital Signs (12 hours) Temp Pulse Resp Pulse Ox 03/10/20 15:53 102 H 03/10/20 13:28 103 H 19 97 03/10/20 12:00 98.6 F 03/10/20 10:58 102 H 03/10/20 10:00 23 H 03/10/20 08:27 95 03/10/20 08:00 27 H 98 03/10/20 07:00 99.2 F 03/10/20 06:00 20 Weight Admit Weight 222 lb Weight 219 lb 12.814 oz Most Recent Monitor Data Heart Rate from ECG 105 NIBP 115/68 NIBP BP-Mean 83 Respiration from ECG 17 SpO2 96 I&O: 03/09/20 03/10/20 03/11/20 06:59 06:59 06:59 Intake Total 3021 2097 370 Output Total 620 1750 325 Balance 2401 347 45 Result Diagrams: 03/10/20 03:30 03/10/20 03:30 Hospitalist ROS - Review of Systems Other: Patient intubated - Medication Medications: Active Medications Generic Name Dose Route Start Last Admin Trade Name Freq PRN Reason Stop Dose Admin Acetaminophen 650 mg 03/08/20 04:17 03/08/20 04:34 Acetaminophen 650 Mg Suppository [place] 650 mg Q4H PRN Administration Headache/Fever/MILD Pain 1-3 Albuterol/Ipratropium 3 ml 03/08/20 13:00 03/10/20 13:28 Ipratropium/Albuterol Sulfate 3 Ml Neb NEB 3 ml [id number] NANCY Administration Aspirin 81 mg 03/04/20 09:00 03/10/20 08:45 Aspirin 81 Mg Enteric Coated Tablet PO 81 mg DAILY NANCY Administration Atorvastatin Calcium 10 mg 03/03/20 21:00 03/09/20 20:58 Atorvastatin Calcium 10 Mg Tab PO 10 mg HS NANCY Administration Famotidine 20 mg 03/01/20 21:00 03/10/20 08:44 Famotidine/Pf 20 Mg/2ml Vial SLOW IVP 20 mg BID NANCY Administration Heparin Sodium (Porcine) 5,000 units 03/09/20 15:00 03/10/20 14:30 Heparin 5,000 Units/Ml Vial SC 5,000 units TID NANCY Administration Norepinephrine Bitartrate 8 mg 250 mls @ 0 mls/hr 03/05/20 15:30 03/09/20 10:14 / Dextrose/Water IVPB 250 mls INF NANCY Administration Protocol As Directed Cefazolin Sodium/Dextrose 2 gm 50 mls @ 100 mls/hr 03/07/20 14:00 03/10/20 13:49 / Device IVPB 50 mls Q8HR NANCY Administration Fentanyl Citrate 2,000 mcg/ 100 mls @ 0 mls/hr 03/08/20 07:30 03/09/20 16:00 Sodium Chloride IV 04/07/20 07:30 100 mls INF NANCY Administration Protocol Per Protocol Levofloxacin 500 mg/ Device 100 mls @ 100 mls/hr 03/10/20 08:00 03/10/20 08:43 IVPB 100 mls Q24HR NANCY Administration Methylprednisolone Sodium Succinate 40 mg 03/08/20 09:00 03/10/20 08:46 Methylprednisolone Sod Succ 40 Mg Vial IVP 40 mg BID NANCY Administration Metoclopramide HCl 10 mg 03/09/20 12:00 03/10/20 12:33 Metoclopramide Hcl 10 Mg/2 Ml Vial IVP 10 mg Q6HR NANCY Administration Pregabalin 150 mg 03/03/20 21:00 03/10/20 08:45 Pregabalin 75 Mg Cap PO 150 mg BID NANCY Administration Propofol 1,000 mg 03/08/20 07:30 03/10/20 14:30 Propofol 1,000 Mg/100 Ml Vial IV 04/07/20 07:30 1,000 mg INF PRN Administration TO ACHIEVE GOAL RASS Protocol Saccharomyces Boulardii 250 mg 03/10/20 09:00 03/10/20 08:45 Saccharomyces Boulardii 250 Mg Cap PO 250 mg DAILY NANCY Administration Silver Sulfadiazine 0 gm 03/05/20 21:00 03/10/20 08:47 Silver Sulfadiazine 50 Gm Jar TP 1 applic BID NANCY Administration Sodium Chloride 10 ml 03/07/20 21:00 03/10/20 08:47 Flush - Normal Saline 10 Ml Syringe IVF 10 ml Q12HR NANCY Administration Trospium 20 mg 03/04/20 09:00 03/10/20 08:48 Trospium 20 Mg Tab PO 20 mg DAILY NANCY Administration - Exam Neck: negative: supple, symmetric, no JVD, no thyromegaly, no lymphadenopathy, no carotid bruit, JVD Heart: negative: RRR, no murmur, no gallops, no rubs, normal peripheral pulses, irregular, diminshed peripheral pulses, murmur present, II/IV, III/IV Respiratory: negative: CTAB, no wheezes, no rales, no ronchi, normal chest expansion, no tachypnea, normal percussion, rales, rhonchi, tachypneic, wheezes Gastrointestinal: negative: soft, non-tender, non-distended, normal bowel sounds, no palpable masses, no hepatomegaly, no splenomegaly, no bruit, no guarding, no rigidity, tender to palpation, distended, diminished bowl sounds, voluntary guarding Extremities: 2+ LE edema Hosp A/P (1) Acute respiratory failure with hypoxia Code(s): J96.01 - ACUTE RESPIRATORY FAILURE WITH HYPOXIA Status: Acute (2) Cellulitis of upper extremity Code(s): L03.119 - CELLULITIS OF UNSPECIFIED PART OF LIMB Status: Acute Qualifiers: Laterality: unspecified laterality Qualified Code(s): L03.119 - Cellulitis of unspecified part of limb (3) Dyslipidemia Code(s): E78.5 - HYPERLIPIDEMIA, UNSPECIFIED Status: Acute (4) Hypertension Code(s): I10 - ESSENTIAL (PRIMARY) HYPERTENSION Status: Acute Qualifiers: Hypertension type: essential hypertension Qualified Code(s): I10 - Essential (primary) hypertension (5) Sepsis with acute organ dysfunction Code(s): A41.9 - SEPSIS, UNSPECIFIED ORGANISM; R65.20 - SEVERE SEPSIS WITHOUT SEPTIC SHOCK Status: Acute Qualifiers: Sepsis type: methicillin resistant Staphylococcus aureus Severe sepsis acute organ dysfunction type: acute respiratory failure Acute respiratory failure type: with hypoxia Severe sepsis shock status: with septic shock Qualified Code(s): A41.02 - Sepsis due to Methicillin resistant Staphylococcus aureus; R65.21 - Severe sepsis with septic shock; J96.01 - Acute respiratory failure with hypoxia (6) Obesity (BMI 30-39.9) Code(s): E66.9 - OBESITY, UNSPECIFIED Status: Chronic (7) Necrotizing fasciitis Code(s): M72.6 - NECROTIZING FASCIITIS Status: Acute - Plan pt going for surgery today. will continue abx for now. pt's right lower leg has significant swelling. 03/03 will transfuse 2units of blood. ID consulted. Abx per ID and surgery. unable to do dvt ppx since pt's hh is low if improves will put him on heparin. Also has significant swelling to right leg. 03/04 pt getting blood today. pt is going to be taken back to OR. will continue abx. pt unable to be on dvt ppx due to his low hh. His lower ext especially the right is more swollen then left. 03/05 will add albumin, his bp is still low. will continue abx for now. pt will be receiving one unit of blood. will decrease fluids to 50ml/hr. will check labs again. pt tolerating tube feeds. 03/06 pt given one dose of lasix with albumin. will continue abx. pt tolerating tube feeds. 03/07 we will continue antibiotics. Patient's output is good. He was extubated today. So far doing well. Will restart DVT prophylaxis. 03/08 patient was reintubated this morning. I did speak with the patient's sister and discussed his medical prognosis. She is his POA. We will start patient on albumin. He is currently on a Levophed drip. Concerns for possible aspiration pneumonia. Patient is started on clindamycin by pulmonary. We will continue Lovenox for DVT prophylaxis. Will replace electrolytes. 03/09 patient continues to be on Levophed drip. Patient is on clindamycin and Ancef. We will continue to monitor creatinine. Patient diuresed well with Lasix. We will continue albumin for another day. Patient recently diagnosed with septic arthritis of the right knee secondary to MSSA. His cultures continue to remain negative. He presented back to the hospital with necrotizing features in the upper extremities. Concerns for possible ARDS versus volume overload. Patient did receive diuretics we will continue to monitor. We will check a BNP. Patient had high residuals his feeds have been on hold we will sta rt Reglan. 03/10 patient's IV fluids discontinued. We will continue current antibiotics. Clindamycin changed to Levaquin. Patient's cultures continue to be negative. BNP significantly elevated. He is currently off of Levophed drip. Soft blood pressures will be difficult to diurese the patient. Worsening renal function will order renal ultrasound.
[2020-03-10] MEDS: Atorvastatin Calcium 10 MG TAB PO SCH (21:14)
[2020-03-10] MEDS: fentaNYL Citrate/PF 2,000 MCG in Sodium Chloride 0.9% 60 ML IV SCH (21:37)
[2020-03-11] MEDS: Propofol 1,000 MG/100 ML VIAL IV PRN ×3 (01:10→17:47)
[2020-03-11] MEDS: Metoclopramide HCl 10 MG/2 ML VIAL IVP SCH ×5 (01:10→23:58)
[2020-03-11 05:27] LABS: #Lymphocytes 0.8 thou/uL (1.20-3.40); #Monocytes 0.8 thou/uL (0.11-0.59); #Neutrophils 8.6 thou/uL (1.40-6.50); %Basophils 0.4 % (0.0-1.0); %Eosinophils 0.2 % (0.0-10.0); %Lymphocytes 7.7 % (21.0-51.0); %Monocytes 7.8 % (0.0-10.0); Hemoglobin 8.6 g/dL (14.0-18.0); Mean Corpuscular HGB CONC 33.3 g/dL (32.0-36.0); Mean Corpuscular Hemoglobin 29.8 pg (27.0-31.0); Mean Corpuscular Volume 89.7 fL (78.0-98.0); Mean Platelet Volume 10.7 fL (7.4-10.4); Platelet Count 223 thou/uL (130-400); RBC Distribution Width 14.9 % (11.5-14.5); Red Blood Cell (RBC) Count 2.87 mill/uL (4.70-6.10); White Blood Cell (WBC) Count 10.2 thou/uL (4.8-10.8)
[2020-03-11 05:53] LABS: Anion Gap 16 mmol/L (10-20); BUN (Urea Nitrogen) 49 mg/dL (8.4-25.7); Calc. Creatinine Clearance 73 mL/min (70-130); Calcium 8.2 mg/dL (7.8-10.44); Carbon Dioxide 23 mmol/L (23-31); Chloride 104 mmol/L (98-107); Glucose 134 mg/dL (80-115); Potassium 3.6 mmol/L (3.5-5.1); Sodium 139 mmol/L (136-145)
[2020-03-11] MEDS: CEFAZOLIN 2 GM in Premix Bag 1 BAG IVPB SCH ×3 (06:17→22:03)
--- NOTE | 2020-03-11 07:02 | EKG ---
Test Reason : STAT Blood Pressure : / mmHG Vent. Rate : 118 BPM Atrial Rate : 118 BPM P-R Int : 152 ms QRS Dur : 086 ms QT Int : 330 ms P-R-T Axes : 048 -08 060 degrees QTc Int : 462 ms Sinus tachycardia with Premature atrial complexes Low voltage QRS Septal infarct , age undetermined Abnormal ECG Confirmed by HELEN GAVIN MD ([id number]) on 03/11/2020 7:01:54 AM Referred By: Carmen PALUMBO Confirmed By:HELEN GAVIN MD
[2020-03-11 07:17] LABS: Actual Bicarbonate (HCO3a) 20.4 mEq/L (22-28); Base Excess (BEa) -3.7 mEq/L (-2.0 to +3.0); CO2 Tension 33.6 mmHg (35.0-45.0); Calcium, Ionized (arterial) 1.14 mmol/L (1.12-1.30); Carboxyhemoglobin (COHb) 0.3 gm% (0.0-3.0); Hemoglobin (Hb) 9.5 g/dL (14.0-18.0); O2 Tension (PaO2), arterial 83.5 mmHg (> 80.0); Potassium - ABG Lab 3.53 mmol/L (3.70-5.30)
[2020-03-11 07:18] LABS: Puncture Site LBA
--- NOTE | 2020-03-11 08:09 | PRG ---
DATE OF SERVICE: 03/11/2020 35 minutes critical time. SUBJECTIVE: The patient remains intubated on mechanical ventilation. No acute changes overnight. OBJECTIVE: VITAL SIGNS: His temperature is 98.7, pulse 73, blood pressure generally systolic in the 100s. 24-hour intake 1832, output 1375. HEENT: Unremarkable. NECK: No adenopathy or JVD. LUNGS: Coarse breath sounds. CARDIAC: S1, S2. Regular. ABDOMEN: Soft and nontender. EXTREMITIES: He has wraps around both arms. LABORATORY DATA: Sodium 139, potassium 3.6, chloride 104, CO2 of 23, BUN 49, creatinine 1.4, glucose 134. White blood cell count 10.2, hematocrit 25.7, and platelet count 223. PH of 7.4, pCO2 of 33, pO2 of 83. ASSESSMENT: 1. Acute respiratory failure requiring mechanical ventilation-status post one failed extubation. 2. Suspected hospital-acquired pneumonia. 3. Acute respiratory distress syndrome. 4. Necrotizing fasciitis. 5. Renal insufficiency. PLAN: I think it is probably time to try weaning him again. I will put him on spontaneous breathing today and see how long he tolerates that. We will try to lower his sedation. He will continue on broad-spectrum IV antibiotics. I have cut back his steroid dose. Job ID: [id number]
--- NOTE | 2020-03-11 08:21 | RAD ---
PORTABLE CHEST: INDICATION: CCU followup on ventilator. COMPARISON: 03/10/2020. FINDINGS/IMPRESSION: ET tube, NG tube, and central line remain in place. Cardiomegaly with vascular congestion. Small ef fusions. Evidence of hazy interstitial prominence may represent edema and/or infiltrates. No interv al change from yesterday. POS: OFF
[2020-03-11] MEDS: methylPREDNISolone Sod Succ 40 MG VIAL IVP SCH ×2 (09:23→22:01)
[2020-03-11] MEDS: Aspirin 81 mg Enteric Coated Tablet PO SCH (09:24)
[2020-03-11] MEDS: Heparin 5,000 UNITS/ML VIAL SC SCH ×3 (09:24→21:59)
[2020-03-11] MEDS: Pregabalin 75 MG CAP PO SCH ×2 (09:24→21:59)
[2020-03-11] MEDS: Saccharomyces boulardii 250 MG CAP PO SCH (09:24)
[2020-03-11] MEDS: Trospium 20 MG TAB PO SCH (09:25)
[2020-03-11] MEDS: Famotidine/PF 20 mg/2ml Vial SLOW IVP SCH (09:25)
[2020-03-11] MEDS: Silver Sulfadiazine 50 GM JAR TP SCH (09:26)
[2020-03-11] MEDS: fentaNYL Citrate/PF 2,000 MCG in Sodium Chloride 0.9% 60 ML IV SCH (17:51)
--- NOTE | 2020-03-11 18:56 | PDOC.HOSPP ---
- Subjective Encounter Date: 03/11/20 Encounter Time: 14:00 Subjective: Patient is intubated. - Objective Vital Signs & Weight: Vital Signs (12 hours) Temp Pulse Resp BP Pulse Ox 03/11/20 18:29 97 121/75 03/11/20 18:00 11 L 03/11/20 16:00 98.7 F 11 L 03/11/20 15:41 104 H 129/78 03/11/20 14:00 12 03/11/20 12:23 105 H 131/84 03/11/20 12:00 98.0 F 12 03/11/20 10:43 94 127/74 03/11/20 10:00 14 03/11/20 09:00 98.5 F 03/11/20 08:00 11 L 100 03/11/20 07:00 80 106/65 Weight Admit Weight 222 lb Weight 219 lb 12.814 oz Most Recent Monitor Data Heart Rate from ECG 98 NIBP 119/68 NIBP BP-Mean 85 Respiration from ECG 9 SpO2 98 I&O: 03/10/20 03/11/20 03/12/20 06:59 06:59 06:59 Intake Total 2097 1832.2 875.8 Output Total 1750 1375 1185 Balance 347 457.2 -309.2 Result Diagrams: 03/11/20 05:18 03/11/20 05:18 Hospitalist ROS - Review of Systems Other: Patient intubated - Medication Medications: Active Medications Generic Name Dose Route Start Last Admin Trade Name Freq PRN Reason Stop Dose Admin Acetaminophen 650 mg 03/08/20 04:17 03/08/20 04:34 Acetaminophen 650 Mg Suppository [place] 650 mg Q4H PRN Administration Headache/Fever/MILD Pain 1-3 Albuterol/Ipratropium 3 ml 03/08/20 13:00 03/11/20 18:27 Ipratropium/Albuterol Sulfate 3 Ml Neb NEB 3 ml [id number] NANCY Administration Atorvastatin Calcium 10 mg 03/03/20 21:00 03/10/20 21:14 Atorvastatin Calcium 10 Mg Tab PO 10 mg HS NANCY Administration Heparin Sodium (Porcine) 5,000 units 03/09/20 15:00 03/11/20 14:54 Heparin 5,000 Units/Ml Vial SC 5,000 units TID NANCY Administration Norepinephrine Bitartrate 8 mg 250 mls @ 0 mls/hr 03/05/20 15:30 03/09/20 10:14 / Dextrose/Water IVPB 250 mls INF NANCY Administration Protocol As Directed Cefazolin Sodium/Dextrose 2 gm 50 mls @ 100 mls/hr 03/07/20 14:00 03/11/20 14:54 / Device IVPB 50 mls Q8HR NANCY Administration Fentanyl Citrate 2,000 mcg/ 100 mls @ 0 mls/hr 03/08/20 07:30 03/11/20 17:51 Sodium Chloride IV 04/07/20 07:30 100 mls INF NANCY Administration Protocol Per Protocol Levofloxacin 500 mg/ Device 100 mls @ 100 mls/hr 03/10/20 08:00 03/11/20 09:24 IVPB 100 mls Q24HR NANCY Administration Methylprednisolone Sodium Succinate 20 mg 03/11/20 07:49 03/11/20 09:23 Methylprednisolone Sod Succ 40 Mg Vial IVP 20 mg BID NANCY Administration Metoclopramide HCl 10 mg 03/09/20 12:00 03/11/20 17:48 Metoclopramide Hcl 10 Mg/2 Ml Vial IVP 10 mg Q6HR NANCY Administration Pregabalin 150 mg 03/03/20 21:00 03/11/20 09:24 Pregabalin 75 Mg Cap PO 150 mg BID NANCY Administration Propofol 1,000 mg 03/08/20 07:30 03/11/20 17:47 Propofol 1,000 Mg/100 Ml Vial IV 04/07/20 07:30 1,000 mg INF PRN Administration TO ACHIEVE GOAL RASS Protocol Saccharomyces Boulardii 250 mg 03/10/20 09:00 03/11/20 09:24 Saccharomyces Boulardii 250 Mg Cap PO 250 mg DAILY NANCY Administration Silver Sulfadiazine 0 gm 03/05/20 21:00 03/11/20 09:26 Silver Sulfadiazine 50 Gm Jar TP 1 applic BID NANCY Administration Sodium Chloride 10 ml 03/07/20 21:00 03/11/20 09:25 Flush - Normal Saline 10 Ml Syringe IVF 10 ml Q12HR NANCY Administration Trospium 20 mg 03/04/20 09:00 03/11/20 09:25 Trospium 20 Mg Tab PO 20 mg DAILY NANCY Administration - Exam Neck: negative: supple, symmetric, no JVD, no thyromegaly, no lymphadenopathy, no carotid bruit, JVD Heart: negative: RRR, no murmur, no gallops, no rubs, normal peripheral pulses, irregular, diminshed peripheral pulses, murmur present, II/IV, III/IV Respiratory: rales Gastrointestinal: negative: soft, non-tender, non-distended, normal bowel sounds, no palpable masses, no hepatomegaly, no splenomegaly, no bruit, no guarding, no rigidity, tender to palpation, distended, diminished bowl sounds, voluntary guarding Extremities: 2+ LE edema Hosp A/P (1) Acute respiratory failure with hypoxia Code(s): J96.01 - ACUTE RESPIRATORY FAILURE WITH HYPOXIA Status: Acute (2) Cellulitis of upper extremity Code(s): L03.119 - CELLULITIS OF UNSPECIFIED PART OF LIMB Status: Acute Qualifiers: Laterality: unspecified laterality Qualified Code(s): L03.119 - Cellulitis of unspecified part of limb (3) Dyslipidemia Code(s): E78.5 - HYPERLIPIDEMIA, UNSPECIFIED Status: Acute (4) Hypertension Code(s): I10 - ESSENTIAL (PRIMARY) HYPERTENSION Status: Acute Qualifiers: Hypertension type: essential hypertension Qualified Code(s): I10 - Essential (primary) hypertension (5) Sepsis with acute organ dysfunction Code(s): A41.9 - SEPSIS, UNSPECIFIED ORGANISM; R65.20 - SEVERE SEPSIS WITHOUT SEPTIC SHOCK Status: Acute Qualifiers: Sepsis type: methicillin resistant Staphylococcus aureus Severe sepsis acute organ dysfunction type: acute respiratory failure Acute respiratory failure type: with hypoxia Severe sepsis shock status: with septic shock Qualified Code(s): A41.02 - Sepsis due to Methicillin resistant Staphylococcus aureus; R65.21 - Severe sepsis with septic shock; J96.01 - Acute respiratory failure with hypoxia (6) Obesity (BMI 30-39.9) Code(s): E66.9 - OBESITY, UNSPECIFIED Status: Chronic (7) Necrotizing fasciitis Code(s): M72.6 - NECROTIZING FASCIITIS Status: Acute - Plan pt going for surgery today. will continue abx for now. pt's right lower leg has significant swelling. 03/03 will transfuse 2units of blood. ID consulted. Abx per ID and surgery. unable to do dvt ppx since pt's hh is low if improves will put him on heparin. Also has significant swelling to right leg. 03/04 pt getting blood today. pt is going to be taken back to OR. will continue abx. pt unable to be on dvt ppx due to his low hh. His lower ext especially the right is more swollen then left. 03/05 will add albumin, his bp is still low. will continue abx for now. pt will be receiving one unit of blood. will decrease fluids to 50ml/hr. will check labs again. pt tolerating tube feeds. 03/06 pt given one dose of lasix with albumin. will continue abx. pt tolerating tube feeds. 03/07 we will continue antibiotics. Patient's output is good. He was extubated today. So far doing well. Will restart DVT prophylaxis. 03/08 patient was reintubated this morning. I did speak with the patient's sister and discussed his medical prognosis. She is his POA. We will start patient on albumin. He is currently on a Levophed drip. Concerns for possible aspiration pneumonia. Patient is started on clindamycin by pulmonary. We will continue Lovenox for DVT prophylaxis. Will replace electrolytes. 03/09 patient continues to be on Levophed drip. Patient is on clindamycin and A ncef. We will continue to monitor creatinine. Patient diuresed well with Lasix. We will continue albumin for another day. Patient recently diagnosed with septic arthritis of the right knee secondary to MSSA. His cultures continue to remain negative. He presented back to the hospital with necrotizing features in the upper extremities. Concerns for possible ARDS versus volume overload. Patient did receive diuretics we will continue to monitor. We will check a BNP. Patient had high residuals his feeds have been on hold we will start Reglan. 03/10 patient's IV fluids discontinued. We will continue current antibiotics. Clindamycin changed to Levaquin. Patient's cultures continue to be negative. BNP significantly elevated. He is currently off of Levophed drip. Soft blood pressures will be difficult to diurese the patient. Worsening renal function will order renal ultrasound. 03/11 we will continue current antibiotics. Patient off Levophed drip. Worsening ARSALAN. Will get nephrology to see the patient. We will hold all nephrotoxins. We will continue current antibiotics.
[2020-03-11] MEDS: Famotidine 20 MG TAB PO SCH (21:58)
[2020-03-11] MEDS: Atorvastatin Calcium 10 MG TAB PO SCH (21:58)
[2020-03-12] MEDS: Silver Sulfadiazine 50 GM JAR TP SCH ×3 (00:03→20:01)
[2020-03-12 05:02] LABS: Anion Gap 18 mmol/L (10-20); BUN (Urea Nitrogen) 53 mg/dL (8.4-25.7); Calc. Creatinine Clearance 83 mL/min (70-130); Calcium 8.5 mg/dL (7.8-10.44); Carbon Dioxide 22 mmol/L (23-31); Chloride 104 mmol/L (98-107); Glucose 142 mg/dL (80-115); Potassium 3.6 mmol/L (3.5-5.1); Sodium 140 mmol/L (136-145)
[2020-03-12] MEDS: Metoclopramide HCl 10 MG/2 ML VIAL IVP SCH ×3 (05:54→17:00)
[2020-03-12] MEDS: CEFAZOLIN 2 GM in Premix Bag 1 BAG IVPB SCH ×3 (05:54→21:22)
[2020-03-12 05:56] LABS: Mean Corpuscular HGB CONC 32.3 g/dL (32.0-36.0); Mean Corpuscular Hemoglobin 29.6 pg (27.0-31.0); Mean Corpuscular Volume 91.4 fL (78.0-98.0); Mean Platelet Volume 11.4 fL (7.4-10.4); Platelet Count 245 thou/uL (130-400); RBC Distribution Width 14.9 % (11.5-14.5); Red Blood Cell (RBC) Count 3.04 mill/uL (4.70-6.10); White Blood Cell (WBC) Count 16.8 thou/uL (4.8-10.8)
[2020-03-12 06:55] LABS: Band 8 % (5-11); Lymphocytes 4 % (21-51); MDiff Complete? YES; Monocytes 9 % (0-10); Neutrophil 79 % (42-75)
[2020-03-12 08:10] LABS: Actual Bicarbonate (HCO3a) 21.5 mEq/L (22-28); Base Excess (BEa) -3.1 mEq/L (-2.0 to +3.0); CO2 Tension 36.8 mmHg (35.0-45.0); Calcium, Ionized (arterial) 1.16 mmol/L (1.12-1.30); Carboxyhemoglobin (COHb) 0.6 gm% (0.0-3.0); Hemoglobin (Hb) 10.1 g/dL (14.0-18.0); Potassium - ABG Lab 3.43 mmol/L (3.70-5.30); pH, Arterial 7.39 (7.35-7.45)
[2020-03-12 08:21] LABS: Puncture Site LBA
[2020-03-12] MEDS: Trospium 20 MG TAB PO SCH (08:38)
[2020-03-12] MEDS: Pregabalin 75 MG CAP PO SCH ×2 (08:38→21:21)
[2020-03-12] MEDS: Famotidine 20 MG TAB PO SCH ×2 (08:39→21:20)
[2020-03-12] MEDS: Heparin 5,000 UNITS/ML VIAL SC SCH ×3 (08:39→19:53)
[2020-03-12] MEDS: Saccharomyces boulardii 250 MG CAP PO SCH (08:39)
[2020-03-12] MEDS: methylPREDNISolone Sod Succ 40 MG VIAL IVP SCH ×2 (08:39→20:01)
[2020-03-12] MEDS: Aspirin Chewable 81 MG TAB PO SCH (08:39)
[2020-03-12] MEDS ORDERED: DC Sedation Protocol FS ONE (10:00)
--- NOTE | 2020-03-12 10:16 | PRG ---
DATE OF SERVICE: 03/12/2020 SUBJECTIVE: This morning, he was more awake, responsive. His x-ray shows still a small amount of left-sided infiltrate, though he is appropriate. Moves all 4 extremities. OBJECTIVE: VITAL SIGNS: Pulse 100, blood pressure 120/80, sats 90% on a CPAP, respirations 20. CHEST: Minimal crackles and rhonchi. CARDIAC: Normal S1, S2. ABDOMEN: No masses. IMPRESSION: 1. Necrotizing fasciitis, respiratory failure, probably aspiration. 2. Encephalopathy. PLAN: Ancef, Levaquin on board along with steroids. We will wean and extubate. Continue aggressive PT, supportive care. One-half hour of critical time. Job ID: [id number]
[2020-03-12] MEDS: Morphine 2 MG/ML VIAL SLOW IVP PRN ×2 (13:35→16:29)
--- NOTE | 2020-03-12 17:52 | EKG ---
Test Reason : Blood Pressure : / mmHG Vent. Rate : 071 BPM Atrial Rate : 071 BPM P-R Int : 166 ms QRS Dur : 086 ms QT Int : 402 ms P-R-T Axes : 032 012 021 degrees QTc Int : 436 ms Sinus rhythm with Premature atrial complexes Low voltage QRS Septal infarct , age undetermined Abnormal ECG Confirmed by LUNA WOLFE, BRAVO ([id number]), commissioning editor MILI MACIEL ([id number]) on 03/12/2020 5:51:54 PM Referred By: Confirmed By:BRAVO CARRASCO MD
[2020-03-12] MEDS ORDERED: Metoprolol Tartrate 5 MG/5 ML VIAL IVP SCH ×2 (19:45→23:45)
--- NOTE | 2020-03-12 20:03 | CON ---
DATE OF CONSULTATION: REQUESTING PHYSICIAN: Leticia Valenzuela MD REASON FOR CONSULTATION: Acute kidney injury. IMPRESSION: Acute kidney injury. This is grossly resolving at this point anyway. It is likely in the context of cytokine-mediated injury in case of infection. PLAN: Now, the patient is extubated. We will maintain renal supportive measures. At this time, there is no emergent indication for IV fluid resuscitative measures, but please avoid potentially nephrotoxic agents and renally dose all medications. HISTORY OF PRESENT ILLNESS: History is that of a 64-year-old gentleman, who was brought in here with bilateral upper extremity infection status post multiple joint infections and was status post aspiration and peripheral artery disease status post fem-fem bypass graft. The patient was managed on life support and noted to have a transient elevation in the creatinine of up to 1.4, when the patient's baseline creatinine about 0.7. As a result of these findings, decision was taken to involve Renal in the management of this case. At this time of dictation, the patient's renal function is improving. PAST MEDICAL HISTORY: Significant for seizure disorder, prostate cancer, peripheral vascular disease chest tube placement, and hypertension. MEDICATIONS: Reviewed as documented on [facility]. ALLERGIES: NO KNOWN DRUG ALLERGIES. SOCIAL HISTORY: Remote tobacco use. No alcohol. No illicit drug use. FAMILY HISTORY: Nonsignificantly related to present illness. REVIEW OF SYSTEMS: Highly limited given the fact . PHYSICAL EXAMINATION: GENERAL: The patient was found not to be in any obvious distress. Noted with the following vital signs. VITAL SIGNS: Blood pressure 132/78, pulse of 97, and O2 saturation of 98%. HEENT: Unremarkable. CARDIOVASCULAR SYSTEM: First and second heart sounds were heard. RESPIRATORY SYSTEM: Clear to auscultation. DIGESTIVE SYSTEM: Revealed a benign abdomen. Positive bowel sounds. EXTREMITIES: No peripheral edema. SKIN: No new gross rash. LYMPHATICS: No peripheral lymphadenopathy. SUMMARY: A 64-year-old gentleman, who presented here with sepsis with transient acute kidney injury, improving. Thank you for this consultation. We will follow with you. Job ID: [id number]
--- NOTE | 2020-03-12 20:50 | PDOC.HOSPP ---
- Subjective Encounter Date: 03/12/20 Encounter Time: 16:00 Subjective: Patient was seen and examined in bed. He was slightly confused but responded to some questions. He has just been extubated earlier this morning. No significant overnight events. - Objective Vital Signs & Weight: Vital Signs (12 hours) Temp Pulse Resp BP Pulse Ox 03/12/20 18:47 113 H 22 H 94 L 03/12/20 16:00 97.4 F L 03/12/20 13:09 97 24 H 96 03/12/20 12:00 98.4 F 97 03/12/20 10:11 99 03/12/20 10:04 96 125/74 03/12/20 10:00 12 Weight Admit Weight 222 lb Weight 219 lb 12.814 oz Most Recent Monitor Data Heart Rate from ECG 113 NIBP 132/77 NIBP BP-Mean 95 Respiration from ECG 20 SpO2 94 I&O: 03/11/20 03/12/20 03/13/20 06:59 06:59 06:59 Intake Total 1832.2 1805.5 572 Output Total 1375 2330 955 Balance 457.2 -524.5 -383 Result Diagrams: 03/12/20 03:45 03/12/20 03:45 Hospitalist ROS - Medication Medications: Active Medications Generic Name Dose Route Start Last Admin Trade Name Freq PRN Reason Stop Dose Admin Acetaminophen 650 mg 03/08/20 04:17 03/08/20 04:34 Acetaminophen 650 Mg Suppository [place] 650 mg Q4H PRN Administration Headache/Fever/MILD Pain 1-3 Albuterol/Ipratropium 3 ml 03/08/20 13:00 03/12/20 18:47 Ipratropium/Albuterol Sulfate 3 Ml Neb NEB 3 ml [id number] NANCY Administration Aspirin 81 mg 03/12/20 09:00 03/12/20 08:39 Aspirin Chewable 81 Mg Tab PO 81 mg DAILY NANCY Administration Atorvastatin Calcium 10 mg 03/03/20 21:00 03/11/20 21:58 Atorvastatin Calcium 10 Mg Tab PO 10 mg HS NANCY Administration Famotidine 20 mg 03/11/20 21:00 03/12/20 08:39 Famotidine 20 Mg Tab PO 20 mg BID NANCY Administration Heparin Sodium (Porcine) 5,000 units 03/09/20 15:00 03/12/20 19:53 Heparin 5,000 Units/Ml Vial SC 5,000 units TID NANCY Administration Norepinephrine Bitartrate 8 mg 250 mls @ 0 mls/hr 03/05/20 15:30 03/09/20 10:14 / Dextrose/Water IVPB 250 mls INF NANCY Administration Protocol As Directed Cefazolin Sodium/Dextrose 2 gm 50 mls @ 100 mls/hr 03/07/20 14:00 03/12/20 13:29 / Device IVPB 50 mls Q8HR NANCY Administration Levofloxacin 500 mg/ Device 100 mls @ 100 mls/hr 03/10/20 08:00 03/12/20 09:28 IVPB 100 mls Q24HR NANCY Administration Methylprednisolone Sodium Succinate 20 mg 03/11/20 07:49 03/12/20 20:01 Methylprednisolone Sod Succ 40 Mg Vial IVP 20 mg BID NANCY Administration Metoclopramide HCl 10 mg 03/09/20 12:00 03/12/20 17:00 Metoclopramide Hcl 10 Mg/2 Ml Vial IVP 10 mg Q6HR NANCY Administration Metoprolol Tartrate 2.5 mg 03/12/20 19:45 03/12/20 19:53 Metoprolol Tartrate 5 Mg/5 Ml Vial IVP 03/12/20 21:45 2.5 mg NOW NANCY Administration Morphine Sulfate 2 mg 03/12/20 11:26 03/12/20 16:29 Morphine 2 Mg/Ml Vial SLOW IVP 2 mg Q3H PRN Administration Severe Pain (7-10) Pregabalin 150 mg 03/03/20 21:00 03/12/20 08:38 Pregabalin 75 Mg Cap PO 150 mg BID NANCY Administration Saccharomyces Boulardii 250 mg 03/10/20 09:00 03/12/20 08:39 Saccharomyces Boulardii 250 Mg Cap PO 250 mg DAILY NANCY Administration Silver Sulfadiazine 0 gm 03/05/20 21:00 03/12/20 20:01 Silver Sulfadiazine 50 Gm Jar TP 1 applic BID NANCY Administration Sodium Chloride 10 ml 03/07/20 21:00 03/12/20 09:31 Flush - Normal Saline 10 Ml Syringe IVF 10 ml Q12HR NANCY Administration Trospium 20 mg 03/04/20 09:00 03/12/20 08:38 Trospium 20 Mg Tab PO 20 mg DAILY NANCY Administration - Exam General - other findings: Awake, slightly confused. Heart: RRR, no murmur, no gallops, no rubs Respiratory - other findings: Bilateral wheezing Gastrointestinal: soft, non-tender, non-distended, normal bowel sounds Extremities: no cyanosis, no clubbing, 1+ LE edema Extremities - other findings: Wound dressing on forearms bilaterally. Psychiatric - other findings: Oriented to self. Not place and time Hosp A/P - Plan 64-year-old male patient with a history of Atherosclerosis, peripheral vascular disease, hypertension seizure disorder prostate cancer on admission on account of severe sepsis with acute hypoxic respiratory failure required intubation. Sepsis was secondary to bilateral forearm cellulitis and necrotizing fasciitis and he status post I&D He status post extubated this morning. He had to be reintubated on account of development of possible ARDS Acute hypoxic respiratory failure. Extubated this a.m. on nasal cannula. Continue monitoring Diuresis given still has crackles Monitor BMP. Cellulitis of upper extremities We will continue on Levaquin and cefazolin ID following. ARSALAN Resolved Nephrology was consulted Hypertension Blood pressures have been soft now normalized. We will go ahead and diurese. Sepsis Resolved. Necrotizing fasciitis of upper limbs. Status post debridement Continue antibiotics Monitor CODE STATUSfull code VTE prophylaxis Heparin
[2020-03-12] MEDS ORDERED: Furosemide 40 MG/4 ML VIAL SLOW IVP SCH (21:00)
[2020-03-12] MEDS: Atorvastatin Calcium 10 MG TAB PO SCH (21:20)
[2020-03-12] MEDS ORDERED: Lorazepam 2 MG/ML VIAL SLOW IVP SCH (23:45)
[2020-03-13] MEDS: CEFAZOLIN 2 GM in Premix Bag 1 BAG IVPB SCH ×2 (05:23→13:13)
[2020-03-13] MEDS: Metoclopramide HCl 10 MG/2 ML VIAL IVP SCH ×5 (05:23→23:06)
[2020-03-13 05:48] LABS: Anion Gap 16 mmol/L (10-20); BUN (Urea Nitrogen) 48 mg/dL (8.4-25.7); Calc. Creatinine Clearance 93 mL/min (70-130); Calcium 8.6 mg/dL (7.8-10.44); Carbon Dioxide 24 mmol/L (23-31); Chloride 107 mmol/L (98-107); Glucose 126 mg/dL (80-115); Potassium 3.2 mmol/L (3.5-5.1); Sodium 144 mmol/L (136-145)
[2020-03-13] MEDS ORDERED: Potassium Chloride 40 MEQ in Premix Bag 1 BAG IVPB SCH (06:45)
[2020-03-13 06:53] LABS: Band 13 % (5-11); Eosinophils 1 % (0-10); Lymphocytes 4 % (21-51); MDiff Complete? YES; Mean Corpuscular HGB CONC 32.4 g/dL (32.0-36.0); Mean Corpuscular Hemoglobin 29.4 pg (27.0-31.0); Mean Corpuscular Volume 90.7 fL (78.0-98.0); Mean Platelet Volume 11.3 fL (7.4-10.4); Monocytes 2 % (0-10); Neutrophil 80 % (42-75); Platelet Count 291 thou/uL (130-400); RBC Distribution Width 15.6 % (11.5-14.5); White Blood Cell (WBC) Count 24.8 thou/uL (4.8-10.8)
[2020-03-13] MEDS: Famotidine 20 MG TAB PO SCH ×2 (08:59→21:33)
[2020-03-13] MEDS: Pregabalin 75 MG CAP PO SCH ×2 (08:59→21:33)
[2020-03-13] MEDS: Aspirin Chewable 81 MG TAB PO SCH (08:59)
[2020-03-13] MEDS: Saccharomyces boulardii 250 MG CAP PO SCH (09:00)
[2020-03-13] MEDS: Heparin 5,000 UNITS/ML VIAL SC SCH ×3 (09:01→21:33)
[2020-03-13] MEDS: Trospium 20 MG TAB PO SCH (09:01)
[2020-03-13] MEDS: methylPREDNISolone Sod Succ 40 MG VIAL IVP SCH ×2 (09:02→21:32)
[2020-03-13] MEDS: Silver Sulfadiazine 50 GM JAR TP SCH ×2 (09:06→21:34)
--- NOTE | 2020-03-13 10:17 | PRG ---
DATE OF SERVICE: 03/13/2020 OBJECTIVE: VITAL SIGNS: He is on BiPAP this morning with his saturation of 90s, pulse 109, blood pressure 101/80, respirations 36. He is denying difficulty breathing. CHEST: No wheezing. No crackles. CARDIAC: Normal S1, S2. No gallops. ABDOMEN: No masses. LABORATORY DATA: White count 25,000, H and H of 10 and 30, platelet count 291. Lytes are normal. ASSESSMENT: Respiratory failure, severe deconditioning, probably pneumonia, necrotizing cellulitis. PLAN: Continue supportive care, PT. We will follow. Job ID: [id number]
[2020-03-13] MEDS: Morphine 2 MG/ML VIAL SLOW IVP PRN ×2 (10:31→13:58)
--- NOTE | 2020-03-13 10:34 | RAD ---
EXAM: Chest one view: HISTORY: Follow-up pneumonia COMPARISON: 03/11/2020 FINDINGS: Removal of the endotracheal tube and NG tube. Heart size: Within normal limits. Lungs: Stable bilateral Covid pneumonia No evidence for confluent lobar pneumonia, significant pleural effusion, acute edema, or pneumothorax , or other significant acute process. IMPRESSION: Stable bilateral pneumonia.
[2020-03-13] MEDS: Fluconazole In NaCl,Iso-Osm 100 MG in Admixture Fee 1 EACH IVPB SCH (10:49)
[2020-03-13] MEDS: Dextrose 5 %-0.45 % NaCl 1,000 ML IV SCH (14:03)
--- NOTE | 2020-03-13 20:02 | PDOC.HOSPP ---
- Subjective Encounter Date: 03/13/20 Encounter Time: 14:00 Subjective: Patient was seen and examined in bed. Was on BiPAP with minimal communication. His sister was in the room with him - Objective Vital Signs & Weight: Vital Signs (12 hours) Temp Pulse Resp Pulse Ox 03/13/20 19:02 110 H 29 H 100 03/13/20 19:01 107 H 29 H 100 03/13/20 15:00 98.8 F 03/13/20 13:18 108 H 28 H 92 L 03/13/20 11:00 98.9 F 03/13/20 10:38 115 H 43 H 89 L 03/13/20 08:00 92 L Weight Admit Weight 222 lb Weight 219 lb 12.814 oz Most Recent Monitor Data Heart Rate from ECG 98 NIBP 114/73 NIBP BP-Mean 86 Respiration from ECG 28 SpO2 100 I&O: 03/12/20 03/13/20 03/14/20 06:59 06:59 06:59 Intake Total 1805.5 737 650 Output Total 2330 3690 920 Balance -524.5 -2953 -270 Result Diagrams: 03/13/20 05:17 03/13/20 05:17 Hospitalist ROS - Medication Medications: Active Medications Generic Name Dose Route Start Last Admin Trade Name Freq PRN Reason Stop Dose Admin Acetaminophen 650 mg 03/08/20 04:17 03/08/20 04:34 Acetaminophen 650 Mg Suppository [place] 650 mg Q4H PRN Administration Headache/Fever/MILD Pain 1-3 Albuterol/Ipratropium 3 ml 03/08/20 13:00 03/13/20 19:01 Ipratropium/Albuterol Sulfate 3 Ml Neb NEB 3 ml [id number] NANCY Administration Aspirin 81 mg 03/12/20 09:00 03/13/20 08:59 Aspirin Chewable 81 Mg Tab PO Not Given DAILY NANCY Atorvastatin Calcium 10 mg 03/03/20 21:00 03/12/20 21:20 Atorvastatin Calcium 10 Mg Tab PO Not Given HS NANCY Famotidine 20 mg 03/11/20 21:00 03/13/20 08:59 Famotidine 20 Mg Tab PO Not Given BID NANCY Heparin Sodium (Porcine) 5,000 units 03/09/20 15:00 03/13/20 14:00 Heparin 5,000 Units/Ml Vial SC 5,000 units TID NANCY Administration Norepinephrine Bitartrate 8 mg 250 mls @ 0 mls/hr 03/05/20 15:30 03/09/20 10:14 / Dextrose/Water IVPB 250 mls INF NANCY Administration Protocol As Directed Cefazolin Sodium/Dextrose 2 gm 50 mls @ 100 mls/hr 03/07/20 14:00 03/13/20 13:13 / Device IVPB 50 mls Q8HR NANCY Administration Levofloxacin 500 mg/ Device 100 mls @ 100 mls/hr 03/10/20 08:00 03/13/20 09:48 IVPB 100 mls Q24HR NANCY Administration Fluconazole/Sodium Chloride 50 mls @ 100 mls/hr 03/13/20 11:00 03/13/20 10:49 100 mg/ Miscellaneous IVPB 50 mls Medication 1100 NANCY Administration Dextrose/Sodium Chloride 1,000 mls @ 50 mls/hr 03/13/20 14:00 03/13/20 14:03 D5 1/2 Ns IV 1,000 mls .Q20H NANCY Administration Methylprednisolone Sodium Succinate 20 mg 03/11/20 07:49 03/13/20 09:02 Methylprednisolone Sod Succ 40 Mg Vial IVP 20 mg BID NANCY Administration Metoclopramide HCl 10 mg 03/09/20 12:00 03/13/20 16:23 Metoclopramide Hcl 10 Mg/2 Ml Vial IVP Not Given Q6HR NANCY Morphine Sulfate 2 mg 03/12/20 11:26 03/13/20 13:58 Morphine 2 Mg/Ml Vial SLOW IVP 2 mg Q3H PRN Administration Severe Pain (7-10) Pregabalin 150 mg 03/03/20 21:00 03/13/20 08:59 Pregabalin 75 Mg Cap PO Not Given BID NANCY Saccharomyces Boulardii 250 mg 03/10/20 09:00 03/13/20 09:00 Saccharomyces Boulardii 250 Mg Cap PO Not Given DAILY NANCY Silver Sulfadiazine 0 gm 03/05/20 21:00 03/13/20 09:06 Silver Sulfadiazine 50 Gm Jar TP 1 applic BID NANCY Administration Sodium Chloride 10 ml 03/07/20 21:00 03/13/20 09:48 Flush - Normal Saline 10 Ml Syringe IVF 10 ml Q12HR NANCY Administration Trospium 20 mg 03/04/20 09:00 03/13/20 09:01 Trospium 20 Mg Tab PO Not Given DAILY NANCY - Exam General Appearance: ill appearing General - other findings: Awake, but very communicative. BiPAP in place Heart: RRR, no murmur, no gallops Respiratory - other findings: Reduced air entry bilaterally. No wheezes heard. Gastrointestinal: soft, non-distended, normal bowel sounds Extremities: no cyanosis, no clubbing, 1+ LE edema Extremities - other findings: Severely swollen right foot. Psychiatric - other findings: Patient drowsy. Not communicative Hosp A/P - Plan 64-year-old male patient with a history of Atherosclerosis, peripheral vascular disease, hypertension seizure disorder prostate cancer on admission on account of severe sepsis with acute hypoxic respiratory He has been intubated 2 times in extubated a day ago. His respiratory status still rather precarious and is requiring BiPAP with concerns for a third intubation. Acute hypoxic respiratory failure. Extubated this a.m. on nasal cannula but now back on BiPAP. Continue monitoring Pulmonology following Monitor BMP. Sepsis Possibly respiratory origin/necrotizing fasciitis of his arms Still having leukocytosis with bands and altered mental status Likely respiratory origin On Levaquin and cefazolin No change to vancomycin and Zosyn to cover for aspiration pneumonia Cellulitis of upper extremities on Levaquin and cefazolin however having worsening leukocytosis with bands. General state not improving Wound dressed We will go back on Vanco Zosyn ID followingto review antibiotic. ARSALAN Resolved Nephrology was consulted Hypertension Blood pressures have been soft now normalized. Necrotizing fasciitis of upper limbs. Status post debridement Continue antibiotics Monitor CODE STATUSfull code VTE prophylaxis Heparin
[2020-03-13] MEDS ORDERED: Vancomycin 1.5 GRAM/300 ML BAG 1.5 GM in Premix Bag 1 BAG IVPB SCH (20:30)
[2020-03-13] MEDS: Atorvastatin Calcium 10 MG TAB PO SCH (21:33)
[2020-03-13] MEDS: Piperacillin/Tazobactam 4.5 GM in Sodium Chloride 0.9% 100 ML IVPB SCH (21:35)
[2020-03-14] MEDS: Morphine 2 MG/ML VIAL SLOW IVP PRN ×5 (01:17→19:32)
[2020-03-14 05:24] LABS: Anion Gap 16 mmol/L (10-20); BUN (Urea Nitrogen) 42 mg/dL (8.4-25.7); Calc. Creatinine Clearance 97 mL/min (70-130); Calcium 8.5 mg/dL (7.8-10.44); Carbon Dioxide 24 mmol/L (23-31); Chloride 110 mmol/L (98-107); Glucose 154 mg/dL (80-115); Potassium 3.5 mmol/L (3.5-5.1); Sodium 146 mmol/L (136-145)
[2020-03-14 05:31] LABS: Band 3 % (5-11); Hemoglobin 9.7 g/dL (14.0-18.0); Large Platelets SLIGHT; Lymphocytes 3 % (21-51); MDiff Complete? YES; Mean Corpuscular HGB CONC 32.3 g/dL (32.0-36.0); Mean Corpuscular Hemoglobin 29.6 pg (27.0-31.0); Mean Corpuscular Volume 91.7 fL (78.0-98.0); Mean Platelet Volume 11.6 fL (7.4-10.4); Monocytes 4 % (0-10); Myelocyte 1 % (0-0); Neutrophil 89 % (42-75); Platelet Count 277 thou/uL (130-400); Platelet Morphology Comment Appears Adequate; RBC Distribution Width 16.3 % (11.5-14.5); Red Blood Cell (RBC) Count 3.26 mill/uL (4.70-6.10); White Blood Cell (WBC) Count 20.8 thou/uL (4.8-10.8)
[2020-03-14] MEDS: Piperacillin/Tazobactam 4.5 GM in Sodium Chloride 0.9% 100 ML IVPB SCH ×3 (06:04→22:38)
[2020-03-14] MEDS: Metoclopramide HCl 10 MG/2 ML VIAL IVP SCH (06:06)
[2020-03-14 06:21] LABS: Magnesium 2.2 mg/dL (1.6-2.6); Phosphorus 3.2 mg/dL (2.3-4.7)
[2020-03-14] MEDS ORDERED: Metoprolol Tartrate 5 MG/5 ML VIAL IVP SCH (06:30)
[2020-03-14] MEDS ORDERED: Potassium Chloride 20 MEQ TAB PO SCH (06:45)
[2020-03-14] MEDS ORDERED: Diltiazem 125 MG in Sodium Chloride 0.9% 100 ML IVPB SCH (07:30)
--- NOTE | 2020-03-14 07:41 | PRG ---
DATE OF SERVICE: 03/14/2020 SUBJECTIVE: The patient is currently on BiPAP after being extubated over the weekend. He is in restraints. He had a long episode of SVT with aberrancy last night. He also had a short episode of V-tach. OBJECTIVE: VITAL SIGNS: His temperature is 98.5 with no recorded fever, pulse generally in the 90s to 120s, blood pressure 166/105, O2 saturation 97%. 24-hour intake 1732, output 1775. HEENT: Unremarkable. NECK: No adenopathy or JVD. LUNGS: Few crackles anteriorly. CARDIAC: S1 and S2. Regular. ABDOMEN: Soft, nontender. EXTREMITIES: Edematous. LABORATORY DATA: Sodium 146, potassium 3.5, chloride 110, CO2 of 24, BUN 42, creatinine 1.1, glucose 154. White blood cell count 20.8, hematocrit 29.9, and platelet count 277. X-ray from yesterday showed bilateral infiltrative changes. ASSESSMENT: 1. Acute hypoxic respiratory failure requiring noninvasive mechanical ventilation. 2. Status post one fail extubation. 3. Necrotizing fasciitis. 4. Suspected hospital-acquired pneumonia. 5. Renal insufficiency. 6. Mild hypernatremia. PLAN: 1. Start Precedex drip to see if that will help with some of his agitation. 2. Increase beta-blockade versus calcium channel vikash. 3. Consider Cardiology consult. Job ID: [id number]
[2020-03-14] MEDS: Aspirin Chewable 81 MG TAB PO SCH (08:40)
[2020-03-14] MEDS: Pregabalin 75 MG CAP PO SCH ×2 (08:41→19:31)
[2020-03-14] MEDS: Trospium 20 MG TAB PO SCH (08:41)
[2020-03-14] MEDS: Famotidine 20 MG TAB PO SCH ×2 (08:41→19:30)
[2020-03-14] MEDS: Saccharomyces boulardii 250 MG CAP PO SCH (08:41)
[2020-03-14] MEDS: Heparin 5,000 UNITS/ML VIAL SC SCH ×3 (08:50→19:32)
[2020-03-14] MEDS: Vancomycin 1 GM in Premix Bag 1 BAG IVPB SCH ×2 (08:50→20:15)
[2020-03-14] MEDS: methylPREDNISolone Sod Succ 40 MG VIAL IVP SCH ×2 (08:51→19:32)
[2020-03-14] MEDS: Silver Sulfadiazine 50 GM JAR TP SCH ×2 (08:53→19:34)
[2020-03-14] MEDS: Dextrose 5% in Water 1,000 ML IV SCH (10:30)
[2020-03-14] MEDS: Fluconazole In NaCl,Iso-Osm 100 MG in Admixture Fee 1 EACH IVPB SCH (12:08)
[2020-03-14] MEDS ORDERED: Potassium Chloride 40 MEQ in Premix Bag 1 BAG IVPB SCH (12:15)
--- NOTE | 2020-03-14 13:34 | PDOC.PALCO ---
Palliative Care Consult - Consult Details Requesting Physician: Dr Lott Reason for Consult: goals of care, complex decision-making - Pertinent HPI 64 year old male who in the past has resided in the private home setting with two of his siblings. He was discharged 9 days prior to this hospital stay after being treated for septic shock secondary to septic arthritis of right knee and acute kidney failure. Discharged to [facility] 02/14/2020 after open right knee irrigation and debridement with continuation of antibiotic treatment for MRSA. Increase in bilateral arm swelling at rehab and was sent back to [facility] for further evaluation. At the time of re-evaluation he denied itching, fever, weight loss lower extremities remain with significant edema. Ultrasound of forearms showed large abscesses and he was started on vancomycin and admitted for further management. During course of stay he was found to have necrotizing fascitis, renal insufficiency, and required intubation secondary to respiratory decline. Currently he has been extubated and is on BiPap. Review of records indicated long episodes of SVT as well as V-tach. Afebrile. Precedex initiated to mitigate agitation. - Pertinent PMH Seizure disorder, hypertension, prostate cancer, tobacco abuse,carotid stenosis - Social History Smoking Status: Former smoker Alcohol Use: occasional Drug Use History: none Living Situation: with family/parents - Medications MAR Reviewed: Yes - Allergies Allergies/Adverse Reactions: Allergies Allergy/AdvReac Type Severity Reaction Status Date / Time No Known Drug Allergies Allergy Verified 02/15/20 06:30 ambien AdvReac Intermediate confusion Uncoded 02/15/20 06:30 - Subjective Sedated, on BiPAP, restraints - ROS Non Response: due to endotracheal tube, due to mental status - Objective Vital Signs: Vital Signs - Most Recent Temp Pulse Resp BP Pulse Ox 98.7 F 86 31 H 125/74 97 03/14/20 08:00 03/14/20 08:23 03/14/20 08:23 03/12/20 10:04 03/14/20 08:23 Palliative Performance Scale: 30 - Advance Directives Medical Power of Escort Service Attendant: Hector Humphrey ([phone]) as determinde by sibling consensus - Physical Exam Constitutional: encephalitic, ill appearing HEENT: moist MMs Deviation from normal: mildly adventicious Cardiovascular: RRR Gastrointestinal: soft, non-tender, positive bowel sounds Genitourinary: gastelum catheter Musculoskeletal: edema present, diffuse muscle atrophy Neurology: no focal deficits Skin: fragile, friable Deviation from normal: Wounds as per photos Deviation from normal: Sedtaed - Problem List (1) Palliative care encounter Code(s): Z51.5 - ENCOUNTER FOR PALLIATIVE CARE Current Visit: Yes Status: Acute (2) Acute respiratory failure with hypoxia Code(s): J96.01 - ACUTE RESPIRATORY FAILURE WITH HYPOXIA Current Visit: Yes Status: Acute (3) Necrotizing cellulitis Code(s): L03.90 - CELLULITIS, UNSPECIFIED Current Visit: Yes Status: Acute (4) Necrotizing fasciitis Code(s): M72.6 - NECROTIZING FASCIITIS Current Visit: Yes Status: Acute (5) Obesity (BMI 30-39.9) Code(s): E66.9 - OBESITY, UNSPECIFIED Current Visit: Yes Status: Chronic (6) Acute kidney failure Current Visit: No Status: Resolved - Plan/Recommendations Plan: Communicated with Hector who siblings designated as surrogate decision maker. He states his sisters are also in contact with staff and physicians and they remain hopeful for continued recovery. Revisited that Mr Humphrey was extubated, hopeful for no further intubation. Confirmed in the event he would need to be intubtaed that they would like to continue with aggressive measures. Questions answered. Will continue to update family and revisit goal of care depending on trajectory. Hopeful that as Mr Humphrey regains awareness that Medical Power of Escort Service Attendant and Directive to Physician can be completed. Emotional Support and Therapeutic listening. [55] minutes spent on this encounter with >50% of the time in counseling and coordination of care. Thank you for this very appropriate consult.
--- NOTE | 2020-03-14 14:56 | PRG ---
DATE OF SERVICE: 03/14/2020 SUBJECTIVE: Mr. Humphrey is extubated. He has a BiPAP and is still in the ICU. He is obtunded right now. He will not interact with the examiner and does not follow commands. His sister is at the bedside. OBJECTIVE: VITAL SIGNS: His temperature max 98.9, BP 130/80, heart rate 104, respiratory rate 24, and O2 saturation 99 with a BiPAP, FiO2 of 40. HEENT: Could not test his eye movements, he had sort of downward gaze. LUNGS: With symmetric air entry. HEART: S1 and S2. Regular rate. ABDOMEN: Soft and not distended. Castaneda catheter in place. EXTREMITIES: Upper extremities with the dressings. The last wound photo note is from March 06. LABORATORY DATA: Sodium 146 and creatinine 1.09. White cell count 20.8 and the platelet count 277 with 89% neutrophils. Microbiology, Aileen albicans in urine culture, probably more of a colonizer than anything else 25,000 to 50,000 CFUs per mL. The last chest x-ray from yesterday with stable bilateral pneumonia. ASSESSMENT AND DISCUSSION: Seizure history, chronic low back pain, septic arthritis right knee secondary to methicillin-susceptible Staph aureus, bacteremia, which will complete his treatment on March 26. Recrudescence inflammatory process, upper extremities necrotizing features, probably the aftermath of the original methicillin-sensitive Staph aureus infection. Then respiratory insufficiency, reintubated and now extubated. He has had two SARS-CoV tests negative. We will go ahead and submit an antibody test to be on the safe side. He has been switched to broader spectrum coverage and is on methylprednisolone 20 b.i.d. Methylprednisolone is probably contributing to the neutrophilia as well. Job ID: [id number] [facility]
[2020-03-14] MEDS: Dextrose 5 %-0.45 % NaCl 1,000 ML IV SCH (16:38)
--- NOTE | 2020-03-14 18:05 | PRG ---
DATE OF SERVICE: SUBJECTIVE: The patient seen, on BiPAP. Noted with the following vital signs. OBJECTIVE: VITAL SIGNS: Blood pressure heart rate of 92, O2 saturation of 97%. HEENT: Unremarkable except the BiPAP mask in place. CARDIOVASCULAR SYSTEM: First and second heart sounds were heard. RESPIRATORY SYSTEM: Revealed a lot of transmitted sounds. DIGESTIVE SYSTEM: Revealed a benign abdomen. EXTREMITIES: Showed right lower extremity edema up to 2 to 3+. LYMPHATICS: No peripheral lymphadenopathy. LABORATORY INVESTIGATIONS: Significant for sodium of 146 with BUN of 42. IMPRESSION: 1. Acute kidney injury, resolved. 2. Hyponatremia in the context of free water deficit. 3. Cardiopulmonary failure. PLAN: 1. We will change this patient's IV fluid to free water to address the free water deficit as well as the rise in azotemia. 2. Renally dose all medication. 3. Further management to be dependent on the clinical course. Job ID: [id number]
--- NOTE | 2020-03-14 19:24 | PDOC.HOSPP ---
- Subjective Encounter Date: 03/14/20 Subjective: Patient was seen and examined in bed. He had alteration in mental status and BiPAP with his sister in the room with him. . - Objective Vital Signs & Weight: Vital Signs (12 hours) Temp Pulse Resp Pulse Ox 03/14/20 18:37 99 32 H 99 03/14/20 18:36 97 32 H 99 03/14/20 17:00 99.1 F 03/14/20 14:30 109 H 27 H 97 03/14/20 14:26 108 H 27 H 96 03/14/20 12:01 111 H 27 H 96 03/14/20 08:23 86 31 H 97 03/14/20 08:22 103 H 29 H 97 03/14/20 08:00 98.7 F Weight Admit Weight 222 lb Weight 219 lb 12.814 oz Most Recent Monitor Data Heart Rate from ECG 101 NIBP 149/94 NIBP BP-Mean 112 Respiration from ECG 34 SpO2 98 I&O: 03/13/20 03/14/20 03/15/20 06:59 06:59 06:59 Intake Total 737 1732 646 Output Total 3690 1775 730 [facility] -2953 -43 -84 Result Diagrams: 03/14/20 04:40 03/14/20 03:30 Hospitalist ROS - Medication Medications: Active Medications Generic Name Dose Route Start Last Admin Trade Name Freq PRN Reason Stop Dose Admin Acetaminophen 650 mg 03/08/20 04:17 03/08/20 04:34 Acetaminophen 650 Mg Suppository [place] 650 mg Q4H PRN Administration Headache/Fever/MILD Pain 1-3 Albuterol/Ipratropium 3 ml 03/08/20 13:00 03/14/20 18:36 Ipratropium/Albuterol Sulfate 3 Ml Neb NEB 3 ml [id number] NANCY Administration Aspirin 81 mg 03/12/20 09:00 03/14/20 08:40 Aspirin Chewable 81 Mg Tab PO Not Given DAILY NANCY Atorvastatin Calcium 10 mg 03/03/20 21:00 03/13/20 21:33 Atorvastatin Calcium 10 Mg Tab PO Not Given HS NANCY Famotidine 20 mg 03/11/20 21:00 03/14/20 08:41 Famotidine 20 Mg Tab PO Not Given BID NANCY Heparin Sodium (Porcine) 5,000 units 03/09/20 15:00 03/14/20 14:19 Heparin 5,000 Units/Ml Vial SC 5,000 units TID NANCY Administration Norepinephrine Bitartrate 8 mg 250 mls @ 0 mls/hr 03/05/20 15:30 03/09/20 10:14 / Dextrose/Water IVPB 250 mls INF NANCY Administration Protocol As Directed Vancomycin HCl 1 gm/ Device 200 mls @ 200 mls/hr 03/14/20 09:00 03/14/20 08:50 IVPB 200 mls Q12HR NANCY Administration Piperacillin Sod/Tazobactam 100 mls @ 200 mls/hr 03/13/20 22:00 03/14/20 14:18 Sod 4.5 gm/ Sodium Chloride IVPB 100 mls Q8HR NANCY Administration Diltiazem HCl 125 mg/ Sodium 125 mls @ 5 mls/hr 03/14/20 07:30 03/14/20 07:50 Chloride IVPB 125 mls INF NANCY Administration Protocol 5 MG/HR Dextrose/Water 1,000 mls @ 50 mls/hr 03/14/20 10:45 03/14/20 10:30 D5w IV 1,000 mls .Q20H NANCY Administration Methylprednisolone Sodium Succinate 20 mg 03/11/20 07:49 03/14/20 08:51 Methylprednisolone Sod Succ 40 Mg Vial IVP 20 mg BID NANCY Administration Morphine Sulfate 2 mg 03/12/20 11:26 03/14/20 17:10 Morphine 2 Mg/Ml Vial SLOW IVP 2 mg Q3H PRN Administration Severe Pain (7-10) Pregabalin 150 mg 03/03/20 21:00 03/14/20 08:41 Pregabalin 75 Mg Cap PO Not Given BID NANCY Saccharomyces Boulardii 250 mg 03/10/20 09:00 03/14/20 08:41 Saccharomyces Boulardii 250 Mg Cap PO Not Given DAILY NANCY Silver Sulfadiazine 0 gm 03/05/20 21:00 03/14/20 08:53 Silver Sulfadiazine 50 Gm Jar TP 1 applic BID NANCY Administration Sodium Chloride 10 ml 03/07/20 21:00 03/14/20 09:00 Flush - Normal Saline 10 Ml Syringe IVF 10 ml Q12HR NANCY Administration Trospium 20 mg 03/04/20 09:00 03/14/20 08:41 Trospium 20 Mg Tab PO Not Given DAILY NANCY - Exam General - other findings: Awake, not oriented Heart: RRR, no murmur, no gallops Respiratory: no wheezes, no rales, no ronchi Respiratory - other findings: BiPAP in place. Gastrointestinal: soft, non-tender, non-distended Extremities: no cyanosis, no clubbing, 1+ LE edema Extremities - other findings: Significant swelling of right leg Psychiatric - other findings: Oriented to self. Not place or time. Hosp A/P - Plan 64-year-old male patient with a history of Atherosclerosis, peripheral vascular disease, hypertension seizure disorder prostate cancer on admission on account of severe sepsis with acute hypoxic respiratory He has been intubated 2 times in extubated a day ago. His respiratory status still rather precarious and is requiring BiPAP with concerns for a third intubation. No significant changes in patient's overall outlook. Acute hypoxic respiratory failure. Extubated this a day ago on nasal cannula but now back on BiPAP. Continue monitoring Pulmonology following Monitor BMP. Sepsis Possibly respiratory origin/necrotizing fasciitis of his arms Still having leukocytosis with bands and altered mental status Likely respiratory origin On Levaquin and cefazolin No change to vancomycin and Zosyn to cover for aspiration pneumonia Cellulitis of upper extremities on Levaquin and cefazolin however having worsening leukocytosis with bands. General state not improving Wound dressed We will go back on Vanco Zosyn ID followingto review antibiotic. ARSALAN Resolved Nephrology was consulted Hypertension Blood pressures have been soft now normalized. Necrotizing fasciitis of upper limbs. Status post debridement Continue antibiotics Monitor CODE STATUSfull codepalliative care following VTE prophylaxis Heparin
[2020-03-14] MEDS: Atorvastatin Calcium 10 MG TAB PO SCH (19:30)
[2020-03-14 19:38] LABS: Potassium 4.4 mmol/L (3.5-5.1)
[2020-03-14 20:27] LABS: SARS-CoV-2 IgG Ab Non-Reactive (NonReactive); SARS-CoV-2 IgG Index 0.04 S/CO (< 1.40)
[2020-03-15] MEDS: Piperacillin/Tazobactam 4.5 GM in Sodium Chloride 0.9% 100 ML IVPB SCH ×3 (05:39→21:23)
[2020-03-15] MEDS: Dextrose 5% in Water 1,000 ML IV SCH ×2 (05:39→14:29)
[2020-03-15 05:44] LABS: Anion Gap 14 mmol/L (10-20); BUN (Urea Nitrogen) 44 mg/dL (8.4-25.7); Calc. Creatinine Clearance 106 mL/min (70-130); Calcium 8.4 mg/dL (7.8-10.44); Carbon Dioxide 25 mmol/L (23-31); Chloride 113 mmol/L (98-107); Glucose 155 mg/dL (80-115); Potassium 4.1 mmol/L (3.5-5.1); Sodium 148 mmol/L (136-145)
[2020-03-15 06:14] LABS: Band 8 % (5-11); Hemoglobin 8.7 g/dL (14.0-18.0); Lymphocytes 10 % (21-51); MDiff Complete? YES; Mean Corpuscular Hemoglobin 29.1 pg (27.0-31.0); Mean Corpuscular Volume 93.8 fL (78.0-98.0); Mean Platelet Volume 11.5 fL (7.4-10.4); Monocytes 2 % (0-10); Neutrophil 80 % (42-75); Platelet Count 218 thou/uL (130-400); RBC Distribution Width 16.5 % (11.5-14.5); Red Blood Cell (RBC) Count 2.98 mill/uL (4.70-6.10); White Blood Cell (WBC) Count 9.5 thou/uL (4.8-10.8)
[2020-03-15 08:50] LABS: Vancomycin, Trough 19.7 ug/mL
--- NOTE | 2020-03-15 08:50 | PRG ---
DATE OF SERVICE: 03/15/2020 SUBJECTIVE: The patient is doing okay on mechanical ventilation through BiPAP. He is awake and alert-more so compared to yesterday. OBJECTIVE: VITAL SIGNS: Temperature 97.4, pulse 72, blood pressure 129/75, and O2 saturation 99%. He is pulling tidal volumes around 900 mL on BiPAP 02/12. HEENT: Unremarkable. NECK: No JVD. LUNGS: Clear anteriorly. CARDIAC: S1 and S2, regular. ABDOMEN: Soft. EXTREMITIES: He has bandages over both arms. LABORATORY DATA: White blood cell count 9.5, hematocrit 27.9, and platelet count 218. Sodium 148, potassium 4.1, chloride 113, CO2 of 25, BUN 44, creatinine 0.9, glucose 155. ASSESSMENT: 1. Status post necrotizing fasciitis. 2. Status post failed extubation. 3. Acute hypoxic respiratory failure requiring mechanical ventilation. 4. Suspected hospital-acquired pneumonia. 5. Renal insufficiency. 6. Mild hypernatremia. PLAN: 1. Trial nasal cannula today and see how he does. 2. Continue antibiotic therapy. 3. Right now heart rate doing reasonably well off Cardizem drip-heart tachycardia was probably manifestation of his agitation, which has been improved with the Precedex. Job ID: [id number]
[2020-03-15] MEDS: Aspirin Chewable 81 MG TAB PO SCH (09:08)
[2020-03-15] MEDS: Pregabalin 75 MG CAP PO SCH ×2 (09:09→21:21)
[2020-03-15] MEDS: Famotidine 20 MG TAB PO SCH ×2 (09:09→21:22)
[2020-03-15] MEDS: Saccharomyces boulardii 250 MG CAP PO SCH (09:09)
[2020-03-15] MEDS: Trospium 20 MG TAB PO SCH (09:09)
[2020-03-15] MEDS: Heparin 5,000 UNITS/ML VIAL SC SCH ×3 (09:10→21:22)
[2020-03-15] MEDS: Vancomycin 1 GM in Premix Bag 1 BAG IVPB SCH ×2 (09:10→21:23)
[2020-03-15] MEDS: Silver Sulfadiazine 50 GM JAR TP SCH ×2 (09:16→21:23)
--- NOTE | 2020-03-15 13:45 | CON ---
DATE OF CONSULTATION: 03/15/2020 [employer] DEPARTMENT SUPERVISOR: Rick Rosario MD REASON FOR CONSULTATION: Nonsustained ventricular tachycardia. HISTORY OF PRESENT ILLNESS: Mr. Humphrey is a 64-year-old gentleman, admitted to the hospital on this occasion with multiple medical problems. These include respiratory failure, acute kidney injury, and pneumonia. The patient has been found to have episodes of nonsustained ventricular tachycardia during this admission. The patient has been seen by Dr. Rosario in the past, evaluated for peripheral vascular disease, also noted to have frequent premature atrial contractions. He did undergo stress testing in 2017, which did not show ischemia. He had electrophysiologic evaluation for the PACs. Beta vikash was recommended. REVIEW OF SYSTEMS: The patient is unable to give significant history now, somewhat confused. MEDICATIONS: See nurse's notes. These include: 1. Precedex. 2. Diltiazem. 3. Levophed intermittently, but he is off that now. 4. Antibiotics, vancomycin. 5. Aspirin. 6. Heparin subcutaneously. SOCIAL HISTORY: Long history of tobacco use. Continues to vape. PHYSICAL EXAMINATION: GENERAL: This is a 64-year-old gentleman, looks much older than his chronologic age. He has been mildly confused, but he is cooperative. VITAL SIGNS: Blood pressure 130/70, pulse 80 and sinus. LUNGS: Clear. CARDIAC: Normal S1, normal S2. No murmur, rub, or gallop. ABDOMEN: Obese, nontender. EXTREMITIES: No clubbing. No cyanosis. There is moderate peripheral edema. SKIN: Cool, but not cold. I do not feel pedal pulses, but he has quite a bit of edema. PERTINENT LABORATORY DATA: Hemoglobin is 8.7. Potassium 4.1. The patient had an 11-beat wide-complex tachycardia, looks like ventricular tachycardia. Another one of 12-beat wide-complex also looks like ventricular tachycardia. The rate on that episode was about 180 beats per minute. The patient has had other episodes, what looks like, it is probably supraventricular tachycardia. ASSESSMENT: 1. Nonsustained supraventricular tachycardia that is improved, currently off IV Cardizem. 2. Episodes of nonsustained wide-complex tachycardia, looks like ventricular tachycardia. PLAN: 1. Echocardiogram. 2. PRN diltiazem. 3. Dr. Rosario will follow during this admission. Job ID: [id number]
[2020-03-15] MEDS: Morphine 2 MG/ML VIAL SLOW IVP PRN (14:46)
--- NOTE | 2020-03-15 18:25 | PRG ---
DATE OF SERVICE: 03/15/2020 SUBJECTIVE: The patient was noted with the following vital signs. OBJECTIVE: VITAL SIGNS: Blood pressure 110/62, pulse 66, respiratory rate of 21, O2 saturation is 100%. HEENT: Unremarkable. CARDIOVASCULAR SYSTEM: First and second heart sounds were heard. RESPIRATORY SYSTEM: Transmitted sounds. DIGESTIVE SYSTEM: Revealed a benign abdomen. EXTREMITIES: Showed left lower extremity edema. LABORATORY INVESTIGATION: Showed a hemoglobin of 8.7. Chemistry showed a sodium is going up to 148, BUN of 44. IMPRESSION: Hypernatremia in the context of free water deficit. PLAN: We will start this patient on free water by oral, with 300 cc of free water every 4 hours via the NG tube. Job ID: [id number]
--- NOTE | 2020-03-15 20:24 | PDOC.HOSPP ---
- Subjective Encounter Date: 03/15/20 Subjective: Seen and examined in bed. He was on BiPAP and responded with hand movements. He was still not completely oriented however - Objective Vital Signs & Weight: Vital Signs (12 hours) Temp Pulse Resp Pulse Ox 03/15/20 18:29 62 21 H 100 03/15/20 18:28 62 21 H 100 03/15/20 18:00 97.3 F L 03/15/20 16:00 99 03/15/20 13:53 83 20 96 03/15/20 12:00 94 L Weight Admit Weight 222 lb Weight 212 lb 4.882 oz Most Recent Monitor Data Heart Rate from ECG 66 NIBP 125/73 NIBP BP-Mean 90 Respiration from ECG 22 SpO2 96 I&O: 03/14/20 03/15/20 03/16/20 06:59 06:59 06:59 Intake Total 1732 1693.7 1474.3 Output Total 1775 1370 630 Balance -43 323.7 844.3 Result Diagrams: 03/15/20 05:10 03/15/20 05:10 Hospitalist ROS - Medication Medications: Active Medications Generic Name Dose Route Start Last Admin Trade Name Freq PRN Reason Stop Dose Admin Acetaminophen 650 mg 03/08/20 04:17 03/08/20 04:34 Acetaminophen 650 Mg Suppository [place] 650 mg Q4H PRN Administration Headache/Fever/MILD Pain 1-3 Albuterol/Ipratropium 3 ml 03/08/20 13:00 03/15/20 18:28 Ipratropium/Albuterol Sulfate 3 Ml Neb NEB 3 ml [id number] NANCY Administration Aspirin 81 mg 03/12/20 09:00 03/15/20 09:08 Aspirin Chewable 81 Mg Tab PO Not Given DAILY NANCY Atorvastatin Calcium 10 mg 03/03/20 21:00 03/14/20 19:30 Atorvastatin Calcium 10 Mg Tab PO Not Given HS NANCY Famotidine 20 mg 03/11/20 21:00 03/15/20 09:09 Famotidine 20 Mg Tab PO Not Given BID NANCY Heparin Sodium (Porcine) 5,000 units 03/09/20 15:00 03/15/20 14:24 Heparin 5,000 Units/Ml Vial SC 5,000 units TID NANCY Administration Vancomycin HCl 1 gm/ Device 200 mls @ 200 mls/hr 03/14/20 09:00 03/15/20 09:10 IVPB 200 mls Q12HR NANCY Administration Piperacillin Sod/Tazobactam 100 mls @ 200 mls/hr 03/13/20 22:00 03/15/20 14:24 Sod 4.5 gm/ Sodium Chloride IVPB 100 mls Q8HR NANCY Administration Dexmedetomidine HCl 400 mcg/ 100 mls @ 0 mls/hr 03/14/20 07:30 03/15/20 15:30 Sodium Chloride IVPB 100 mls INF NANCY Administration Protocol Per Protocol Diltiazem HCl 125 mg/ Sodium 125 mls @ 5 mls/hr 03/14/20 07:30 03/14/20 07:50 Chloride IVPB 125 mls INF NANCY Administration Protocol 5 MG/HR Dextrose/Water 1,000 mls @ 50 mls/hr 03/14/20 10:45 03/15/20 14:29 D5w IV 1,000 mls .Q20H NANCY Administration Morphine Sulfate 2 mg 03/12/20 11:26 03/15/20 14:46 Morphine 2 Mg/Ml Vial SLOW IVP 2 mg Q3H PRN Administration Severe Pain (7-10) Pregabalin 150 mg 03/03/20 21:00 03/15/20 09:09 Pregabalin 75 Mg Cap PO Not Given BID NANCY Saccharomyces Boulardii 250 mg 03/10/20 09:00 03/15/20 09:09 Saccharomyces Boulardii 250 Mg Cap PO Not Given DAILY NANCY Silver Sulfadiazine 0 gm 03/05/20 21:00 03/15/20 09:16 Silver Sulfadiazine 50 Gm Jar TP 1 applic BID NANCY Administration Sodium Chloride 10 ml 03/07/20 21:00 03/14/20 19:34 Flush - Normal Saline 10 Ml Syringe IVF 10 ml Q12HR NANCY Administration Trospium 20 mg 03/04/20 09:00 03/15/20 09:09 Trospium 20 Mg Tab PO Not Given DAILY NANCY - Exam General - other findings: Awake, slightly confused. Heart: RRR, no murmur, no gallops, no rubs Respiratory: CTAB, no wheezes, no rales, no ronchi Extremities: no cyanosis, no clubbing, 1+ LE edema Extremities - other findings: Edema, worse on right Psychiatric - other findings: Oriented to self. Not place and time. Hosp A/P - Plan 64-year-old male patient with a history of Atherosclerosis, peripheral vascular disease, hypertension seizure disorder prostate cancer on admission on account of severe sepsis with acute hypoxic respiratory failure. He has been intubated 2 times during this admission. He status post fasciotomy secondary to necrotizing fasciitis of his upper limbs bilaterally. His respiratory status still rather precarious and is requiring BiPAP with concerns for a third intubation. No significant changes in patient's overall outlook. Acute hypoxic respiratory failure. Extubated this a day ago on nasal cannula but now back on BiPAP. Continue monitoring Pulmonology following Monitor BMP. Sepsis Possibly respiratory origin/necrotizing fasciitis of his arms Still having leukocytosis with bands and altered mental status Likely respiratory origin On Levaquin and cefazolin Now change to vancomycin and Zosyn to cover for aspiration pneumonia Cellulitis of upper extremities on Levaquin and cefazolin however having worsening leukocytosis with bands. General state not improving Wound dressed We will go back on Vanco Zosyn ID followingto review antibiotic. ARSALAN Resolved Nephrology was consulted Hypernatremia Free water flushes Nephrology follow Arrhythmia Tachycardia likely due to agitation is improved with Precedex. Intermittent wide-complex V. tach Continue monitoring Echo ordered Cardiology following Hypertension Blood pressures have been soft now normalized. Necrotizing fasciitis of upper limbs. Status post debridement Continue antibiotics Monitor CODE STATUSfull codepalliative care following VTE prophylaxis Heparin
[2020-03-15] MEDS: Atorvastatin Calcium 10 MG TAB PO SCH (21:22)
[2020-03-16] MEDS: Piperacillin/Tazobactam 4.5 GM in Sodium Chloride 0.9% 100 ML IVPB SCH ×3 (05:27→22:51)
[2020-03-16 05:30] LABS: Anion Gap 15 mmol/L (10-20); BUN (Urea Nitrogen) 42 mg/dL (8.4-25.7); Calc. Creatinine Clearance 112 mL/min (70-130); Carbon Dioxide 24 mmol/L (23-31); Chloride 110 mmol/L (98-107); Glucose 101 mg/dL (80-115); Potassium 3.5 mmol/L (3.5-5.1); Sodium 145 mmol/L (136-145)
[2020-03-16 05:40] LABS: Band 1 % (5-11); Hemoglobin 8.9 g/dL (14.0-18.0); Large Platelets SLIGHT; Lymphocytes 7 % (21-51); MDiff Complete? YES; Mean Corpuscular Hemoglobin 29.1 pg (27.0-31.0); Mean Corpuscular Volume 93.9 fL (78.0-98.0); Mean Platelet Volume 11.9 fL (7.4-10.4); Metamyelocyte 1 % (0-0); Monocytes 10 % (0-10); Neutrophil 81 % (42-75); Platelet Count 195 thou/uL (130-400); Platelet Morphology Comment Appears Adequate; RBC Distribution Width 16.3 % (11.5-14.5); Red Blood Cell (RBC) Count 3.04 mill/uL (4.70-6.10); White Blood Cell (WBC) Count 10.2 thou/uL (4.8-10.8)
[2020-03-16] MEDS ORDERED: Potassium Chloride 20 MEQ TAB PO SCH (06:30)
--- NOTE | 2020-03-16 08:17 | PRG ---
DATE OF SERVICE: 03/16/2020 SUBJECTIVE: Mr. Humphrey is currently on BiPAP. He was extubated several days ago. He appears tired. OBJECTIVE: VITAL SIGNS: Blood pressure 119/63, pulse 69, temperature afebrile. LUNGS: Rhonchi and rales bilaterally. HEART: Regular rate and rhythm with extrasystolic beat. ABDOMEN: Soft, nontender, nondistended. EXTREMITIES: Bandages noted to the upper and lower extremity secondary to necrotizing fasciitis. PERTINENT LABORATORY DATA: Hemoglobin 8.9, hematocrit 28.6. IMPRESSION: 1. Ventricular tachycardia. 2. Necrotizing fasciitis. 3. Respiratory failure. 4. Hyponatremia. 5. Renal insufficiency. 6. Hospital-acquired pneumonia. RECOMMENDATIONS: At this point, it does not appear Mr. Humphrey is on beta vikash therapy. He also was on norepinephrine, but does not appear to be on pressor support currently based on his current MAR. He is on Cardizem IV. Would consider switching to a beta-vikash therapy once he is able to take p.o. consistently. Echo is currently pending to assess his LVEF. His LVEF has been stable in the past. Last echo dated 02/13/2020 with LVEF 60% to 65%. He did have mild concentric LVH. Otherwise, we will continue with conservative support from a CV standpoint. ADDENDUM: EF 30-35%. May be related to recent infection and insult given echo in WNL. Change CCB to amiodarone for VT. Job ID: [id number] MTDD
--- NOTE | 2020-03-16 08:45 | PRG ---
DATE OF SERVICE: 03/16/2020 SUBJECTIVE: This patient remains on BiPAP. He is a little more somnolent than he was yesterday. At the time I was examining him this morning, he was in the process of getting an echocardiogram. OBJECTIVE: VITAL SIGNS: Temperature 97.7, pulse 59, blood pressure 119/63, O2 saturation 95% on BiPAP. HEENT: Unremarkable. NECK: No JVD. LUNGS: Diminished, but clear breath sounds. CARDIAC: S1, S2. Slightly bradycardic. ABDOMEN: Soft and nontender. EXTREMITIES: He has wraps over both arms. LABORATORY DATA: White blood cell count 10.2, hematocrit 28.6, platelet count 195. Sodium 145, potassium 3.5, chloride 110, CO2 of 24, BUN 42, creatinine 0.9, glucose 101. ASSESSMENT: 1. Acute respiratory failure requiring mechanical ventilation. 2. Status post necrotizing fasciitis. 3. Status post one failed extubation. 4. Suspected hospital-acquired pneumonia. 5. Renal insufficiency. 6. Resolved hypernatremia. 7. Appearance of systolic dysfunction on current echo. PLAN: 1. I am going to try to decrease his Precedex today. We will continue with the Zosyn, but stop the vancomycin since nothing has grown from his cultures. 2. I have no objection to him converting over to beta-vikash therapy. Job ID: [id number]
[2020-03-16] MEDS: Famotidine 20 MG TAB PO SCH ×2 (09:14→19:53)
[2020-03-16] MEDS: Trospium 20 MG TAB PO SCH (09:14)
[2020-03-16] MEDS: Aspirin Chewable 81 MG TAB PO SCH (09:14)
[2020-03-16] MEDS: Pregabalin 75 MG CAP PO SCH ×2 (09:14→19:54)
[2020-03-16] MEDS: Heparin 5,000 UNITS/ML VIAL SC SCH ×3 (09:14→19:53)
[2020-03-16] MEDS: Saccharomyces boulardii 250 MG CAP PO SCH (09:14)
[2020-03-16] MEDS: Silver Sulfadiazine 50 GM JAR TP SCH ×2 (09:15→19:55)
[2020-03-16] MEDS ORDERED: Amiodarone 150 MG, Admixture Fee 1 EACH in Dextrose 5% in Water 100 ML IVPB SCH (13:15)
[2020-03-16 13:48] VITALS: BMI 32.3
[2020-03-16 13:48] LABS: Potassium 3.5 mmol/L (3.5-5.1)
[2020-03-16] MEDS ORDERED: Bacitracin Zinc Ointment 30 gm TUBE TOP PRN (16:20)
--- NOTE | 2020-03-16 18:27 | PRG ---
DATE OF SERVICE: 03/16/2020 OBJECTIVE: VITAL SIGNS: The patient noted with the following vital signs. Blood pressure 136/77, heart rate of 99, respiratory rate of 32, and O2 saturations of 94%. HEENT: Unremarkable. CARDIOVASCULAR SYSTEM: First and second heart sounds were heard. RESPIRATORY SYSTEM: Clear to auscultation. DIGESTIVE SYSTEM: Revealed a benign abdomen. EXTREMITIES: Showed left lower extremity edema. LABORATORY INVESTIGATION: Showed hemoglobin of 8.9. Chemistry showed a sodium down to 145. IMPRESSION: 1. Hypernatremia, which seems to be improved status post increasing free water repletion. 2. Acute kidney injury, much improved. PLAN: 1. Continue current renal supportive measures. 2. Further management to be dependent on the clinical course. Job ID: [id number]
[2020-03-16] MEDS: Atorvastatin Calcium 10 MG TAB PO SCH (19:53)
--- NOTE | 2020-03-16 23:52 | PDOC.HOSPP ---
- Subjective Encounter Date: 03/16/20 Subjective: Patient was seen and examined in bed. He still on BiPAP with altered mental status. No significant events overnight. - Objective Vital Signs & Weight: Vital Signs (12 hours) Temp Pulse Resp Pulse Ox 03/16/20 23:00 99.3 F 03/16/20 22:57 99 03/16/20 22:42 91 27 H 100 03/16/20 19:00 99 F 03/16/20 18:42 104 H 31 H 100 03/16/20 18:40 94 31 H 99 03/16/20 12:36 71 27 H 95 03/16/20 12:00 96 Weight Admit Weight 222 lb Weight 212 lb 4.882 oz Most Recent Monitor Data Heart Rate from ECG 86 NIBP 127/76 NIBP BP-Mean 93 Respiration from ECG 19 SpO2 98 I&O: 03/15/20 03/16/20 03/17/20 06:59 06:59 06:59 Intake Total 1693.7 3972.3 1924 Output Total 1370 1255 985 Balance 323.7 2717.3 939 Result Diagrams: 03/16/20 04:40 03/16/20 13:18 Hospitalist ROS - Medication Medications: Active Medications Generic Name Dose Route Start Last Admin Trade Name Freq PRN Reason Stop Dose Admin Acetaminophen 650 mg 03/08/20 04:17 03/08/20 04:34 Acetaminophen 650 Mg Suppository NV 650 mg Q4H PRN Administration Headache/Fever/MILD Pain 1-3 Albuterol/Ipratropium 3 ml 03/08/20 13:00 03/16/20 18:42 Ipratropium/Albuterol Sulfate 3 Ml Neb NEB 3 ml [id number] NANCY Administration Aspirin 81 mg 03/12/20 09:00 03/16/20 09:14 Aspirin Chewable 81 Mg Tab PO 81 mg DAILY NANCY Administration Atorvastatin Calcium 10 mg 03/03/20 21:00 03/16/20 19:53 Atorvastatin Calcium 10 Mg Tab PO 10 mg HS NANCY Administration Famotidine 20 mg 03/11/20 21:00 03/16/20 19:53 Famotidine 20 Mg Tab PO 20 mg BID ANNCY Administration Heparin Sodium (Porcine) 5,000 units 03/09/20 15:00 03/16/20 19:53 Heparin 5,000 Units/Ml Vial SC 5,000 units TID NANCY Administration Piperacillin Sod/Tazobactam 100 mls @ 200 mls/hr 03/13/20 22:00 03/16/20 22:51 Sod 4.5 gm/ Sodium Chloride IVPB 100 mls Q8HR NANCY Administration Dexmedetomidine HCl 400 mcg/ 100 mls @ 0 mls/hr 03/14/20 07:30 03/16/20 21:38 Sodium Chloride IVPB 100 mls INF NANCY Administration Protocol Per Protocol Dextrose/Water 1,000 mls @ 50 mls/hr 03/14/20 10:45 03/15/20 14:29 D5w IV 1,000 mls .Q20H NANCY Administration Morphine Sulfate 2 mg 03/12/20 11:26 03/15/20 14:46 Morphine 2 Mg/Ml Vial SLOW IVP 2 mg Q3H PRN Administration Severe Pain (7-10) Pregabalin 150 mg 03/03/20 21:00 03/16/20 19:54 Pregabalin 75 Mg Cap PO 150 mg BID NANCY Administration Saccharomyces Boulardii 250 mg 03/10/20 09:00 03/16/20 09:14 Saccharomyces Boulardii 250 Mg Cap PO 250 mg DAILY NANCY Administration Silver Sulfadiazine 0 gm 03/05/20 21:00 03/16/20 19:55 Silver Sulfadiazine 50 Gm Jar TP 1 applic BID NANCY Administration Sodium Chloride 10 ml 03/07/20 21:00 03/16/20 19:55 Flush - Normal Saline 10 Ml Syringe IVF 10 ml Q12HR NANCY Administration Trospium 20 mg 03/04/20 09:00 03/16/20 09:14 Trospium 20 Mg Tab PO 20 mg DAILY NANCY Administration - Exam General Appearance: awake alert Heart: RRR, no murmur, no gallops Heart - other findings: Air entry reduced bilaterally. Gastrointestinal: soft, non-tender, non-distended Extremities: no cyanosis, no clubbing, 1+ LE edema Neurological: no focal deficits Psychiatric - other findings: Oriented to self. Not place and time. Hosp A/P - Plan 64-year-old male patient with a history of peripheral vascular disease, hypertension, seizure disorder, prostate cancer on admission on account of severe sepsis with acute hypoxic respiratory failure. He has been intubated 2 times during this admission. He status post fasciotomy secondary to necrotizing fasciitis of his upper limbs bilaterally. His respiratory status still rather precarious and is requiring BiPAP with concerns for a third intubation. No significant changes in patient's overall outlook. Acute hypoxic respiratory failure. Extubated this a day ago on nasal cannula but now back on BiPAP. Continue monitoring Pulmonology following Monitor BMP. Sepsis Possibly respiratory origin/necrotizing fasciitis of his arms Still having leukocytosis with bands and altered mental status Likely respiratory origin Continue Zosynvancomycin discontinued. Cellulitis/necrotizing fasciitis of upper extremities Was recently on Vanco and Zosyn however vancomycin now discontinued. Wound dressed ID following ARSALAN Resolved Nephrology was consulted Hypernatremia Free water flushes Nephrology follow Arrhythmia Tachycardia likely due to agitation is improved with Precedex. Intermittent wide-complex V. tach On beta-blockers Continue monitoring Cardiology following Hypertension Blood pressures have been soft now normalized. Recent history of right septic knee CODE STATUSfull codepalliative care following VTE prophylaxis Heparin
[2020-03-17] MEDS: Dextrose 5% in Water 1,000 ML IV SCH ×3 (01:52→19:20)
[2020-03-17 04:52] LABS: Anion Gap 13 mmol/L (10-20); BUN (Urea Nitrogen) 38 mg/dL (8.4-25.7); Calc. Creatinine Clearance 120 mL/min (70-130); Calcium 7.9 mg/dL (7.8-10.44); Carbon Dioxide 24 mmol/L (23-31); Chloride 110 mmol/L (98-107); Glucose 115 mg/dL (80-115); Potassium 3.3 mmol/L (3.5-5.1); Sodium 144 mmol/L (136-145)
[2020-03-17 05:09] LABS: Band 11 % (5-11); Hemoglobin 9.1 g/dL (14.0-18.0); Lymphocytes 7 % (21-51); MDiff Complete? YES; Mean Corpuscular HGB CONC 31.8 g/dL (32.0-36.0); Mean Corpuscular Hemoglobin 29.7 pg (27.0-31.0); Mean Corpuscular Volume 93.2 fL (78.0-98.0); Mean Platelet Volume 11.8 fL (7.4-10.4); Metamyelocyte 1 % (0-0); Monocytes 11 % (0-10); Neutrophil 70 % (42-75); Platelet Count 197 thou/uL (130-400); RBC Distribution Width 16.3 % (11.5-14.5); Red Blood Cell (RBC) Count 3.08 mill/uL (4.70-6.10); White Blood Cell (WBC) Count 12.1 thou/uL (4.8-10.8)
[2020-03-17] MEDS: Piperacillin/Tazobactam 4.5 GM in Sodium Chloride 0.9% 100 ML IVPB SCH ×3 (05:17→20:57)
[2020-03-17] MEDS ORDERED: Furosemide 20 MG/2 ML VIAL SLOW IVP SCH (08:45)
[2020-03-17] MEDS: Saccharomyces boulardii 250 MG CAP PO SCH (08:55)
[2020-03-17] MEDS: Famotidine 20 MG TAB PO SCH ×2 (08:55→19:59)
[2020-03-17] MEDS: Aspirin Chewable 81 MG TAB PO SCH (08:56)
[2020-03-17] MEDS: Trospium 20 MG TAB PO SCH (08:56)
[2020-03-17] MEDS: Pregabalin 75 MG CAP PO SCH ×2 (08:56→19:59)
[2020-03-17] MEDS: Heparin 5,000 UNITS/ML VIAL SC SCH ×3 (08:57→20:01)
--- NOTE | 2020-03-17 10:11 | PRG ---
DATE OF SERVICE: 03/17/2020 SUBJECTIVE: Davey Humphrey is a 64-year-old gentleman with CHF, is on BiPAP. They tried nasal O2 . OBJECTIVE: VITAL SIGNS: Temperature 98, respirations 30, saturations 98% on BiPAP, and blood pressure 130/80. CHEST: Rhonchi, crackles. CARDIAC: Normal S1 and S2. No gallops. ABDOMEN: No masses. LABORATORY DATA: Unremarkable. ASSESSMENT: 1. Congestive heart failure, ejection fraction 25% to 30%. 2. Respiratory failure. 3. Necrotizing fasciitis. PLAN: I may consider trying high-flow. He is definitely going to need BiPAP at nighttime. Otherwise, continue supportive care, PT. One-half hour of critical care time. Job ID: [id number]
[2020-03-17] MEDS: Silver Sulfadiazine 50 GM JAR TP SCH ×2 (12:33→20:02)
--- NOTE | 2020-03-17 15:34 | PDOC.HOSPP ---
- Subjective Encounter Date: 03/17/20 Encounter Time: 15:30 Subjective: u for resp failure/sepsis/necrotizing fasciitis of BUE's s/p fasciotomy receiving Precedex/Amiodarone/Zosyn/BiPAP NIMV. Hospital day #17. Nursing states pt anxious. - Objective Vital Signs & Weight: Vital Signs (12 hours) Temp Pulse Resp Pulse Ox 03/17/20 13:20 100 31 H 94 L 03/17/20 13:19 110 H 32 H 94 L 03/17/20 12:00 99.5 F 03/17/20 11:07 95 03/17/20 08:19 93 30 H 98 03/17/20 07:54 98 03/17/20 07:00 100.4 F H 03/17/20 04:00 98.3 F Weight Admit Weight 222 lb Weight 212 lb 4.882 oz Most Recent Monitor Data Heart Rate from ECG 101 NIBP 111/45 NIBP BP-Mean 67 Respiration from ECG 28 SpO2 90 I&O: 03/16/20 03/17/20 03/18/20 06:59 06:59 06:59 Intake Total 3972.3 4433.5 600 Output Total 1255 1440 1580 Balance 2717.3 2993.5 -980 Result Diagrams: 03/17/20 04:00 03/17/20 04:00 Additional Labs: Microbiology 03/10/20 09:08 Urine clean catch Urine Culture - Final Presumptive Aileen albicans 03/10/20 08:51 Central Line - Right external jugular vein Blood Culture - Final NO GROWTH IN 5 DAYS 03/10/20 08:30 Venous blood - Right Arm Blood Culture - Final NO GROWTH IN 5 DAYS 03/08/20 14:03 Sputum Respiratory Culture - Final Laboratory Tests 02/29/20 03/14/20 03/15/20 16:45 14:26 05:10 Sodium 148 H Potassium 4.1 SARS-CoV-2 (PCR) Not Detected SARS-CoV-2 IgG Ab Non-Reactive SARS-CoV-2 IgG Ab Index 0.04 03/16/20 03/16/20 04:40 13:18 Sodium 145 Potassium 3.5 3.5 SARS-CoV-2 (PCR) SARS-CoV-2 IgG Ab SARS-CoV-2 IgG Ab Index Radiology Reviewed by me: Yes (2D echo - EF 30-35%) EKG Reviewed by me: Yes (Tele - SR) Hospitalist ROS - Medication Medications: Active Medications Generic Name Dose Route Start Last Admin Trade Name Freq PRN Reason Stop Dose Admin Acetaminophen 650 mg 03/08/20 04:17 03/08/20 04:34 Acetaminophen 650 Mg Suppository [place] 650 mg Q4H PRN Administration Headache/Fever/MILD Pain 1-3 Albuterol/Ipratropium 3 ml 03/08/20 13:00 03/17/20 13:19 Ipratropium/Albuterol Sulfate 3 Ml Neb NEB 3 ml [id number] NANCY Administration Aspirin 81 mg 03/12/20 09:00 03/17/20 08:56 Aspirin Chewable 81 Mg Tab PO 81 mg DAILY NANCY Administration Atorvastatin Calcium 10 mg 03/03/20 21:00 03/16/20 19:53 Atorvastatin Calcium 10 Mg Tab PO 10 mg HS NANCY Administration Famotidine 20 mg 03/11/20 21:00 03/17/20 08:55 Famotidine 20 Mg Tab PO 20 mg BID NANCY Administration Heparin Sodium (Porcine) 5,000 units 03/09/20 15:00 03/17/20 08:57 Heparin 5,000 Units/Ml Vial SC 5,000 units TID NANCY Administration Piperacillin Sod/Tazobactam 100 mls @ 200 mls/hr 03/13/20 22:00 03/17/20 14:20 Sod 4.5 gm/ Sodium Chloride IVPB 100 mls Q8HR NANCY Administration Dexmedetomidine HCl 400 mcg/ 100 mls @ 0 mls/hr 03/14/20 07:30 03/17/20 11:11 Sodium Chloride IVPB 100 mls INF NANCY Administration Protocol Per Protocol Dextrose/Water 1,000 mls @ 50 mls/hr 03/14/20 10:45 03/17/20 01:52 D5w IV Not Given .Q20H NANCY Morphine Sulfate 2 mg 03/12/20 11:26 03/15/20 14:46 Morphine 2 Mg/Ml Vial SLOW IVP 2 mg Q3H PRN Administration Severe Pain (7-10) Pregabalin 150 mg 03/03/20 21:00 03/17/20 08:56 Pregabalin 75 Mg Cap PO 150 mg BID NANCY Administration Saccharomyces Boulardii 250 mg 03/10/20 09:00 11/26/20 08:55 Saccharomyces Boulardii 250 Mg Cap PO 250 mg DAILY NANCY Administration Silver Sulfadiazine 0 gm 03/05/20 21:00 03/17/20 12:33 Silver Sulfadiazine 50 Gm Jar TP 1 applic BID NANCY Administration Sodium Chloride 10 ml 03/07/20 21:00 03/17/20 08:57 Flush - Normal Saline 10 Ml Syringe IVF 10 ml Q12HR NANCY Administration Trospium 20 mg 03/04/20 09:00 03/17/20 08:56 Trospium 20 Mg Tab PO 20 mg DAILY NANCY Administration - Exam General Appearance: ill appearing General - other findings: somnolent on BiPAP Eye: PERRL, anicteric sclera ENT: normocephalic atraumatic, no oropharyngeal lesions Neck: supple, symmetric, no JVD, no thyromegaly, no lymphadenopathy Heart: RRR, no murmur, no gallops, no rubs, normal peripheral pulses Heart - other findings: S1, S2 Respiratory: tachypneic Respiratory - other findings: diminished in bilat bases, few coarse sounds Gastrointestinal: soft, non-tender, non-distended, normal bowel sounds, no palpable masses Extremities: no cyanosis, no clubbing, 1+ LE edema Skin: normal turgor, no lesions Neurological: no new deficit Musculoskeletal: generalized weakness Psychiatric: flat affect, somnolent, lethargic Hosp A/P (1) Acute respiratory failure with hypoxia Code(s): J96.01 - ACUTE RESPIRATORY FAILURE WITH HYPOXIA Status: Acute Plan: Continue BiPAP NIMV, pulmonary supportive mgmt (2) Necrotizing fasciitis Code(s): M72.6 - NECROTIZING FASCIITIS Status: Acute Plan: s/p fasciotomies, continue Zosyn, local WCT (3) Sepsis with acute organ dysfunction Code(s): A41.9 - SEPSIS, UNSPECIFIED ORGANISM; R65.20 - SEVERE SEPSIS WITHOUT SEPTIC SHOCK Status: Acute Qualifiers: Sepsis type: methicillin resistant Staphylococcus aureus Severe sepsis acute organ dysfunction type: acute respiratory failure Acute respiratory failure type: with hypoxia Severe sepsis shock status: with septic shock Qualified Code(s): A41.02 - Sepsis due to Methicillin resistant Staphylococcus aureus; R65.21 - Severe sepsis with septic shock; J96.01 - Acute respiratory failure with hypoxia Plan: Secondary to #2, continue Zosyn (4) Tachyarrhythmia Code(s): R00.0 - TACHYCARDIA, UNSPECIFIED Status: Acute Plan: Improved, continue Amiodarone gtt, Cardiology consulted (5) Acute kidney failure Status: Acute Plan: Resolving, avoid nephrotoxic meds and limit contrast - Plan continue antibiotics, PT/OT, social services assistant, speech therapy, respiratory therapy, DVT proph w/SCDs Consults: Palliative Care Continue critical support Palliative care consult appreciated Continue Zosyn BiPAP NIMV WCT for local care CM for SNF/NH options AM lab: BMP, CBC
--- NOTE | 2020-03-17 19:13 | PRG ---
DATE OF SERVICE: 03/17/2020 SUBJECTIVE: The patient was noted with the following vital signs. OBJECTIVE: VITAL SIGNS: Blood pressure 104/62 to 137/81, pulse of 88, respiratory rate of 27, and O2 saturation 98%. HEENT: Unremarkable. CARDIOVASCULAR SYSTEM: First and second heart sounds were heard. RESPIRATORY SYSTEM: Clear to auscultation. DIGESTIVE SYSTEM: Revealed a benign abdomen. EXTREMITIES: No peripheral edema. SKIN: No new gross rash. LYMPHATICS: No peripheral lymphadenopathy. LABORATORY INVESTIGATIONS: Significant for potassium of 3.3. IMPRESSION: 1. Hypokalemia. 2. Hypernatremia, which seems to have resolved status post free water repletion. PLAN: 1. Replete potassium. 2. Further management to be dependent on the clinical course. Job ID: [id number]
[2020-03-17] MEDS: Atorvastatin Calcium 10 MG TAB PO SCH (19:59)
[2020-03-18] MEDS: Lorazepam 2 MG/ML VIAL SLOW IVP PRN (02:39)
[2020-03-18 05:15] LABS: Band 1 % (5-11); Eosinophils 1 % (0-10); Hemoglobin 9.1 g/dL (14.0-18.0); Hypochromia SLIGHT = 6-15 cells (100X) (0-5/hpf); Lymphocytes 5 % (21-51); MDiff Complete? YES; Mean Corpuscular HGB CONC 32.1 g/dL (32.0-36.0); Mean Corpuscular Hemoglobin 29.8 pg (27.0-31.0); Mean Corpuscular Volume 92.9 fL (78.0-98.0); Monocytes 6 % (0-10); Neutrophil 87 % (42-75); Platelet Count 180 thou/uL (130-400); Platelet Morphology Comment Appears Adequate; RBC Distribution Width 16.3 % (11.5-14.5); Red Blood Cell (RBC) Count 3.05 mill/uL (4.70-6.10); White Blood Cell (WBC) Count 12.9 thou/uL (4.8-10.8)
[2020-03-18 05:47] LABS: Anion Gap 12 mmol/L (10-20); BUN (Urea Nitrogen) 30 mg/dL (8.4-25.7); Calc. Creatinine Clearance 121 mL/min (70-130); Calcium 7.7 mg/dL (7.8-10.44); Carbon Dioxide 26 mmol/L (23-31); Chloride 108 mmol/L (98-107); Glucose 118 mg/dL (80-115); Potassium 3.5 mmol/L (3.5-5.1); Sodium 142 mmol/L (136-145)
[2020-03-18] MEDS: Piperacillin/Tazobactam 4.5 GM in Sodium Chloride 0.9% 100 ML IVPB SCH ×3 (05:59→22:12)
[2020-03-18] MEDS ORDERED: Potassium Chloride 20 MEQ TAB PO SCH (06:45)
[2020-03-18 08:15] LABS: Actual Bicarbonate (HCO3a) 20.3 mEq/L (22-28); CO2 Tension 26.7 mmHg (35.0-45.0); Calcium, Ionized (arterial) 1.08 mmol/L (1.12-1.30); Carboxyhemoglobin (COHb) 1.2 gm% (0.0-3.0); Hemoglobin (Hb) 10.2 g/dL (14.0-18.0); O2 Tension (PaO2), arterial 69.2 mmHg (> 80.0); Potassium - ABG Lab 3.42 mmol/L (3.70-5.30)
[2020-03-18 08:16] LABS: Puncture Site RBA
[2020-03-18 08:22] LABS: ALV-art Gradient 182.625 mmHg (0-20)
[2020-03-18] MEDS: Famotidine 20 MG TAB PO SCH ×2 (08:33→20:17)
[2020-03-18] MEDS: Pregabalin 75 MG CAP PO SCH ×2 (08:33→20:17)
[2020-03-18] MEDS: Saccharomyces boulardii 250 MG CAP PO SCH (08:33)
[2020-03-18] MEDS: Heparin 5,000 UNITS/ML VIAL SC SCH ×3 (08:34→20:23)
[2020-03-18] MEDS: Aspirin Chewable 81 MG TAB PO SCH (08:34)
[2020-03-18] MEDS: Trospium 20 MG TAB PO SCH (09:02)
[2020-03-18] MEDS: Silver Sulfadiazine 50 GM JAR TP SCH ×2 (09:03→21:41)
--- NOTE | 2020-03-18 09:21 | PRG ---
DATE OF SERVICE: 03/18/2020 SUBJECTIVE: The patient remains on BiPAP ventilation noninvasively. He will wake up and follow commands. At times, he is agitated. OBJECTIVE: VITAL SIGNS: His temperature is 98.3, pulse 102, blood pressure 139/84, and O2 saturation generally in the 90s. HEENT: Unremarkable. NECK: No JVD. LUNGS: Fairly clear. CARDIAC: S1, S2. Slightly tachycardic. ABDOMEN: Soft. EXTREMITIES: Edematous. Looking at his I's and O's, he has been in positive fluid balance for the last 4 days and is approximately 8 L up. LABORATORY DATA: Reviewed. ASSESSMENT: 1. Acute hypoxic respiratory failure, requiring mechanical ventilation. 2. Congestive heart failure with ejection fraction of 30% to 35%. 3. Necrotizing fasciitis. PLAN: 1. The patient needs to be diuresed. I will increase the Lasix dose. 2. We will stop the D5W since his sodium is now appropriate. 3. We will continue to follow. Job ID: [id number]
[2020-03-18] MEDS: Morphine 2 MG/ML VIAL SLOW IVP PRN ×3 (09:30→18:44)
[2020-03-18] MEDS: Furosemide 40 MG/4 ML VIAL SLOW IVP SCH ×2 (09:50→19:48)
[2020-03-18] MEDS: Amiodarone 450 MG in Dextrose 5% in Water 250 ML IVPB SCH ×2 (11:11→20:23)
--- NOTE | 2020-03-18 14:33 | PDOC.HOSPP ---
- Subjective Encounter Date: 03/18/20 Encounter Time: 14:25 Subjective: f/u for resp failure on BiPAP/necrotizing fasciitis BUE's/sepsis. Pt agitated and placed in wrist restraints/Lasix IV and remains on BiPAP. - Objective Vital Signs & Weight: Vital Signs (12 hours) Temp Pulse Resp Pulse Ox 03/18/20 12:00 99.9 F H 03/18/20 08:08 96 33 H 95 03/18/20 08:00 100.6 F H 91 L 03/18/20 04:00 98.3 F Weight Admit Weight 222 lb Weight 212 lb 4.882 oz Most Recent Monitor Data Heart Rate from ECG 90 NIBP 130/65 NIBP BP-Mean 86 Respiration from ECG 28 SpO2 95 I&O: 03/17/20 03/18/20 03/19/20 06:59 06:59 06:59 Intake Total 4433.5 5913 221 Output Total 1440 3024 2210 Balance 2993.5 2889 -1988 Result Diagrams: 03/18/20 04:05 03/18/20 05:00 Additional Labs: Microbiology 03/10/20 09:08 Urine clean catch Urine Culture - Final Presumptive Aileen albicans 03/10/20 08:51 Central Line - Right external jugular vein Blood Culture - Final NO GROWTH IN 5 DAYS 03/10/20 08:30 Venous blood - Right Arm Blood Culture - Final NO GROWTH IN 5 DAYS 03/08/20 14:03 Sputum Respiratory Culture - Final Laboratory Tests 02/29/20 03/14/20 03/15/20 16:45 14:26 05:10 Sodium 148 H Potassium 4.1 SARS-CoV-2 (PCR) Not Detected SARS-CoV-2 IgG Ab Non-Reactive SARS-CoV-2 IgG Ab Index 0.04 03/16/20 03/16/20 04:40 13:18 Sodium 145 Potassium 3.5 3.5 SARS-CoV-2 (PCR) SARS-CoV-2 IgG Ab SARS-CoV-2 IgG Ab Index Radiology Reviewed by me: Yes (2D echo - EF 30-35%) EKG Reviewed by me: Yes (Tele - SR) Hospitalist ROS - Medication Medications: Active Medications Generic Name Dose Route Start Last Admin Trade Name Freq PRN Reason Stop Dose Admin Acetaminophen 650 mg 03/08/20 04:17 03/08/20 04:34 Acetaminophen 650 Mg Suppository [place] 650 mg Q4H PRN Administration Headache/Fever/MILD Pain 1-3 Albuterol/Ipratropium 3 ml 03/08/20 13:00 03/18/20 08:08 Ipratropium/Albuterol Sulfate 3 Ml Neb NEB 3 ml [id number] NANCY Administration Aspirin 81 mg 03/12/20 09:00 03/18/20 08:34 Aspirin Chewable 81 Mg Tab PO 81 mg DAILY NANCY Administration Atorvastatin Calcium 10 mg 03/03/20 21:00 03/17/20 19:59 Atorvastatin Calcium 10 Mg Tab PO 10 mg HS NANCY Administration Famotidine 20 mg 03/11/20 21:00 03/18/20 08:33 Famotidine 20 Mg Tab PO 20 mg BID NANCY Administration Furosemide 40 mg 03/18/20 10:00 03/18/20 09:50 Furosemide 40 Mg/4 Ml Vial SLOW IVP 40 mg 1000,2000 NANCY Administration Heparin Sodium (Porcine) 5,000 units 03/09/20 15:00 03/18/20 14:00 Heparin 5,000 Units/Ml Vial SC 5,000 units TID NANCY Administration Piperacillin Sod/Tazobactam 100 mls @ 200 mls/hr 03/13/20 22:00 03/18/20 13:25 Sod 4.5 gm/ Sodium Chloride IVPB 100 mls Q8HR NANCY Administration Dexmedetomidine HCl 400 mcg/ 100 mls @ 0 mls/hr 03/14/20 07:30 03/18/20 14:18 Sodium Chloride IVPB 100 mls INF NANCY Administration Protocol Per Protocol Amiodarone HCl 450 mg/ 259 mls @ 0 mls/hr 03/16/20 11:00 03/18/20 11:11 Dextrose/Water IVPB 259 mls INF NANCY Administration Protocol Per Protocol Lorazepam 1 mg 03/17/20 15:48 03/18/20 02:39 Lorazepam 2 Mg/Ml Vial SLOW IVP 1 mg Q6H PRN Administration Anxiety/Agitation Morphine Sulfate 2 mg 03/12/20 11:26 03/18/20 13:57 Morphine 2 Mg/Ml Vial SLOW IVP 2 mg Q3H PRN Administration Severe Pain (7-10) Pregabalin 150 mg 03/03/20 21:00 03/18/20 08:33 Pregabalin 75 Mg Cap PO 150 mg BID NANCY Administration Saccharomyces Boulardii 250 mg 03/10/20 09:00 03/18/20 08:33 Saccharomyces Boulardii 250 Mg Cap PO 250 mg DAILY NANCY Administration Silver Sulfadiazine 0 gm 03/05/20 21:00 03/18/20 09:03 Silver Sulfadiazine 50 Gm Jar TP 1 applic BID NANCY Administration Sodium Chloride 10 ml 03/07/20 21:00 03/18/20 09:04 Flush - Normal Saline 10 Ml Syringe IVF 10 ml Q12HR NANCY Administration Trospium 20 mg 03/04/20 09:00 03/18/20 09:02 Trospium 20 Mg Tab PO 20 mg DAILY NANCY Administration - Exam General Appearance: ill appearing General - other findings: agitated on BiPAP NIMV Eye: PERRL, anicteric sclera ENT: normocephalic atraumatic, no oropharyngeal lesions Neck: supple, symmetric, no JVD, no thyromegaly, no lymphadenopathy Heart: RRR, no gallops, no rubs, normal peripheral pulses Heart - other findings: S1, S2 Respiratory: rales, tachypneic Respiratory - other findings: diminished in bases bilat Gastrointestinal: soft, non-tender, non-distended, normal bowel sounds, no palpable masses Extremities: no cyanosis, no clubbing, 1+ LE edema Extremities - other findings: BUE's with dressings in place Skin: normal turgor Neurological: no new deficit Neurological - other findings: agitated, follows commands briefly Musculoskeletal: normal tone, generalized weakness Psychiatric: oriented to person, flat affect, somnolent, lethargic Hosp A/P (1) Acute respiratory failure with hypoxia Code(s): J96.01 - ACUTE RESPIRATORY FAILURE WITH HYPOXIA Status: Acute (2) Necrotizing fasciitis Code(s): M72.6 - NECROTIZING FASCIITIS Status: Acute Plan: s/p fasciotomies, wound care dressings, WCT, Continue Zosyn (3) Sepsis with acute organ dysfunction Code(s): A41.9 - SEPSIS, UNSPECIFIED ORGANISM; R65.20 - SEVERE SEPSIS WITHOUT SEPTIC SHOCK Status: Acute Qualifiers: Sepsis type: methicillin resistant Staphylococcus aureus Severe sepsis acute organ dysfunction type: acute respiratory failure Acute respiratory failure type: with hypoxia Severe sepsis shock status: with septic shock Qualified Code(s): A41.02 - Sepsis due to Methicillin resistant Staphylococcus aureus; R65.21 - Severe sepsis with septic shock; J96.01 - Acute respiratory failure with hypoxia Plan: Continue Zosyn, IVF's d/c due to volume overload (4) Tachyarrhythmia Code(s): R00.0 - TACHYCARDIA, UNSPECIFIED Status: Acute Plan: Continue Amiodarone IV, current SR (5) Acute kidney failure Status: Acute Plan: Resolved, avoid nephrotoxic meds and limit contrast exposure - Plan continue antibiotics, home health care social worker, speech therapy, DVT proph w/SCDs Continue critical support Palliative care consult appreciated Continue Zosyn BiPAP NIMV WCT for local care CM for SNF/NH options Sedation with Precedex/Ativan AM lab: BMP, CBC, ABG
--- NOTE | 2020-03-18 17:05 | PRG ---
DATE OF SERVICE: 03/18/2020 SUBJECTIVE: The patient is still on BiPAP, noted with the following vital signs. OBJECTIVE: VITAL SIGNS: Blood pressure 101/57, respiratory rate of 32, pulse of 87, saturations 93%. HEENT: Remarkable for BiPAP mask in place. CARDIOVASCULAR SYSTEM: First and second heart sounds were heard. RESPIRATORY SYSTEM: Revealed a lot of transmitted sounds. EXTREMITIES: Show significant right lower extremity edema. IMPRESSION: 1. Acute kidney injury, which is resolved. 2. Hypokalemia, which is much improved. PLAN: Continue current renal supportive measures. Job ID: [id number]
[2020-03-18] MEDS: Atorvastatin Calcium 10 MG TAB PO SCH (20:17)
[2020-03-19] MEDS: Morphine 2 MG/ML VIAL SLOW IVP PRN ×3 (00:03→10:32)
[2020-03-19] MEDS: Piperacillin/Tazobactam 4.5 GM in Sodium Chloride 0.9% 100 ML IVPB SCH ×3 (05:15→21:36)
[2020-03-19 05:53] LABS: Anion Gap 13 mmol/L (10-20); BUN (Urea Nitrogen) 33 mg/dL (8.4-25.7); Calc. Creatinine Clearance 118 mL/min (70-130); Calcium 7.7 mg/dL (7.8-10.44); Carbon Dioxide 27 mmol/L (23-31); Chloride 106 mmol/L (98-107); Glucose 131 mg/dL (80-115); Potassium 3.4 mmol/L (3.5-5.1); Sodium 143 mmol/L (136-145)
[2020-03-19 05:59] LABS: Eosinophils 5 % (0-10); Lymphocytes 6 % (21-51); MDiff Complete? YES; Mean Corpuscular HGB CONC 31.7 g/dL (32.0-36.0); Mean Corpuscular Hemoglobin 29.5 pg (27.0-31.0); Mean Corpuscular Volume 92.9 fL (78.0-98.0); Mean Platelet Volume 12.1 fL (7.4-10.4); Monocytes 5 % (0-10); Neutrophil 84 % (42-75); Platelet Count 159 thou/uL (130-400); Platelet Morphology Comment Appears Adequate; RBC Distribution Width 15.9 % (11.5-14.5); RBC Morphology Normal; Red Blood Cell (RBC) Count 3.05 mill/uL (4.70-6.10); White Blood Cell (WBC) Count 15.5 thou/uL (4.8-10.8)
[2020-03-19] MEDS ORDERED: Potassium Chloride 20 MEQ TAB PO SCH (06:30)
[2020-03-19] MEDS ORDERED: Potassium Bicarbonate/Cit Ac 20 MEQ TAB PO SCH (06:45)
--- NOTE | 2020-03-19 09:07 | RAD ---
Portable upright frontal chest radiograph: 03/19/2020 COMPARISON: 03/13/2020 HISTORY: Congestive heart failure FINDINGS: Stable right-sided vascular catheter. New nasogastric tube extends into the left upper quad rant. Multiple old left-sided rib fractures are seen. There is extensive nonspecific interstitial and alveolar opacity throughout both lungs, stable when c ompared to the prior exam. IMPRESSION: No significant interval change aside from interval placement of a nasogastric tube.
[2020-03-19] MEDS: Trospium 20 MG TAB PO SCH (09:53)
[2020-03-19] MEDS: Pregabalin 75 MG CAP PO SCH ×2 (09:53→20:24)
[2020-03-19] MEDS: Saccharomyces boulardii 250 MG CAP PO SCH (09:54)
[2020-03-19] MEDS: Aspirin Chewable 81 MG TAB PO SCH (09:54)
[2020-03-19] MEDS: Famotidine 20 MG TAB PO SCH ×2 (09:54→20:24)
[2020-03-19] MEDS: Furosemide 40 MG/4 ML VIAL SLOW IVP SCH ×2 (09:55→20:34)
[2020-03-19] MEDS: Heparin 5,000 UNITS/ML VIAL SC SCH ×3 (09:55→20:34)
[2020-03-19] MEDS: Silver Sulfadiazine 50 GM JAR TP SCH ×2 (09:56→21:40)
--- NOTE | 2020-03-19 10:05 | PDOC.HOSPP ---
- Subjective Encounter Date: 03/19/20 Encounter Time: 11:00 Subjective: Patient remains dependent on BiPAP. He pulled it off this AM and desated. Currently restrained. - Objective Vital Signs & Weight: Vital Signs (12 hours) Temp Pulse Resp Pulse Ox 03/19/20 08:38 97 34 H 99 03/19/20 08:37 95 34 H 92 L 03/19/20 04:00 99.5 F 03/19/20 02:56 98 03/19/20 00:00 99 F 03/18/20 23:31 91 L Weight Admit Weight 222 lb Weight 212 lb 4.882 oz Most Recent Monitor Data Heart Rate from ECG 104 NIBP 153/97 NIBP BP-Mean 115 Respiration from ECG 36 SpO2 95 I&O: 03/18/20 03/19/20 03/20/20 06:59 06:59 06:59 Intake Total 5913 3604 Output Total 3024 4855 Balance 8649 -1798 Result Diagrams: 03/19/20 05:11 03/19/20 05:11 Radiology Reviewed by me: Yes (congestive failure unchanged) Hospitalist ROS - Review of Systems ROS unobtainable: due to mental status - Medication Medications: Active Medications Generic Name Dose Route Start Last Admin Trade Name Freq PRN Reason Stop Dose Admin Acetaminophen 650 mg 03/08/20 04:17 03/08/20 04:34 Acetaminophen 650 Mg Suppository CO 650 mg Q4H PRN Administration Headache/Fever/MILD Pain 1-3 Albuterol/Ipratropium 3 ml 03/08/20 13:00 03/19/20 08:37 Ipratropium/Albuterol Sulfate 3 Ml Neb NEB 3 ml [id number] NANCY Administration Aspirin 81 mg 03/12/20 09:00 03/19/20 09:54 Aspirin Chewable 81 Mg Tab PO 81 mg DAILY NANCY Administration Atorvastatin Calcium 10 mg 03/03/20 21:00 03/18/20 20:17 Atorvastatin Calcium 10 Mg Tab PO 10 mg HS NANCY Administration Famotidine 20 mg 03/11/20 21:00 03/19/20 09:54 Famotidine 20 Mg Tab PO 20 mg BID NANCY Administration Furosemide 40 mg 03/18/20 10:00 03/19/20 09:55 Furosemide 40 Mg/4 Ml Vial SLOW IVP 40 mg 1000,2000 NANCY Administration Heparin Sodium (Porcine) 5,000 units 03/09/20 15:00 03/19/20 09:55 Heparin 5,000 Units/Ml Vial SC 5,000 units TID NANCY Administration Piperacillin Sod/Tazobactam 100 mls @ 200 mls/hr 03/13/20 22:00 03/19/20 05:15 Sod 4.5 gm/ Sodium Chloride IVPB 100 mls Q8HR NANCY Administration Dexmedetomidine HCl 400 mcg/ 100 mls @ 0 mls/hr 03/14/20 07:30 03/19/20 05:15 Sodium Chloride IVPB 100 mls INF NANCY Administration Protocol Per Protocol Amiodarone HCl 450 mg/ 259 mls @ 0 mls/hr 03/16/20 11:00 03/18/20 20:23 Dextrose/Water IVPB 259 mls INF NANCY Administration Protocol Per Protocol Lorazepam 1 mg 03/17/20 15:48 03/18/20 02:39 Lorazepam 2 Mg/Ml Vial SLOW IVP 1 mg Q6H PRN Administration Anxiety/Agitation Morphine Sulfate 2 mg 03/12/20 11:26 03/19/20 00:03 Morphine 2 Mg/Ml Vial SLOW IVP 2 mg Q3H PRN Administration Severe Pain (7-10) Pregabalin 150 mg 03/03/20 21:00 03/19/20 09:53 Pregabalin 75 Mg Cap PO 150 mg BID NANCY Administration Saccharomyces Boulardii 250 mg 03/10/20 09:00 03/19/20 09:54 Saccharomyces Boulardii 250 Mg Cap PO 250 mg DAILY NANCY Administration Silver Sulfadiazine 0 gm 03/05/20 21:00 03/18/20 21:41 Silver Sulfadiazine 50 Gm Jar TP 1 applic BID NANCY Administration Sodium Chloride 10 ml 03/07/20 21:00 03/19/20 09:56 Flush - Normal Saline 10 Ml Syringe IVF 10 ml Q12HR NANCY Administration Trospium 20 mg 03/04/20 09:00 03/19/20 09:53 Trospium 20 Mg Tab PO 20 mg DAILY NANCY Administration - Exam General - other findings: mod respiratory distress, improved with Bipap replacement, sleepy Heart: RRR, no murmur, no gallops, no rubs Respiratory: no wheezes, no rales, no ronchi Respiratory - other findings: increased WOB Gastrointestinal: soft, non-tender, non-distended, normal bowel sounds Extremities - other findings: dressings to bilateral forearms, right pad of foot with ulcer and mild eryt Psychiatric: lethargic Hosp A/P - Plan (1) Acute respiratory failure with hypoxia Code(s): J96.01 - ACUTE RESPIRATORY FAILURE WITH HYPOXIA Status: Acute (2) Necrotizing fasciitis Code(s): M72.6 - NECROTIZING FASCIITIS Status: Acute Plan: s/p fasciotomies, wound care dressings, WCT, Continue Zosyn (3) Sepsis with acute organ dysfunction Code(s): A41.9 - SEPSIS, UNSPECIFIED ORGANISM; R65.20 - SEVERE SEPSIS WITHOUT SEPTIC SHOCK Status: Acute Qualifiers: Sepsis type: methicillin resistant Staphylococcus aureus Severe sepsis acute organ dysfunction type: acute respiratory failure Acute respiratory failure type: with hypoxia Severe sepsis shock status: with septic shock Qualified Code(s): A41.02 - Sepsis due to Methicillin resistant Staphylococcus aureus; R65.21 - Severe sepsis with septic shock; J96.01 - Acute respiratory failure with hypoxia Plan: Continue Zosyn, IVF's d/c due to volume overload (4) Tachyarrhythmia Code(s): R00.0 - TACHYCARDIA, UNSPECIFIED Status: Acute Plan: Continue Amiodarone IV, current SR (5) Acute kidney failure Status: Acute Plan: Resolved, avoid nephrotoxic meds and limit contrast exposure (6) Acute on Chronic Systolic Congestive Heart Failure EF 30-35% Hold further IV fluids and giving Lasix CXR unchanged this morning Continue critical support Palliative care consult appreciated Continue Zosyn Lasix BID BiPAP NIMV WCT for local care CM for SNF/NH options Sedation with Precedex/Ativan AM lab: BMP, CBC, ABG DVT Proph: Heparin GI Proph: Protonix
[2020-03-19] MEDS: Lorazepam 2 MG/ML VIAL SLOW IVP PRN ×3 (10:30→18:19)
[2020-03-19] MEDS: Amiodarone 450 MG in Dextrose 5% in Water 250 ML IVPB SCH (10:57)
[2020-03-19 12:43] LABS: Actual Bicarbonate (HCO3a) 22.1 mEq/L (22-28); Analyzer IN Cardio ER; CO2 Tension 44.4 mmHg (35.0-45.0); Calcium, Ionized (arterial) 1.12 mmol/L (1.12-1.30); Carboxyhemoglobin (COHb) 0.5 gm% (0.0-3.0); Hemoglobin (Hb) 10.9 g/dL (14.0-18.0); Potassium - ABG Lab 3.99 mmol/L (3.70-5.30); pH, Arterial 7.31 (7.35-7.45)
[2020-03-19] MEDS ORDERED: Propofol 1,000 MG/100 ML VIAL IV ONE (12:49)
[2020-03-19 13:49] LABS: O2 Tension (PaO2), arterial 56.4 mmHg (> 80.0); Puncture Site LBA
[2020-03-19 14:00] LABS: Actual Bicarbonate (HCO3a) 21.5 mEq/L (22-28); Analyzer IN Cardio ER; Base Excess (BEa) -2.9 mEq/L (-2.0 to +3.0); CO2 Tension 35.7 mmHg (35.0-45.0); Calcium, Ionized (arterial) 1.07 mmol/L (1.12-1.30); Carboxyhemoglobin (COHb) 0.2 gm% (0.0-3.0); Hemoglobin (Hb) 9.9 g/dL (14.0-18.0); O2 Tension (PaO2), arterial 68.9 mmHg (> 80.0); Potassium - ABG Lab 3.74 mmol/L (3.70-5.30)
[2020-03-19] MEDS ORDERED: Furosemide 40 MG/4 ML VIAL IVP SCH (14:00)
[2020-03-19 14:04] LABS: ALV-art Gradient 599.475 mmHg (0-20); Puncture Site LBA
[2020-03-19] MEDS ORDERED: Norepinephrine 8 MG/0.9% NS 250 ML ONE (14:43)
[2020-03-19] MEDS: Acetylcysteine 20% 200 MG/ML 30 ML VIAL INH SCH ×10 (15:03→23:49)
[2020-03-19] MEDS ORDERED: Fentanyl BOLUS 250 ML IVPB PRN (15:15)
[2020-03-19] MEDS ORDERED: Propofol BOLUS 1,000 MG/100 ML VIAL IV PRN (15:15)
--- NOTE | 2020-03-19 16:57 | PRG ---
DATE OF SERVICE: 03/19/2020 SUBJECTIVE: Davey was examined earlier this morning. He pulled his BiPAP off and quickly dropped his sats into the 60s. With the BiPAP on, he was reasonably comfortable. OBJECTIVE: VITAL SIGNS: Heart rate is in the 120 to 130 range. Blood pressure 130/82. LUNGS: Remarkable for coarse equal breath sounds. HEART: Regular rhythm. ABDOMEN: Soft. EXTREMITIES: Bandaged. LABORATORY DATA: White count 15.5, hemoglobin 9, platelets 159. Sodium 143, potassium 3.4, chloride 106, bicarb 27, BUN 33, creatinine 0.86. Chest x-ray done today shows diffuse increase in interstitial markings. IMPRESSION: 1. Status post debridement of bilateral forearm abscesses with possible early necrotizing fasciitis. 2. Adult respiratory distress syndrome. 3. Systolic cardiomyopathy. 4. Respiratory failure, status post intubation, extubation, re-intubation. 5. He is on BiPAP now. 6. He is watched closely throughout the morning. This afternoon, he started developing signs of fatigue. I was contacted by Respiratory Therapy. Bronchoscope was brought to the bedside. Bronchoscope was introduced into his upper airway and quickly passed through his vocal cords. Copious amounts of dried secretions were encountered. The endotracheal tube was secured above the main [place]. Aggressive saline lavage was not successful removing all the tracheobronchial secretions Mucomyst will be instilled down the endotracheal tube intermittently throughout the rest of the day and he will be continued to be aggressively suctioned. He will be kept deeply sedated. We may require bronchoscopy again tomorrow. Critical care time 45 minutes independent of the procedure performed. Job ID: [id number]
--- NOTE | 2020-03-19 17:49 | PRG ---
DATE OF SERVICE: SUBJECTIVE: The patient noted with the following vital signs. OBJECTIVE: VITAL SIGNS: Blood pressure 136/82, pulse of 99, respiratory rate of 39, O2 sat of 92%. HEENT: Remarkable for BiPAP mask. CARDIOVASCULAR SYSTEM: First and second heart sounds were heard. RESPIRATORY SYSTEM: Revealed a lot of transmitted sounds. DIGESTIVE SYSTEM: Revealed obese abdomen. EXTREMITIES: Showed right lower extremity edema. LABORATORY INVESTIGATION: Significant for potassium of 3.4, creatinine 0.86. IMPRESSION: 1. Mild hypokalemia. 2. Acute kidney injury, resolved. PLAN: 1. Replete potassium. 2. Continue other renal supportive measures. 3. Further management to be dependent on the clinical course. Job ID: [id number]
[2020-03-19] MEDS: Atorvastatin Calcium 10 MG TAB PO SCH (20:24)
[2020-03-19] MEDS: Acetaminophen 325 MG TAB PO PRN (20:25)
[2020-03-19] MEDS: Propofol 1,000 MG/100 ML VIAL IV PRN (21:31)
[2020-03-20] MEDS: Lorazepam 2 MG/ML VIAL SLOW IVP PRN ×4 (00:20→21:15)
[2020-03-20] MEDS: Acetylcysteine 20% 200 MG/ML 30 ML VIAL INH SCH ×12 (00:53→15:11)
[2020-03-20] MEDS: Amiodarone 450 MG in Dextrose 5% in Water 250 ML IVPB SCH ×2 (02:19→12:44)
[2020-03-20] MEDS: Acetaminophen 325 MG TAB PO PRN ×2 (02:28→11:59)
[2020-03-20 05:13] LABS: Anion Gap 16 mmol/L (10-20); BUN (Urea Nitrogen) 36 mg/dL (8.4-25.7); Calc. Creatinine Clearance 85 mL/min (70-130); Calcium 7.6 mg/dL (7.8-10.44); Carbon Dioxide 26 mmol/L (23-31); Chloride 104 mmol/L (98-107); Glucose 129 mg/dL (80-115); Potassium 3.3 mmol/L (3.5-5.1); Sodium 143 mmol/L (136-145)
[2020-03-20 05:23] LABS: Hemoglobin 9.1 g/dL (14.0-18.0); Lymphocytes 6 % (21-51); MDiff Complete? YES; Mean Corpuscular HGB CONC 31.4 g/dL (32.0-36.0); Mean Corpuscular Hemoglobin 29.1 pg (27.0-31.0); Mean Corpuscular Volume 92.7 fL (78.0-98.0); Mean Platelet Volume 12.2 fL (7.4-10.4); Monocytes 7 % (0-10); Neutrophil 87 % (42-75); Platelet Count 157 thou/uL (130-400); Platelet Morphology Comment Appears Adequate; RBC Distribution Width 15.9 % (11.5-14.5); RBC Morphology Normal; Red Blood Cell (RBC) Count 3.12 mill/uL (4.70-6.10); White Blood Cell (WBC) Count 24.6 thou/uL (4.8-10.8)
[2020-03-20] MEDS: Piperacillin/Tazobactam 4.5 GM in Sodium Chloride 0.9% 100 ML IVPB SCH ×3 (05:36→21:10)
[2020-03-20] MEDS: Propofol 1,000 MG/100 ML VIAL IV PRN ×3 (05:36→17:27)
[2020-03-20] MEDS: Morphine 2 MG/ML VIAL SLOW IVP PRN (06:15)
[2020-03-20 08:10] LABS: Actual Bicarbonate (HCO3a) 23.4 mEq/L (22-28); Base Excess (BEa) 0.5 mEq/L (-2.0 to +3.0); CO2 Tension 30.9 mmHg (35.0-45.0); Calcium, Ionized (arterial) 1.05 mmol/L (1.12-1.30); Carboxyhemoglobin (COHb) 0.6 gm% (0.0-3.0); Hemoglobin (Hb) 9.3 g/dL (14.0-18.0); O2 Tension (PaO2), arterial 82.2 mmHg (> 80.0)
[2020-03-20 08:11] LABS: ALV-art Gradient 306.975 mmHg (0-20); Puncture Site LBA
[2020-03-20] MEDS: Famotidine 20 MG TAB PO SCH ×2 (09:55→20:34)
[2020-03-20] MEDS: Aspirin Chewable 81 MG TAB PO SCH (09:55)
[2020-03-20] MEDS: Pregabalin 75 MG CAP PO SCH ×2 (09:55→20:34)
[2020-03-20] MEDS: Saccharomyces boulardii 250 MG CAP PO SCH (09:56)
[2020-03-20] MEDS: Heparin 5,000 UNITS/ML VIAL SC SCH ×3 (10:13→20:34)
[2020-03-20] MEDS: Furosemide 40 MG/4 ML VIAL SLOW IVP SCH ×2 (10:14→20:06)
[2020-03-20] MEDS: Trospium 20 MG TAB PO SCH (10:14)
[2020-03-20] MEDS: Silver Sulfadiazine 50 GM JAR TP SCH ×2 (10:18→20:38)
--- NOTE | 2020-03-20 10:27 | PDOC.HOSPP ---
- Subjective Encounter Date: 03/20/20 Encounter Time: 10:20 Subjective: f/u for resp failure requiring re-intubation 03/19/20 with increased secretions using Mucomyst down the ETT. FI02 60 with AC and Rate 22. Tmax 102.7F in last 24h. - Objective Vital Signs & Weight: Vital Signs (12 hours) Temp Pulse Resp BP Pulse Ox 03/20/20 08:00 99.9 F H 42 H 95 03/20/20 07:57 102 H 107/71 03/20/20 06:00 101.4 F H 35 H 03/20/20 04:50 100 90/53 L 03/20/20 04:00 101.6 F H 37 H 03/20/20 02:28 102.5 F H 03/20/20 02:00 102.5 F H 31 H 03/20/20 01:59 99 111/55 L 03/20/20 00:00 100.8 F H 30 H 03/19/20 23:47 92 128/57 L 03/19/20 23:00 102.7 F H Weight Admit Weight 222 lb Weight 212 lb 4.882 oz Most Recent Monitor Data Heart Rate from ECG 112 NIBP 115/65 NIBP BP-Mean 81 Respiration from ECG 38 SpO2 94 I&O: 03/19/20 03/20/20 03/21/20 06:59 06:59 06:59 Intake Total 3604 2897.9 120 Output Total 4855 4020 200 Balance -1251 -1122.1 -80 Result Diagrams: 03/20/20 04:32 03/20/20 04:32 Additional Labs: Microbiology 03/10/20 09:08 Urine clean catch Urine Culture - Final Presumptive Aileen albicans 03/10/20 08:51 Central Line - Right external jugular vein Blood Culture - Final NO GROWTH IN 5 DAYS 03/10/20 08:30 Venous blood - Right Arm Blood Culture - Final NO GROWTH IN 5 DAYS 03/08/20 14:03 Sputum Respiratory Culture - Final Laboratory Tests 02/29/20 03/14/20 03/15/20 16:45 14:26 05:10 WBC Hgb Sodium 148 H Potassium 4.1 SARS-CoV-2 (PCR) Not Detected SARS-CoV-2 IgG Ab Non-Reactive SARS-CoV-2 IgG Ab Index 0.04 11/03/16/20 03/18/20 04:40 13:18 04:05 WBC 12.9 H Hgb 9.1 L Sodium 145 Potassium 3.5 3.5 SARS-CoV-2 (PCR) SARS-CoV-2 IgG Ab SARS-CoV-2 IgG Ab Index 03/19/20 03/19/20 05:11 05:11 WBC 15.5 H Hgb 9.0 L Sodium Potassium 3.4 L SARS-CoV-2 (PCR) SARS-CoV-2 IgG Ab SARS-CoV-2 IgG Ab Index Radiology Reviewed by me: Yes (PCXR - extensive bilat infiltrates, NGT in place) EKG Reviewed by me: Yes (Tele - SA rates in 90-100's) Hospitalist ROS - Medication Medications: Active Medications Generic Name Dose Route Start Last Admin Trade Name Freq PRN Reason Stop Dose Admin Acetaminophen 650 mg 03/01/20 07:54 03/20/20 02:28 Acetaminophen 325 Mg Tab PO 650 mg Q6H PRN Administration Mild Pain (1-3) Acetaminophen 650 mg 03/08/20 04:17 03/08/20 04:34 Acetaminophen 650 Mg Suppository MI 650 mg Q4H PRN Administration Headache/Fever/MILD Pain 1-3 Acetylcysteine 0 mg 03/19/20 15:00 03/20/20 10:21 Acetylcysteine 20% 200 Mg/Ml 30 Ml Vial INH 500 mg Q1HR NANCY Administration Albuterol/Ipratropium 3 ml 03/08/20 13:00 03/20/20 04:48 Ipratropium/Albuterol Sulfate 3 Ml Neb NEB 3 ml [id number] NANCY Administration Aspirin 81 mg 03/12/20 09:00 03/20/20 09:55 Aspirin Chewable 81 Mg Tab PO 81 mg DAILY NANCY Administration Atorvastatin Calcium 10 mg 03/03/20 21:00 03/19/20 20:24 Atorvastatin Calcium 10 Mg Tab PO 10 mg HS NANCY Administration Famotidine 20 mg 03/11/20 21:00 03/20/20 09:55 Famotidine 20 Mg Tab PO 20 mg BID NANCY Administration Furosemide 40 mg 03/18/20 10:00 03/20/20 10:14 Furosemide 40 Mg/4 Ml Vial SLOW IVP 40 mg 1000,2000 NANCY Administration Heparin Sodium (Porcine) 5,000 units 03/09/20 15:00 03/20/20 10:13 Heparin 5,000 Units/Ml Vial SC 5,000 units TID NANCY Administration Piperacillin Sod/Tazobactam 100 mls @ 200 mls/hr 03/13/20 22:00 03/20/20 05:36 Sod 4.5 gm/ Sodium Chloride IVPB 100 mls Q8HR NANCY Administration Dexmedetomidine HCl 400 mcg/ 100 mls @ 0 mls/hr 03/14/20 07:30 03/19/20 10:44 Sodium Chloride IVPB 100 mls INF NANCY Administration Protocol Per Protocol Amiodarone HCl 450 mg/ 259 mls @ 0 mls/hr 03/16/20 11:00 03/20/20 02:19 Dextrose/Water IVPB 259 mls INF NANCY Administration Protocol Per Protocol Lorazepam 2 mg 03/19/20 15:15 03/20/20 00:20 Lorazepam 2 Mg/Ml Vial SLOW IVP 04/18/20 15:15 2 mg Q1H PRN Administration Breakthrough agitation Morphine Sulfate 2 mg 03/19/20 15:15 03/20/20 06:15 Morphine 2 Mg/Ml Vial SLOW IVP 04/18/20 15:15 2 mg Q1H PRN Administration Breakthrough Pain/Agitation Pregabalin 150 mg 03/03/20 21:00 03/20/20 09:55 Pregabalin 75 Mg Cap PO 150 mg BID NANCY Administration Propofol 1,000 mg 03/19/20 15:15 03/20/20 10:12 Propofol 1,000 Mg/100 Ml Vial IV 04/18/20 15:15 1,000 mg INF PRN Administration TO ACHIEVE GOAL RASS Protocol Saccharomyces Boulardii 250 mg 03/10/20 09:00 03/20/20 09:56 Saccharomyces Boulardii 250 Mg Cap PO 250 mg DAILY NANCY Administration Silver Sulfadiazine 0 gm 03/05/20 21:00 03/20/20 10:18 Silver Sulfadiazine 50 Gm Jar TP 1 applic BID NANCY Administration Sodium Chloride 10 ml 03/07/20 21:00 03/20/20 10:13 Flush - Normal Saline 10 Ml Syringe IVF 10 ml Q12HR NANCY Administration Trospium 20 mg 03/04/20 09:00 03/20/20 10:14 Trospium 20 Mg Tab PO 20 mg DAILY NANCY Administration - Exam General - other findings: opens eyes, turns head to name, agitated Eye: PERRL, anicteric sclera ENT: normocephalic atraumatic, no oropharyngeal lesions ENT - other findings: ETT in place Neck: supple, symmetric, no JVD, no thyromegaly, no lymphadenopathy Heart: no murmur, no rubs, normal peripheral pulses Heart - other findings: S1, S2 tachycardic Respiratory: no wheezes, tachypneic Respiratory - other findings: coarse bilat, diminished in bases Gastrointestinal: soft, non-tender, non-distended, normal bowel sounds, no palpable masses Extremities: no cyanosis Extremities - other findings: BUE's with dressings in place, wrist restraints in place Skin: normal turgor Neurological: no new deficit Neurological - other findings: moves all extremities Musculoskeletal: normal tone, generalized weakness Psychiatric: oriented to person, flat affect, somnolent Psychiatric - other findings: intermittent agitation Hosp A/P (1) Acute respiratory failure with hypoxia Code(s): J96.01 - ACUTE RESPIRATORY FAILURE WITH HYPOXIA Status: Acute Plan: Re-intubated 03/19/20 on AC with FIO2 60%, Rate 22, PEEP 10, continue pulmonary supportive mgmt, frequent suctioning/Mucomyst (2) Necrotizing fasciitis Code(s): M72.6 - NECROTIZING FASCIITIS Status: Acute Plan: s/p debridement of BUE's, WCT, dressing changes (3) Sepsis with acute organ dysfunction Code(s): A41.9 - SEPSIS, UNSPECIFIED ORGANISM; R65.20 - SEVERE SEPSIS WITHOUT SEPTIC SHOCK Status: Acute Qualifiers: Sepsis type: methicillin resistant Staphylococcus aureus Severe sepsis acute organ dysfunction type: acute respiratory failure Acute respiratory failure type: with hypoxia Severe sepsis shock status: with septic shock Qualified Code(s): A41.02 - Sepsis due to Methicillin resistant Staphylococcus aureus; R65.21 - Severe sepsis with septic shock; J96.01 - Acute respiratory failure with hypoxia Plan: Likely concomitant PNA, continue Zosyn IV (4) Tachyarrhythmia Code(s): R00.0 - TACHYCARDIA, UNSPECIFIED Status: Acute Plan: Likely multifactorial including worsening resp status/PNA/Fever, continue Amiodarone for rate/rhythm control (5) Acute kidney failure Status: Acute Plan: Avoid nephrotoxic meds and limit contrast exposure, serial creatinine (6) Hypokalemia Code(s): E87.6 - HYPOKALEMIA Status: Acute Plan: Mild, KCL replacement, serial K+ monitoring - Plan 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
[2020-03-20] MEDS ORDERED: Pantoprazole 40 MG GRANULES PACKET PER TUBE SCH (11:00)
--- NOTE | 2020-03-20 15:25 | PRG ---
DATE OF SERVICE: 03/20/2020 SUBJECTIVE: Davey Humphrey looks more comfortable today. OBJECTIVE: VITAL SIGNS: He is febrile. Heart rate is in the 90s, blood pressure 115/65, and respiratory rates in the 30s. LUNGS: Clear. HEART: Regular rhythm. ABDOMEN: Soft. very large old bloody mucus plugs were suctioned out of him. One of them was saved endotracheal tube. I could see this with the bronchoscope, but could not get this out. He was lavaged multiple times with 10% Mucomyst throughout the day and the evening, which I believe led to mobilization of lot of these mucus plugs. LABORATORY DATA: PH today 7.5, CO2 of 30, pO2 of 82. Electrolytes are unremarkable. White count 24,000, he does not have a left shift. IMPRESSION: Fever, quite possibly secondary to aggressive saline lavage yesterday. Obviously, he could have recurrent infections in his arms, something new in his lungs. Cultures were ordered. We will check him again with an x-ray in the morning and continue mechanical ventilation. Critical care time 30 min. Job ID: [id number] [facility]
[2020-03-20] MEDS: fentaNYL Citrate/PF 2,000 MCG in Sodium Chloride 0.9% 60 ML IV SCH (16:55)
[2020-03-20] MEDS: Atorvastatin Calcium 10 MG TAB PO SCH (20:34)
--- NOTE | 2020-03-20 22:30 | PRG ---
DATE OF SERVICE: 03/20/2020 OBJECTIVE: VITAL SIGNS: The patient noted with the following vital signs; blood pressure 122/68, pulse 90s to 111, respiratory rate of 32, O2 sat of 96%. HEENT: Unremarkable. CARDIOVASCULAR SYSTEM: First and second heart sounds were heard. RESPIRATORY SYSTEM: Clear to auscultation. DIGESTIVE SYSTEM: Revealed a benign abdomen. EXTREMITIES: Revealed right lower extremity edema. LABORATORY INVESTIGATION: Showed a potassium of 3.3. IMPRESSION: Hypokalemia. PLAN: Replace the potassium. Further management to be dependent on the clinical course. Job ID: [id number]
[2020-03-21] MEDS: Lorazepam 2 MG/ML VIAL SLOW IVP PRN ×4 (00:56→20:49)
[2020-03-21] MEDS: Norepinephrine 8 MG/0.9% NS 250 ML IVPB SCH (02:42)
[2020-03-21] MEDS: Amiodarone 450 MG in Dextrose 5% in Water 250 ML IVPB SCH (03:07)
[2020-03-21 04:44] LABS: Band 11 % (5-11); Eosinophils 5 % (0-10); Hemoglobin 8.1 g/dL (14.0-18.0); Lymphocytes 5 % (21-51); MDiff Complete? YES; Mean Corpuscular HGB CONC 31.8 g/dL (32.0-36.0); Mean Corpuscular Hemoglobin 29.6 pg (27.0-31.0); Mean Corpuscular Volume 93.2 fL (78.0-98.0); Mean Platelet Volume 12.4 fL (7.4-10.4); Monocytes 3 % (0-10); Neutrophil 76 % (42-75); Platelet Count 111 thou/uL (130-400); Platelet Morphology Comment Appears Decreased; RBC Distribution Width 15.7 % (11.5-14.5); Red Blood Cell (RBC) Count 2.73 mill/uL (4.70-6.10); White Blood Cell (WBC) Count 19.6 thou/uL (4.8-10.8)
[2020-03-21 05:03] LABS: Anion Gap 13 mmol/L (10-20); BUN (Urea Nitrogen) 34 mg/dL (8.4-25.7); Calc. Creatinine Clearance 87 mL/min (70-130); Calcium 7.4 mg/dL (7.8-10.44); Carbon Dioxide 30 mmol/L (23-31); Chloride 103 mmol/L (98-107); Glucose 117 mg/dL (80-115); Potassium 3.1 mmol/L (3.5-5.1); Sodium 143 mmol/L (136-145)
[2020-03-21] MEDS: Propofol 1,000 MG/100 ML VIAL IV PRN ×4 (05:30→20:48)
[2020-03-21] MEDS: Piperacillin/Tazobactam 4.5 GM in Sodium Chloride 0.9% 100 ML IVPB SCH ×3 (05:30→21:00)
[2020-03-21 07:06] LABS: Actual Bicarbonate (HCO3a) 25.8 mEq/L (22-28); Base Excess (BEa) 2.3 mEq/L (-2.0 to +3.0); CO2 Tension 35.2 mmHg (35.0-45.0); Calcium, Ionized (arterial) 1.04 mmol/L (1.12-1.30); Carboxyhemoglobin (COHb) 0.7 gm% (0.0-3.0); Hemoglobin (Hb) 8.5 g/dL (14.0-18.0); O2 Tension (PaO2), arterial 60.5 mmHg (> 80.0); Potassium - ABG Lab 3.18 mmol/L (3.70-5.30); Puncture Site RBA; pH, Arterial 7.48 (7.35-7.45)
[2020-03-21] MEDS ORDERED: Potassium Chloride 20 MEQ TAB PO SCH (07:15)
--- NOTE | 2020-03-21 08:39 | RAD ---
PORTABLE CHEST: INDICATION: Intubation. CCU followup. COMPARISON: 03/19/2020. FINDINGS: ET tube and NG tube remain in place. Central line is in place via the right jugular with tip overlyi ng the SVC. There are confluent infiltrates in the right mid and lower lung and patchy atelectasis and/or infiltr ate in the left lung base. Small effusions. Cardiomegaly with mild vascular congestion. IMPRESSION: Bilateral infiltrates and/or edema not significantly changed. POS: OFF
--- NOTE | 2020-03-21 08:59 | PRG ---
DATE OF SERVICE: 03/21/2020 35 minutes of critical care time. SUBJECTIVE: The patient was reintubated over the weekend and is currently on mechanical ventilation in assist control mode. OBJECTIVE: VITAL SIGNS: His temperature is 100.4 with a T-max of 101.4, pulse 96, blood pressure 90/55. He is currently on Levophed 1.5 mcg/minute. NEUROLOGIC: He is very sedated. HEENT: Unremarkable except for the orogastric and endotracheal tube. NECK: No adenopathy or JVD. LUNGS: Coarse rhonchi. CARDIAC: S1 and S2. Slightly tachycardic. ABDOMEN: Soft and nontender to palpation. EXTREMITIES: He has dressings over both arms. LABORATORY DATA: Sodium 143, potassium 3.1, chloride 103, CO2 of 30, BUN 34, creatinine 1.2, glucose 117. White blood cell count 19.6, hematocrit 25.5, and platelet count 111. PH 7.48, pCO2 of 35, PO2 of 60, on assist-control rate of 22, tidal volume 470, PEEP 10, FiO2 of 50%. X-ray shows diffuse bilateral infiltrates, more so on the right than left. ASSESSMENT: 1. Pneumonia. 2. Acute respiratory failure requiring mechanical ventilation-this is his third intubation this hospitalization. 3. Generalized failure to thrive. 4. Severe deconditioning. PLAN: 1. I spoke with his sister over the phone. Apparently, there are several family members they are going to be involved in making decisions for him. I have suggested that we proceed with tracheostomy and feeding tube placement as long as his PEEP and FiO2 are reasonable levels. 2. Continue antibiotics. Does not look like he has had cultures in several days, so I will go ahead and repeat those. 3. Consider adding vancomycin. 4. Continue enteral tube feeds. Job ID: [id number]
[2020-03-21] MEDS: Acetaminophen 325 MG TAB PO PRN (09:41)
[2020-03-21] MEDS: Pregabalin 75 MG CAP PO SCH ×2 (09:41→20:48)
[2020-03-21] MEDS: Trospium 20 MG TAB PO SCH (09:41)
[2020-03-21] MEDS: Famotidine 20 MG TAB PO SCH ×2 (09:41→20:48)
[2020-03-21] MEDS: Saccharomyces boulardii 250 MG CAP PO SCH (09:41)
[2020-03-21] MEDS: Aspirin Chewable 81 MG TAB PO SCH (09:41)
[2020-03-21] MEDS: Pantoprazole 40 MG GRANULES PACKET PER TUBE SCH (09:41)
[2020-03-21] MEDS: Silver Sulfadiazine 50 GM JAR TP SCH ×2 (09:43→20:50)
[2020-03-21] MEDS: Heparin 5,000 UNITS/ML VIAL SC SCH ×2 (10:28→14:05)
[2020-03-21] MEDS ORDERED: Magnesium 2 GM/50 ML 2 GM in Premix Bag 1 BAG IVPB SCH (11:30)
[2020-03-21 12:18] LABS: Potassium 3.3 mmol/L (3.5-5.1)
[2020-03-21 14:56] LABS: Potassium 3.3 mmol/L (3.5-5.1)
--- NOTE | 2020-03-21 19:38 | PDOC.HOSPP ---
- Subjective Encounter Date: 03/21/20 Encounter Time: 17:25 Subjective: f/u for PNA/resp failure requiring re-intubation 03/19/20 receiving Zosyn/mech ventilation with Tmax 102.7 F. Nursing reports blood in Castaneda catheter after being manipulated and receiving Heparin for DVT ppx. - Objective Vital Signs & Weight: Vital Signs (12 hours) Temp Pulse Resp BP Pulse Ox 03/21/20 18:29 92 L 03/21/20 18:25 96 110/61 03/21/20 18:22 98 30 H 92 L 03/21/20 18:00 28 H 03/21/20 16:00 100.2 F H 32 H 03/21/20 14:53 97 98/51 L 03/21/20 14:00 41 H 03/21/20 13:27 84 97/61 03/21/20 13:00 100 F H 03/21/20 12:00 34 H 03/21/20 10:31 98 92/60 03/21/20 10:00 29 H 03/21/20 09:41 101 F H 03/21/20 08:00 29 H 92 L 03/21/20 07:43 91 124/75 Weight Admit Weight 222 lb Weight 212 lb 4.882 oz Most Recent Monitor Data Heart Rate from ECG 102 NIBP 112/65 NIBP BP-Mean 80 Respiration from ECG 25 SpO2 91 I&O: 03/20/20 03/21/20 03/22/20 06:59 06:59 06:59 Intake Total 2897.9 3345 968.6 Output Total 4020 3300 767 Balance -1122.1 45 201.6 Result Diagrams: 03/21/20 04:15 03/21/20 14:35 Additional Labs: Microbiology 03/10/20 09:08 Urine clean catch Urine Culture - Final Presumptive Aileen albicans 03/10/20 08:51 Central Line - Right external jugular vein Blood Culture - Final NO GROWTH IN 5 DAYS 03/10/20 08:30 Venous blood - Right Arm Blood Culture - Final NO GROWTH IN 5 DAYS 03/08/20 14:03 Sputum Respiratory Culture - Final 03/20/20 05:57 Venous blood - Left Arm Blood Culture - Preliminary Specimen has been received and culture in progress. No Growth to date. Laboratory Tests 02/29/20 03/14/20 03/15/20 16:45 14:26 05:10 WBC Hgb Neutrophils % (Manual) Sodium 148 H Potassium 4.1 Magnesium SARS-CoV-2 (PCR) Not Detected SARS-CoV-2 IgG Ab Non-Reactive SARS-CoV-2 IgG Ab Index 0.04 03/16/20 03/16/20 03/18/20 04:40 13:18 04:05 WBC 12.9 H Hgb 9.1 L Neutrophils % (Manual) Sodium 145 Potassium 3.5 3.5 Magnesium SARS-CoV-2 (PCR) SARS-CoV-2 IgG Ab SARS-CoV-2 IgG Ab Index 03/19/20 03/19/20 03/20/20 05:11 05:11 04:32 WBC 15.5 H 24.6 H Hgb 9.0 L 9.1 L Neutrophils % (Manual) 87 H Sodium Potassium 3.4 L Magnesium SARS-CoV-2 (PCR) SARS-CoV-2 IgG Ab SARS-CoV-2 IgG Ab Index 03/21/20 03/21/20 04:15 09:27 WBC Hgb Neutrophils % (Manual) 76 H Sodium Potassium Magnesium 1.6 SARS-CoV-2 (PCR) SARS-CoV-2 IgG Ab SARS-CoV-2 IgG Ab Index Radiology Reviewed by me: Yes (PCXR - bilat infiltrates, lines/tubes in place, no sig change) EKG Reviewed by me: Yes (Tele - Sinus arrhythmia) Hospitalist ROS - Medication Medications: Active Medications Generic Name Dose Route Start Last Admin Trade Name Freq PRN Reason Stop Dose Admin Acetaminophen 650 mg 03/01/20 07:54 03/21/20 09:41 Acetaminophen 325 Mg Tab PO 650 mg Q6H PRN Administration Mild Pain (1-3) Acetaminophen 650 mg 03/08/20 04:17 03/08/20 04:34 Acetaminophen 650 Mg Suppository NJ 650 mg Q4H PRN Administration Headache/Fever/MILD Pain 1-3 Albuterol/Ipratropium 3 ml 03/08/20 13:00 03/21/20 18:22 Ipratropium/Albuterol Sulfate 3 Ml Neb NEB 3 ml [id number] NANCY Administration Aspirin 81 mg 03/12/20 09:00 03/21/20 09:41 Aspirin Chewable 81 Mg Tab PO 81 mg DAILY NANCY Administration Atorvastatin Calcium 10 mg 03/03/20 21:00 03/20/20 20:34 Atorvastatin Calcium 10 Mg Tab PO 10 mg HS NANCY Administration Famotidine 20 mg 03/11/20 21:00 03/21/20 09:41 Famotidine 20 Mg Tab PO 20 mg BID NANCY Administration Heparin Sodium (Porcine) 5,000 units 03/09/20 15:00 03/21/20 14:05 Heparin 5,000 Units/Ml Vial SC 5,000 units TID NANCY Administration Piperacillin Sod/Tazobactam 100 mls @ 200 mls/hr 03/13/20 22:00 03/21/20 14:05 Sod 4.5 gm/ Sodium Chloride IVPB 100 mls Q8HR NANCY Administration Dexmedetomidine HCl 400 mcg/ 100 mls @ 0 mls/hr 03/14/20 07:30 03/19/20 10:44 Sodium Chloride IVPB 100 mls INF NANCY Administration Protocol Per Protocol Amiodarone HCl 450 mg/ 259 mls @ 0 mls/hr 03/16/20 11:00 03/21/20 03:07 Dextrose/Water IVPB 259 mls INF NANCY Administration Protocol Per Protocol Fentanyl Citrate 2,000 mcg/ 100 mls @ 0 mls/hr 03/19/20 15:15 03/20/20 16:55 Sodium Chloride IV 04/18/20 15:15 100 mls INF NANCY Administration Protocol Per Protocol Norepinephrine Bitartrate 250 mls @ 0 mls/hr 03/19/20 20:15 03/21/20 02:42 Levophed IVPB 250 mls INF NANCY Administration Protocol Titrate Lorazepam 2 mg 03/19/20 15:15 03/21/20 14:13 Lorazepam 2 Mg/Ml Vial SLOW IVP 04/18/20 15:15 2 mg Q1H PRN Administration Breakthrough agitation Morphine Sulfate 2 mg 03/19/20 15:15 03/20/20 06:15 Morphine 2 Mg/Ml Vial SLOW IVP 04/18/20 15:15 2 mg Q1H PRN Administration Breakthrough Pain/Agitation Pantoprazole Sodium 40 mg 03/21/20 09:00 03/21/20 09:41 Pantoprazole 40 Mg Granules Packet PER TUBE 40 mg DAILY NANCY Administration Pregabalin 150 mg 03/03/20 21:00 03/21/20 09:41 Pregabalin 75 Mg Cap PO 150 mg BID NANCY Administration Propofol 1,000 mg 03/19/20 15:15 03/21/20 16:03 Propofol 1,000 Mg/100 Ml Vial IV 04/18/20 15:15 1,000 mg INF PRN Administration TO ACHIEVE GOAL RASS Protocol Saccharomyces Boulardii 250 mg 03/10/20 09:00 03/21/20 09:41 Saccharomyces Boulardii 250 Mg Cap PO 250 mg DAILY NANCY Administration Silver Sulfadiazine 0 gm 03/05/20 21:00 03/21/20 09:43 Silver Sulfadiazine 50 Gm Jar TP 1 applic BID NANCY Administration Sodium Chloride 10 ml 03/07/20 21:00 03/21/20 09:42 Flush - Normal Saline 10 Ml Syringe IVF 10 ml Q12HR NANCY Administration Trospium 20 mg 03/04/20 09:00 03/21/20 09:41 Trospium 20 Mg Tab PO 20 mg DAILY NANCY Administration - Exam General Appearance: ill appearing General - other findings: sedate on mech vent Eye: PERRL, anicteric sclera ENT: normocephalic atraumatic, no oropharyngeal lesions ENT - other findings: ETT in place Neck: supple, symmetric, no JVD, no thyromegaly, no lymphadenopathy Heart: no gallops, no rubs, normal peripheral pulses, irregular Heart - other findings: S1, S2 tachycardic Respiratory: no tachypnea Respiratory - other findings: scattered coarse sounds bilat, diminished in bases Gastrointestinal: soft, non-tender, non-distended, normal bowel sounds, no palpable masses Extremities: 2+ LE edema Extremities - other findings: RLE > LLE Skin: normal turgor Neurological - other findings: sedate on mech vent Psychiatric: somnolent, lethargic Hosp A/P (1) Acute respiratory failure with hypoxia Code(s): J96.01 - ACUTE RESPIRATORY FAILURE WITH HYPOXIA Status: Acute Plan: Re-intubated x 3 this admit 03/19/20, continue [facility] ventilation, may need to consider tracheostomy (2) Necrotizing fasciitis Code(s): M72.6 - NECROTIZING FASCIITIS Status: Acute Plan: s/p BUE I&D, continue Zosyn, local WCT (3) Sepsis with acute organ dysfunction Code(s): A41.9 - SEPSIS, UNSPECIFIED ORGANISM; R65.20 - SEVERE SEPSIS WITHOUT SEPTIC SHOCK Status: Acute Qualifiers: Sepsis type: methicillin resistant Staphylococcus aureus Severe sepsis acute organ dysfunction type: acute respiratory failure Acute respiratory failure type: with hypoxia Severe sepsis shock status: with septic shock Qualified Code(s): A41.02 - Sepsis due to Methicillin resistant Staphylococcus aureus; R65.21 - Severe sepsis with septic shock; J96.01 - Acute respiratory failure with hypoxia Plan: Continue IV Zosyn, IVF's, supportive mgmt (4) Tachyarrhythmia Code(s): R00.0 - TACHYCARDIA, UNSPECIFIED Status: Acute Plan: Continue Amiodarone IV gtt (5) Acute kidney failure Status: Acute Plan: Improved, avoid nephrotoxic meds and limit contrast exposure (6) Hypokalemia Code(s): E87.6 - HYPOKALEMIA Status: Acute Plan: Persistent, KCL replacement - Plan 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
--- NOTE | 2020-03-21 19:50 | PRG ---
DATE OF SERVICE: 03/21/2020 SUBJECTIVE: The patient noted with the following vital signs. OBJECTIVE: VITAL SIGNS: Afebrile. Pulse 96, blood pressure 110/61, O2 sat of 92%. HEENT: Unremarkable. CARDIOVASCULAR SYSTEM: First and second heart sounds were heard. RESPIRATORY SYSTEM: Clear to auscultation. DIGESTIVE SYSTEM: Revealed an obese abdomen. SKIN: Shows no new gross rash. EXTREMITIES: Showed right lower extremity edema. LABORATORY INVESTIGATION: Showed a potassium of 3.3. Hemoglobin of 8.1. IMPRESSION: 1. Acute kidney injury, which seems to be much improved. 2. Mild hypokalemia. PLAN: 1. Replete potassium. 2. . Job ID: [id number]
[2020-03-21] MEDS: fentaNYL Citrate/PF 2,000 MCG in Sodium Chloride 0.9% 60 ML IV SCH (20:29)
[2020-03-21] MEDS: Atorvastatin Calcium 10 MG TAB PO SCH (20:48)
[2020-03-22] MEDS: Acetaminophen 650 MG Suppository PR PRN ×2 (04:05→20:16)
[2020-03-22] MEDS: Piperacillin/Tazobactam 4.5 GM in Sodium Chloride 0.9% 100 ML IVPB SCH ×3 (05:06→21:04)
[2020-03-22 05:57] LABS: Anion Gap 16 mmol/L (10-20); BUN (Urea Nitrogen) 37 mg/dL (8.4-25.7); Calc. Creatinine Clearance 78 mL/min (70-130); Calcium 7.4 mg/dL (7.8-10.44); Carbon Dioxide 28 mmol/L (23-31); Chloride 105 mmol/L (98-107); Glucose 120 mg/dL (80-115); Magnesium 2.1 mg/dL (1.6-2.6); Sodium 145 mmol/L (136-145)
[2020-03-22 05:58] LABS: Band 5 % (5-11); Hemoglobin 8.3 g/dL (14.0-18.0); Hypochromia SLIGHT = 6-15 cells (100X) (0-5/hpf); Lymphocytes 9 % (21-51); MDiff Complete? YES; Mean Corpuscular HGB CONC 31.4 g/dL (32.0-36.0); Mean Corpuscular Hemoglobin 29.1 pg (27.0-31.0); Mean Corpuscular Volume 92.7 fL (78.0-98.0); Mean Platelet Volume 12.9 fL (7.4-10.4); Monocytes 9 % (0-10); Neutrophil 77 % (42-75); Platelet Count 119 thou/uL (130-400); Platelet Morphology Comment Appears Decreased; RBC Distribution Width 15.9 % (11.5-14.5); Red Blood Cell (RBC) Count 2.85 mill/uL (4.70-6.10); White Blood Cell (WBC) Count 21.1 thou/uL (4.8-10.8)
[2020-03-22 06:52] LABS: Actual Bicarbonate (HCO3a) 28.4 mEq/L (22-28); CO2 Tension 54.8 mmHg (35.0-45.0); Calcium, Ionized (arterial) 1.04 mmol/L (1.12-1.30); Carboxyhemoglobin (COHb) 1.2 gm% (0.0-3.0); Hemoglobin (Hb) 8.8 g/dL (14.0-18.0); Potassium - ABG Lab 3.98 mmol/L (3.70-5.30); pH, Arterial 7.33 (7.35-7.45)
[2020-03-22 06:54] LABS: O2 Tension (PaO2), arterial 58.9 mmHg (> 80.0); Puncture Site RBA
[2020-03-22] MEDS: Aspirin Chewable 81 MG TAB PO SCH (07:29)
[2020-03-22] MEDS: Famotidine 20 MG TAB PO SCH ×2 (07:29→21:02)
[2020-03-22] MEDS: Pregabalin 75 MG CAP PO SCH ×2 (07:30→21:03)
[2020-03-22] MEDS: Silver Sulfadiazine 50 GM JAR TP SCH ×2 (07:30→21:02)
[2020-03-22] MEDS: Trospium 20 MG TAB PO SCH (07:30)
[2020-03-22] MEDS: Saccharomyces boulardii 250 MG CAP PO SCH (07:30)
[2020-03-22] MEDS: Pantoprazole 40 MG GRANULES PACKET PER TUBE SCH (07:30)
[2020-03-22] MEDS: Propofol 1,000 MG/100 ML VIAL IV PRN ×3 (07:45→16:34)
--- NOTE | 2020-03-22 08:25 | PRG ---
DATE OF SERVICE: 03/22/2020 Thirty five minutes critical care time. SUBJECTIVE: The patient remains intubated on mechanical ventilation. He is sedated and does not follow commands. PHYSICAL EXAMINATION: VITAL SIGNS: Temperature 102.4, pulse 90, blood pressure 92/54, O2 saturations 98%. He is currently on Levophed and amiodarone drips. He is having some hematuria. Total intake 2505, output 1293. HEENT: Unchanged. NECK: No JVD. LUNGS: Coarse rhonchi. CARDIOVASCULAR: S1 and S2, regular. ABDOMEN: Soft and nontender. EXTREMITIES: Edematous. LABORATORY DATA: White blood cell count 21.1, hematocrit 26.4, and platelet count 119. PH of 7.33, pCO2 of 54, PO2 of 58, on assist control, rate 20, tidal volume 470, PEEP 10, and FiO2 of 60%. Sodium 145, potassium 4, chloride 105, CO2 of 28, BUN 37, creatinine 1.3, and glucose 120. Chest x-ray shows bilateral infiltrates. ASSESSMENT: 1. Acute on chronic respiratory failure requiring mechanical ventilation. 2. Sepsis syndrome. 3. Failure to thrive. 4. Severe deconditioning. PLAN: This patient is critically ill and I feel he is very unlikely to survive this hospitalization. Today, I will add vancomycin to his antibiotic regimen. We will continue the Zosyn. He is not weanable. I spoke with the patient's sister yesterday. I believe they are formulating a plan with the family. Job ID: [id number]
--- NOTE | 2020-03-22 08:36 | RAD ---
PORTABLE CHEST: Date: 03/22/2020 HISTORY: CCU follow-up, on ventilator. COMPARISON: 03/21/2020. FINDINGS: Bilateral diffuse interstitial and hazy alveolar infiltrates show no significant interval change. ET tube and NG tube remain in place. Central line unchanged. IMPRESSION: Diffuse bilateral infiltrates. POS: AGW
--- NOTE | 2020-03-22 09:04 | PDOC.CPN ---
- Subjective Date: 03/21/20 Time: 12:30 Interval history: Not much change. Patient with VT over the weekend, but none in the last 48 hours. - Review of Systems ROS unobtainable: due to mental status (intubated) - Objective Allergies/Adverse Reactions: Allergies Allergy/AdvReac Type Severity Reaction Status Date / Time No Known Drug Allergies Allergy Verified 02/15/20 06:30 ambien AdvReac Intermediate confusion Uncoded 02/15/20 06:30 Visit Medications: Current Medications Acetaminophen (Acetaminophen 325 Mg Tab) 650 mg PO Q6H PRN PRN Reason: Mild Pain (1-3) Last Admin: 03/21/20 09:41 Dose: 650 mg Documented by: Acetaminophen (Acetaminophen 650 Mg Suppository) 650 mg [place] Q4H PRN PRN Reason: Headache/Fever/MILD Pain 1-3 Last Admin: 03/22/20 04:05 Dose: 650 mg Documented by: Albuterol/Ipratropium (Ipratropium/Albuterol Sulfate 3 Ml Neb) 3 ml NEB [id number] [facility] Last Admin: 03/22/20 08:04 Dose: 3 ml Documented by: Aspirin (Aspirin Chewable 81 Mg Tab) 81 mg PO DAILY [facility] Last Admin: 03/22/20 07:29 Dose: 81 mg Documented by: Atorvastatin Calcium (Atorvastatin Calcium 10 Mg Tab) 10 mg PO HS [facility] Last Admin: 03/21/20 20:48 Dose: 10 mg Documented by: Bacitracin Zinc (Bacitracin Zinc Ointment 30 Gm Tube) 0 gm TOP PRN PRN PRN Reason: WOUND CARE Bisacodyl (Bisacodyl 5 Mg Tab) 10 mg PO DAILYPRN PRN PRN Reason: Constipation Calcium Carbonate (Calcium Carbonate 500 Mg Chewtab) 1,000 mg PO Q4H PRN PRN Reason: Heartburn or Indigestion Famotidine (Famotidine 20 Mg Tab) 20 mg PO BID [facility] Last Admin: 03/22/20 07:29 Dose: 20 mg Documented by: Guaifenesin (Diabetic Tussin 200 Mg/10 Ml Udcup) 200 mg PO Q4H PRN PRN Reason: Cough Guaifenesin/Dextromethorphan (Guaifenesin Dm 100-10/5 Ml Udcup) 15 ml PO Q4H PRN PRN Reason: Cough Heparin Sodium (Porcine) (Heparin 5,000 Units/Ml Vial) 5,000 units SC TID [facility] Last Admin: 03/21/20 14:05 Dose: 5,000 units Documented by: Piperacillin Sod/Tazobactam (Sod 4.5 gm/ Sodium Chloride) 100 mls @ 200 mls/hr IVPB Q8HR NANCY Last Admin: 03/22/20 05:06 Dose: 100 mls Documented by: Dexmedetomidine HCl 400 mcg/ (Sodium Chloride) 100 mls @ 0 mls/hr IVPB INF NANCY; Protocol Last Admin: 03/19/20 10:44 Dose: 100 mls Documented by: Amiodarone HCl 450 mg/ (Dextrose/Water) 259 mls @ 0 mls/hr IVPB INF NANCY; Protocol Last Admin: 03/21/20 03:07 Dose: 259 mls Documented by: Fentanyl Citrate 2,000 mcg/ (Sodium Chloride) 100 mls @ 0 mls/hr IV INF NANCY; Protocol Stop: 04/18/20 15:15 Last Admin: 03/21/20 20:29 Dose: 100 mls Documented by: Fentanyl Citrate (Fentanyl Bolus) 250 mls @ 0 mls/hr IVPB PRN PRN PRN Reason: Breakthrough pain/agitation Stop: 04/18/20 15:15 Norepinephrine Bitartrate (Levophed) 250 mls @ 0 mls/hr IVPB INF NANCY; Protocol Last Admin: 03/21/20 02:42 Dose: 250 mls Documented by: Vancomycin HCl 750 mg/ Sodium (Chloride) 250 mls @ 250 mls/hr IVPB Q12HR NANCY Loratadine (Loratadine 10 Mg Tab) 10 mg PO DAILYPRN PRN PRN Reason: Sinus Symptoms Lorazepam (Lorazepam 2 Mg/Ml Vial) 2 mg SLOW IVP Q1H PRN PRN Reason: Breakthrough agitation Stop: 04/18/20 15:15 Last Admin: 03/21/20 20:49 Dose: 2 mg Documented by: Miscellaneous Medication (Electrolyte Replacement Protocol) 0 each FS ASDIR PRN; Protocol PRN Reason: ELECTROLYTE REPLACEMENT Miscellaneous Medication (Pharmacy To Dose Vancomycin) 1 each IVPB PRN PRN PRN Reason: Pharmacy to dose Morphine Sulfate (Morphine 2 Mg/Ml Vial) 2 mg SLOW IVP Q1H PRN PRN Reason: Breakthrough Pain/Agitation Stop: 12/28/20 15:15 Last Admin: 03/20/20 06:15 Dose: 2 mg Documented by: Ondansetron HCl (Ondansetron Pf 4 Mg/2 Ml Vial) 4 mg IVP Q6H PRN PRN Reason: Nausea/Vomiting Ondansetron HCl (Ondansetron Odt 4 Mg Tab) 4 mg SL Q6H PRN PRN Reason: Nausea/Vomiting Pantoprazole Sodium (Pantoprazole 40 Mg Granules Packet) 40 mg PER TUBE DAILY [facility] Last Admin: 03/22/20 07:30 Dose: 40 mg Documented by: Pregabalin (Pregabalin 75 Mg Cap) 150 mg PO BID [facility] Last Admin: 03/22/20 07:30 Dose: 150 mg Documented by: Propofol (Propofol 1,000 Mg/100 Ml Vial) 1,000 mg IV INF PRN; Protocol PRN Reason: TO ACHIEVE GOAL RASS Stop: 04/18/20 15:15 Last Admin: 03/22/20 07:45 Dose: 1,000 mg Documented by: Propofol (Propofol Bolus 1,000 Mg/100 Ml Vial) 20 mg IV Q5MIN PRN PRN Reason: BREAKTHROUGH AGITATION Stop: 04/18/20 15:15 Saccharomyces Boulardii (Saccharomyces Boulardii 250 Mg Cap) 250 mg PO DAILY [facility] Last Admin: 03/22/20 07:30 Dose: 250 mg Documented by: Senna/Docusate Sodium (Senokot S 8.6-50 Mg Tab) 2 tab PO BID PRN PRN Reason: Constipation Silver Sulfadiazine (Silver Sulfadiazine 50 Gm Jar) 0 gm TP BID [facility] Last Admin: 03/22/20 07:30 Dose: 1 applic Documented by: Sodium Chloride (Sodium Chloride 0.65% Nasal 44 Ml Bot) 0 ml EA NARE QIDPRN PRN PRN Reason: Nasal Congestion Sodium Chloride (Flush - Normal Saline 10 Ml Syringe) 10 ml IVF Q12HR [facility] Last Admin: 03/22/20 07:30 Dose: 10 ml Documented by: Sodium Chloride (Flush - Normal Saline 10 Ml Syringe) 10 ml IVF PRN PRN PRN Reason: Saline Flush Trospium (Trospium 20 Mg Tab) 20 mg PO DAILY [facility] Last Admin: 03/22/20 07:30 Dose: 20 mg Documented by: Vital Signs & Weight: Vital Signs Temp Pulse Resp BP Pulse Ox 03/22/20 08:04 94 89/50 L 03/22/20 07:10 20 95 03/22/20 07:00 98.9 F 03/22/20 06:00 23 H 03/22/20 04:05 102.4 F H 03/22/20 04:00 102.4 F H 24 H 03/22/20 02:34 105 H 96/59 L 03/22/20 02:00 26 H 03/22/20 00:45 100 26 H 91 L 03/22/20 00:00 100.9 F H 31 H 03/21/20 22:18 106 H 112/67 03/21/20 22:00 35 H Admit Weight 222 lb Weight 212 lb 4.882 oz - Physical Exam General: no apparent distress HEENT: mucus membranes moist Cardiac: regular rate and rhythm Abdomen: soft - Labs Result Diagrams: 03/22/20 04:50 03/22/20 04:50 Troponin/CKMB Troponin I 0.020 ng/mL (< 0.028) 02/29/20 12:27 - Assessment/Plan Assessment/Plan: 1. NSVT 2. Necrotizing Fasculitis 3. Respiratory Failure 4. MARGY Continue Amio and supportive care. Check Mag level as potassium borderline.
[2020-03-22] MEDS: Vancomycin HCl 750 MG in Sodium Chloride 0.9% 250 ML 250 ML IVPB SCH ×2 (09:13→21:01)
[2020-03-22] MEDS: Amiodarone 450 MG in Dextrose 5% in Water 250 ML IVPB SCH (11:06)
--- NOTE | 2020-03-22 14:06 | PRG ---
DATE OF SERVICE: 03/22/2020 SUBJECTIVE: Mr. Humphrey's status is unchanged. He currently remains intubated and sedated. He is on IV antibiotics. He is also on norepinephrine in addition to IV amiodarone. He has been intubated and extubated on two separate occasions. He had to be reintubated for the 3rd time over the last several days. OBJECTIVE: VITAL SIGNS: Blood pressure 87/55, pulse 85, and respirations 20. LUNGS: Minimal rhonchi and rales were noted bilaterally. HEART: Regular rate and rhythm. ABDOMEN: Soft, nontender, nondistended. EXTREMITIES: No edema. PERTINENT LABORATORY DATA: Hemoglobin 8.3, white blood cell count 21,000. Creatinine 1.31. IMPRESSION: 1. Ventricular tachycardia. 2. Necrotizing fasciitis. 3. Respiratory failure. 4. Renal insufficiency. RECOMMENDATIONS: At this point, I would continue with supportive care. Long-term decision making will need to be made by his family. He has been stable from VT standpoint on IV amiodarone, and we will transition to p.o. amiodarone, but we will need to know long-term treatment options. Palliative Care has been consulted. Job ID: [id number]
[2020-03-22] MEDS: fentaNYL Citrate/PF 2,000 MCG in Sodium Chloride 0.9% 60 ML IV SCH (15:29)
--- NOTE | 2020-03-22 17:09 | PRG ---
DATE OF SERVICE: 03/22/2020 OBJECTIVE: VITAL SIGNS: The patient noted with the following vital signs. Afebrile, heart rate of 88, blood pressure 83/62, O2 saturations 98%. HEENT: Unremarkable. CARDIOVASCULAR SYSTEM: First and second heart sounds were heard. RESPIRATORY SYSTEM: Clear to auscultation. DIGESTIVE SYSTEM: Revealed a benign abdomen. IMPRESSION: 1. Necrotizing fasciitis. 2. Acute kidney injury, much improved. PLAN: Continue current renal supportive measures. Job ID: [id number]
--- NOTE | 2020-03-22 18:29 | PDOC.HOSPP ---
- Subjective Encounter Date: 03/22/20 Encounter Time: 16:20 Subjective: f/u for PNA/Resp failure with mech vent, Tmax 102.4F. Family considering comfort measures. - Objective Vital Signs & Weight: Vital Signs (12 hours) Temp Pulse Resp BP Pulse Ox 03/22/20 18:14 85 86/57 L 03/22/20 14:27 83 88/52 L 03/22/20 12:43 110 H 93/56 L 03/22/20 10:18 83 80/45 L 03/22/20 08:04 94 89/50 L 03/22/20 07:10 20 95 03/22/20 07:00 98.9 F Weight Admit Weight 222 lb Weight 212 lb 4.882 oz Most Recent Monitor Data Heart Rate from ECG 96 NIBP 90/57 NIBP BP-Mean 68 Respiration from ECG 20 SpO2 96 I&O: 03/21/20 03/22/20 03/23/20 06:59 06:59 06:59 Intake Total 3345 2505.0 1328 Output Total 3300 1293 450 Balance 45 1212.0 878 Result Diagrams: 03/22/20 04:50 03/22/20 04:50 Additional Labs: Microbiology 03/10/20 09:08 Urine clean catch Urine Culture - Final Presumptive Aileen albicans 03/10/20 08:51 Central Line - Right external jugular vein Blood Culture - Final NO GROWTH IN 5 DAYS 03/10/20 08:30 Venous blood - Right Arm Blood Culture - Final NO GROWTH IN 5 DAYS 03/08/20 14:03 Sputum Respiratory Culture - Final 03/21/20 09:27 Venous blood - Left Hand Blood Culture - Preliminary Specimen has been received and culture in progress. No Growth to date. 03/21/20 09:27 Central Line - Right Internal Jugular vein Blood Culture - Pr eliminary Specimen has been received and culture in progress. No Growth to date. 03/20/20 05:57 Venous blood - Left Arm Blood Culture - Preliminary Specimen has been received and culture in progress. No Growth to date. 03/20/20 05:57 Venous blood - Left Arm Blood Culture - Preliminary NO GROWTH AT 48 HOURS 03/20/20 05:46 Picc Line - Right Internal Jugular vein Blood Culture - Preliminary NO GROWTH AT 48 HOURS Laboratory Tests 02/29/20 03/14/20 03/15/20 16:45 14:26 05:10 WBC Hgb Neutrophils % (Manual) Sodium 148 H Potassium 4.1 Magnesium SARS-CoV-2 (PCR) Not Detected SARS-CoV-2 IgG Ab Non-Reactive SARS-CoV-2 IgG Ab Index 0.04 03/16/20 03/16/20 03/18/20 04:40 13:18 04:05 WBC 12.9 H Hgb 9.1 L Neutrophils % (Manual) Sodium 145 Potassium 3.5 3.5 Magnesium SARS-CoV-2 (PCR) SARS-CoV-2 IgG Ab SARS-CoV-2 IgG Ab Index 03/19/20 03/19/20 03/20/20 05:11 05:11 04:32 WBC 15.5 H 24.6 H Hgb 9.0 L 9.1 L Neutrophils % (Manual) 87 H Sodium Potassium 3.4 L Magnesium SARS-CoV-2 (PCR) SARS-CoV-2 IgG Ab SARS-CoV-2 IgG Ab Index 03/21/20 03/21/20 04:15 09:27 WBC Hgb Neutrophils % (Manual) 76 H Sodium Potassium Magnesium 1.6 SARS-CoV-2 (PCR) SARS-CoV-2 IgG Ab SARS-CoV-2 IgG Ab Index Radiology Reviewed by me: Yes (PCXR - diffuse bilat infiltrates, lines/tubes in position) EKG Reviewed by me: Yes (Tele - SR) Hospitalist ROS - Medication Medications: Active Medications Generic Name Dose Route Start Last Admin Trade Name Freq PRN Reason Stop Dose Admin Acetaminophen 650 mg 03/01/20 07:54 03/21/20 09:41 Acetaminophen 325 Mg Tab PO 650 mg Q6H PRN Administration Mild Pain (1-3) Acetaminophen 650 mg 03/08/20 04:17 03/22/20 04:05 Acetaminophen 650 Mg Suppository OK 650 mg Q4H PRN Administration Headache/Fever/MILD Pain 1-3 Albuterol/Ipratropium 3 ml 03/08/20 13:00 03/22/20 18:13 Ipratropium/Albuterol Sulfate 3 Ml Neb NEB 3 ml [id number] NANCY Administration Aspirin 81 mg 03/12/20 09:00 03/22/20 07:29 Aspirin Chewable 81 Mg Tab PO 81 mg DAILY NANCY Administration Atorvastatin Calcium 10 mg 03/03/20 21:00 03/21/20 20:48 Atorvastatin Calcium 10 Mg Tab PO 10 mg HS NANCY Administration Famotidine 20 mg 03/11/20 21:00 03/22/20 07:29 Famotidine 20 Mg Tab PO 20 mg BID NANCY Administration Heparin Sodium (Porcine) 5,000 units 03/09/20 15:00 03/21/20 14:05 Heparin 5,000 Units/Ml Vial SC 5,000 units TID NANCY Administration Piperacillin Sod/Tazobactam 100 mls @ 200 mls/hr 03/13/20 22:00 03/22/20 13:02 Sod 4.5 gm/ Sodium Chloride IVPB 100 mls Q8HR NANCY Administration Dexmedetomidine HCl 400 mcg/ 100 mls @ 0 mls/hr 03/14/20 07:30 03/19/20 10:44 Sodium Chloride IVPB 100 mls INF NANCY Administration Protocol Per Protocol Amiodarone HCl 450 mg/ 259 mls @ 0 mls/hr 03/16/20 11:00 03/22/20 11:06 Dextrose/Water IVPB 259 mls INF NANCY Administration Protocol Per Protocol Fentanyl Citrate 2,000 mcg/ 100 mls @ 0 mls/hr 03/19/20 15:15 03/22/20 15:29 Sodium Chloride IV 04/18/20 15:15 100 mls INF NANCY Administration Protocol Per Protocol Norepinephrine Bitartrate 250 mls @ 0 mls/hr 03/19/20 20:15 03/21/20 02:42 Levophed IVPB 250 mls INF NANCY Administration Protocol Titrate Vancomycin HCl 750 mg/ Sodium 250 mls @ 250 mls/hr 03/22/20 09:00 03/22/20 09:13 Chloride IVPB 250 mls Q12HR NANCY Administration Lorazepam 2 mg 03/19/20 15:15 03/21/20 20:49 Lorazepam 2 Mg/Ml Vial SLOW IVP 04/18/20 15:15 2 mg Q1H PRN Administration Breakthrough agitation Morphine Sulfate 2 mg 03/19/20 15:15 03/20/20 06:15 Morphine 2 Mg/Ml Vial SLOW IVP 04/18/20 15:15 2 mg Q1H PRN Administration Breakthrough Pain/Agitation Pantoprazole Sodium 40 mg 03/21/20 09:00 03/22/20 07:30 Pantoprazole 40 Mg Granules Packet PER TUBE 40 mg DAILY NANCY Administration Pregabalin 150 mg 03/03/20 21:00 03/22/20 07:30 Pregabalin 75 Mg Cap PO 150 mg BID NANCY Administration Propofol 1,000 mg 03/19/20 15:15 03/22/20 16:34 Propofol 1,000 Mg/100 Ml Vial IV 04/18/20 15:15 1,000 mg INF PRN Administration TO ACHIEVE GOAL RASS Protocol Saccharomyces Boulardii 250 mg 03/10/20 09:00 03/22/20 07:30 Saccharomyces Boulardii 250 Mg Cap PO 250 mg DAILY NANYC Administration Silver Sulfadiazine 0 gm 03/05/20 21:00 03/22/20 07:30 Silver Sulfadiazine 50 Gm Jar TP 1 applic BID NANCY Administration Sodium Chloride 10 ml 03/07/20 21:00 03/22/20 07:30 Flush - Normal Saline 10 Ml Syringe IVF 10 ml Q12HR NANCY Administration Trospium 20 mg 03/04/20 09:00 03/22/20 07:30 Trospium 20 Mg Tab PO 20 mg DAILY NANCY Administration - Exam General Appearance: ill appearing General - other findings: sedate on mech vent Eye: PERRL ENT: normocephalic atraumatic, no oropharyngeal lesions ENT - other findings: ETT in place Neck: supple, symmetric, no JVD, no thyromegaly, no lymphadenopathy Heart: RRR, no gallops, no rubs, normal peripheral pulses Heart - other findings: S1, S2 Respiratory: tachypneic Respiratory - other findings: coarse sounds bilat, diminished bilat Gastrointestinal: soft, non-tender, non-distended, normal bowel sounds, no palpable masses Extremities: no cyanosis, no clubbing, 2+ LE edema Extremities - other findings: RLE edematous Skin: normal turgor Psychiatric: somnolent, lethargic Hosp A/P (1) Acute respiratory failure with hypoxia Code(s): J96.01 - ACUTE RESPIRATORY FAILURE WITH HYPOXIA Status: Acute Plan: Continue [facility] ventilation, unweanable, family considering comfort measures (2) Necrotizing fasciitis Code(s): M72.6 - NECROTIZING FASCIITIS Status: Acute Plan: s/p I&D, local care, WCT (3) Sepsis with acute organ dysfunction Code(s): A41.9 - SEPSIS, UNSPECIFIED ORGANISM; R65.20 - SEVERE SEPSIS WITHOUT SEPTIC SHOCK Status: Acute Qualifiers: Sepsis type: methicillin resistant Staphylococcus aureus Severe sepsis acute organ dysfunction type: acute respiratory failure Acute respiratory failure type: with hypoxia Severe sepsis shock status: with septic shock Qualified Code(s): A41.02 - Sepsis due to Methicillin resistant Staphylococcus aureus; R65.21 - Severe sepsis with septic shock; J96.01 - Acute respiratory failure with hypoxia Plan: Persistent, appears to be end-stage process, continue Zosyn/Vancomycin (4) Tachyarrhythmia Code(s): R00.0 - TACHYCARDIA, UNSPECIFIED Status: Acute Plan: Continue Amiodarone gtt (5) Acute kidney failure Status: Acute (6) Hypokalemia Code(s): E87.6 - HYPOKALEMIA Status: Acute Plan: Resolving, serial K+ monitoring - Plan continue antibiotics, clinical social work therapist, respiratory therapy, DVT proph w/SCDs Consults: Palliative Care Continue critical support Palliative care consult appreciated Family considering comfort measures Continue Zosyn/Vancomycin IV Continue mech ventilation Continue Amiodarone gtt WCT for local care CM for SNF/NH options Consider tracheostomy given 3rd intubation vs comfort/palliative measures Sedation with Precedex/Ativan AM lab: BMP, CBC, ABG PCXR in am
--- NOTE | 2020-03-22 19:41 | EKG ---
Test Reason : Blood Pressure : / mmHG Vent. Rate : 126 BPM Atrial Rate : 126 BPM P-R Int : 176 ms QRS Dur : 084 ms QT Int : 316 ms P-R-T Axes : 064 026 -18 degrees QTc Int : 457 ms Sinus tachycardia with Premature atrial complexes Low voltage QRS Septal infarct (cited on or before 08-MAR-2020) Abnormal ECG When compared with ECG of 08-MAR-2020 01:51, Questionable change in initial forces of Septal leads Nonspecific T wave abnormality now evident in Inferior leads T wave inversion now evident in Anterior leads Confirmed by KRISTI GOMEZ (2) on 03/22/2020 7:40:50 PM Referred By: ANNA MARIE Confirmed By:KRISTI GOMEZ
[2020-03-22] MEDS: Atorvastatin Calcium 10 MG TAB PO SCH (21:04)
[2020-03-23] MEDS: Norepinephrine 8 MG/0.9% NS 250 ML IVPB SCH (00:18)
[2020-03-23] MEDS: Propofol 1,000 MG/100 ML VIAL IV PRN ×2 (00:18→12:35)
[2020-03-23 04:33] LABS: Band 11 % (5-11); Eosinophils 1 % (0-10); Hemoglobin 8.1 g/dL (14.0-18.0); Lymphocytes 5 % (21-51); MDiff Complete? YES; Mean Corpuscular HGB CONC 30.6 g/dL (32.0-36.0); Mean Corpuscular Volume 94.8 fL (78.0-98.0); Mean Platelet Volume 13.4 fL (7.4-10.4); Monocytes 9 % (0-10); Neutrophil 74 % (42-75); Platelet Count 103 thou/uL (130-400); Platelet Morphology Comment Appears Decreased; RBC Distribution Width 15.9 % (11.5-14.5); Red Blood Cell (RBC) Count 2.79 mill/uL (4.70-6.10); White Blood Cell (WBC) Count 24.6 thou/uL (4.8-10.8)
[2020-03-23 04:34] LABS: Anion Gap 17 mmol/L (10-20); BUN (Urea Nitrogen) 46 mg/dL (8.4-25.7); Calc. Creatinine Clearance 56 mL/min (70-130); Calcium 7.8 mg/dL (7.8-10.44); Carbon Dioxide 26 mmol/L (23-31); Chloride 104 mmol/L (98-107); Glucose 137 mg/dL (80-115); Potassium 4.3 mmol/L (3.5-5.1); Sodium 143 mmol/L (136-145)
[2020-03-23] MEDS: Piperacillin/Tazobactam 4.5 GM in Sodium Chloride 0.9% 100 ML IVPB SCH ×3 (05:16→21:48)
[2020-03-23] MEDS: Amiodarone 450 MG in Dextrose 5% in Water 250 ML IVPB SCH ×2 (06:09→21:17)
--- NOTE | 2020-03-23 07:58 | RAD ---
PORTABLE CHEST: HISTORY: Pneumonia followup on ventilator. CCU followup. COMPARISON: 03/22/2020. FINDINGS: ET tube, NG tube, and central line unchanged. Bilateral interstitial and hazy alveolar infiltrates t hroughout both lungs again noted. No significant interval change. POS: [facility]
[2020-03-23 08:05] LABS: Actual Bicarbonate (HCO3a) 25.7 mEq/L (22-28); Base Excess (BEa) -0.4 mEq/L (-2.0 to +3.0); CO2 Tension 49.8 mmHg (35.0-45.0); Calcium, Ionized (arterial) 1.08 mmol/L (1.12-1.30); Carboxyhemoglobin (COHb) 1.4 gm% (0.0-3.0); O2 Tension (PaO2), arterial 62.5 mmHg (> 80.0); Potassium - ABG Lab 4.27 mmol/L (3.70-5.30); pH, Arterial 7.33 (7.35-7.45)
[2020-03-23 08:08] LABS: Puncture Site RBA
[2020-03-23] MEDS: Pregabalin 75 MG CAP PO SCH ×2 (09:23→21:47)
[2020-03-23] MEDS: Pantoprazole 40 MG GRANULES PACKET PER TUBE SCH (09:24)
[2020-03-23] MEDS: Famotidine 20 MG TAB PO SCH ×2 (09:24→21:47)
[2020-03-23] MEDS: Saccharomyces boulardii 250 MG CAP PO SCH (09:24)
[2020-03-23] MEDS: Aspirin Chewable 81 MG TAB PO SCH (09:24)
[2020-03-23] MEDS: Vancomycin HCl 750 MG in Sodium Chloride 0.9% 250 ML 250 ML IVPB SCH ×2 (09:26→21:47)
[2020-03-23] MEDS: Heparin 5,000 UNITS/ML VIAL SC SCH ×3 (09:27→21:47)
[2020-03-23] MEDS: Trospium 20 MG TAB PO SCH (09:27)
[2020-03-23] MEDS: Silver Sulfadiazine 50 GM JAR TP SCH ×2 (09:28→21:49)
--- NOTE | 2020-03-23 10:15 | PRG ---
DATE OF SERVICE: 35 minutes critical care time. SUBJECTIVE: The patient remains in the ICU, intubated on mechanical ventilation. His sister is at bedside today and I had a long conversation with her about his care. OBJECTIVE: VITAL SIGNS: On exam, the temperature is 98.6, pulse 79, blood pressure 104/59, O2 saturation 98%. He is on a Levophed drip at 5 mcg/minute and amiodarone drip additionally. Sedated on propofol and fentanyl. HEENT: Remarkable for the endotracheal tube and orogastric tube in place. NECK: No JVD. LUNGS: Coarse rhonchi. CARDIAC: S1 and S2, regular. ABDOMEN: Soft and nontender. EXTREMITIES: Edematous. IMAGING DATA: His chest x-ray shows diffuse bilateral infiltrates that look worse than yesterday. LABORATORY DATA: Sodium 143, potassium 4.3, chloride 104, CO2 of 26, BUN 46, creatinine 1.8, glucose 137. PH 7.33, pCO2 of 49, pO2 of 62 on SIMV rate 20, PEEP of 10, and FiO2 of 60%. White blood cell count was 24.6, hematocrit 26.5, and platelet count 103. ASSESSMENT: 1. Acute respiratory failure requiring mechanical ventilation, no evidence of recovery. 2. Sepsis syndrome. 3. Failure to thrive. 4. Severe deconditioning. PLAN: I re-emphasized to the patient's sister that the patient is unlikely to survive this hospitalization. She stated that the family had agreed that they did not want to go forward with trach and PEG tube placement. I told her that I have recommended withdrawal of care as I do not see any hope for meaningful recovery. In the interim while they are making this decision, we are continuing supportive care with antibiotics, mechanical ventilation, vasopressors. Job ID: [id number]
--- NOTE | 2020-03-23 10:56 | PDOC.FMACP ---
Advance Care Planning - Problem (1) Palliative care encounter Status: Acute Code(s): Z51.5 - ENCOUNTER FOR PALLIATIVE CARE (2) Acute respiratory failure with hypoxia Status: Acute Code(s): J96.01 - ACUTE RESPIRATORY FAILURE WITH HYPOXIA (3) Necrotizing cellulitis Status: Acute Code(s): L03.90 - CELLULITIS, UNSPECIFIED (4) Necrotizing fasciitis Status: Acute Code(s): M72.6 - NECROTIZING FASCIITIS (5) Obesity (BMI 30-39.9) Status: Chronic Code(s): E66.9 - OBESITY, UNSPECIFIED (6) Acute kidney failure Status: Acute - Note Participants: family, surrogate decision-maker, palliative care Summary: Palliative care revisited Advanced Care Planning with surrogate decision maker. Dr Lobo had met with Anahi Humphrey and reviewed current health status. The diagnosis, prognosis and goals of care were discussed. Appropriate forms and documentation to accomplish the goals of care were discussed. Patient sister/Surrogate decision maker elected to complete DNAR. Discussed transition of care to comfort measures. All questions were answered. *DNAR/consent signed and placed on chart *Siblings to revisit transition of care, plan to elect a hospice company 03/24/2020 with withdraw of care 03/25/2020 (Saturday)in the morning. *Anahi Humphrey will follow up with Palliative Care 03/24/2020 to confirm plan and elect hospice. Communicated with Dr Lobo and Dr Taveras Emotional support and Therapeutic listening through discussion and life review of patient. Time Spent (mins): 45
--- NOTE | 2020-03-23 16:49 | PDOC.HOSPP ---
- Subjective Encounter Date: 03/23/20 Encounter Time: 16:45 Subjective: f/u for resp failure/PNA with family considering terminal extubation in 48h. Receiving Zosyn/Vancomycin with Tmax 102.6F. - Objective Vital Signs & Weight: Vital Signs (12 hours) Temp Pulse Resp BP Pulse Ox 03/23/20 16:00 99.0 F 20 03/23/20 14:30 83 03/23/20 14:00 20 03/23/20 13:12 79 20 96 03/23/20 12:00 98.3 F 20 03/23/20 11:00 82 03/23/20 10:00 20 03/23/20 08:00 98.6 F 20 97 03/23/20 07:42 70 99/60 03/23/20 06:00 20 Weight Admit Weight 222 lb Weight 212 lb 4.882 oz Most Recent Monitor Data Heart Rate from ECG 74 NIBP 106/54 NIBP BP-Mean 71 Respiration from ECG 20 SpO2 96 I&O: 03/22/20 03/23/20 03/24/20 06:59 06:59 06:59 Intake Total 2505.0 2888.4 Output Total 1293 740 290 Balance 1212.0 2148.4 -290 Result Diagrams: 03/23/20 03:20 03/23/20 03:20 Additional Labs: Microbiology 03/10/20 09:08 Urine clean catch Urine Culture - Final Presumptive Aileen albicans 03/10/20 08:51 Central Line - Right external jugular vein Blood Culture - Final NO GROWTH IN 5 DAYS 03/10/20 08:30 Venous blood - Right Arm Blood Culture - Final NO GROWTH IN 5 DAYS 03/08/20 14:03 Sputum Respiratory Culture - Final 03/21/20 09:27 Venous blood - Left Hand Blood Culture - Preliminary Specimen has been received and culture in progress. No Growth to date. 03/21/20 09:27 Central Line - Right Internal Jugular vein Blood Culture - Preliminary Specimen has been received and culture in progress. No Growth to date. 03/20/20 05:57 Venous blood - Left Arm Blood Culture - Preliminary Specimen has been received and culture in progress. No Growth to date. 03/20/20 05:57 Venous blood - Left Arm Blood Culture - Preliminary NO GROWTH AT 48 HOURS 03/20/20 05:46 Picc Line - Right Internal Jugular vein Blood Culture - Preliminary NO GROWTH AT 48 HOURS Laboratory Tests 02/29/20 03/14/20 03/15/20 16:45 14:26 05:10 WBC Hgb Plt Count Neutrophils % (Manual) Sodium 148 H Potassium 4.1 BUN Creatinine Magnesium SARS-CoV-2 (PCR) Not Detected SARS-CoV-2 IgG Ab Non-Reactive SARS-CoV-2 IgG Ab Index 0.04 03/16/20 03/16/20 03/18/20 04:40 13:18 04:05 WBC 12.9 H Hgb 9.1 L Plt Count Neutrophils % (Manual) Sodium 145 Potassium 3.5 3.5 BUN Creatinine Magnesium SARS-CoV-2 (PCR) SARS-CoV-2 IgG Ab SARS-CoV-2 IgG Ab Index 03/19/20 03/19/20 03/20/20 05:11 05:11 04:32 WBC 15.5 H 24.6 H Hgb 9.0 L 9.1 L Plt Count Neutrophils % (Manual) 87 H Sodium Potassium 3.4 L BUN Creatinine Magnesium SARS-CoV-2 (PCR) SARS-CoV-2 IgG Ab SARS-CoV-2 IgG Ab Index 03/21/20 03/21/20 03/22/20 04:15 09:27 04:50 WBC Hgb Plt Count Neutrophils % (Manual) 76 H Sodium Potassium BUN 37 H Creatinine 1.31 H Magnesium 1.6 SARS-CoV-2 (PCR) SARS-CoV-2 IgG Ab SARS-CoV-2 IgG Ab Index 03/22/20 04:50 WBC 21.1 H Hgb 8.3 L Plt Count 119 L Neutrophils % (Manual) Sodium Potassium BUN Creatinine Magnesium SARS-CoV-2 (PCR) SARS-CoV-2 IgG Ab SARS-CoV-2 IgG Ab Index Radiology Reviewed by me: Yes (PCXR - no sig interval change, bilat infiltrates, lines/tubes in position) EKG Reviewed by me: Yes (Tele - SR) Hospitalist ROS - Medication Medications: Active Medications Generic Name Dose Route Start Last Admin Trade Name Freq PRN Reason Stop Dose Admin Acetaminophen 650 mg 03/01/20 07:54 03/21/20 09:41 Acetaminophen 325 Mg Tab PO 650 mg Q6H PRN Administration Mild Pain (1-3) Acetaminophen 650 mg 03/08/20 04:17 03/22/20 20:16 Acetaminophen 650 Mg Suppository MA 650 mg Q4H PRN Administration Headache/Fever/MILD Pain 1-3 Albuterol/Ipratropium 3 ml 03/08/20 13:00 03/23/20 13:12 Ipratropium/Albuterol Sulfate 3 Ml Neb NEB 3 ml [id number] NANCY Administration Aspirin 81 mg 03/12/20 09:00 03/23/20 09:24 Aspirin Chewable 81 Mg Tab PO 81 mg DAILY NANCY Administration Atorvastatin Calcium 10 mg 03/03/20 21:00 03/22/20 21:04 Atorvastatin Calcium 10 Mg Tab PO 10 mg HS NANCY Administration Famotidine 20 mg 03/11/20 21:00 03/23/20 09:24 Famotidine 20 Mg Tab PO 20 mg BID NANCY Administration Heparin Sodium (Porcine) 5,000 units 03/09/20 15:00 03/23/20 15:26 Heparin 5,000 Units/Ml Vial SC 5,000 units TID NANCY Administration Piperacillin Sod/Tazobactam 100 mls @ 200 mls/hr 03/13/20 22:00 03/23/20 13:43 Sod 4.5 gm/ Sodium Chloride IVPB 100 mls Q8HR NANCY Administration Dexmedetomidine HCl 400 mcg/ 100 mls @ 0 mls/hr 03/14/20 07:30 03/19/20 10:44 Sodium Chloride IVPB 100 mls INF NANCY Administration Protocol Per Protocol Amiodarone HCl 450 mg/ 259 mls @ 0 mls/hr 03/16/20 11:00 03/23/20 06:09 Dextrose/Water IVPB 259 mls INF NANCY Administration Protocol Per Protocol Fentanyl Citrate 2,000 mcg/ 100 mls @ 0 mls/hr 03/19/20 15:15 03/22/20 15:29 Sodium Chloride IV 04/18/20 15:15 100 mls INF NANCY Administration Protocol Per Protocol Norepinephrine Bitartrate 250 mls @ 0 mls/hr 03/19/20 20:15 03/23/20 00:18 Levophed IVPB 250 mls INF NANCY Administration Protocol Titrate Vancomycin HCl 750 mg/ Sodium 250 mls @ 250 mls/hr 03/22/20 09:00 03/23/20 09:26 Chloride IVPB 250 mls Q12HR NANCY Administration Lorazepam 2 mg 03/19/20 15:15 03/21/20 20:49 Lorazepam 2 Mg/Ml Vial SLOW IVP 04/18/20 15:15 2 mg Q1H PRN Administration Breakthrough agitation Morphine Sulfate 2 mg 03/19/20 15:15 03/20/20 06:15 Morphine 2 Mg/Ml Vial SLOW IVP 04/18/20 15:15 2 mg Q1H PRN Administration Breakthrough Pain/Agitation Pantoprazole Sodium 40 mg 03/21/20 09:00 03/23/20 09:24 Pantoprazole 40 Mg Granules Packet PER TUBE 40 mg DAILY NANCY Administration Pregabalin 150 mg 03/03/20 21:00 03/23/20 09:23 Pregabalin 75 Mg Cap PO 150 mg BID NANCY Administration Propofol 1,000 mg 03/19/20 15:15 03/23/20 12:35 Propofol 1,000 Mg/100 Ml Vial IV 04/18/20 15:15 1,000 mg INF PRN Administration TO ACHIEVE GOAL RASS Protocol Saccharomyces Boulardii 250 mg 03/10/20 09:00 03/23/20 09:24 Saccharomyces Boulardii 250 Mg Cap PO 250 mg DAILY NANCY Administration Silver Sulfadiazine 0 gm 03/05/20 21:00 03/23/20 09:28 Silver Sulfadiazine 50 Gm Jar TP 1 applic BID NANYC Administration Sodium Chloride 10 ml 03/07/20 21:00 03/23/20 09:29 Flush - Normal Saline 10 Ml Syringe IVF 10 ml Q12HR NANCY Administration Trospium 20 mg 03/04/20 09:00 03/23/20 09:27 Trospium 20 Mg Tab PO 20 mg DAILY NANCY Administration - Exam General Appearance: ill appearing General - other findings: sedate on mech vent Eye: PERRL ENT: normocephalic atraumatic, no oropharyngeal lesions ENT - other findings: ETT in place Neck: supple, symmetric, no JVD, no thyromegaly, no lymphadenopathy Heart: RRR, no gallops, no rubs, normal peripheral pulses Heart - other findings: S1, S2 Respiratory: no tachypnea Respiratory - other findings: coarse sounds bilat, diminished in bases Gastrointestinal: soft, non-tender, non-distended, normal bowel sounds, no palpable masses Extremities: no cyanosis, no clubbing Extremities - other findings: RLE 2+ edema Skin: normal turgor Neurological - other findings: sedate on mech vent Musculoskeletal: generalized weakness Psychiatric: somnolent, lethargic Hosp A/P (1) Sepsis with acute organ dysfunction Code(s): A41.9 - SEPSIS, UNSPECIFIED ORGANISM; R65.20 - SEVERE SEPSIS WITHOUT SEPTIC SHOCK Status: Acute Qualifiers: Sepsis type: methicillin resistant Staphylococcus aureus Severe sepsis acute organ dysfunction type: acute respiratory failure Acute respiratory failure type: with hypoxia Severe sepsis shock status: with septic shock Qualified Code(s): A41.02 - Sepsis due to Methicillin resistant Staphylococcus aureus; R65.21 - Severe sepsis with septic shock; J96.01 - Acute respiratory failure with hypoxia Plan: Continue Zosyn/Vancomycin, Pressor support, likely worsening PNA as source (2) Acute respiratory failure with hypoxia Code(s): J96.01 - ACUTE RESPIRATORY FAILURE WITH HYPOXIA Status: Acute Plan: Continue mech ventilation, family deciding on terminal extubation in next 48h (3) Acute kidney failure Status: Acute Plan: Associated with sepsis, continue supportive mgmt, avoid nephrotoxic meds and limit contrast (4) Necrotizing fasciitis Code(s): M72.6 - NECROTIZING FASCIITIS Status: Acute (5) Tachyarrhythmia Code(s): R00.0 - TACHYCARDIA, UNSPECIFIED Status: Acute Plan: Continue Amiodarone gtt (6) Hypokalemia Code(s): E87.6 - HYPOKALEMIA Status: Acute Plan: Resolving, serial monitoring - Plan continue antibiotics, hospice social worker, respiratory therapy, DVT proph w/SCDs Consults: Palliative Care Continue critical support Palliative care consult appreciated, family likely pursuing terminal extubation in 48h Family considering comfort measures Continue Zosyn/Vancomycin IV Continue mech ventilation Continue Amiodarone gtt WCT for local care Sedation with Precedex/Ativan/Diprivan/Fentanyl AM lab: BMP, CBC, ABG PCXR in am Overall poor prognosis
[2020-03-23] MEDS: fentaNYL Citrate/PF 2,000 MCG in Sodium Chloride 0.9% 60 ML IV SCH (18:21)
--- NOTE | 2020-03-23 18:37 | PRG ---
DATE OF SERVICE: 03/23/2020 SUBJECTIVE: The patient was seen and examined and was still intubated, noted with the following vital signs. OBJECTIVE: VITAL SIGNS: Temperature 98.6, pulse 79, blood pressure 104/59, and O2 sat is 98%. HEENT: Remarkable for endotracheal tube in place. CARDIOVASCULAR SYSTEM: First and second heart sounds were heard. RESPIRATORY SYSTEM: Revealed vented sounds. DIGESTIVE SYSTEM: Revealed an obese abdomen. EXTREMITIES: Showed right lower extremity edema more than others. IMPRESSION: 1. Respiratory failure, requiring mechanical ventilation. 2. Sepsis. 3. Acute kidney injury, much improved. PLAN: 1. Continue current renal supportive measures. 2. Further management will be dependent on the clinical sign. Job ID: [id number]
[2020-03-23] MEDS: Atorvastatin Calcium 10 MG TAB PO SCH (21:47)
[2020-03-24 05:27] LABS: Anion Gap 20 mmol/L (10-20); BUN (Urea Nitrogen) 59 mg/dL (8.4-25.7); Calc. Creatinine Clearance 40 mL/min (70-130); Calcium 7.9 mg/dL (7.8-10.44); Carbon Dioxide 24 mmol/L (23-31); Chloride 104 mmol/L (98-107); Glucose 148 mg/dL (80-115); Potassium 4.8 mmol/L (3.5-5.1); Sodium 143 mmol/L (136-145)
[2020-03-24 05:36] LABS: Band 16 % (5-11); Hypochromia SLIGHT = 6-15 cells (100X) (0-5/hpf); Lymphocytes 4 % (21-51); MDiff Complete? YES; Mean Corpuscular HGB CONC 30.4 g/dL (32.0-36.0); Mean Corpuscular Hemoglobin 28.3 pg (27.0-31.0); Mean Corpuscular Volume 93.2 fL (78.0-98.0); Mean Platelet Volume 13.8 fL (7.4-10.4); Monocytes 4 % (0-10); Neutrophil 76 % (42-75); Platelet Count 122 thou/uL (130-400); Platelet Morphology Comment Appears Adequate; RBC Distribution Width 15.9 % (11.5-14.5); Red Blood Cell (RBC) Count 2.82 mill/uL (4.70-6.10); White Blood Cell (WBC) Count 33.2 thou/uL (4.8-10.8)
[2020-03-24] MEDS: Norepinephrine 8 MG/0.9% NS 250 ML IVPB SCH (06:01)
[2020-03-24] MEDS: Piperacillin/Tazobactam 4.5 GM in Sodium Chloride 0.9% 100 ML IVPB SCH ×3 (06:02→21:08)
--- NOTE | 2020-03-24 07:30 | PRG ---
DATE OF SERVICE: 03/24/2020 SUBJECTIVE: I reviewed the notes by the palliative care service yesterday. The patient has now been made DNR with plans to transition to hospice and hopefully extubate by Saturday. Very appreciative of the work they did with the family in this case. OBJECTIVE: GENERAL: The patient this morning is obtunded, on mechanical ventilation. VITAL SIGNS: Demonstrated temperature 99.2, pulse 99, blood pressure 124/64, O2 saturation 94%. Total intake 2684, output 690. HEENT: Unremarkable. NECK: No JVD. LUNGS: Coarse rhonchi. CARDIOVASCULAR: S1, S2. Regular. ABDOMEN: Obese, soft. EXTREMITIES: Edematous. LABORATORY DATA: White count 33.2, hematocrit 26.3, platelet count 122. Sodium 143, potassium 4.8, chloride 104, CO2 of 24, BUN 59, creatinine 2.5, and glucose 148. His x-ray shows diffuse bilateral infiltrates. ASSESSMENT: 1. Acute respiratory failure requiring mechanical ventilation. 2. Sepsis syndrome. 3. Failure to thrive. 4. Renal failure. 5. Severe deconditioning. 6. Generalized multiple organ failure with no demonstrable improvement over the course of his hospitalization. PLAN: I am in full agreement of the plan for hospice and withdrawal of care. Based on that, I will go ahead and stop his lab draws and x-rays. Job ID: [id number]
[2020-03-24] MEDS: Acetaminophen 325 MG TAB PO PRN ×2 (08:16→16:22)
[2020-03-24] MEDS: Famotidine 20 MG TAB PO SCH (08:18)
[2020-03-24] MEDS: Trospium 20 MG TAB PO SCH (08:18)
[2020-03-24] MEDS: Propofol 1,000 MG/100 ML VIAL IV PRN ×2 (08:18→14:18)
[2020-03-24] MEDS: Aspirin Chewable 81 MG TAB PO SCH (08:18)
[2020-03-24] MEDS: Saccharomyces boulardii 250 MG CAP PO SCH (08:18)
[2020-03-24] MEDS: Pantoprazole 40 MG GRANULES PACKET PER TUBE SCH (08:18)
[2020-03-24] MEDS: Pregabalin 75 MG CAP PO SCH ×2 (08:18→21:07)
[2020-03-24] MEDS: Silver Sulfadiazine 50 GM JAR TP SCH ×2 (08:19→21:09)
[2020-03-24] MEDS: Heparin 5,000 UNITS/ML VIAL SC SCH ×3 (08:19→21:07)
[2020-03-24 08:32] LABS: Vancomycin, Trough 25.2 ug/mL
--- NOTE | 2020-03-24 08:38 | RAD ---
FRONTAL RADIOGRAPH CHEST: Date: 03/24/2020 COMPARISON: 03/23/2020. HISTORY: Ventilated patient. FINDINGS: Stable right vascular catheter, nasogastric tube, and endotracheal tube. Stable severe degenerative c hange of the left shoulder. Stable left-sided rib fractures. There is extensive nonspecific interstitial and alveolar opacity within both lungs, right greater sunitha n left, not significantly changed. IMPRESSION: No significant interval change. POS: [facility]
[2020-03-24] MEDS: Vancomycin HCl 750 MG in Sodium Chloride 0.9% 250 ML 250 ML IVPB SCH (09:00)
--- NOTE | 2020-03-24 10:48 | PDOC.HOSPP ---
- Subjective Encounter Date: 03/24/20 Encounter Time: 07:10 Subjective: Patient is intubated, patient is febrile, - Objective Vital Signs & Weight: Vital Signs (12 hours) Temp Pulse Resp BP Pulse Ox 03/24/20 10:00 102.4 F H 03/24/20 08:00 103.0 F H 20 94 L 03/24/20 07:15 92 100/62 03/24/20 06:00 28 H 03/24/20 04:00 99.2 F 30 H 03/24/20 02:32 97 03/24/20 02:00 31 H 03/24/20 01:24 94 03/24/20 01:23 97 32 H 94 L 03/24/20 00:00 99.1 F 30 H Weight Admit Weight 222 lb Weight 212 lb 4.882 oz Most Recent Monitor Data Heart Rate from ECG 93 NIBP 103/55 NIBP BP-Mean 71 Respiration from ECG 28 SpO2 94 I&O: 03/23/20 03/24/20 03/25/20 06:59 06:59 06:59 Intake Total 2888.4 2684.1 Output Total 740 690 55 Balance 2148.4 1994.1 -55 Result Diagrams: 03/24/20 03:45 03/24/20 03:45 Radiology Reviewed by me: Yes EKG Reviewed by me: Yes Hospitalist ROS - Review of Systems ROS unobtainable: due to endotracheal tube - Medication Medications: Active Medications Generic Name Dose Route Start Last Admin Trade Name Freq PRN Reason Stop Dose Admin Acetaminophen 650 mg 03/01/20 07:54 03/24/20 08:16 Acetaminophen 325 Mg Tab PO 650 mg Q6H PRN Administration Mild Pain (1-3) Acetaminophen 650 mg 03/08/20 04:17 03/22/20 20:16 Acetaminophen 650 Mg Suppository ND 650 mg Q4H PRN Administration Headache/Fever/MILD Pain 1-3 Albuterol/Ipratropium 3 ml 03/08/20 13:00 03/24/20 07:15 Ipratropium/Albuterol Sulfate 3 Ml Neb NEB 3 ml [id number] NANCY Administration Aspirin 81 mg 03/12/20 09:00 03/24/20 08:18 Aspirin Chewable 81 Mg Tab PO 81 mg DAILY NANCY Administration Atorvastatin Calcium 10 mg 03/03/20 21:00 03/23/20 21:47 Atorvastatin Calcium 10 Mg Tab PO 10 mg HS NANCY Administration Famotidine 20 mg 03/11/20 21:00 03/24/20 08:18 Famotidine 20 Mg Tab PO 20 mg BID NANCY Administration Heparin Sodium (Porcine) 5,000 units 03/09/20 15:00 03/24/20 08:19 Heparin 5,000 Units/Ml Vial SC 5,000 units TID NANCY Administration Piperacillin Sod/Tazobactam 100 mls @ 200 mls/hr 03/13/20 22:00 03/24/20 06:02 Sod 4.5 gm/ Sodium Chloride IVPB 100 mls Q8HR NANCY Administration Dexmedetomidine HCl 400 mcg/ 100 mls @ 0 mls/hr 03/14/20 07:30 03/19/20 10:44 Sodium Chloride IVPB 100 mls INF NANCY Administration Protocol Per Protocol Amiodarone HCl 450 mg/ 259 mls @ 0 mls/hr 03/16/20 11:00 03/23/20 21:17 Dextrose/Water IVPB 259 mls INF NANCY Administration Protocol Per Protocol Fentanyl Citrate 2,000 mcg/ 100 mls @ 0 mls/hr 03/19/20 15:15 03/23/20 18:21 Sodium Chloride IV 04/18/20 15:15 100 mls INF NANCY Administration Protocol Per Protocol Norepinephrine Bitartrate 250 mls @ 0 mls/hr 03/19/20 20:15 03/24/20 06:01 Levophed IVPB 250 mls INF NANCY Administration Protocol Titrate Lorazepam 2 mg 03/19/20 15:15 03/21/20 20:49 Lorazepam 2 Mg/Ml Vial SLOW IVP 04/18/20 15:15 2 mg Q1H PRN Administration Breakthrough agitation Morphine Sulfate 2 mg 03/19/20 15:15 03/20/20 06:15 Morphine 2 Mg/Ml Vial SLOW IVP 04/18/20 15:15 2 mg Q1H PRN Administration Breakthrough Pain/Agitation Pantoprazole Sodium 40 mg 03/21/20 09:00 03/24/20 08:18 Pantoprazole 40 Mg Granules Packet PER TUBE 40 mg DAILY NANCY Administration Pregabalin 150 mg 03/03/20 21:00 03/24/20 08:18 Pregabalin 75 Mg Cap PO 150 mg BID NANCY Administration Propofol 1,000 mg 03/19/20 15:15 03/24/20 08:18 Propofol 1,000 Mg/100 Ml Vial IV 04/18/20 15:15 1,000 mg INF PRN Administration TO ACHIEVE GOAL RASS Protocol Saccharomyces Boulardii 250 mg 03/10/20 09:00 03/24/20 08:18 Saccharomyces Boulardii 250 Mg Cap PO 250 mg DAILY NANCY Administration Silver Sulfadiazine 0 gm 03/05/20 21:00 03/24/20 08:19 Silver Sulfadiazine 50 Gm Jar TP 1 applic BID NANCY Administration Sodium Chloride 10 ml 03/07/20 21:00 03/23/20 21:48 Flush - Normal Saline 10 Ml Syringe IVF 10 ml Q12HR NANCY Administration Sodium Chloride 10 ml 03/07/20 09:30 03/24/20 08:20 Flush - Normal Saline 10 Ml Syringe IVF 10 ml PRN PRN Administration Saline Flush Trospium 20 mg 03/04/20 09:00 03/24/20 08:18 Trospium 20 Mg Tab PO 20 mg DAILY NANCY Administration - Exam General Appearance: ill appearing General - other findings: On ventilator Eye: PERRL ENT: normocephalic atraumatic Neck: symmetric, no JVD Heart: RRR, no gallops, no rubs Heart - other findings: Tachycardia Respiratory: no wheezes, no rales, no ronchi Gastrointestinal: soft, non-distended, normal bowel sounds Extremities: 2+ LE edema Hosp A/P (1) Acute respiratory failure with hypoxia Code(s): J96.01 - ACUTE RESPIRATORY FAILURE WITH HYPOXIA Status: Acute (2) Sepsis with acute organ dysfunction Code(s): A41.9 - SEPSIS, UNSPECIFIED ORGANISM; R65.20 - SEVERE SEPSIS WITHOUT SE PTIC SHOCK Status: Acute Qualifiers: Sepsis type: methicillin resistant Staphylococcus aureus Severe sepsis acute organ dysfunction type: acute respiratory failure Acute respiratory failure type: with hypoxia Severe sepsis shock status: with septic shock Qualified Code(s): A41.02 - Sepsis due to Methicillin resistant Staphylococcus aureus; R65.21 - Severe sepsis with septic shock; J96.01 - Acute respiratory failure with hypoxia (3) Necrotizing fasciitis Code(s): M72.6 - NECROTIZING FASCIITIS Status: Acute (4) Necrotizing cellulitis Code(s): L03.90 - CELLULITIS, UNSPECIFIED Status: Acute (5) Acute kidney failure Status: Acute (6) Cellulitis of upper extremity Code(s): L03.119 - CELLULITIS OF UNSPECIFIED PART OF LIMB Status: Acute Qualifiers: Laterality: unspecified laterality Qualified Code(s): L03.119 - Cellulitis of unspecified part of limb (7) Septic arthritis of knee, right Code(s): M00.9 - PYOGENIC ARTHRITIS, UNSPECIFIED Status: Acute Qualifiers: Septic arthritis organism: staphylococcal Qualified Code(s): M00.061 - Staphylococcal arthritis, right knee (8) Lumbar stenosis Code(s): M48.061 - SPINAL STENOSIS, LUMBAR REGION WITHOUT NEUROGENIC OMID Status: Chronic Qualifiers: Neurogenic claudication status: unspecified Qualified Code(s): M48.061 - Spinal stenosis, lumbar region without neurogenic claudication (9) PVD (peripheral vascular disease) Code(s): I73.9 - PERIPHERAL VASCULAR DISEASE, UNSPECIFIED Status: Chronic (10) Hypertension Code(s): I10 - ESSENTIAL (PRIMARY) HYPERTENSION Status: Acute Qualifiers: Hypertension type: essential hypertension Qualified Code(s): I10 - Essential (primary) hypertension (11) Dyslipidemia Code(s): E78.5 - HYPERLIPIDEMIA, UNSPECIFIED Status: Acute (12) Obesity (BMI 30-39.9) Code(s): E66.9 - OBESITY, UNSPECIFIED Status: Chronic (13) Tachyarrhythmia Code(s): R00.0 - TACHYCARDIA, UNSPECIFIED Status: Acute - Plan old records reviewed/req, continue antibiotics Plan Reviewed his hospital chart, patient has no improvement even after maximum treatment effort, Despite antibiotic therapy patient is still febrile, Patient is DNR and family has decided withdrawal of care tomorrow Patient's condition is very critical, his is not unexpected anytime After terminal extubation expecting his very soon Medications reviewed and continue provide symptomatic and supportive care
[2020-03-24] MEDS: Amiodarone 450 MG in Dextrose 5% in Water 250 ML IVPB SCH (12:36)
--- NOTE | 2020-03-24 17:27 | PRG ---
DATE OF SERVICE: 03/24/2020 OBJECTIVE: VITAL SIGNS: The patient noted with the following vital signs; temperature maximum of 102.5, respiratory rate of 24, heart rate of 90, and blood pressure 138/69. HEENT: Remarkable for endotracheal tube in place. CARDIOVASCULAR SYSTEM: First and second heart sounds were heard. RESPIRATORY SYSTEM: Revealed vented sounds. IMPRESSION: 1. Necrotizing fasciitis. 2. Acute kidney injury. . Further management to be dependent on the clinical course. The patient seems to be leaning towards terminal extubation. Job ID: [id number]
[2020-03-24] MEDS ORDERED: Vancomycin HCl 750 MG in Sodium Chloride 0.9% 250 ML 250 ML IVPB SCH (21:00)
[2020-03-24] MEDS: Atorvastatin Calcium 10 MG TAB PO SCH (21:07)
[2020-03-25 02:45] VITALS: BP 126/65
[2020-03-25] MEDS: Amiodarone 450 MG in Dextrose 5% in Water 250 ML IVPB SCH (03:03)
[2020-03-25] MEDS: Piperacillin/Tazobactam 4.5 GM in Sodium Chloride 0.9% 100 ML IVPB SCH (05:31)
--- NOTE | 2020-03-25 07:58 | PRG ---
DATE OF SERVICE: 03/25/2020 SUBJECTIVE: Mr. Humphrey is very somnolent on mechanical ventilation. He is receiving some sedation. He remains on Levophed drip. PHYSICAL EXAMINATION: VITAL SIGNS: His pulse is 86, blood pressure 120/66, O2 saturation 94%, respiratory rate 28. Mechanical ventilation settings are SIMV rate 20, tidal volume 470, PEEP 10, pressure support 12, FiO2 of 60%. GENERAL: He does not appear any different from yesterday. HEENT: Unchanged. NECK: No JVD. LUNGS: Poor air movement. CARDIAC: S1 and S2 regular. ABDOMEN: Protuberant. EXTREMITIES: Edematous. Labs have been stopped. X-ray was not performed. ASSESSMENT: 1. Acute respiratory failure requiring mechanical ventilation. 2. Sepsis syndrome. 3. Failure to thrive. 4. Renal failure. 5. Severe deconditioning. PLAN: Withdrawal of care is planned later today. I am fully in agreement of hospice measures. Job ID: [id number]
[2020-03-25] MEDS ORDERED: Scopolamine 1.5 mg/72 hour Patch TD SCH (08:00)
[2020-03-25] MEDS ORDERED: Famotidine 20 MG TAB PO SCH (09:00)
[2020-03-25] MEDS ORDERED: Lorazepam 2 MG/ML VIAL SLOW IVP PRN (09:11)
--- NOTE | 2020-03-25 09:12 | PDOC.PALPN ---
Palliative Progress Note - Subjective Intubated with mechanical ventilation, sedated with Levophed infusion. Wound dressings to extremities. - Objective Vital Signs: Vital Signs - Most Recent Temp Pulse Resp BP Pulse Ox 100.1 F H 83 26 H 126/65 98 03/25/20 04:00 03/25/20 07:55 03/25/20 07:55 03/25/20 02:44 03/25/20 07:55 - Physical Exam Constitutional: encephalitic, ill appearing HEENT: moist MMs Respiratory: diminished lung sound Deviation from normal: Mechanical ventilation Cardiovascular: RRR Gastrointestinal: non-tender Deviation from normal: distended Genitourinary: gastelum catheter Musculoskeletal: diffuse muscle atrophy Skin: fragile, friable Deviation from normal: Wounds as per wound photos Deviation from normal: Sedated/metabolic encephalopathy - Assessment (1) Palliative care encounter Code(s): Z51.5 - ENCOUNTER FOR PALLIATIVE CARE Status: Acute (2) Acute respiratory failure with hypoxia Code(s): J96.01 - ACUTE RESPIRATORY FAILURE WITH HYPOXIA Status: Acute (3) Necrotizing cellulitis Code(s): L03.90 - CELLULITIS, UNSPECIFIED Status: Acute (4) Necrotizing fasciitis Code(s): M72.6 - NECROTIZING FASCIITIS Status: Acute (5) Obesity (BMI 30-39.9) Code(s): E66.9 - OBESITY, UNSPECIFIED Status: Chronic (6) Acute kidney failure Status: Acute - Plan Plan: Family elected to transition care to comfort measures with Hospice and extubate Mr Humphrey. [facility] to assume care Spiritual care aware Communicated with Dr Lobo and Dr Dacosta. Comfort medications ordered for transition to hospice. Please also refer to Palliative Care notes in note section. [25] minutes spent on this encounter with >50% of the time in counseling and coordination of care. - ROS Non Response: due to endotracheal tube, due to mental status
[2020-03-25] MEDS ORDERED: Morphine 4 MG/ML VIAL SLOW IVP PRN (09:13)
[2020-03-25 09:15] VITALS: TEMP 100.8
[2020-03-25] MEDS ORDERED: Morphine 4 MG/ML VIAL SLOW IVP SCH (09:15)
[2020-03-25] MEDS: Lorazepam 2 MG/ML VIAL SLOW IVP PRN (09:21)
[2020-03-25] MEDS ORDERED: Lorazepam 2 MG/ML VIAL ONE (09:24)
[2020-03-25] MEDS ORDERED: Morphine 4 MG/ML VIAL ONE (09:24)
--- NOTE | 2020-03-25 11:29 | PDOC.DS.DS ---
Provider - Provider Date of Admission: 02/29/20 14:11 Admitting Provider: Chau Amato MD Primary Care Physician: Selam Ballard Course - Hospital Course Hospital Course: 64-year-old male who has multiple medical problem, he has peripheral vascular disease, hypertension, who was recently hospitalized for a septic arthritis due to MRSA and and during that admission patient had septic shock with multiorgan involvement, patient was discharged with a long-term antibiotic therapy and he came back on February 29, 2020. During this admission patient was having bilateral upper extremity cellulitis with abscess, patient also had lower extremity cellulitis. On admission CT angiography was performed which was negative for pulmonary embolism Orthopedic was consulted and patient was taken for OR, patient had drainage of deep abscesses, debridement of necrotizing fasciitis and fasciectomy and subsequently wound VAC was applied Postprocedure patient had respiratory failure and patient required intubation, Dr. Kramer and pulmonology was managing. During this admission echocardiography showed EF 30 to 35% and patient also had tachyarrhythmia, patient also developed multiorgan failure with nephrology was also following. Despite doing aggressive intervention with antibiotic and supportive care patient condition did not improve, he had prolonged hospitalization, finally we had a discussion with the family member about goal of care, palliative care was also on the case, patient remained persistently febrile, family decided to do withdrawal of care, patient was made DNR. And subsequently patient was transitioned to inpatient hospice and patient was terminally extubated. Patient service was transition to inpatient hospice facility and immediately after extubation patient was . Resuscitation Status: 03/23/20 10:54 Resuscitation Status Routine Co-Sign Provider: Resuscitation Status: DNAR: NO Resuscitation Discussed with: Sister Additional comments: Anahi Humphrey communicated iwth siblings and is surrogate decision maker. Elected to transition to DNAR. - Labs Lab Results: 03/24/20 03:45 03/24/20 03:45 Abnormal Lab Results - Last 48 hrs 03/24/20 03:45: BUN 59 H, Creatinine 2.51 H 03/24/20 03:45: WBC 33.2 H, RBC 2.82 L, Hgb 8.0 L, Hct 26.3 L, MCHC 30.4 L, RDW 15.9 H, Plt Count 122 L, MPV 13.8 H, Neutrophils % (Manual) 76 H, Band Neuts % (Manual) 16 H, Lymphocytes % (Manual) 4 L Microbiology - Entire Visit 03/21/20 09:27 Venous blood - Left Hand Blood Culture - Preliminary NO GROWTH AT 48 HOURS 03/20/20 05:46 Picc Line - Right Internal Jugular vein Blood Culture - Preliminary NO GROWTH AT 48 HOURS 03/20/20 05:57 Venous blood - Left Arm Blood Culture - Preliminary NO GROWTH AT 48 HOURS 03/21/20 09:27 Central Line - Right Internal Jugular vein Blood Culture - Preliminary Specimen has been received and culture in progress. No Growth to date. 03/10/20 08:51 Central Line - Right external jugular vein Blood Culture - Final NO GROWTH IN 5 DAYS 03/10/20 08:30 Venous blood - Right Arm Blood Culture - Final NO GROWTH IN 5 DAYS 03/10/20 09:08 Urine clean catch Urine Culture - Final Presumptive Aileen albicans 03/08/20 14:03 Sputum Respiratory Culture - Final 03/06/20 13:10 Urine gastelum catheter Urine Culture - Final Presumptive Aileen albicans 02/29/20 19:10 Arm - Tissue Bacterial Culture - Final 02/29/20 19:10 Arm - Tissue Anaerobic Culture - Final NO ANAEROBES ISOLATED IN 5 DAYS 02/29/20 19:50 Arm - Tissue Bacterial Culture - Final 02/29/20 19:50 Arm - Tissue Anaerobic Culture - Final NO ANAEROBES ISOLATED IN 5 DAYS 02/29/20 19:10 Arm - Tissue Bacterial Culture - Final 02/29/20 19:10 Arm - Tissue Anaerobic Culture - Final NO ANAEROBES ISOLATED IN 5 DAYS 02/29/20 19:10 Arm - Right Bacterial Culture - Final 02/29/20 19:10 Arm - Right Anaerobic Culture - Final NO ANAEROBES ISOLATED IN 5 DAYS 02/29/20 19:50 Arm - Tissue Bacterial Culture - Final 02/29/20 19:50 Arm - Tissue Anaerobic Culture - Final NO ANAEROBES ISOLATED IN 5 DAYS 02/29/20 19:50 Arm - Abscess Bacterial Culture - Final 02/29/20 19:50 Arm - Abscess Anaerobic Culture - Final NO ANAEROBES ISOLATED IN 5 DAYS 02/29/20 14:36 Venous blood - Left Arm Blood Culture - Final NO GROWTH IN 5 DAYS 02/29/20 14:36 Venous blood - Left Hand Blood Culture - Final NO GROWTH IN 5 DAYS - Physical Exam Vitals: Vital Signs (12 hours) Temp Pulse Resp BP Pulse Ox 03/25/20 08:00 100.8 F H 03/25/20 07:55 83 26 H 98 03/25/20 07:54 83 03/25/20 07:26 97 03/25/20 06:00 26 H 03/25/20 04:00 100.1 F H 25 H 03/25/20 02:44 84 126/65 03/25/20 02:00 24 H 03/25/20 01:20 85 133/62 03/25/20 01:19 83 24 H 99 03/25/20 00:00 100.4 F H 24 H Weight Admit Weight 222 lb Weight 212 lb 4.882 oz Most Recent Monitor Data Heart Rate from ECG 84 NIBP 121/62 NIBP BP-Mean 81 Respiration from ECG 25 SpO2 98 Physical Exam: The patient was seen and examined on the day of discharge. Before patient was seen bedside Patient was on ventilator Lungs grossly clear anteriorly Cardiac S1-S2 regular Problem - Problem (1) Acute respiratory failure with hypoxia Code(s): J96.01 - ACUTE RESPIRATORY FAILURE WITH HYPOXIA Status: Acute (2) Sepsis with acute organ dysfunction Code(s): A41.9 - SEPSIS, UNSPECIFIED ORGANISM; R65.20 - SEVERE SEPSIS WITHOUT SEPTIC SHOCK Status: Acute Qualifiers: Sepsis type: methicillin resistant Staphylococcus aureus Severe sepsis acute organ dysfunction type: acute respiratory failure Acute respiratory failure type: with hypoxia Severe sepsis shock status: with septic shock Qualified Code(s): A41.02 - Sepsis due to Methicillin resistant Staphylococcus aureus; R65.21 - Severe sepsis with septic shock; J96.01 - Acute respiratory failure with hypoxia (3) Necrotizing fasciitis Code(s): M72.6 - NECROTIZING FASCIITIS Status: Acute (4) Necrotizing cellulitis Code(s): L03.90 - CELLULITIS, UNSPECIFIED Status: Acute (5) Acute kidney failure Status: Acute (6) Cellulitis of upper extremity Code(s): L03.119 - CELLULITIS OF UNSPECIFIED PART OF LIMB Status: Acute Qualifiers: Laterality: unspecified laterality Qualified Code(s): L03.119 - Cellulitis of unspecified part of limb (7) Septic arthritis of knee, right Code(s): M00.9 - PYOGENIC ARTHRITIS, UNSPECIFIED Status: Acute Qualifiers: Septic arthritis organism: staphylococcal Qualified Code(s): M00.061 - Stap hylococcal arthritis, right knee (8) Lumbar stenosis Code(s): M48.061 - SPINAL STENOSIS, LUMBAR REGION WITHOUT NEUROGENIC OMID Status: Chronic Qualifiers: Neurogenic claudication status: unspecified Qualified Code(s): M48.061 - Spinal stenosis, lumbar region without neurogenic claudication (9) PVD (peripheral vascular disease) Code(s): I73.9 - PERIPHERAL VASCULAR DISEASE, UNSPECIFIED Status: Chronic (10) Hypertension Code(s): I10 - ESSENTIAL (PRIMARY) HYPERTENSION Status: Acute Qualifiers: Hypertension type: essential hypertension Qualified Code(s): I10 - Essential (primary) hypertension (11) Dyslipidemia Code(s): E78.5 - HYPERLIPIDEMIA, UNSPECIFIED Status: Acute (12) Obesity (BMI 30-39.9) Code(s): E66.9 - OBESITY, UNSPECIFIED Status: Chronic (13) Tachyarrhythmia Code(s): R00.0 - TACHYCARDIA, UNSPECIFIED Status: Acute Plan - Discharge Medications Home Medications: Medication Instructions Recorded Confirmed Type Solifenacin Succinate [VESIcare] 5 mg PO DAILY 02/02/13 03/01/20 History Simvastatin [Zocor] 20 mg PO HS #0 tab 06/22/13 03/01/20 Rx Aspirin [Aspirin EC] 81 mg PO DAILY 11/02/14 03/01/20 History Lisinopril 30 mg PO DAILY 11/02/14 03/01/20 History Metoprolol Tartrate 25 mg PO DAILY 11/02/14 03/01/20 History Acetaminophen With Codeine 1 tablet PO Q4HR PRN #0 tablet 11/05/14 03/01/20 Rx [Tylenol with Codeine #3] Amlodipine [Norvasc] 5 mg PO DAILY 02/12/20 03/01/20 History Meloxicam 15 mg PO DAILY 02/12/20 03/01/20 History Pregabalin 150 mg PO BID 02/12/20 03/01/20 History Heparin 5,000 units SC BID 10 Days vial 02/19/20 03/01/20 Rx Allergies: No Known Drug Allergies Allergy (Verified 02/15/20 06:30) ALLERGY PER HIPFXPREOP ORDER ambien Adverse Reaction (Intermediate, Uncoded 02/15/20 06:30) confusion agitated, confused, restless - Discharge Instructions Activity:: No Restrictions Nourishment:: No Restrictions Therapies:: Not Applicable Equipment/Supplies:: Not Applicable IV Therapy:: Not Applicable - Follow up Plan Referrals: Selam Ballard MD [Primary Care Provider] - Disposition: HOSPICE MEDICAL FACILITY Quality - Care Measures CORE MEASURES:: N/A
== END 2020-03-25 09:21 | disposition hospice, inpatient (51) | DRG 853 ==
LOC: ERS 11:55 → ONC 14:11 → CCU 21:14
PROVIDERS: ADMIT Student in an Organized Health Care Education/Training Program; ATTEND Internal Medicine
PROC: 0JBG0ZZ Excision of Right Lower Arm Subcutaneous Tissue and Fascia, Open Approach (ICD-10-PCS; principal; 2020-02-29)
PROC: 0LB50ZZ Excision of Right Lower Arm and Wrist Tendon, Open Approach (ICD-10-PCS; 2020-02-29)
PROC: 0JBH0ZZ Excision of Left Lower Arm Subcutaneous Tissue and Fascia, Open Approach (ICD-10-PCS; 2020-02-29)
PROC: 0LB60ZZ Excision of Left Lower Arm and Wrist Tendon, Open Approach (ICD-10-PCS; 2020-02-29)
PROC: 0LB60ZZ Excision of Left Lower Arm and Wrist Tendon, Open Approach (ICD-10-PCS; 2020-02-29)
PROC: 0LB50ZZ Excision of Right Lower Arm and Wrist Tendon, Open Approach (ICD-10-PCS; 2020-02-29)
PROC: 30233L1 Transfusion of Nonautologous Fresh Plasma into Peripheral Vein, Percutaneous Approach (ICD-10-PCS; 2020-02-29)
PROC: 30233N1 Transfusion of Nonautologous Red Blood Cells into Peripheral Vein, Percutaneous Approach (ICD-10-PCS; 2020-02-29)
PROC: 30233K1 Transfusion of Nonautologous Frozen Plasma into Peripheral Vein, Percutaneous Approach (ICD-10-PCS; 2020-02-29)
PROC: 3E033XZ Introduction of Vasopressor into Peripheral Vein, Percutaneous Approach (ICD-10-PCS; 2020-02-29)
PROC: 5A1955Z Respiratory Ventilation, Greater than 96 Consecutive Hours (ICD-10-PCS; 2020-02-29)
PROC: 0BH17EZ Insertion of Endotracheal Airway into Trachea, Via Natural or Artificial Opening (ICD-10-PCS; 2020-02-29)
PROC: 0HREXK3 Replacement of Left Lower Arm Skin with Nonautologous Tissue Substitute, Full Thickness, External Approach (ICD-10-PCS; 2020-03-04)
PROC: 0LB60ZZ Excision of Left Lower Arm and Wrist Tendon, Open Approach (ICD-10-PCS; 2020-03-04)
PROC: 0LB50ZZ Excision of Right Lower Arm and Wrist Tendon, Open Approach (ICD-10-PCS; 2020-03-04)
PROC: 0HRDXK3 Replacement of Right Lower Arm Skin with Nonautologous Tissue Substitute, Full Thickness, External Approach (ICD-10-PCS; 2020-03-04)
PROC: 0LX80ZZ Transfer Left Hand Tendon, Open Approach (ICD-10-PCS; 2020-03-04)
PROC: 0LX80ZZ Transfer Left Hand Tendon, Open Approach (ICD-10-PCS; 2020-03-04)
PROC: 0BH17EZ Insertion of Endotracheal Airway into Trachea, Via Natural or Artificial Opening (ICD-10-PCS; 2020-03-08)
PROC: 5A1955Z Respiratory Ventilation, Greater than 96 Consecutive Hours (ICD-10-PCS; 2020-03-08)
PROC: 3E0G76Z Introduction of Nutritional Substance into Upper GI, Via Natural or Artificial Opening (ICD-10-PCS; 2020-03-08)
PROC: 02HV33Z Insertion of Infusion Device into Superior Vena Cava, Percutaneous Approach (ICD-10-PCS; 2020-03-08)
PROC: 5A09457 Assistance with Respiratory Ventilation, 24-96 Consecutive Hours, Continuous Positive Airway Pressure (ICD-10-PCS; 2020-03-12)
PROC: 0BH17EZ Insertion of Endotracheal Airway into Trachea, Via Natural or Artificial Opening (ICD-10-PCS; 2020-03-19)
PROC: 5A1955Z Respiratory Ventilation, Greater than 96 Consecutive Hours (ICD-10-PCS; 2020-03-19)
PROC: 0WCQ8ZZ Extirpation of Matter from Respiratory Tract, Via Natural or Artificial Opening Endoscopic (ICD-10-PCS; 2020-03-20)
PROC: 3E1F88Z Irrigation of Respiratory Tract using Irrigating Substance, Via Natural or Artificial Opening Endoscopic (ICD-10-PCS; 2020-03-20)
DX: A41.02 Sepsis due to Methicillin resistant Staphylococcus aureus (principal); R65.21 Severe sepsis with septic shock; M72.6 Necrotizing fasciitis; J69.0 Pneumonitis due to inhalation of food and vomit; I50.23 Acute on chronic systolic (congestive) heart failure; G93.41 Metabolic encephalopathy; J80 Acute respiratory distress syndrome; L03.115 Cellulitis of right lower limb; L02.414 Cutaneous abscess of left upper limb; M00.061 Staphylococcal arthritis, right knee; E87.2 Acidosis; L02.413 Cutaneous abscess of right upper limb; I47.1 Supraventricular tachycardia; N17.9 Acute kidney failure, unspecified; E87.0 Hyperosmolality and hypernatremia; I47.2 Ventricular tachycardia; E87.1 Hypo-osmolality and hyponatremia; I42.8 Other cardiomyopathies; L03.114 Cellulitis of left upper limb; L03.113 Cellulitis of right upper limb; Z51.5 Encounter for palliative care; Z66 Do not resuscitate; Z20.828 Contact with and (suspected) exposure to other viral communicable diseases; G40.909 Epilepsy, unspecified, not intractable, without status epilepticus; F17.290 Nicotine dependence, other tobacco product, uncomplicated; M65.132 Other infective (teno)synovitis, left wrist; M65.131 Other infective (teno)synovitis, right wrist; G89.29 Other chronic pain; M54.5 Low back pain; I73.9 Peripheral vascular disease, unspecified; E78.5 Hyperlipidemia, unspecified; I11.0 Hypertensive heart disease with heart failure; M48.061 Spinal stenosis, lumbar region without neurogenic claudication; E87.6 Hypokalemia; E87.8 Other disorders of electrolyte and fluid balance, not elsewhere classified; D69.6 Thrombocytopenia, unspecified; Y95 Nosocomial condition; Z85.46 Personal history of malignant neoplasm of prostate; Z78.1 Physical restraint status; Z90.79 Acquired absence of other genital organ(s); Z79.899 Other long term (current) drug therapy; Z79.82 Long term (current) use of aspirin; Z79.1 Long term (current) use of non-steroidal anti-inflammatories (NSAID); Z95.828 Presence of other vascular implants and grafts; Z68.33 Body mass index [BMI] 33.0-33.9, adult; E66.01 Morbid (severe) obesity due to excess calories; D64.9 Anemia, unspecified; F10.21 Alcohol dependence, in remission; Z79.2 Long term (current) use of antibiotics; Z91.81 History of falling; M66.342 Spontaneous rupture of flexor tendons, left hand; F41.9 Anxiety disorder, unspecified; R45.1 Restlessness and agitation; L97.519 Non-pressure chronic ulcer of other part of right foot with unspecified severity; R62.7 Adult failure to thrive
CPT/HCPCS: 31624; 36415; 36430; 36600; 71045; 71275; 80048; 80053; 80202; 81003; 81015; 82550; 82805; 83605; 83690; 83735; 83880; 84100; 84484; 85007; 85025; 85027; 86769; 86850; 86900; 86901; 87040; 87070; 87086; 87205; 87635; 88305; 93005; 93010; 93306; 94002; 94003; 94640; 94660; 96365; 96367; C9363-KX-JC; J0132; J0282; J0690; J0692; J1200; J1450; J1580; J1644; J1650; J1940; J1956; J2060; J2250; J2270; J2370; J2405; J2540; J2543; J2704; J2765; J2920; J2997; J3010; J3370; J3475; J3480; J3490; J7030; J7050; J7070; J7620; P9016; P9047; P9059; Q9967; S0020; S0028; U0003

== ENCOUNTER 2020-03-25 09:36 | Inpatient (IN) | payer OTHER ==
[2020-03-25] MEDS ORDERED: Morphine 4 MG/ML VIAL SLOW IVP PRN ×2 (09:52→09:54)
[2020-03-25] MEDS ORDERED: Lorazepam 2 MG/ML VIAL SLOW IVP PRN ×2 (09:52→09:55)
[2020-03-25] MEDS ORDERED: Morphine 4 MG/ML VIAL ONE (09:55)
[2020-03-25] MEDS ORDERED: Lorazepam 2 MG/ML VIAL ONE (09:56)
[2020-03-25] MEDS ORDERED: Lorazepam 2 MG/ML VIAL SLOW IVP SCH (10:00)
[2020-03-25] MEDS ORDERED: Scopolamine 1.5 mg/72 hour Patch TOP PRN (10:00)
[2020-03-25] MEDS ORDERED: Ondansetron PF 4 MG/2 ML Vial IVP PRN (10:00)
[2020-03-25] MEDS ORDERED: Morphine 4 MG/ML VIAL SLOW IVP SCH (10:00)
== END 2020-03-25 11:12 | disposition expired | DRG 951 ==
LOC: CCU 09:36
PROVIDERS: ADMIT Family Medicine; ATTEND Family Medicine
DX: Z51.5 Encounter for palliative care (principal); Z66 Do not resuscitate
CPT/HCPCS: J2060; J2270